=== PATIENT | male | born 1945 | race Caucasian/White ===

== ENCOUNTER 2017-05-08 08:59 | Inpatient (IN) | payer OTHER ==
[~2017-05-08] VITALS: Ht 177.8 cm; Wt 111.2 kg
[2017-05-08] VITALS (53 sets, daily range): BP systolic 76–145; BP diastolic 52–126; PULSE 59–157; TEMP 32.4–36.9; O2SAT 88–100; BMI 35.1
[~2017-05-08 08:59] MED LIST: CIPR-255 PO; OMEG10007 PO
[2017-05-08] MEDS ORDERED: SODIUM CHLORIDE 0.9% 1000ML 1,000 ML IV STA (09:02)
[2017-05-08] MEDS ORDERED: EPINEPHRINE HCL 4 MG in DEXTROSE 5% 250ML IV PRN (09:15)
[2017-05-08] MEDS ORDERED: SODIUM CHLORIDE 0.9% 1000ML 2,000 ML IV STA (09:22)
[2017-05-08] MEDS ORDERED: OPTIRAY 320 IV PRN (09:30)
--- NOTE | 2017-05-08 09:32 | DIAGNOSTIC IMAGING REPORT ---
CHEST ONE VIEW PORTABLE CLINICAL HISTORY: Cardiac arrest. COMPARISON STUDY: Chest CT May 11, 2013. FINDINGS: The tip of the endotracheal tube is 2.3 cm above the alysa. There is moderate enlargement of the cardiac silhouette. There is diffuse interstitial thickening with bilateral airspace opacities within the lungs. No pneumothorax or pleural effusion is identified. There is mild gaseous distention of visualized portions of the stomach. IMPRESSION: 1. Satisfactory positioning of the endotracheal tube. 2. Extensive interstitial thickening with bilateral airspace opacities. The findings favor pulmonary edema. Bilateral pneumonia could appear similar although is considered less likely. Electronically signed by: Tono Rothman M.D. 05/08/2017 9:30 AM Dictated Date/Time: 05/08/2017 9:28 AM
[2017-05-08 09:40] LABS: ISTAT CREATININE 1.3 mg/dl (0.6-1.3); ISTAT IONIZED CALCIUM 1.01 mmol/l (1.12-1.32); ISTAT POTASSIUM 3.2 mEq/L (3.3-5.0)
[2017-05-08 09:49] LABS: INR 1.1 (0.9-1.1); PTT PATIENT 37.8 SECONDS (21.0-31.0)
[2017-05-08 09:54] LABS: ALBUMIN 2.4 gm/dl (3.4-5.0); ALT/SGPT 62 U/L (12-78); AST/SGOT 77 U/L (15-37); BLOOD UREA NITROGEN 14 mg/dl (7-18); CARBON DIOXIDE 13 mmol/L (21-32); CREATININE 1.43 mg/dl (0.60-1.40); GLUCOSE 266 mg/dl (70-99); POTASSIUM 3.2 mmol/L (3.5-5.1); SODIUM 144 mmol/L (136-145)
--- NOTE | 2017-05-08 09:54 | EMERGENCY ROOM VISIT NOTE ---
History Report prepared by Danica: Paula Stokes Under the Supervision of: Dr. Pérez Helms D.O. First contact with patient: 09:01 Stated Complaint: CARDIAC ARREST History of Present Illness The patient is a 72 year old male who presents to the Emergency Room for loss of consciousness. The patients states that the patient was fine this morning when he woke up, noting that he suddenly lost consciousness and was on the floor facing down. His states that she immediately began CPR and called 911. When EMS arrived, the patient was defibrillated 4 times and received Lidocaine, Ativan (1mg), and epinephrine. The patient was intubated prior to arrival and received intermittent CPR on his way to the hospital, noting his pulse would come and go. The patient received CPR when he arrived to the Emergency Department and a pulse was returned. The HPI is limited due to patient being in full cardiac arrest. Source of History: patient History Limited By: cardiac arrest Onset: this morning Position: other (global) Quality: other (loss of consciousness) Review of Systems See HPI for pertinent positives & negatives. A total of 10 systems reviewed and were otherwise negative. Past Medical & Surgical Medical Problems: (1) No known problems (2) Unresponsive Family History Patient reports no known family medical history. Social History Smoking Status: Former Smoker Alcohol Use: none Marital Status: Occupation Status: retired Current/Historical Medications Scheduled Fish Oil ([place]-3), 1 CAP PO DAILY Multivitamin (Multivitamin), 1 TAB PO DAILY Allergies Coded Allergies: No Known Allergies (Verified , 05/08/17) Physical Exam Vital Signs Date Time Temp Pulse Resp B/P (MAP) Pulse Ox O2 Delivery O2 Flow Rate FiO2 05/08/17 10:45 97/76 05/08/17 10:44 159 30 88 Mechanical Ventilator 05/08/17 10:40 101/75 05/08/17 10:39 139 37 92 Mechanical Ventilator 05/08/17 10:35 116/74 05/08/17 10:34 122 36 95 Mechanical Ventilator 05/08/17 10:32 124/78 05/08/17 10:29 125 33 95 Mechanical Ventilator 05/08/17 10:24 145 40 94 Mechanical Ventilator 05/08/17 10:19 143 49 96 Mechanical Ventilator 05/08/17 10:14 155 25 95 Mechanical Ventilator 05/08/17 10:09 153 99 Mechanical Ventilator 05/08/17 10:04 150 23 100 Mechanical Ventilator 05/08/17 10:02 141 05/08/17 10:01 156/116 05/08/17 09:59 127 05/08/17 09:40 115 05/08/17 09:39 112 17 Mechanical Ventilator 05/08/17 09:36 92/58 05/08/17 09:34 91 16 81 Mechanical Ventilator 05/08/17 09:33 115 05/08/17 09:32 92/66 05/08/17 09:29 95 16 78 Mechanical Ventilator 05/08/17 09:26 133/104 05/08/17 09:25 100 05/08/17 09:24 159 0 67 Mechanical Ventilator 05/08/17 09:23 145 05/08/17 09:19 172 8 77 Mechanical Ventilator 05/08/17 09:17 48 05/08/17 09:14 94 15 Mechanical Ventilator 05/08/17 09:13 129 05/08/17 09:12 123 05/08/17 09:12 35.4 126 40 101/56 85 Mechanical Ventilator 05/08/17 09:11 131 05/08/17 09:10 122 05/08/17 09:00 35.4 05/08/17 09:00 35.4 05/08/17 09:00 85 Mechanical Ventilator 05/08/17 09:00 85 Mechanical Ventilator Physical Exam GENERAL: CPR in progress, in full cardiac arrest, intubated. EYES: Pupils are fixed and dilated, but not reactive to light bilaterally. The conjunctivae are clear. EARS, NOSE, MOUTH AND THROAT: Blood in both naris as well as oropharynx and tracheal tube in place. Mucous membranes are moist tongue is midline NECK: JVD bilaterally. RESPIRATORY: Lung sounds diminished with rales in both lung simmons. Respiration present with bagging only. CARDIOVASCULAR: Initially absent, upon return of circulation: irregular and tachycardic heart sounds noted, no define murmurs appreciated. GASTROINTESTINAL: Abdomen is mildly distended. Bowel sounds are present in all quadrants. MUSCULOSKELETAL/EXTREMITIES: There is no evidence of gross deformity full range of motion is noted in the hips and shoulders SKIN: Skin is modeled and capillary refill is significantly diminished. NEUROLOGIC: GCS 3 intubated. Medical Decision & Procedures ER Provider Diagnostic Interpretation: Radiology results as stated below per my review and radiologist interpretation: CHEST ONE VIEW PORTABLE CLINICAL HISTORY: Chronic arrest. Respiratory failure. LINE PLACEMENT COMPARISON STUDY: 05/08/2017 FINDINGS: The heart is enlarged. There is a nasogastric tube with its tip at the level the gastric cardia. There is an endotracheal tube positioned 4.8 cm above the alysa. There is been interval placement of a left subclavian central venous catheter. There is no pneumothorax. There are bilateral pulmonary airspace opacities consistent with pulmonary edema.[ IMPRESSION: 1. Persistent bilateral pulmonary airspace opacities consistent with pulmonary edema 2. Interval placement of a left subclavian central venous catheter. Tip projects over the superior vena cava. There is no pneumothorax. Electronically signed by: Bud Fatima M.D. 05/08/2017 11:17 AM Dictated Date/Time: 05/08/2017 11:[address] SCAN OF THE ABDOMEN AND PELVIS WITH IV CONTRAST CLINICAL HISTORY: Cardiac arrest. COMPARISON STUDY: Abdominal CT dated 11/14/2013. TECHNIQUE: Following the IV administration of 92 cc of Optiray 320, CT scan of the abdomen and pelvis is performed from the lung bases to the proximal femora. Images are reviewed in the axial, sagittal, and coronal planes. IV contrast was administered without complication. A dose lowering technique was utilized adhering to the principles of ALARA. Examination is degraded by motion artifact, as well as by streak artifact from the arms which could not be elevated above the abdomen. FINDINGS: Lung bases: The heart is mildly enlarged and without pericardial effusion. Emphysematous change is identified. Patchy airspace consolidation is seen at both lung bases and there is diffuse groundglass change. There are trace pleural effusions. Liver: Evaluation of the liver is degraded by streak artifact. The contrast-enhanced liver is normal in size, contour, and attenuation. There is no intrahepatic biliary ductal dilatation. The hepatic veins and portal veins are patent. Hepatic periportal edema is noted. Gallbladder: Unremarkable. Spleen: Normal in size and attenuation. Pancreas: Unremarkable. Adrenal glands: Unremarkable. Kidneys: The contrast enhanced kidneys are atrophic and without hydronephrosis. The kidneys enhance symmetrically. A 6.3 cm cyst arises from the upper pole of the left kidney. Additional smaller cysts and too small Cortical hypodensities are present bilaterally. Abdominal vasculature: There is moderate to advanced atherosclerotic calcification of the abdominal aorta. A 3.3 x 3.4 cm infrarenal abdominal aortic aneurysm is identified. Bowel: There is moderate diverticulosis of left colon without CT evidence of acute diverticulitis. No bowel obstruction is seen. There is no pneumatosis intestinalis or portal venous gas. The appendix is well-visualized and normal. Peritoneum: There is no intraperitoneal free air or abdominal ascites. Lymphadenopathy: No adenopathy is identified. A 2.4 x 2.2 cm ovoid water attenuation structure in the left periaortic region image #[id number] is unchanged dating back to 2013 and may represent a small lymphangioma or inclusion cyst. Pelvic viscera: The bladder is decompressed around a Nelson catheter and grossly unremarkable. The prostate and seminal vesicles are normal as imaged. Skeletal structures: The skeletal structures are osteopenic. Arthritic change is noted in the hips and lumbar spine. No lytic or blastic lesions are seen. IMPRESSION: 1. Streak and motion degraded examination. 2. No acute infectious or inflammatory findings are identified in the abdomen or pelvis. 3. Cardiomegaly and emphysema. 4. There is groundglass change present at both lung bases with dense bibasilar consolidation and trace pleural effusions. This could represent pneumonia and/or edema. Clinical correlation will be essential. 5. There is a 3.3 x 3.4 cm infrarenal abdominal aortic aneurysm. 6. Colonic diverticulosis without CT evidence of acute diverticulitis. 7. Additional findings as above. Electronically signed by: Alfonso Daniels M.D. 05/08/2017 10:29 AM Dictated Date/Time: 05/08/2017 10:[address] ANGIOGRAPHY OF THE CHEST, PULMONARY EMBOLUS PROTOCOL CLINICAL HISTORY: Cardiac arrest. COMPARISON STUDY: Chest CT May 11, 2013. TECHNIQUE: Following IV administration of 92 mL of Optiray-320, helical axial images of the chest were obtained utilizing the pulmonary embolus protocol. Maximal intensity projections and sagittal and coronal reformats were viewed on an independent 3D workstation. IV contrast was administered without complication. A dose lowering technique was utilized adhering to the principles of ALARA. FINDINGS: No pulmonary emboli are identified although the segmental and subsegmental pulmonary arteries are suboptimally assessed due to respiratory motion. The heart is moderately enlarged. Thoracic aortic opacification is inadequate to assess for dissection but the caliber of the thoracic aorta is normal. There is no pericardial effusion. Positioning of the endotracheal tube is satisfactory. There is no pneumothorax. There are trace bilateral pleural effusions. There is diffuse interstitial thickening with extensive bilateral airspace opacities. Underlying emphysema is noted. There is suspected trace anterior mediastinal hemorrhage. There are several locules of gas within the anterior chest wall. The abdomen and pelvis will be reported separately. A left renal cyst is noted. There is reflux of contrast into the IVC and hepatic veins. IMPRESSION: 1. No pulmonary emboli identified although segmental and subsegmental pulmonary arteries suboptimally assessed due to respiratory motion. 2. Interstitial thickening consistent with interstitial pulmonary edema. Extensive bilateral airspace opacities favor alveolar pulmonary edema however bilateral pneumonia could appear similar. Bilateral pleural effusions. No pneumothorax. 3. Satisfactory positioning of the endotracheal tube. 4. Moderate to severe emphysema. 5. Moderate cardiomegaly. 6. Suspected trace anterior mediastinal hemorrhage which is indeterminate in etiology but may be related to CPR. Electronically signed by: Tono Rothman M.D. 05/08/2017 10:17 AM Dictated Date/Time: 05/08/2017 9:58 AM CHEST ONE VIEW PORTABLE CLINICAL HISTORY: Cardiac arrest. COMPARISON STUDY: Chest CT May 11, 2013. FINDINGS: The tip of the endotracheal tube is 2.3 cm above the alysa. There is moderate enlargement of the cardiac silhouette. There is diffuse interstitial thickening with bilateral airspace opacities within the lungs. No pneumothorax or pleural effusion is identified. There is mild gaseous distention of visualized portions of the stomach. IMPRESSION: 1. Satisfactory positioning of the endotracheal tube. 2. Extensive interstitial thickening with bilateral airspace opacities. The findings favor pulmonary edema. Bilateral pneumonia could appear similar although is considered less likely. Electronically signed by: Tono Rothman M.D. 05/08/2017 9:30 AM Dictated Date/Time: 05/08/2017 9:[address] HEAD WITHOUT CONTRAST (CT) CLINICAL HISTORY: CT OF HEAD WITHOUT CHANGE IN MENTAL STATUS COMPARISON STUDY: No previous studies for comparison. TECHNIQUE: Axial CT of the brain is performed from the vertex to the skull base. IV contrast was not administered for this examination. A dose lowering technique was utilized adhering to the principles of ALARA. CT DOSE: 2549.81 mGy.cm FINDINGS: No intra or extra-axial mass lesions are visualized. There is no CT evidence of acute cortical infarction. There is no evidence of midline shift. There is no acute hemorrhage. No calvarial fractures are visualized. There are patchy white matter hypodensities likely on a small vessel basis. There is no evidence of pathologic ventricular dilatation. There are bilateral sphenoid sinus air-fluid levels. The concrete handler topogram reveals pulmonary edema. IMPRESSION: 1. Small bilateral sphenoid sinus air-fluid levels 2. The concrete handler topogram reveals pulmonary edema 3. No acute intracranial findings Electronically signed by: Bud Fatima M.D. 05/08/2017 9:58 AM Dictated Date/Time: 05/08/2017 9:56 AM Laboratory Results Test 05/08/17 09:25 05/08/17 09:28 05/08/17 10:07 Macrocytosis PRESENT Lactic Acid Level 14.2 mmol/L (0.4-2.0) Total Bilirubin 1.0 mg/dl (0.2-1) Direct Bilirubin 0.3 mg/dl (0-0.2) Aspartate Amino Transf (AST/SGOT) 77 U/L (15-37) Alanine Aminotransferase (ALT/SGPT) 62 U/L (12-78) Alkaline Phosphatase 108 U/L (45-117) Ammonia 135.6 umol/L (11-32) Total Creatine Kinase 94 U/L (39-308) Total Protein 5.0 gm/dl (6.4-8.2) Albumin 2.4 gm/dl (3.4-5.0) Bedside Hemoglobin 15.0 g/dl (14.0-18.0) Bedside Hematocrit 44 % (42-52) Bedside Sodium 143 mEq/L (135-144) Bedside Potassium 3.2 mEq/L (3.3-5.0) Bedside Chloride 108 mEq/L (101-112) Bedside Total CO2 15 mEq/l (24-31) Bedside Blood Urea Nitrogen 15 mg/dl (7-18) Bedside Creatinine 1.3 mg/dl (0.6-1.3) Bedside Ionized Calcium ([place]) 1.01 mmol/l (1.12-1.32) Carboxyhemoglobin 0.3 % [facility] results per my review. ECG Indication: other (cardiac arrest) Rate (beats per minute): 101 Rhythm: atrial fibrillation Findings: PVC, ST depression (diffused), T-wave inversion Comparison ECG Date: changes new to 05/23/2004 ED Course 0900: The patient was evaluated in room B1. A complete history and physical examination were performed. 0902: Ordered Sodium Chloride 1000ml @ 999mls/hr IV. 0915: Ordered Epinephrine HCL 4mg/ Dextrose 254ml @ 0 mls/hr IV. 0922: Ordered Sodium Chloride 2000ml @ 999 mls/hr IV. 0930: Ordered Ioversol 100ml IV. 1009: Sodium Bicarbonate 50ml IV. 1005: Discussed the patients test findings with his . She states that the patient had been working on fixing a door in the basement for the past 3 days, noting she thinks that the fumes affected him. 1014: I reevaluated the patient, his pupils are now normal size, reactive, and is blinking. 1021: I discussed the patient's case with JUDIT Feliz. The patient will be evaluated for further management. 1025: I discussed the patient's case with JUDIT Lind. The patient will be evaluated for further management. Medical Decision Prior records/ancillary studies reviewed. Triage Nursing notes reviewed. Additional history obtained from EMS staff. Differential diagnosis: Etiologies such as cardiac arrest, atrial fibrillation, pulmonary edema The patient is a 72-year-old male who presented to the emergency Department is a cardiac arrest. We received a medical command phone call about this patient. The patient received defibrillation as well as lidocaine and epinephrine prior to arrival. The patient had a pulse intermittently prior to arrival but on arrival the patient did not have a pulse. The cardiac resuscitation continued while in the emergency department. A pulse was returned and the patient was started on an epinephrine drip. Additional history is obtained from the patient' s significant other. The patient was further resuscitated and the caustic mixer was consulted. I discussed the patient's laboratory and radiographic studies with the caustic mixer as well as with the on-call [facility] hospitalist group. Because the patient had return of spontaneous [facility] The patient was cooled. The patient was transferred to the ICU for further resuscitation. Head Trauma GCS Score: 3 Medication Reconcilliation Current Medication List: was personally reviewed by me Consults Time Called: 1021 Consulting Physician: JUDIT Feliz Returned Call: 1021 I discussed the patient's case with JUDIT Feliz. The patient will be evaluated for further management. Additional Consults: Time Called: 1025 Consulted Physician: Dr. Collado Returned Call: [phone] Additional Comments: I discussed the patient's case with Dr. Collado, [facility] [place]. The patient will be evaluated for further management. Impression Primary Impression: Cardiac arrest Additional Impressions: Acidosis, metabolic, with respiratory acidosis Ventricular fibrillation Atrial fibrillation Abnormal EKG Pulmonary edema cardiac cause Critical Care I have personally spent greater than 60 minutes of critical care time in the direct management of this patient. This includes bedside care, interpretation of diagnostic studies, and testing, discussion with consultants, patient, and family members, and other required patient management activities. This 60 minutes is in excess of all separately billable procedures. Scribe Attestation The scribe's documentation has been prepared under my direction and personally reviewed by me in its entirety. I confirm that the note above accurately reflects all work, treatment, procedures, and medical decision making performed by me. Departure Information Dispostion Being Evaluated By Hospitalist Referrals No Doctor, Assigned (PCP) Forms HOME CARE DOCUMENTATION FORM, IMPORTANT VISIT INFORMATION, WORK / SCHOOL INSTRUCTIONS Problem Qualifiers Additional Impressions: Atrial fibrillation Atrial fibrillation type: unspecified Qualified Codes: I48.91 - Unspecified atrial fibrillation
--- NOTE | 2017-05-08 09:59 | DIAGNOSTIC IMAGING REPORT ---
CT HEAD WITHOUT CONTRAST (CT) CLINICAL HISTORY: CT OF HEAD WITHOUT CHANGE IN MENTAL STATUS COMPARISON STUDY: No previous studies for comparison. TECHNIQUE: Axial CT of the brain is performed from the vertex to the skull base. IV contrast was not administered for this examination. A dose lowering technique was utilized adhering to the principles of ALARA. CT DOSE: 2549.81 mGy.cm FINDINGS: No intra or extra-axial mass lesions are visualized. There is no CT evidence of acute cortical infarction. There is no evidence of midline shift. There is no acute hemorrhage. No calvarial fractures are visualized. There are patchy white matter hypodensities likely on a small vessel basis. There is no evidence of pathologic ventricular dilatation. There are bilateral sphenoid sinus air-fluid levels. The honing machine operator semiautomatic topogram reveals pulmonary edema. IMPRESSION: 1. Small bilateral sphenoid sinus air-fluid levels 2. The honing machine operator semiautomatic topogram reveals pulmonary edema 3. No acute intracranial findings Electronically signed by: Bud Fatima M.D. 05/08/2017 9:58 AM Dictated Date/Time: 05/08/2017 9:56 AM
[2017-05-08 10:00] LABS: HEMOGLOBIN 14.7 g/dL (14.0-18.0); MEAN CELL VOLUME 101.3 fL (80-100); MEAN CORPUSCULAR HEMOGLOBIN 32.4 pg (25-34); MEAN PLATELET VOLUME 10.6 fL (7.4-10.4); PLATELET COUNT 101 K/uL (130-400); RED CELL DISTRIBUTION WIDTH CV 14.8 % (11.5-14.5); RED CELL DISTRIBUTION WIDTH SD 54.7 fL (36.4-46.3); WHITE BLOOD COUNT 7.67 K/uL (4.8-10.8)
[2017-05-08 10:04] LABS: ALKALINE PHOSPHATASE 108 U/L (45-117); CKMB 1.5 ng/ml (0.5-3.6)
[2017-05-08] MEDS ORDERED: MULT-506 PO (10:08)
[2017-05-08] MEDS ORDERED: SODIUM BICARB 8.4% INJ 50 MEQ/50 ML SYR IV STA (10:09)
[2017-05-08 10:11] LABS: BASO % 0.5 %; BASO ABS # 0.04 K/uL (0-0.2); EOS % 2.9 %; EOS ABS # 0.22 K/uL (0-0.5); IG# 0.23 K/uL (0.00-0.02); LYMPH % 41.6 %; LYMPH ABS # 3.19 K/uL (1.2-3.4); MONO % 7.6 %; MONO ABS # 0.58 K/uL (0.11-0.59); NEUT % 44.4 %; NEUT ABS # 3.41 K/uL (1.4-6.5)
--- NOTE | 2017-05-08 10:19 | DIAGNOSTIC IMAGING REPORT ---
CT ANGIOGRAPHY OF THE CHEST, PULMONARY EMBOLUS PROTOCOL CLINICAL HISTORY: Cardiac arrest. COMPARISON STUDY: Chest CT May 11, 2013. TECHNIQUE: Following IV administration of 92 mL of Optiray-320, helical axial images of the chest were obtained utilizing the pulmonary embolus protocol. Maximal intensity projections and sagittal and coronal reformats were viewed on an independent 3D workstation. IV contrast was administered without complication. A dose lowering technique was utilized adhering to the principles of ALARA. FINDINGS: No pulmonary emboli are identified although the segmental and subsegmental pulmonary arteries are suboptimally assessed due to respiratory motion. The heart is moderately enlarged. Thoracic aortic opacification is inadequate to assess for dissection but the caliber of the thoracic aorta is normal. There is no pericardial effusion. Positioning of the endotracheal tube is satisfactory. There is no pneumothorax. There are trace bilateral pleural effusions. There is diffuse interstitial thickening with extensive bilateral airspace opacities. Underlying emphysema is noted. There is suspected trace anterior mediastinal hemorrhage. There are several locules of gas within the anterior chest wall. The abdomen and pelvis will be reported separately. A left renal cyst is noted. There is reflux of contrast into the IVC and hepatic veins. IMPRESSION: 1. No pulmonary emboli identified although segmental and subsegmental pulmonary arteries suboptimally assessed due to respiratory motion. 2. Interstitial thickening consistent with interstitial pulmonary edema. Extensive bilateral airspace opacities favor alveolar pulmonary edema however bilateral pneumonia could appear similar. Bilateral pleural effusions. No pneumothorax. 3. Satisfactory positioning of the endotracheal tube. 4. Moderate to severe emphysema. 5. Moderate cardiomegaly. 6. Suspected trace anterior mediastinal hemorrhage which is indeterminate in etiology but may be related to CPR. Electronically signed by: Tono Rothman M.D. 05/08/2017 10:17 AM Dictated Date/Time: 05/08/2017 9:58 AM
--- NOTE | 2017-05-08 10:30 | DIAGNOSTIC IMAGING REPORT ---
CT SCAN OF THE ABDOMEN AND PELVIS WITH IV CONTRAST CLINICAL HISTORY: Cardiac arrest. COMPARISON STUDY: Abdominal CT dated 11/14/2013. TECHNIQUE: Following the IV administration of 92 cc of Optiray 320, CT scan of the abdomen and pelvis is performed from the lung bases to the proximal femora. Images are reviewed in the axial, sagittal, and coronal planes. IV contrast was administered without complication. A dose lowering technique was utilized adhering to the principles of ALARA. Examination is degraded by motion artifact, as well as by streak artifact from the arms which could not be elevated above the abdomen. FINDINGS: Lung bases: The heart is mildly enlarged and without pericardial effusion. Emphysematous change is identified. Patchy airspace consolidation is seen at both lung bases and there is diffuse groundglass change. There are trace pleural effusions. Liver: Evaluation of the liver is degraded by streak artifact. The contrast-enhanced liver is normal in size, contour, and attenuation. There is no intrahepatic biliary ductal dilatation. The hepatic veins and portal veins are patent. Hepatic periportal edema is noted. Gallbladder: Unremarkable. Spleen: Normal in size and attenuation. Pancreas: Unremarkable. Adrenal glands: Unremarkable. Kidneys: The contrast enhanced kidneys are atrophic and without hydronephrosis. The kidneys enhance symmetrically. A 6.3 cm cyst arises from the upper pole of the left kidney. Additional smaller cysts and too small Cortical hypodensities are present bilaterally. Abdominal vasculature: There is moderate to advanced atherosclerotic calcification of the abdominal aorta. A 3.3 x 3.4 cm infrarenal abdominal aortic aneurysm is identified. Bowel: There is moderate diverticulosis of left colon without CT evidence of acute diverticulitis. No bowel obstruction is seen. There is no pneumatosis intestinalis or portal venous gas. The appendix is well-visualized and normal. Peritoneum: There is no intraperitoneal free air or abdominal ascites. Lymphadenopathy: No adenopathy is identified. A 2.4 x 2.2 cm ovoid water attenuation structure in the left periaortic region image #[id number] is unchanged dating back to 2013 and may represent a small lymphangioma or inclusion cyst. Pelvic viscera: The bladder is decompressed around a Nelson catheter and grossly unremarkable. The prostate and seminal vesicles are normal as imaged. Skeletal structures: The skeletal structures are osteopenic. Arthritic change is noted in the hips and lumbar spine. No lytic or blastic lesions are seen. IMPRESSION: 1. Streak and motion degraded examination. 2. No acute infectious or inflammatory findings are identified in the abdomen or pelvis. 3. Cardiomegaly and emphysema. 4. There is groundglass change present at both lung bases with dense bibasilar consolidation and trace pleural effusions. This could represent pneumonia and/or edema. Clinical correlation will be essential. 5. There is a 3.3 x 3.4 cm infrarenal abdominal aortic aneurysm. 6. Colonic diverticulosis without CT evidence of acute diverticulitis. 7. Additional findings as above. Electronically signed by: Alfonso Daniels M.D. 05/08/2017 10:29 AM Dictated Date/Time: 05/08/2017 10:20 AM
[2017-05-08] MEDS ORDERED: ICU PROTOCOL FOR HYPERGLYCEMIA PRN (10:45)
[2017-05-08] MEDS ORDERED: PROPOFOL IV EMULSION 10 MG/ML 100 ML VIAL IV ONE (10:54)
--- NOTE | 2017-05-08 11:12 | Procedure Note ---
Procedure Note Procedure Date May 08, 2017. Central Line Procedure time out: side/site verified, patient ID confirmed, sterile procedure used Consent obtained: emergent consent implied Time of procedure: 11:00 Performed by: attending Indications: central drug admin. Prep: chlorhexadine prep, sterile drape, sterile procedures used Anesthesia: lidocaine 1% without epi Central line lumen: triple Central line location: subclavian (L) Additional details: percutaneous placement, ultrasound guidance, Selinger technique used, line sutured, good blood return CXR: appropriate position, no pneumothorax Complications: none Patient tolerated procedure: well Post-procedure vital signs: reviewed and stable Comments: May use line
[2017-05-08] MEDS ORDERED: ACETAMINOPHEN 650 MG SUPP PR PRN (11:15)
[2017-05-08] MEDS ORDERED: BusPIRone 15 MG TAB NG PRN (11:15)
[2017-05-08] MEDS ORDERED: HYDROmorphone INJ 1 MG/ML SYR IV PRN (11:15)
[2017-05-08] MEDS ORDERED: MEPERIDINE HCL 25 MG/ML CARP IV PRN (11:15)
--- NOTE | 2017-05-08 11:18 | DIAGNOSTIC IMAGING REPORT ---
CHEST ONE VIEW PORTABLE CLINICAL HISTORY: Chronic arrest. Respiratory failure. LINE PLACEMENT COMPARISON STUDY: 05/08/2017 FINDINGS: The heart is enlarged. There is a nasogastric tube with its tip at the level the gastric cardia. There is an endotracheal tube positioned 4.8 cm above the alysa. There is been interval placement of a left subclavian central venous catheter. There is no pneumothorax. There are bilateral pulmonary airspace opacities consistent with pulmonary edema.[ IMPRESSION: 1. Persistent bilateral pulmonary airspace opacities consistent with pulmonary edema 2. Interval placement of a left subclavian central venous catheter. Tip projects over the superior vena cava. There is no pneumothorax. Electronically signed by: Bud Fatima M.D. 05/08/2017 11:17 AM Dictated Date/Time: 05/08/2017 11:15 AM
[2017-05-08] MEDS ORDERED: SODIUM CHLORIDE 0.9% 1000ML 3,000 ML IV ONE (11:35)
--- NOTE | 2017-05-08 11:41 | Critical Care Consultation ---
Critical Care Consultation Date of Consultation: May 08, 2017. Attending Physician: Reason for Consultation: Cardiac arrest History of Present Illness This is 72 year-old male, previously in good health, was found on he floor by his , unresponsive. She saw him well not too long before, he had no complaints, was not recently sick. He was working in the basement stripping down a door, being exposed to fumes. The started called 911 and started CPR. EMS delivered 4 shocks, administered Lidocaine and epinephrine, Ativan 1 mg and intubated him in the field. In ED he receive more CPR and had ROSC. Currently on an epinephrine drip, in a- fib with RVR. Noticed epistaxis and bleeding from the ET tube, bilateral nasal packings were inserted Remains comatose with some posturing Right SC TLC inserted, OGT inserted as well Social History Smoking Status: Former Smoker Marital Status: Occupation Status: retired Allergies Coded Allergies: No Known Allergies (Verified , 05/08/17) Home Medications Scheduled Fish Oil (Worden-3), 1 CAP PO DAILY Multivitamin (Multivitamin), 1 TAB PO DAILY Current Inpatient Medications Current Inpatient Medications Medications (Trade) Dose Ordered Sig/Te Route Start Time Stop Time Status Last Admin Dose Admin Epinephrine HCl 4 mg/Dextrose 254 ml @ 0 mls/hr Q0M PRN IV 05/08/17 09:15 06/07/17 09:14 Ioversol (Optiray 320) 100 ml UD PRN IV 05/08/17 09:30 05/12/17 09:29 Sodium Chloride 2,000 ml @ 999 mls/hr Q2H1M STAT IV 05/08/17 09:22 05/08/17 11:22 Miscellaneous Information (Icu Protocol For Hyperglycemia) 1 ea PRN PRN N/A 05/08/17 10:45 05/10/17 10:44 UNV Review of Systems Unable to obtain secondary to being comatose Physical Exam Date Time Temp Pulse Resp B/P (MAP) Pulse Ox O2 Delivery O2 Flow Rate FiO2 05/08/17 10:02 141 05/08/17 09:40 115 05/08/17 09:33 115 05/08/17 09:25 100 05/08/17 09:23 145 05/08/17 09:17 48 05/08/17 09:13 129 05/08/17 09:12 123 05/08/17 09:11 131 05/08/17 09:10 122 General: Elderly male, well nourished, well developed, in no distress, unresponsive, intubate HEENT: pupils 2-3 mm, sluggishly reactive to light. Bilateral nasal packing. Lungs: Coarse breath sounds b/l CVS: tachycardic, S1S2 irregularly irregular Abd: soft, non-distended Ext: no edema BREWERY PUMPER: Eyes closed, non-responsive to pain. Although he does not have a cough reflex from deep suction, he coughs forcefully when blood spills in the trachea. Occasional posturing Laboratory Results Last 24 Hours Test 05/08/17 09:02 05/08/17 09:25 05/08/17 09:28 05/08/17 10:07 White Blood Count 7.67 K/uL Red Blood Count 4.54 M/uL Hemoglobin 14.7 g/dL Hematocrit 46.0 % Mean Corpuscular Volume 101.3 fL Mean Corpuscular Hemoglobin 32.4 pg Mean Corpuscular Hemoglobin Concent 32.0 g/dl Platelet Count 101 K/uL Mean Platelet Volume 10.6 fL Neutrophils (%) (Auto) 44.4 % Lymphocytes (%) (Auto) 41.6 % Monocytes (%) (Auto) 7.6 % Eosinophils (%) (Auto) 2.9 % Basophils (%) (Auto) 0.5 % Neutrophils # (Auto) 3.41 K/uL Lymphocytes # (Auto) 3.19 K/uL Monocytes # (Auto) 0.58 K/uL Eosinophils # (Auto) 0.22 K/uL Basophils # (Auto) 0.04 K/uL RDW Standard Deviation 54.7 fL RDW Coefficient of Variation 14.8 % Immature Granulocyte % (Auto) 3.0 % Immature Granulocyte # (Auto) 0.23 K/uL Macrocytosis PRESENT Prothrombin Time 11.9 SECONDS Prothromb Time International Ratio 1.1 Activated Partial Thromboplast Time 37.8 SECONDS Partial Thromboplastin Ratio 1.5 Sodium Level 144 mmol/L Potassium Level 3.2 mmol/L Chloride Level 109 mmol/L Carbon Dioxide Level 13 mmol/L Anion Gap 21.0 mmol/L 24.0 mmol/L Blood Urea Nitrogen 14 mg/dl Creatinine 1.43 mg/dl Estimated GFR () 56.3 Estimated GFR (Non- 48.6 BUN/Creatinine Ratio 10.1 Random Glucose 266 mg/dl Lactic Acid Level 14.2 mmol/L Calcium Level 8.0 mg/dl Total Bilirubin 1.0 mg/dl Direct Bilirubin 0.3 mg/dl Aspartate Amino Transf (AST/SGOT) 77 U/L Alanine Aminotransferase (ALT/SGPT) 62 U/L Alkaline Phosphatase 108 U/L Ammonia 135.6 umol/L Total Creatine Kinase 94 U/L Creatine Kinase MB 1.5 ng/ml Creatine Kinase MB Ratio 1.6 Troponin I 0.069 ng/ml Total Protein 5.0 gm/dl Albumin 2.4 gm/dl Bedside Hemoglobin 15.0 g/dl Bedside Hematocrit 44 % Bedside Sodium 143 mEq/L Bedside Potassium 3.2 mEq/L Bedside Chloride 108 mEq/L Bedside Total CO2 15 mEq/l Bedside Blood Urea Nitrogen 15 mg/dl Bedside Creatinine 1.3 mg/dl Bedside Glucose (other) 257 mg/dl Bedside Ionized Calcium (Emerald) 1.01 mmol/l Carboxyhemoglobin 0.3 % THgb Test 05/08/17 10:08 Bedside Blood Gas pH (LAB) 6.92 Bedside Blood Gas pCO2 (LAB) 70 mmHg Bedside Blood Gas pO2 (LAB) 197 mmHg Bedside Blood Gas HCO3 (LAB) 15 meq/L Bedside Blood Gas Total CO2 17 mEq/l Bedside Blood Gas Base Excess (LAB) -18.0 meq/L Bedside Blood Gas O2 Saturation 99.0 % Diagnostic Results CT brain today: 1. Small bilateral sphenoid sinus air-fluid levels 2. The lamination assembler topogram reveals pulmonary edema 3. No acute intracranial findings CT chest today: 1. No pulmonary emboli identified although segmental and subsegmental pulmonary arteries suboptimally assessed due to respiratory motion. 2. Interstitial thickening consistent with interstitial pulmonary edema. Extensive bilateral airspace opacities favor alveolar pulmonary edema however bilateral pneumonia could appear similar. Bilateral pleural effusions. No pneumothorax. 3. Satisfactory positioning of the endotracheal tube. 4. Moderate to severe emphysema. 5. Moderate cardiomegaly. 6. Suspected trace anterior mediastinal hemorrhage which is indeterminate in etiology but may be related to CPR. CT abdomen/pelvis: 1. Streak and motion degraded examination. 2. No acute infectious or inflammatory findings are identified in the abdomen or pelvis. 3. Cardiomegaly and emphysema. 4. There is groundglass change present at both lung bases with dense bibasilar consolidation and trace pleural effusions. This could represent pneumonia and/or edema. Clinical correlation will be essential. 5. There is a 3.3 x 3.4 cm infrarenal abdominal aortic aneurysm. 6. Colonic diverticulosis without CT evidence of acute diverticulitis. 7. Additional findings as above. Assessment & Plan Problems: Cardiac arrest Respiratory failure Atrial fibrillation Epistaxis Plan: BREWERY PUMPER: Initiate therapeutic hypothermia protocol CT brain reviewed Will require sedation and perhaps neuromuscular blockade Will rewarm after 24 hours CVS: Pressor support, switch to Levophed secondary to tachycardia Check 2DEcho Follow up cardiac enzymes No anticoagulation, secondary to bleeding and hypothermia protocol Pulmonary: Vent support Titrate down FiO2 Elevate head ID: Prophylactic Abx for b/l nasal packing, on Unasyn Blood cultures sent per protocol GI: OGT inserted Keep NPO Protonix for GI bleeding prophylaxis DVT prophylaxis: Start Lovenox if the bleeding slows down Critical care time spent with patient, , reviewing the chart, discussing with ED staff, excluding procedure, greater than 50 minutes Prognosis is guarded, I have a high index of suspicion for anoxic brain injury
[2017-05-08] MEDS ORDERED: PERFLUTREN LIPID MICROSPHERE (DEFINITY) IV ONE (12:28)
[2017-05-08 12:40] LABS: CKMB 21.5 ng/ml (0.5-3.6)
[2017-05-08] MEDS: SODIUM CHLORIDE 0.9% 1000ML 1,000 ML IV SCH ×2 (12:48→23:41)
[2017-05-08] MEDS: AMPICILLIN/SULBACTAM SOD INJ 1,500 MG in SODIUM CHLORIDE 0.9% 100ML 100 ML IV SCH ×3 (12:48→23:42)
[2017-05-08] MEDS: FENTANYL 1250MCG/250ML NSS 250 ML IV PRN (12:52)
[2017-05-08] MEDS: NOREPINEPHRINE BIT INJ 8 MG in DEXTROSE 5% 500ML 500 ML IV PRN ×2 (12:53→21:36)
[2017-05-08 13:12] LABS: HEMOGLOBIN 15.4 g/dL (14.0-18.0); MEAN CELL VOLUME 97.7 fL (80-100); PLATELET COUNT 115 K/uL (130-400); RED CELL DISTRIBUTION WIDTH CV 14.8 % (11.5-14.5); RED CELL DISTRIBUTION WIDTH SD 53.5 fL (36.4-46.3); WHITE BLOOD COUNT 11.98 K/uL (4.8-10.8)
[2017-05-08 13:15] LABS: MEAN CORPUSCULAR HGB CONC 32.8 g/dl (32-36)
[2017-05-08 13:21] LABS: INR 1.1 (0.9-1.1); PTT PATIENT 26.1 SECONDS (21.0-31.0)
[2017-05-08 13:29] LABS: BLOOD UREA NITROGEN 19 mg/dl (7-18); CALCIUM 7.6 mg/dl (8.5-10.1); CARBON DIOXIDE 22 mmol/L (21-32); CREATININE 1.47 mg/dl (0.60-1.40); GLUCOSE 233 mg/dl (70-99); SODIUM 141 mmol/L (136-145)
--- NOTE | 2017-05-08 13:36 | History and Physical ---
History & Physical Date & Time of Service: May 08, 2017 at 13:17 Chief Complaint: Unresponsive Primary Care Physician: No Doctor, Assigned History of Present Illness Source: spouse, hospital records 72 y/o M who was brought to the hospital via EMS after being found unresponsive by his . He had been in his usual state of health this morning upon waking and while she was getting ready to leave for work. went into the adjoining room and found pt down on the floor on his face, unresponsive. She is a home health psych nurse and started doing compressions. She noted he was taking some gasping breaths and his nose was bleeding, but was otherwise not responsive to her. She called 911. EMS found pt unresponsive and pulseless. CPR was continued, as well as shocks given en route. Pt was noted in the ED to have fixed and dilated pupils initially. He was a code blue -> code arctic. ED physician reported that pt did have some sluggish eye movements and pupil dilations after further interventions and possibly slightly responsive. states that pt is very healthy at baseline. He does not take any medications other than omega 3 and a multi-vitamin. He has been working out more recently and had lost weight. states that pt has been working in the basement for 3-4 days stripping paint and "antiquing" a door. She states that their home is old and there is not proper ventilation in the basement. He did note that he had opened some small window gratings yesterday. denies any concerns from pt regarding fever, SOB, chest pain, abd pain, n/v /c/d, LE pain or swelling. Pt is currently intubated and sedated. 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 Smoking Status: Former Smoker Alcohol Use: none Drug Use: none Marital Status: Occupational Status: retired Immunizations History of Tetanus Vaccine?: Unknown History of Pneumococcal: No History of Hepatitis B Vaccine: No Multi-Drug Resistant Organisms History of MDRO: No Allergies Coded Allergies: No Known Allergies (Verified , 05/08/17) Home Medications Scheduled Fish Oil (Mesa-3), 1 CAP PO DAILY Multivitamin (Multivitamin), 1 TAB PO DAILY Review of Systems As above per , limited due to above condition Physical Exam Vital Signs Date Time Temp Pulse Resp B/P (MAP) Pulse Ox O2 Delivery O2 Flow Rate FiO2 05/08/17 12:06 100 05/08/17 11:26 96/87 99 Mechanical Ventilator 05/08/17 11:24 153 37 84 Mechanical Ventilator 05/08/17 11:20 137/90 05/08/17 11:19 147 27 84 Mechanical Ventilator 05/08/17 11:14 176 37 89 Mechanical Ventilator 05/08/17 11:09 144 35 85 Mechanical Ventilator 05/08/17 11:05 125/77 05/08/17 11:04 157 33 84 Mechanical Ventilator 05/08/17 11:00 120/86 05/08/17 10:59 144 32 82 Mechanical Ventilator 05/08/17 10:56 110/88 05/08/17 10:54 139 56 86 Mechanical Ventilator 05/08/17 10:51 120/79 05/08/17 10:49 127 50 89 Mechanical Ventilator 05/08/17 10:45 97/76 05/08/17 10:44 159 30 88 Mechanical Ventilator 05/08/17 10:40 101/75 05/08/17 10:39 139 37 92 Mechanical Ventilator 05/08/17 10:35 116/74 05/08/17 10:34 122 36 95 Mechanical Ventilator 05/08/17 10:32 124/78 05/08/17 10:29 125 33 95 Mechanical Ventilator 05/08/17 10:24 145 40 94 Mechanical Ventilator 05/08/17 10:19 143 49 96 Mechanical Ventilator 05/08/17 10:14 155 25 95 Mechanical Ventilator 05/08/17 10:09 153 99 Mechanical Ventilator 05/08/17 10:04 150 23 100 Mechanical Ventilator 05/08/17 10:02 141 05/08/17 10:01 156/116 05/08/17 09:59 127 05/08/17 09:40 115 05/08/17 09:39 112 17 Mechanical Ventilator 05/08/17 09:36 92/58 05/08/17 09:34 91 16 81 Mechanical Ventilator 05/08/17 09:33 115 05/08/17 09:32 92/66 05/08/17 09:29 95 16 78 Mechanical Ventilator 05/08/17 09:26 133/104 05/08/17 09:25 100 05/08/17 09:24 159 0 67 Mechanical Ventilator 05/08/17 09:23 145 05/08/17 09:19 172 8 77 Mechanical Ventilator 05/08/17 09:17 48 05/08/17 09:14 94 15 Mechanical Ventilator 05/08/17 09:13 129 05/08/17 09:12 123 05/08/17 09:12 35.4 126 40 101/56 85 Mechanical Ventilator 05/08/17 09:11 131 05/08/17 09:10 122 05/08/17 09:00 35.4 05/08/17 09:00 35.4 05/08/17 09:00 85 Mechanical Ventilator 05/08/17 09:00 85 Mechanical Ventilator General Appearance: WD/WN, no apparent distress Head: normocephalic, atraumatic Respiratory/Chest: no respiratory distress, + pertinent finding (coarse breath sounds on vent) Cardiovascular: regular rate, rhythm, no edema Abdomen/GI: non tender, soft Extremities/Musculoskelatal: no calf tenderness, no pedal edema Neurologic/Psych: + pertinent finding (pt is intubated and sedated) Skin: normal color, warm/dry Diagnostics Laboratory Results Results Past 24 Hours Test 05/08/17 09:02 05/08/17 09:25 05/08/17 09:28 05/08/17 10:07 Range/Units White Blood Count 7.67 4.8-10.8 K/uL Red Blood Count 4.54 4.7-6.1 M/uL Hemoglobin 14.7 14.0-18.0 g/dL Hematocrit 46.0 42-52 % Mean Corpuscular Volume 101.3 80-100 fL Mean Corpuscular Hemoglobin 32.4 25-34 pg Mean Corpuscular Hemoglobin Concent 32.0 32-36 g/dl Platelet Count 101 130-400 K/uL Mean Platelet Volume 10.6 7.4-10.4 fL Neutrophils (%) (Auto) 44.4 % Lymphocytes (%) (Auto) 41.6 % Monocytes (%) (Auto) 7.6 % Eosinophils (%) (Auto) 2.9 % Basophils (%) (Auto) 0.5 % Neutrophils # (Auto) 3.41 1.4-6.5 K/uL Lymphocytes # (Auto) 3.19 1.2-3.4 K/uL Monocytes # (Auto) 0.58 0.11-0.59 K/uL Eosinophils # (Auto) 0.22 0-0.5 K/uL Basophils # (Auto) 0.04 0-0.2 K/uL RDW Standard Deviation 54.7 36.4-46.3 fL RDW Coefficient of Variation 14.8 11.5-14.5 % Immature Granulocyte % (Auto) 3.0 % Immature Granulocyte # (Auto) 0.23 0.00-0.02 K/uL Macrocytosis PRESENT Prothrombin Time 11.9 9.0-12.0 SECONDS Prothromb Time International Ratio 1.1 0.9-1.1 Activated Partial Thromboplast Time 37.8 21.0-31.0 SECONDS Partial Thromboplastin Ratio 1.5 Sodium Level 144 136-145 mmol/L Potassium Level 3.2 3.5-5.1 mmol/L Chloride Level 109 98-107 mmol/L Carbon Dioxide Level 13 21-32 mmol/L Anion Gap 21.0 24.0 16-25 mmol/L Blood Urea Nitrogen 14 7-18 mg/dl Creatinine 1.43 0.60-1.40 mg/dl Estimated GFR () 56.3 Estimated GFR (Non- 48.6 BUN/Creatinine Ratio 10.1 10-20 Random Glucose 266 70-99 mg/dl Lactic Acid Level 14.2 0.4-2.0 mmol/L Calcium Level 8.0 8.5-10.1 mg/dl Total Bilirubin 1.0 0.2-1 mg/dl Direct Bilirubin 0.3 0-0.2 mg/dl Aspartate Amino Transf (AST/SGOT) 77 15-37 U/L Alanine Aminotransferase (ALT/SGPT) 62 12-78 U/L Alkaline Phosphatase 108 45-117 U/L Ammonia 135.6 11-32 umol/L Total Creatine Kinase 94 39-308 U/L Creatine Kinase MB 1.5 0.5-3.6 ng/ml Creatine Kinase MB Ratio 1.6 0-3.0 Troponin I 0.069 0-0.045 ng/ml Total Protein 5.0 6.4-8.2 gm/dl Albumin 2.4 3.4-5.0 gm/dl Bedside Hemoglobin 15.0 14.0-18.0 g/dl Bedside Hematocrit 44 42-52 % Bedside Sodium 143 135-144 mEq/L Bedside Potassium 3.2 3.3-5.0 mEq/L Bedside Chloride 108 101-112 mEq/L Bedside Total CO2 15 24-31 mEq/l Bedside Blood Urea Nitrogen 15 7-18 mg/dl Bedside Creatinine 1.3 0.6-1.3 mg/dl Bedside Glucose (other) 257 70-99 mg/dl Bedside Ionized Calcium (Emerald) 1.01 1.12-1.32 mmol/l Carboxyhemoglobin 0.3 % THgb Test 05/08/17 10:08 05/08/17 11:11 05/08/17 11:56 05/08/17 13:04 Range/Units Bedside Blood Gas pH (LAB) 6.92 7.35-7.45 Bedside Blood Gas pCO2 (LAB) 70 35-46 mmHg Bedside Blood Gas pO2 (LAB) 197 80-95 mmHg Bedside Blood Gas HCO3 (LAB) 15 19-24 meq/L Bedside Blood Gas Total CO2 17 24-31 mEq/l Bedside Blood Gas Base Excess (LAB) -18.0 -9-1.8 meq/L Bedside Blood Gas O2 Saturation 99.0 90-95 % Creatine Kinase MB Ratio 0-3.0 Creatine Kinase MB 21.5 0.5-3.6 ng/ml Troponin I 1.320 0-0.045 ng/ml White Blood Count 11.98 4.8-10.8 K/uL Red Blood Count 4.81 4.7-6.1 M/uL Hemoglobin 15.4 14.0-18.0 g/dL Hematocrit 47.0 42-52 % Mean Corpuscular Volume 97.7 80-100 fL Mean Corpuscular Hemoglobin 32.0 25-34 pg Mean Corpuscular Hemoglobin Concent 32.8 32-36 g/dl RDW Standard Deviation 53.5 36.4-46.3 fL RDW Coefficient of Variation 14.8 11.5-14.5 % Platelet Count 115 130-400 K/uL Mean Platelet Volume 10.0 7.4-10.4 fL Microbiology Results 05/08/17 Blood Culture, Received Pending 05/08/17 Blood Culture, Received Pending 05/08/17 MRSA DNA Surveillance Screen, Ordered Pending Diagnostic Radiology CXR with pulm edema, ?? PNA CTA: neg for PE, with pulm edema, ?? PNA CTAP: neg for acute AAA noted, no rupture CT head: neg for acute Impression Assessment and Plan 72 y/o M who was admitted to the ICU on 05/08 after being found unresponsive at home. Pt was a code blue -> code arctic in the ED Unresponsive episode: uncertain etiology Compressions started at home, uncertain efficacy and there is some element of suspected anoxic brain injury Imaging as noted Trop with mild elevation of 0.069 on arrival, could be related to compressions, serials pending ECHO pending [address] head, CTAP all neg for acute CTA neg for PE, noted for pulm edema and ? PNA Lactic acid elevated in the setting of unresponsive episode Ammonia elevated, LFTs otherwise WNL Cr is elevated at 1.4, no recent cr on file UA and blood cx pending WBC WNL Started on pressors, unasyn by artificial flower maker Intubated and sedated L subclavian central line placed 05/08 Met with and explained role of hospitalist while pt is in the ICU Two sons, one coming in from [facility] this afternoon, the other flying in from [place] in the morning. Level of Care Critical Care VTE Prophylaxis VTE Risk Assessment Done? Y/N: Yes Risk Level: Low
[2017-05-08] MEDS: PROPOFOL IV EMULSION 10 MG/ML 100 ML VIAL IV PRN ×2 (14:38→20:27)
[2017-05-08 15:58] LABS: BASO % 0.1 %; BASO ABS # 0.01 K/uL (0-0.2); HEMOGLOBIN 15.4 g/dL (14.0-18.0); IG# 0.05 K/uL (0.00-0.02); LYMPH % 3.9 %; LYMPH ABS # 0.64 K/uL (1.2-3.4); MEAN CELL VOLUME 96.6 fL (80-100); MEAN CORPUSCULAR HEMOGLOBIN 32.4 pg (25-34); MEAN CORPUSCULAR HGB CONC 33.5 g/dl (32-36); MEAN PLATELET VOLUME 10.7 fL (7.4-10.4); MONO % 4.6 %; MONO ABS # 0.75 K/uL (0.11-0.59); NEUT % 91.1 %; NEUT ABS # 14.78 K/uL (1.4-6.5); PLATELET COUNT 111 K/uL (130-400); RED CELL DISTRIBUTION WIDTH CV 14.6 % (11.5-14.5); RED CELL DISTRIBUTION WIDTH SD 51.8 fL (36.4-46.3); WHITE BLOOD COUNT 16.23 K/uL (4.8-10.8)
[2017-05-08 16:05] LABS: INR 1.3 (0.9-1.1); PTT PATIENT 34.9 SECONDS (21.0-31.0)
--- NOTE | 2017-05-08 16:27 | Procedure Note ---
Procedure Note Procedure Date May 08, 2017. Procedure Description Procedure Name: Arterial line Procedure time out: side/site verified, patient ID confirmed, correct procedure Consent obtained: emergent consent implied Time of procedure: 15:00 Performed by: attending Indications: diagnostic Contraindications: none Description: The skin over the right axilla was cleaned with chlorhexidine. Under complete sterile precautions, using ultrasound guidance, the skin over the artery was infiltrated with Lidocaine 1%. A needle was then inserted in the axillary artery with ease. A guide was passed trough the needle and the needle was removed. A 20G arterial line, 12 cm was introduced over the wire and sutured to skin, then the wire was removed. Connected the a-line to the monitor showing good arterial wave-forms. Dressing and biopatch applied. No hematoma observed. Complications: none Patient tolerated procedure: well Post-procedure vital signs: reviewed and stable
[2017-05-08] MEDS ORDERED: PNEUMOCOCCAL ADMINISTRATION CHARGE ONE (16:30)
[2017-05-08] MEDS ORDERED: PNEUMOCOCCAL POLYSACCHARIDES 25 MCG/0.5 ML VIAL/SYR IM. ONE (16:30)
[2017-05-08 16:45] LABS: CREATININE 1.14 mg/dl (0.60-1.40); PHOSPHORUS 3.2 mg/dl (2.5-4.9); POTASSIUM 2.9 mmol/L (3.5-5.1)
[2017-05-08] MEDS ORDERED: PHARMACY GLYCEMIC MGMT CONSULT PRN (17:01)
[2017-05-08] MEDS ORDERED: INSULIN IV INFUSION PROTOCOL STA (17:05)
--- NOTE | 2017-05-08 17:06 | ECHOCARDIOGRAM REPORT ---
*NOTICE TO RECEIVING DEMOCRAT AGENCY This information is strictly Confidential and protected under [place] law. [place] law prohibits you from making any further disclosure of this information unless further disclosure is expressly permitted by the written consent of the person to whom it pertains or is authorized by law. A general authorization for the release of medical or other information is not sufficient for this purpose. Hospital accepts no responsibility if the information is made available to any other person, INCLUDING THE PATIENT. Interpretation Summary * Name: GINI LAWS Study Date: 05/08/2017 12:08 PM BP: 96/87 mmHg * Patient Location: .MSICU\S\E107\S\1 HR: 153 * : 1945 (M/d/y) Gender: Male Height: 70 in * Age: 72 yrs Ethnicity: CA Weight: 244 lb * Ordering Physician: Davide Gibbons * Referring Physician: Self, Referred * Performed By: Samra Hurtado RDCS * * Reason For Study: Cardiac Arrest * BSA: 2.3 m2 * -- Conclusions -- * Left ventricular systolic function is severely reduced. * There is severe global hypokinesis of the left ventricle. * Ejection Fraction = 20-25%. * No significant valvular pathology. Procedure Details * A complete two-dimensional transthoracic echocardiogram was performed (2D, M-mode, Doppler and color flow Doppler). * A contrast injection of Definity was performed to improve assessment of LV function. * Contrast was injected into an intravenous site in the right arm. * One vial of Definity ultrasound contrast was diluted in normal saline to a total volume of 10 ml. A total of '2' ml of solution was administered during imaging. * Lot # [id number] of Definity utilized for procedure. * Expiration date . * The attending nurse who injected the contrast agent was ROSALIND Romero. Left Ventricle * The left ventricle is grossly normal size. * There is normal left ventricular wall thickness. * Ejection Fraction = 20-25%. * Left ventricular systolic function is severely reduced. * There is severe global hypokinesis of the left ventricle. Right Ventricle * The right ventricle is grossly normal size. * Right ventricular function cannot be assessed due to poor image quality. Atria * Borderline left atrial enlargement. * Right atrium not well visualized. * There is no evidence of atrial septal defect, but resolution does not allow assessment for a patent foramen ovale. Mitral Valve * The mitral valve is grossly normal. * There is no mitral valve stenosis. * Significant mitral regurgitation is absent. Tricuspid Valve * The tricuspid valve is not well visualized, but is grossly normal. * Significant tricuspid regurgitation is absent. Aortic Valve * The aortic valve is trileaflet. * The aortic valve opens well. * Aortic valve sclerosis moderate, without significant aortic valvular stenosis. * There is no significant aortic regurgitation. Pulmonic Valve * The pulmonic valve is not well visualized. Great Vessels * The aortic root is normal size. * The pulmonary is not well visualized. Pericardium/Pleural * There is no pericardial effusion. Great Vessels * Dilated inferior vena cava with reduced collapsability with sniff indicates an elevated right atrial pressure of 15 mmHg MMode 2D Measurements and Calculations IVSd 0.95 cm IVSs 1.1 cm LVIDd 5.2 cm LVIDs 4.5 cm LVPWd 0.87 cm LVPWs 1.0 cm IVS/LVPW 1.1 FS 12.6 % EDV(Teich) 128.0 ml ESV(Teich) 93.4 ml EF(Teich) 27.0 % EDV(cubed) 138.5 ml ESV(cubed) 92.4 ml EF(cubed) 33.3 % % IVS thick 20.4 % % LVPW thick 19.9 % LV mass(C)d 170.3 grams LV mass(C)dI 75.0 grams/m\S\2 LV mass(C)s 175.0 grams LV mass(C)sI 77.0 grams/m\S\2 SV(Teich) 34.6 ml SI(Teich) 15.2 ml/m\S\2 SV(cubed) 46.2 ml SI(cubed) 20.3 ml/m\S\2 Ao root diam 3.6 cm Ao root area 10.0 cm\S\2 ACS 1.1 cm LA dimension 4.8 cm LA/Ao 1.4 LVAd ap4 33.9 cm\S\2 LVLd ap4 8.5 cm EDV(MOD-sp4) 118.9 ml EDV(sp4-el) 115.2 ml LVAs ap4 28.6 cm\S\2 LVLs ap4 8.1 cm ESV(MOD-sp4) 87.7 ml ESV(sp4-el) 85.6 ml EF(MOD-sp4) 26.2 % EF(sp4-el) 25.7 % LVAd ap2 29.2 cm\S\2 LVLd ap2 7.2 cm EDV(MOD-sp2) 100.2 ml EDV(sp2-el) 100.6 ml LVAs ap2 26.3 cm\S\2 LVLs ap2 7.0 cm ESV(MOD-sp2) 83.0 ml ESV(sp2-el) 84.0 ml EF(MOD-sp2) 17.2 % EF(sp2-el) 16.5 % LVLd %diff -18.19 % EDV(MOD-bp) 118.1 ml LVLs %diff -16.12 % ESV(MOD-bp) 91.7 ml EF(MOD-bp) 22.3 % SV(MOD-sp4) 31.1 ml SI(MOD-sp4) 13.7 ml/m\S\2 SV(MOD-sp2) 17.2 ml SI(MOD-sp2) 7.6 ml/m\S\2 SV(MOD-bp) 26.4 ml SI(MOD-bp) 11.6 ml/m\S\2 SV(sp4-el) 29.7 ml SI(sp4-el) 13.1 ml/m\S\2 SV(sp2-el) 16.6 ml SI(sp2-el) 7.3 ml/m\S\2 Doppler Measurements and Calculations MV E max owen 49.1 cm/sec MV A max owen 21.9 cm/sec MV E/A 2.2 MV dec time 0.29 sec Ao V2 max 64.8 cm/sec Ao max PG 1.7 mmHg Ao max PG (full) 0.22 mmHg LV V1 max PG 1.5 mmHg LV V1 max 60.4 cm/sec PA V2 max 65.7 cm/sec PA max PG 1.7 mmHg
[2017-05-08] MEDS ORDERED: CISATRACURIUM IV BOLUS & DRIP IV STA (17:07)
[2017-05-08] MEDS ORDERED: SEVERE STRESS LEVEL ONE (17:15)
[2017-05-08] MEDS: ASPIRIN 81 MG CHEW NG SCH (17:27)
[2017-05-08] MEDS ORDERED: INSULIN HUMAN REGULAR IV BOLUS 4 UNIT in SYRINGE 0 ML IV ONE (17:30)
[2017-05-08] MEDS ORDERED: INSULIN REGULAR 250 UNITS in SODIUM CHLORIDE 0.9% 250ML 250 ML IV SCH (17:34)
[2017-05-08] MEDS: POTASSIUM CHLR 20 MEQ / WTR 20 MEQ in PREMIXED WATER 100 ML IV SCH ×3 (17:44→22:11)
[2017-05-08] MEDS: MAGNESIUM SULFATE 1GM / D5W 1 GM in PREMIXED IN D5W 100 ML IV SCH ×2 (17:45→19:44)
[2017-05-08] MEDS: CISATRACURIUM BESYLATE INJ 40 MG in SODIUM CHLORIDE 0.9% 100ML 80 ML IV PRN ×2 (17:46→23:34)
--- NOTE | 2017-05-08 17:51 | EEG Procedure Note ---
EEG Procedure Note Date of Service May 08, 2017. Start / End Times Start Time: 05/08/2017 at 12:22 PM End Time: 05/08/2017 at 17:47PM Referring Physician Davide Gibbons History This is a 72-year-old male who presents with cardiac arrest and code arctic protocol. Continuous EEG to monitor for nonconvulsive status. Home Medication List Scheduled Fish Oil ([place]-3), 1 CAP PO DAILY Multivitamin (Multivitamin), 1 TAB PO DAILY Inpatient Medication List Current Inpatient Medications Medications (Trade) Dose Ordered Sig/Te Route Start Time Stop Time Status Last Admin Dose Admin Ioversol (Optiray 320) 100 ml UD PRN IV 05/08/17 09:30 05/12/17 09:29 Miscellaneous Information (Icu Protocol For Hyperglycemia) 1 ea PRN PRN N/A 05/08/17 10:45 05/10/17 10:44 Norepinephrine Bitartrate 8 mg/ Dextrose 508 ml @ 0 mls/hr Q0M PRN IV 05/08/17 11:15 06/07/17 11:14 05/08/17 12:53 41.3 MLS/HR Propofol (Diprivan Iv Emulsion 100ml Vial) 1 dose UD PRN IV 05/08/17 11:15 05/11/17 11:14 05/08/17 14:38 1 DOSE Artificial Tears (Lacri-Lube Oph Oint) 1 appln Q2H PRN OPB 05/08/17 11:15 06/07/17 11:14 Sodium Chloride 1,000 ml @ 100 mls/hr Q10H IV 05/08/17 12:15 06/07/17 12:14 05/08/17 12:48 100 MLS/HR Pantoprazole Sodium 40 mg/ Syringe 10 ml @ 5 mls/min DAILY@11 IV 05/09/17 11:00 06/08/17 10:59 Fentanyl Citrate 250 ml @ 0 mls/hr Q0M PRN IV 05/08/17 11:11 05/22/17 11:10 05/08/17 12:52 5 MLS/HR Meperidine HCl (Demerol Inj) 25 mg Q2H PRN IV 05/08/17 11:15 05/22/17 11:14 05/08/17 16:10 25 MG Hydromorphone HCl (Dilaudid Inj) 1 mg Q20M PRN IV 05/08/17 11:15 05/22/17 11:14 Acetaminophen (Tylenol Supp) 650 mg ONE PRN [place] 05/08/17 11:15 Ampicillin Sodium/ Sulbactam Sodium 1500 mg/Sodium Chloride 104 ml @ 200 mls/hr Q6H IV 05/08/17 12:00 05/18/17 11:59 05/08/17 12:48 200 MLS/HR Aspirin (Aspirin Chew) 81 mg QD NG 05/08/17 17:00 06/07/17 16:59 Magnesium Sulfate 1 gm/Prmx 100 ml @ 100 mls/hr Q1H IV 05/08/17 17:15 05/08/17 19:14 Potassium Chloride 20 meq/ Prmx 100 ml @ 50 mls/hr Q2H IV 05/08/17 17:30 05/08/17 23:29 Miscellaneous Information (Consult Glycemic Management Pharmacy) 1 ea UD PRN N/A 05/08/17 17:01 06/07/17 17:00 Insulin Human Regular (Insulin IV Infusion Protocol) 1 ea NOW STAT N/A 05/08/17 17:05 05/08/17 17:06 UNV Insulin Aspart (novoLOG ASPART) SLIDING SCALE [facility] 05/08/17 17:15 06/07/17 17:14 UNV Miscellaneous (Insulin Protocol Severe Stress) 1 ea ONE ONCE N/A 05/08/17 17:15 05/08/17 17:16 UNV Cisatracurium Besylate 40 mg/ Sodium Chloride 100 ml @ 0 mls/hr Q0M PRN IV 05/08/17 17:15 06/07/17 17:14 Description This is a 21 electrode continuous video EEG with a single channel dedicated to limited EKG. The electrodes were placed in accordance with the International 10- 20 system. Post processing with an event detection algorithm is applied to the continuous data collection for the purpose of identifying abnormal epochs. These detections are reviewed and all candidate seizures are processed for further analysis. Data is reviewed in its raw format and patient events are processed, edited and stored. At the start of this recording the patient is intubated and unresponsive. Background is diffusely suppressed (<10uV). There is no state changes or sleep transients. Occasional to frequent burst of delta/theta activity with superimposed sharp or sharply contoured waves ant 2-4Hz lasting 1-5 seconds. Patient pushbutton events at 14:48 and 15:16: EEG shows diffuse background suppression. No clinical correlation seen on video. 15:25PM to 17:47PM: Frequent (1 every 10-20sec) generalized spike and slow waves at 5 Hz with fluctuating evolution lasting 10-14 seconds consistent with nonconvulsive seizures. No clinical correlation on video. Interpretation This is an abnormal continuous video EEG secondary to: 1) frequent brief electrographic seizures after 15:25PM 2) diffuse background suppression Clinical Correlation 1) frequent brief seizures after 15:25PM are consistent with nonconvulsive status epilepticus. 2) severe generalized encephalopathy of nonspecific etiology. Medications and cooling protocol can contribute to background encephalopathy. The above results were conveyed to ICU assistant general manager.
[2017-05-08 18:36] LABS: CALCIUM 6.3 mg/dl (8.5-10.1)
[2017-05-08 19:22] LABS: HEMATOCRIT 48.3 % (42-52); HEMOGLOBIN 16.1 g/dL (14.0-18.0); IG# 0.06 K/uL (0.00-0.02); LYMPH % 3.3 %; LYMPH ABS # 0.54 K/uL (1.2-3.4); MEAN CELL VOLUME 96.4 fL (80-100); MEAN CORPUSCULAR HEMOGLOBIN 32.1 pg (25-34); MEAN CORPUSCULAR HGB CONC 33.3 g/dl (32-36); MEAN PLATELET VOLUME 10.5 fL (7.4-10.4); MONO % 4.6 %; MONO ABS # 0.76 K/uL (0.11-0.59); NEUT % 91.7 %; NEUT ABS # 15.07 K/uL (1.4-6.5); PLATELET COUNT 112 K/uL (130-400); RED CELL DISTRIBUTION WIDTH CV 14.7 % (11.5-14.5); RED CELL DISTRIBUTION WIDTH SD 51.8 fL (36.4-46.3); WHITE BLOOD COUNT 16.43 K/uL (4.8-10.8)
[2017-05-08 19:30] LABS: INR 1.1 (0.9-1.1); PTT PATIENT 24.3 SECONDS (21.0-31.0)
[2017-05-08] MEDS: ARTIFICIAL TEARS OP OINT 3.5 GM TUBE OPB PRN ×2 (20:00→22:00)
[2017-05-08] MEDS: INSULIN ASPART 100 UNITS/ML 3 ML PEN SC SCH (20:23)
[2017-05-08 20:39] LABS: CKMB 50.7 ng/ml (0.5-3.6)
[2017-05-08 20:53] LABS: CREATININE 1.49 mg/dl (0.60-1.40); PHOSPHORUS 2.9 mg/dl (2.5-4.9); POTASSIUM 3.7 mmol/L (3.5-5.1)
[2017-05-08] MEDS ORDERED: LEVETIRACETAM IV 1,000 MG in DEXTROSE 5% 100ML 100 ML IV SCH (21:00)
[2017-05-08 21:06] LABS: CALCIUM 8.5 mg/dl (8.5-10.1)
[2017-05-09] VITALS (24 sets, daily range): BP systolic 90–132; BP diastolic 50–88; PULSE 61–153; TEMP 32.3–36.2; O2SAT 95–100
[2017-05-09] MEDS: ARTIFICIAL TEARS OP OINT 3.5 GM TUBE OPB PRN ×3 (00:01→04:00)
[2017-05-09 00:24] LABS: HEMATOCRIT 44.5 % (42-52); MEAN CELL VOLUME 94.9 fL (80-100); MEAN CORPUSCULAR HGB CONC 33.7 g/dl (32-36); RED CELL DISTRIBUTION WIDTH CV 14.5 % (11.5-14.5); RED CELL DISTRIBUTION WIDTH SD 50.5 fL (36.4-46.3); WHITE BLOOD COUNT 14.19 K/uL (4.8-10.8)
[2017-05-09 00:42] LABS: INR 1.1 (0.9-1.1); PTT PATIENT 28.2 SECONDS (21.0-31.0)
[2017-05-09 00:49] LABS: CALCIUM 7.4 mg/dl (8.5-10.1); CREATININE 1.17 mg/dl (0.60-1.40); POTASSIUM 3.9 mmol/L (3.5-5.1)
[2017-05-09 00:59] LABS: BASO % 0.1 %; BASO ABS # 0.01 K/uL (0-0.2); IG# 0.04 K/uL (0.00-0.02); LYMPH % 4.2 %; LYMPH ABS # 0.59 K/uL (1.2-3.4); MEAN PLATELET VOLUME 10.5 fL (7.4-10.4); MONO % 4.5 %; MONO ABS # 0.64 K/uL (0.11-0.59); NEUT % 90.9 %; NEUT ABS # 12.91 K/uL (1.4-6.5); PLATELET COUNT 82 K/uL (130-400)
[2017-05-09 01:05] LABS: PHOSPHORUS 1.4 mg/dl (2.5-4.9)
[2017-05-09] MEDS: PROPOFOL IV EMULSION 10 MG/ML 100 ML VIAL IV PRN ×7 (01:26→22:36)
[2017-05-09] MEDS ORDERED: CALCIUM CHLORIDE 10% 10 ML SYR IV STA (03:54)
[2017-05-09] MEDS ORDERED: POTASSIUM PHOS 3 MMOL/1 ML INFUSION IV STA (03:54)
[2017-05-09] MEDS ORDERED: POTASSIUM PHOSPHATE INJ 24 MMOL in SODIUM CHLORIDE 0.9% 500ML 500 ML IV ONE (04:15)
[2017-05-09] MEDS ORDERED: CALCIUM CHLORIDE 10% 1,000 MG in SODIUM CHLORIDE 0.9% 50ML 50 ML IV STA (04:16)
[2017-05-09 04:45] LABS: HEMATOCRIT 44.7 % (42-52); HEMOGLOBIN 15.3 g/dL (14.0-18.0); MEAN CELL VOLUME 93.7 fL (80-100); MEAN CORPUSCULAR HEMOGLOBIN 32.1 pg (25-34); MEAN CORPUSCULAR HGB CONC 34.2 g/dl (32-36); RED CELL DISTRIBUTION WIDTH CV 14.4 % (11.5-14.5); WHITE BLOOD COUNT 9.03 K/uL (4.8-10.8)
[2017-05-09 05:00] LABS: IG# 0.03 K/uL (0.00-0.02); LYMPH % 7.3 %; LYMPH ABS # 0.66 K/uL (1.2-3.4); MEAN PLATELET VOLUME 10.6 fL (7.4-10.4); MONO % 3.4 %; MONO ABS # 0.31 K/uL (0.11-0.59); NEUT ABS # 8.03 K/uL (1.4-6.5); PLATELET COUNT 63 K/uL (130-400)
[2017-05-09 05:01] LABS: INR 1.1 (0.9-1.1); PTT PATIENT 27.1 SECONDS (21.0-31.0)
[2017-05-09] MEDS ORDERED: LORAZEPAM 2 MG/ML 1 ML VIAL IV ONE (05:15)
[2017-05-09 05:16] LABS: ALBUMIN 2.6 gm/dl (3.4-5.0); CALCIUM 8.6 mg/dl (8.5-10.1); CREATININE 0.94 mg/dl (0.60-1.40); PHOSPHORUS 1.6 mg/dl (2.5-4.9); POTASSIUM 3.5 mmol/L (3.5-5.1); TOTAL PROTEIN 5.3 gm/dl (6.4-8.2)
[2017-05-09] MEDS ORDERED: DEXTROSE 50% 50 ML SYR ONE (05:24)
[2017-05-09] MEDS ORDERED: GLUCOSE 10 TABS/TUBE PO PRN (05:30)
[2017-05-09] MEDS ORDERED: GLUCAGON FOR INJ 1 MG VIAL SQ PRN (05:30)
[2017-05-09] MEDS ORDERED: DEXTROSE 50% 50 ML SYR IV PRN (05:30)
[2017-05-09] MEDS ORDERED: GLUCOSE 40% GEL 15 GM TUBE PO PRN (05:30)
[2017-05-09] MEDS: AMPICILLIN/SULBACTAM SOD INJ 1,500 MG in SODIUM CHLORIDE 0.9% 100ML 100 ML IV SCH ×4 (05:38→22:48)
--- NOTE | 2017-05-09 07:51 | DIAGNOSTIC IMAGING REPORT ---
CHEST ONE VIEW PORTABLE CLINICAL HISTORY: cardiac arrest, respiratory failure dyspnea COMPARISON STUDY: 05/08/2017 FINDINGS: Endotracheal tube 4 cm below the alysa. Nasogastric tube within the stomach. Findings a parenchymal edematous change are mildly improved. Improved aeration of the upper lungs is present. Persistent infiltrative changes in the lung bases is noted. IMPRESSION: 1. Improved aeration of the mid to upper lungs bilaterally. 2. Endotracheal tube 4 cm above the alysa. 3. A central catheter is in the superior vena cava. The above report was generated using voice recognition software. It may contain grammatical, syntax or spelling errors. Electronically signed by: Alfa aMrch M.D. 05/09/2017 7:50 AM Dictated Date/Time: 05/09/2017 7:49 AM
[2017-05-09] MEDS: INSULIN ASPART 100 UNITS/ML 3 ML PEN SC SCH ×3 (08:00→17:15)
[2017-05-09 08:46] LABS: HEMATOCRIT 42.2 % (42-52); HEMOGLOBIN 14.5 g/dL (14.0-18.0); MEAN CELL VOLUME 93.4 fL (80-100); MEAN CORPUSCULAR HEMOGLOBIN 32.1 pg (25-34); MEAN CORPUSCULAR HGB CONC 34.4 g/dl (32-36); RED CELL DISTRIBUTION WIDTH CV 14.2 % (11.5-14.5); RED CELL DISTRIBUTION WIDTH SD 48.7 fL (36.4-46.3); WHITE BLOOD COUNT 11.15 K/uL (4.8-10.8)
[2017-05-09 08:54] LABS: IG# 0.06 K/uL (0.00-0.02); LYMPH % 7.1 %; LYMPH ABS # 0.79 K/uL (1.2-3.4); MEAN PLATELET VOLUME 10.8 fL (7.4-10.4); MONO % 5.2 %; MONO ABS # 0.58 K/uL (0.11-0.59); NEUT % 87.2 %; NEUT ABS # 9.72 K/uL (1.4-6.5); PLATELET COUNT 62 K/uL (130-400)
[2017-05-09 08:55] LABS: INR 1.1 (0.9-1.1); PTT PATIENT 28.4 SECONDS (21.0-31.0)
[2017-05-09 09:20] LABS: CALCIUM 8.1 mg/dl (8.5-10.1); CREATININE 0.85 mg/dl (0.60-1.40); POTASSIUM 3.6 mmol/L (3.5-5.1)
[2017-05-09 09:29] LABS: PHOSPHORUS 3.1 mg/dl (2.5-4.9)
[2017-05-09] MEDS ORDERED: NURSING VERBAL MED ORDER ONE ×5 (09:30→23:45)
[2017-05-09 09:39] LABS: HEMOGLOBIN A1C 5.5 % (4.5-5.6)
[2017-05-09] MEDS: CISATRACURIUM BESYLATE INJ 40 MG in SODIUM CHLORIDE 0.9% 100ML 80 ML IV PRN ×2 (09:43→22:54)
[2017-05-09] MEDS: SODIUM CHLORIDE 0.9% 1000ML 1,000 ML IV SCH ×2 (10:03→22:20)
[2017-05-09] MEDS: LEVETIRACETAM IV 1,500 MG in DEXTROSE 5% 100ML 100 ML IV SCH ×2 (10:03→21:18)
--- NOTE | 2017-05-09 10:12 | EEG Procedure Note ---
EEG Procedure Note Date of Service May 09, 2017. Start / End Times Start Time: 05/08/2017 at 17:47PM End Time: 05/09/2017 at 9:55AM Referring Physician Davide Gibbons History This is a 72-year-old male who presents with cardiac arrest and code arctic protocol. Continuous EEG to monitor for nonconvulsive status. Home Medication List Scheduled Fish Oil ([place]-3), 1 CAP PO DAILY Multivitamin (Multivitamin), 1 TAB PO DAILY Inpatient Medication List Current Inpatient Medications Medications (Trade) Dose Ordered Sig/Te Route Start Time Stop Time Status Last Admin Dose Admin Ioversol (Optiray 320) 100 ml UD PRN IV 05/08/17 09:30 05/12/17 09:29 Norepinephrine Bitartrate 8 mg/ Dextrose 508 ml @ 0 mls/hr Q0M PRN IV 05/08/17 11:15 06/07/17 11:14 05/08/17 21:36 0.07 MLS/HR Propofol (Diprivan Iv Emulsion 100ml Vial) 1 dose UD PRN IV 05/08/17 11:15 05/11/17 11:14 05/09/17 09:42 1 DOSE Artificial Tears (Lacri-Lube Oph Oint) 1 appln Q2H PRN OPB 05/08/17 11:15 06/07/17 11:14 05/08/17 22:00 1 APPLN Sodium Chloride 1,000 ml @ 50 mls/hr Q20H IV 05/08/17 12:15 06/07/17 12:14 05/08/17 23:41 100 MLS/HR Pantoprazole Sodium 40 mg/ Syringe 10 ml @ 5 mls/min DAILY@11 IV 05/09/17 11:00 06/08/17 10:59 Fentanyl Citrate 250 ml @ 0 mls/hr Q0M PRN IV 05/08/17 11:11 05/22/17 11:10 05/08/17 12:52 5 MLS/HR Meperidine HCl (Demerol Inj) 25 mg Q2H PRN IV 05/08/17 11:15 05/22/17 11:14 05/08/17 16:10 25 MG Hydromorphone HCl (Dilaudid Inj) 1 mg Q20M PRN IV 05/08/17 11:15 05/22/17 11:14 Acetaminophen (Tylenol Supp) 650 mg ONE PRN [place] 05/08/17 11:15 Ampicillin Sodium/ Sulbactam Sodium 1500 mg/Sodium Chloride 104 ml @ 200 mls/hr Q6H IV 05/08/17 12:00 05/18/17 11:59 05/09/17 05:38 200 MLS/HR Aspirin (Aspirin Chew) 81 mg QD NG 05/08/17 17:00 06/07/17 16:59 05/08/17 17:27 81 MG Miscellaneous Information (Consult Glycemic Management Pharmacy) 1 ea UD PRN N/A 05/08/17 17:01 06/07/17 17:00 Insulin Aspart (novoLOG ASPART) SLIDING SCALE [facility] 05/08/17 21:00 06/07/17 20:59 Cisatracurium Besylate 40 mg/ Sodium Chloride 100 ml @ 0 mls/hr Q0M PRN IV 05/08/17 17:15 06/07/17 17:14 05/09/17 09:43 11.6 MLS/HR Insulin Human Regular 250 units/ Sodium Chloride 252.5 ml @ 0 mls/hr Q24H IV 05/08/17 17:34 06/07/17 17:33 05/08/17 17:44 4.1 MLS/HR Heparin Sodium (Porcine) (Heparin 10 Unit/ ml 5 ml Flush) 5 ml PRN PRN FLUSH 05/09/17 01:30 06/08/17 01:29 Potassium Phosphate 24 mmol/ Sodium Chloride 508 ml @ 88 mls/hr ONE ONCE IV 05/09/17 04:15 05/09/17 10:01 05/09/17 04:29 88 MLS/HR Glucose (Glucose 40% Gel) 15-30 GRAMS 15 GRAMS... UD PRN PO 05/09/17 05:30 06/08/17 05:29 Glucose (Glucose Chew Tab) 4-8 Tablets 4 Tabl... UD PRN PO 05/09/17 05:30 06/08/17 05:29 Dextrose (Dextrose 50% 50ML Syringe) 25-50ML OF 50% DW IV FOR... UD PRN IV 05/09/17 05:30 06/08/17 05:29 Glucagon (Glucagon Inj) 1 mg UD PRN SQ 05/09/17 05:30 06/08/17 05:29 Levetiracetam 1500 mg/Dextrose 115 ml @ 420 mls/hr Q12 IV 05/09/17 09:00 06/07/17 20:59 Description This is a 21 electrode continuous video EEG with a single channel dedicated to limited EKG. The electrodes were placed in accordance with the International 10- 20 system. Post processing with an event detection algorithm is applied to the continuous data collection for the purpose of identifying abnormal epochs. These detections are reviewed and all candidate seizures are processed for further analysis. Data is reviewed in its raw format and patient events are processed, edited and stored. At the start of this recording the patient is intubated and unresponsive. Background is diffusely suppressed (<10uV). There is no state changes or sleep transients. Frequent (1 every 10-20sec) generalized spike and slow waves at 4-6 Hz with fluctuating evolution lasting 6-20 seconds consistent with nonconvulsive seizures. No clinical correlation on video. After 20:00PM these brief seizures became more abundant (1 every 10sec) After Midnight, Background became more consistent with a burst suppression pattern. Burst consisted of predominantly theta frequencies with superimposed sharp or sharply contoured waves. Interpretation This is an abnormal continuous video EEG secondary to: 1) Frequent to abundant brief electrographic seizures which resolved after midnight. 2) Burst suppression background. 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 2) Severe generalized encephalopathy of nonspecific etiology. Medications and cooling protocol can contribute to background encephalopathy.
--- NOTE | 2017-05-09 10:28 | Pharmacy Progress Note ---
Glycemic Control Intl Consult Date of Service May 09, 2017. Scope Glycemic Pharmacist consulted for glycemic control and to write orders per [facility] inpatient glycemic control protocol Objective Weight (Kilograms): 110.900 Accuchecks BSG (last 24hrs): Test 05/08/17 13:04 05/08/17 15:49 05/08/17 19:06 05/09/17 00:17 Random Glucose 233 mg/dl (70-99) 227 mg/dl (70-99) 227 mg/dl (70-99) 128 mg/dl (70-99) Test 05/09/17 04:36 05/09/17 08:13 Random Glucose 88 mg/dl (70-99) 91 mg/dl (70-99) Laboratory Data (last 24hrs) Test 05/08/17 13:04 05/08/17 15:49 05/08/17 19:06 05/09/17 00:17 Anion Gap 9.0 mmol/L 11.0 mmol/L 10.0 mmol/L 7.0 mmol/L BUN/Creatinine Ratio 13.2 15.9 13.6 15.0 Blood Urea Nitrogen 19 mg/dl 18 mg/dl 20 mg/dl 18 mg/dl Creatinine 1.47 mg/dl 1.14 mg/dl 1.49 mg/dl 1.17 mg/dl Potassium Level 4.0 mmol/L 2.9 mmol/L 3.7 mmol/L 3.9 mmol/L Sodium Level 141 mmol/L 143 mmol/L 140 mmol/L 142 mmol/L White Blood Count 11.98 K/uL 16.23 K/uL 16.43 K/uL 14.19 K/uL Red Blood Count 4.76 M/uL 5.01 M/uL 4.69 M/uL Hemoglobin 15.4 g/dL 16.1 g/dL 15.0 g/dL Hematocrit 46.0 % 48.3 % 44.5 % Mean Corpuscular Volume 96.6 fL 96.4 fL 94.9 fL Mean Corpuscular Hemoglobin 32.4 pg 32.1 pg 32.0 pg Mean Corpuscular Hemoglobin Concent 33.5 g/dl 33.3 g/dl 33.7 g/dl Platelet Count 111 K/uL 112 K/uL 82 K/uL Mean Platelet Volume 10.7 fL 10.5 fL 10.5 fL Neutrophils (%) (Auto) 91.1 % 91.7 % 90.9 % Lymphocytes (%) (Auto) 3.9 % 3.3 % 4.2 % Monocytes (%) (Auto) 4.6 % 4.6 % 4.5 % Eosinophils (%) (Auto) 0.0 % 0.0 % 0.0 % Basophils (%) (Auto) 0.1 % 0.0 % 0.1 % Neutrophils # (Auto) 14.78 K/uL 15.07 K/uL 12.91 K/uL Lymphocytes # (Auto) 0.64 K/uL 0.54 K/uL 0.59 K/uL Monocytes # (Auto) 0.75 K/uL 0.76 K/uL 0.64 K/uL Eosinophils # (Auto) 0.00 K/uL 0.00 K/uL 0.00 K/uL Basophils # (Auto) 0.01 K/uL 0.00 K/uL 0.01 K/uL Test 05/09/17 04:36 05/09/17 08:13 05/09/17 09:01 Anion Gap 4.0 mmol/L 8.0 mmol/L BUN/Creatinine Ratio 18.8 20.0 Blood Urea Nitrogen 18 mg/dl 17 mg/dl Creatinine 0.94 mg/dl 0.85 mg/dl Potassium Level 3.5 mmol/L 3.6 mmol/L Sodium Level 143 mmol/L 145 mmol/L White Blood Count 9.03 K/uL 11.15 K/uL Red Blood Count 4.77 M/uL 4.52 M/uL Hemoglobin 15.3 g/dL 14.5 g/dL Hematocrit 44.7 % 42.2 % Mean Corpuscular Volume 93.7 fL 93.4 fL Mean Corpuscular Hemoglobin 32.1 pg 32.1 pg Mean Corpuscular Hemoglobin Concent 34.2 g/dl 34.4 g/dl Platelet Count 63 K/uL 62 K/uL Mean Platelet Volume 10.6 fL 10.8 fL Neutrophils (%) (Auto) 89.0 % 87.2 % Lymphocytes (%) (Auto) 7.3 % 7.1 % Monocytes (%) (Auto) 3.4 % 5.2 % Eosinophils (%) (Auto) 0.0 % 0.0 % Basophils (%) (Auto) 0.0 % 0.0 % Neutrophils # (Auto) 8.03 K/uL 9.72 K/uL Lymphocytes # (Auto) 0.66 K/uL 0.79 K/uL Monocytes # (Auto) 0.31 K/uL 0.58 K/uL Eosinophils # (Auto) 0.00 K/uL 0.00 K/uL Basophils # (Auto) 0.00 K/uL 0.00 K/uL Hemoglobin A1c 5.5 % HbA1c Test 05/09/17 09:01 Hemoglobin A1c 5.5 % (4.5-5.6) Recent Pertinent Medications Outpatient Anti-diabetic Regimen: * N/A - not a diabetic The patient is currently receiving: * IV insulin infusion per protocol * Goal Range = 110-190 mg/dl Risk Factors for Insulin Resistance: * Stress * Pressors * Mechanical Ventilation * Infection Assessment & Plan ASSESSMENT: * 72yo male without history of diabetes. A1c is normal * Pt with hyperglycemia on admission secondary to stress, infection, cardiac arrest, & pressors * Pt initiated on IV insulin infusion per protocol * BSGs have been in range over the past 24hrs with IV insulin infusion. No changes needed at this time. * Will transition to SQ basal bolus (if needed) once patient extubated and stabilized. PLAN FOR INPATIENT GLYCEMIC CONTROL: * Continue IV insulin infusion per protocol * Goal Range 110 - 190 mg/dl * In the critical care setting, continuous IV insulin infusion has been shown to be the best method for achieving glycemic targets. * Will consider transitioning to SQ basal bolus when indicated based on patient status and BSG trends * Please note that the plan above was derived based on current level of insulin resistance and hospital stress. These recommendations are appropriate for inpatient admission only. Plan of care upon discharge will need to be reassessed to avoid potential outpatient hypo/hyperglycemia. Thank you.
[2017-05-09] MEDS: PANTOprazole INJ 40 MG in SYRINGE 0 ML IV SCH (10:41)
[2017-05-09 12:20] LABS: HEMATOCRIT 38.2 % (42-52); HEMOGLOBIN 12.9 g/dL (14.0-18.0); MEAN CELL VOLUME 94.1 fL (80-100); MEAN CORPUSCULAR HEMOGLOBIN 31.8 pg (25-34); MEAN CORPUSCULAR HGB CONC 33.8 g/dl (32-36); RED CELL DISTRIBUTION WIDTH CV 14.6 % (11.5-14.5); RED CELL DISTRIBUTION WIDTH SD 49.6 fL (36.4-46.3); WHITE BLOOD COUNT 11.82 K/uL (4.8-10.8)
[2017-05-09 12:36] LABS: INR 1.1 (0.9-1.1); PTT PATIENT 27.8 SECONDS (21.0-31.0)
[2017-05-09 12:42] LABS: EOS % 0.1 %; EOS ABS # 0.01 K/uL (0-0.5); IG# 0.05 K/uL (0.00-0.02); LYMPH % 5.9 %; MEAN PLATELET VOLUME 10.7 fL (7.4-10.4); MONO % 5.6 %; MONO ABS # 0.66 K/uL (0.11-0.59); PLATELET COUNT 64 K/uL (130-400)
[2017-05-09 12:48] LABS: CREATININE 0.85 mg/dl (0.60-1.40); POTASSIUM 3.8 mmol/L (3.5-5.1)
[2017-05-09 13:03] LABS: CKMB 47.9 ng/ml (0.5-3.6); PHOSPHORUS 4.4 mg/dl (2.5-4.9)
--- NOTE | 2017-05-09 14:13 | CARDIOLOGY CONSULTATION ---
DATE OF CONSULTATION: 05/09/2017 DATE OF CONSULTATION: 05/09/2017 PERTINENT HISTORY: Mr. Portillo is a 72-year-old white male admitted yesterday after a cardiac arrest. This consultation was ordered to assist in his management. The patient was in his usual state of health yesterday morning according to his . He was in the basement staining an antique door. Many fumes were present at that time. In any event, the patient was found face down by his and was unresponsive. She called 911 and began CPR immediately. On arrival here, the patient was unresponsive, hypotensive, and noted to be in atrial fibrillation. Pressors had been required to support his blood pressure. The patient has been evaluated by neurology. 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 The patient's and son are at the bedside. PAST MEDICAL HISTORY: History of left foot surgery. HOME MEDICATIONS: 1. Fish oil. 2. Multivitamin 1 tablet daily. CURRENT MEDICATIONS: 1. Levetiracetam drip. 2. Norepinephrine drip. 3. Aspirin 81 mg daily. 4. Protonix drip. ALLERGIES: None. SOCIAL HISTORY: The patient is and lives with his in [place]. 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 Does not use tobacco or alcohol. FAMILY HISTORY: No early coronary artery disease. REVIEW OF SYSTEMS: Ten point review of systems is negative according to the . PHYSICAL EXAMINATION: GENERAL: This is a well-developed, well-nourished white male, sedated and intubated in the intensive care unit. HEAD, EYES, EARS, NOSE, AND THROAT EXAMINATION: Notes an ET tube and also nasal tubes. NECK: Supple with full carotid upstrokes. Cannot evaluate for carotid bruits or jugular venous pressure. CARDIOVASCULAR EXAMINATION: Reveals a regular rhythm with a controlled ventricular response. There are no obvious murmurs. LUNGS: No coarse breath sounds throughout. ABDOMEN: Soft. EXTREMITIES: Reveal no peripheral edema. LABORATORY DATA: CBC notes hemoglobin 12.9, hematocrit 38.2, white count 11.8, platelet count 64,000. Electrolytes note a sodium of 145, potassium 3.8, chloride 113, bicarb 23, BUN 17, creatinine 0.85, glucose 101. Initial troponin was mildly elevated at 0.069 with followup values of 1.32, 2.96, 3.91 and 3.25. Initial CK was 94 with an MB fraction 1.5. Follow-up value was 844 with an MB fraction of 47.9. INR is normal at 1.1. AST is elevated at 124 with an ALT elevated at 96. Ammonia level is now normal at 28. TSH is undetectable at less than 0.005. Blood gas this morning his pH is 7.35, CO2 40, O2 of 75, bicarb 23, saturation is 96%. Echocardiogram performed yesterday notes left ventricular dysfunction with an ejection fraction of 20-25%. No obvious valvular pathology. IMPRESSION: Unfortunately, Mr. Portillo suffered a cardiac arrest yesterday. The etiology is not clearly apparent at this time. His minor troponin elevation does not point to an acute coronary event. Suspect this is related to CPR. His significant left ventricular dysfunction likely secondary to the event. His atrial fibrillation is adequately controlled at this time. PLAN: 1. Agree with current medical management. 2. Could consider amiodarone if ventricular response becomes rapid. 3. Further recommendations depending on his clinical course.
[2017-05-09] MEDS ORDERED: AMIODARONE 360MG / 200ML D5W ONE (14:25)
[2017-05-09] MEDS ORDERED: AMIODARONE 150MG / 100ML D5W ONE (14:25)
--- NOTE | 2017-05-09 14:33 | Progress Note ---
Subjective Date of Service: May 09, 2017. Subjective Pt evaluation today including: conversation w/ family (son), physical exam, lab review, review of studies, conversation w/ consultant [employer] vice president [employer] (ex ), review of inpatient medication list Pain: sedated PO Intake: OG tube Voiding: toussaint catheter in place patient sedated in the ICU, cooling protocol underway with continuous EEG monitoring discussed case with Dr. Gibbons Problem List Medical Problems: (1) Acidosis, metabolic, with respiratory acidosis Status: Acute Review of Systems cannot review, sedated and intubated Medications Current Inpatient Medications Medications (Trade) Dose Ordered Sig/Te Route Start Time Stop Time Status Last Admin Dose Admin Ioversol (Optiray 320) 100 ml UD PRN IV 05/08/17 09:30 05/12/17 09:29 Norepinephrine Bitartrate 8 mg/ Dextrose 508 ml @ 0 mls/hr Q0M PRN IV 05/08/17 11:15 06/07/17 11:14 05/08/17 21:36 0.07 MLS/HR Propofol (Diprivan Iv Emulsion 100ml Vial) 1 dose UD PRN IV 05/08/17 11:15 05/11/17 11:14 05/09/17 12:29 1 DOSE Artificial Tears (Lacri-Lube Oph Oint) 1 appln Q2H PRN OPB 05/08/17 11:15 06/07/17 11:14 05/08/17 22:00 1 APPLN Sodium Chloride 1,000 ml @ 50 mls/hr Q20H IV 05/08/17 12:15 06/07/17 12:14 05/09/17 10:03 50 MLS/HR Pantoprazole Sodium 40 mg/ Syringe 10 ml @ 5 mls/min DAILY@11 IV 05/09/17 11:00 06/08/17 10:59 05/09/17 10:41 5 MLS/MIN Fentanyl Citrate 250 ml @ 0 mls/hr Q0M PRN IV 05/08/17 11:11 05/22/17 11:10 05/08/17 12:52 5 MLS/HR Meperidine HCl (Demerol Inj) 25 mg Q2H PRN IV 05/08/17 11:15 05/22/17 11:14 05/08/17 16:10 25 MG Hydromorphone HCl (Dilaudid Inj) 1 mg Q20M PRN IV 05/08/17 11:15 05/22/17 11:14 Acetaminophen (Tylenol Supp) 650 mg ONE PRN AK 05/08/17 11:15 Ampicillin Sodium/ Sulbactam Sodium 1500 mg/Sodium Chloride 104 ml @ 200 mls/hr Q6H IV 05/08/17 12:00 05/18/17 11:59 05/09/17 12:27 200 MLS/HR Aspirin (Aspirin Chew) 81 mg QD NG 05/08/17 17:00 06/07/17 16:59 05/08/17 17:27 81 MG Miscellaneous Information (Consult Glycemic Management Pharmacy) 1 ea UD PRN N/A 05/08/17 17:01 06/07/17 17:00 Insulin Aspart (novoLOG ASPART) [facility] 05/08/17 21:00 06/07/17 20:59 Cisatracurium Besylate 40 mg/ Sodium Chloride 100 ml @ 0 mls/hr Q0M PRN IV 05/08/17 17:15 06/07/17 17:14 05/09/17 09:43 11.6 MLS/HR Insulin Human Regular 250 units/ Sodium Chloride 252.5 ml @ 0 mls/hr Q24H IV 05/08/17 17:34 06/07/17 17:33 05/08/17 17:44 4.1 MLS/HR Heparin Sodium (Porcine) (Heparin 10 Unit/ ml 5 ml Flush) 5 ml PRN PRN FLUSH 05/09/17 01:30 06/08/17 01:29 Glucose (Glucose 40% Gel) 15-30 GRAMS 15 GRAMS... UD PRN PO 05/09/17 05:30 06/08/17 05:29 Glucose (Glucose Chew Tab) 4-8 Tablets 4 Tabl... UD PRN PO 05/09/17 05:30 06/08/17 05:29 Dextrose (Dextrose 50% 50ML Syringe) 25-50ML OF 50% DW IV FOR... UD PRN IV 05/09/17 05:30 06/08/17 05:29 Glucagon (Glucagon Inj) 1 mg UD PRN SQ 05/09/17 05:30 06/08/17 05:29 Levetiracetam 1500 mg/Dextrose 115 ml @ 420 mls/hr Q12 IV 05/09/17 09:00 06/07/17 20:59 05/09/17 10:03 420 MLS/HR Objective Vital Signs Date Time Temp Pulse Resp B/P (MAP) Pulse Ox O2 Delivery O2 Flow Rate FiO2 05/09/17 14:03 35.4 153 20 119/75 (90) 96 Mechanical Ventilator 128/70 (89) 05/09/17 13:07 34.8 115 20 129/70 (89) 97 Mechanical Ventilator 132/69 (90) 05/09/17 12:02 34.4 94 20 98/72 (81) 96 Mechanical Ventilator 105/68 (80) 05/09/17 12:02 Mechanical Ventilator 30 05/09/17 12:02 30 05/09/17 11:00 30 05/09/17 11:00 33.4 87 20 105/52 (69) 95 Mechanical Ventilator 93/50 (64) 05/09/17 10:06 33.7 78 20 95/65 (75) 98 Mechanical Ventilator 100/59 (73) 05/09/17 09:08 33.4 77 20 90/61 (71) 97 Mechanical Ventilator 98/60 (73) 05/09/17 08:21 33.0 66 20 99/63 (75) 98 Mechanical Ventilator 108/64 (79) 05/09/17 08:00 30 05/09/17 08:00 Mechanical Ventilator 30 05/09/17 07:45 30 05/09/17 07:00 32.3 61 20 100/69 (79) 98 Mechanical Ventilator 109/63 (78) 05/09/17 06:00 32.3 62 20 95/63 (74) 98 Mechanical Ventilator 113/65 (81) 05/09/17 05:18 30 05/09/17 05:00 33.1 63 20 112/67 (82) 98 Mechanical Ventilator 30 118/64 (82) 05/09/17 04:00 30 05/09/17 04:00 33.3 64 28 129/84 (99) 98 Mechanical Ventilator 116/61 (79) 05/09/17 04:00 100 Mechanical Ventilator 30 05/09/17 03:03 30 05/09/17 03:00 33.8 68 28 118/72 (87) 98 Mechanical Ventilator 127/72 (90) 05/09/17 02:00 34.3 71 28 117/72 (87) 97 Mechanical Ventilator 119/65 (83) 05/09/17 01:00 33.9 72 28 108/66 (80) 96 Mechanical Ventilator 105/59 (74) 05/09/17 00:01 100 Mechanical Ventilator 40 05/09/17 00:01 30 05/09/17 00:01 33.3 67 28 105/61 (76) 97 Mechanical Ventilator 96/60 (72) 05/08/17 23:42 30 05/08/17 23:00 32.5 64 28 111/72 (85) 99 Mechanical Ventilator 107/63 (78) 05/08/17 22:30 32.4 67 30 109/68 (73) 99 105/63 05/08/17 22:25 40 05/08/17 22:15 32.4 61 28 106/72 (95) 99 109/61 05/08/17 22:00 32.5 63 28 112/74 (87) 98 Mechanical Ventilator 107/60 (76) 05/08/17 22:00 32.5 61 28 110/79 (91) 98 107/62 05/08/17 21:45 32.7 60 28 112/74 (88) 99 111/63 05/08/17 21:30 32.9 59 28 115/72 (83) 99 109/61 05/08/17 21:15 33.1 63 28 115/71 (93) 98 111/61 05/08/17 21:00 33.2 75 28 119/87 (98) 98 Mechanical Ventilator 119/61 (80) 05/08/17 21:00 33.2 75 28 125/74 (80) 98 129/65 (84) 05/08/17 20:50 33.3 66 28 119/87 (108) 98 123/66 (91) 05/08/17 20:45 33.3 79 28 118/78 (95) 98 132/73 (91) 05/08/17 20:30 33.3 77 28 115/84 (90) 98 137/76 (95) 05/08/17 20:15 40 05/08/17 20:15 33.4 69 28 134/82 (107) 100 144/75 (103) 05/08/17 20:00 100 Mechanical Ventilator 40 05/08/17 20:00 33.3 68 18 140/91 (122) 100 145/78 (103) 05/08/17 20:00 40 05/08/17 20:00 33.3 75 28 140/91 (107) 100 Mechanical Ventilator 40 145/79 (101) 05/08/17 19:52 33.3 69 28 140/82 (93) 100 139/75 (94) 05/08/17 19:45 33.3 75 28 (97) 100 136/73 (96) 05/08/17 19:30 33.3 70 28 (85) 100 121/63 05/08/17 19:15 33.3 75 28 (83) 99 117/62 05/08/17 19:00 33.4 79 28 117/78 (91) 99 124/67 05/08/17 19:00 33.3 79 28 117/78 (91) 99 Mechanical Ventilator 50 117/65 (82) 05/08/17 18:00 33.3 59 28 120/71 (88) 98 115/56 05/08/17 17:45 33.3 70 28 (81) 99 115/63 05/08/17 17:30 33.3 70 28 (80) 99 118/61 05/08/17 17:25 50 05/08/17 17:15 33.3 76 28 (83) 100 122/63 05/08/17 17:01 33.4 77 28 126/72 (104) 100 121/64 05/08/17 16:01 34.1 87 28 114/77 (92) 100 109/61 05/08/17 16:00 50 05/08/17 16:00 Mechanical Ventilator 50 05/08/17 16:00 34.2 88 28 (75) 88 108/58 05/08/17 15:30 34.5 83 28 (79) 100 114/61 05/08/17 15:21 34.6 81 28 118/75 (107) 100 116/65 05/08/17 15:15 34.7 89 28 (78) 98 111/55 05/08/17 15:00 34.7 99 28 101/65 (77) 100 Mechanical Ventilator 100 05/08/17 14:45 35.1 87 28 101/65 (72) 97 05/08/17 14:29 35.2 87 28 100 Physical Exam General Appearance: WD/WN, no apparent distress Neck: supple, no adenopathy, no JVD, trachea midline Respiratory/Chest: chest non-tender, lungs clear, normal breath sounds, no respiratory distress, no accessory muscle use Cardiovascular: no edema, no gallop, no JVD, no murmur, + irregularly irregular Abdomen: normal bowel sounds, non tender, soft, no organomegaly Neurologic/Psychiatric: + pertinent finding (sedated, cough reflex intact, occasional posturing) Skin: normal color, warm/dry, no rash Laboratory Results Last 24 Hours Test 05/08/17 15:49 05/08/17 15:50 05/08/17 19:05 05/08/17 19:06 White Blood Count 16.23 K/uL 16.43 K/uL Red Blood Count 4.76 M/uL 5.01 M/uL Hemoglobin 15.4 g/dL 16.1 g/dL Hematocrit 46.0 % 48.3 % Mean Corpuscular Volume 96.6 fL 96.4 fL Mean Corpuscular Hemoglobin 32.4 pg 32.1 pg Mean Corpuscular Hemoglobin Concent 33.5 g/dl 33.3 g/dl Platelet Count 111 K/uL 112 K/uL Mean Platelet Volume 10.7 fL 10.5 fL Neutrophils (%) (Auto) 91.1 % 91.7 % Lymphocytes (%) (Auto) 3.9 % 3.3 % Monocytes (%) (Auto) 4.6 % 4.6 % Eosinophils (%) (Auto) 0.0 % 0.0 % Basophils (%) (Auto) 0.1 % 0.0 % Neutrophils # (Auto) 14.78 K/uL 15.07 K/uL Lymphocytes # (Auto) 0.64 K/uL 0.54 K/uL Monocytes # (Auto) 0.75 K/uL 0.76 K/uL Eosinophils # (Auto) 0.00 K/uL 0.00 K/uL Basophils # (Auto) 0.01 K/uL 0.00 K/uL RDW Standard Deviation 51.8 fL 51.8 fL RDW Coefficient of Variation 14.6 % 14.7 % Immature Granulocyte % (Auto) 0.3 % 0.4 % Immature Granulocyte # (Auto) 0.05 K/uL 0.06 K/uL Prothrombin Time 14.0 SECONDS 11.3 SECONDS Prothromb Time International Ratio 1.3 1.1 Activated Partial Thromboplast Time 34.9 SECONDS 24.3 SECONDS Partial Thromboplastin Ratio 1.3 0.9 Sodium Level 143 mmol/L 140 mmol/L Potassium Level 2.9 mmol/L 3.7 mmol/L Chloride Level 115 mmol/L 111 mmol/L Carbon Dioxide Level 17 mmol/L 19 mmol/L Anion Gap 11.0 mmol/L 10.0 mmol/L Blood Urea Nitrogen 18 mg/dl 20 mg/dl Creatinine 1.14 mg/dl 1.49 mg/dl Est Creatinine Clear Calc Drug Dose 73.0 ml/min 55.9 ml/min Estimated GFR () 74.1 53.6 Estimated GFR (Non- 63.9 46.2 BUN/Creatinine Ratio 15.9 13.6 Random Glucose 227 mg/dl 227 mg/dl Calcium Level 6.3 mg/dl 8.5 mg/dl Phosphorus Level 3.2 mg/dl 2.9 mg/dl Magnesium Level 1.6 mg/dl 2.6 mg/dl Hepatitis C Antibody Screen NEG Blood Gas Sample Site Art Line Bedside Blood Gas pH (LAB) 7.20 Bedside Blood Gas pCO2 (LAB) 43 mmHg Bedside Blood Gas pO2 (LAB) 219 mmHg Bedside Blood Gas HCO3 (LAB) 17 meq/L Bedside Blood Gas Total CO2 19 mEq/l Bedside Blood Gas Base Excess (LAB) -11.0 meq/L Bedside Blood Gas O2 Saturation 100.0 % Tani Test NA Oxygen Delivery Device Ventilator Bedside Oxygen Rate (breaths/min) 28 Blood Gas Minute Ventilation 13.3 Bedside FiO2 70 % Blood Gas Tidal Volume 500 Blood Gas PEEP 8 Creatine Kinase MB 50.7 ng/ml Creatine Kinase MB Ratio Troponin I 2.960 ng/ml Test 05/08/17 20:10 05/08/17 20:18 05/08/17 21:10 05/08/17 22:10 Blood Gas Sample Site Art Line Bedside Blood Gas pH (LAB) 7.24 Bedside Blood Gas pCO2 (LAB) 37 mmHg Bedside Blood Gas pO2 (LAB) 121 mmHg Bedside Blood Gas HCO3 (LAB) 17 meq/L Bedside Blood Gas Total CO2 18 mEq/l Bedside Blood Gas Base Excess (LAB) -11.0 meq/L Bedside Blood Gas O2 Saturation 99.0 % Tani Test NA Oxygen Delivery Device Ventilator Bedside Oxygen Rate (breaths/min) 28 Blood Gas Minute Ventilation 13.3 Bedside FiO2 40 % Blood Gas Tidal Volume 500 Blood Gas PEEP 8 Bedside Glucose (other) 212 mg/dl 181 mg/dl 183 mg/dl Test 05/08/17 23:06 05/08/17 23:34 05/09/17 00:17 05/09/17 01:06 Bedside Glucose (other) 163 mg/dl 115 mg/dl Blood Gas Sample Site Art Line Bedside Blood Gas pH (LAB) 7.33 Bedside Blood Gas pCO2 (LAB) 31 mmHg Bedside Blood Gas pO2 (LAB) 90 mmHg Bedside Blood Gas HCO3 (LAB) 17 meq/L Bedside Blood Gas Total CO2 18 mEq/l Bedside Blood Gas Base Excess (LAB) -10.0 meq/L Bedside Blood Gas O2 Saturation 98.0 % Tani Test NA Oxygen Delivery Device Ventilator Bedside Oxygen Rate (breaths/min) 28 Blood Gas Minute Ventilation 13.3 Bedside FiO2 40 % Blood Gas Tidal Volume 500 Blood Gas PEEP 5 White Blood Count 14.19 K/uL Red Blood Count 4.69 M/uL Hemoglobin 15.0 g/dL Hematocrit 44.5 % Mean Corpuscular Volume 94.9 fL Mean Corpuscular Hemoglobin 32.0 pg Mean Corpuscular Hemoglobin Concent 33.7 g/dl Platelet Count 82 K/uL Mean Platelet Volume 10.5 fL Neutrophils (%) (Auto) 90.9 % Lymphocytes (%) (Auto) 4.2 % Monocytes (%) (Auto) 4.5 % Eosinophils (%) (Auto) 0.0 % Basophils (%) (Auto) 0.1 % Neutrophils # (Auto) 12.91 K/uL Lymphocytes # (Auto) 0.59 K/uL Monocytes # (Auto) 0.64 K/uL Eosinophils # (Auto) 0.00 K/uL Basophils # (Auto) 0.01 K/uL RDW Standard Deviation 50.5 fL RDW Coefficient of Variation 14.5 % Immature Granulocyte % (Auto) 0.3 % Immature Granulocyte # (Auto) 0.04 K/uL Platelet Estimate DECREASED Prothrombin Time 11.9 SECONDS Prothromb Time International Ratio 1.1 Activated Partial Thromboplast Time 28.2 SECONDS Partial Thromboplastin Ratio 1.1 Sodium Level 142 mmol/L Potassium Level 3.9 mmol/L Chloride Level 115 mmol/L Carbon Dioxide Level 20 mmol/L Anion Gap 7.0 mmol/L Blood Urea Nitrogen 18 mg/dl Creatinine 1.17 mg/dl Est Creatinine Clear Calc Drug Dose 71.2 ml/min Estimated GFR () 71.8 Estimated GFR (Non- 61.9 BUN/Creatinine Ratio 15.0 Random Glucose 128 mg/dl Calcium Level 7.4 mg/dl Phosphorus Level 1.4 mg/dl Magnesium Level 2.4 mg/dl Test 05/09/17 02:38 05/09/17 03:13 05/09/17 04:02 05/09/17 04:09 Ionized Calcium 1.10 mmol/l Troponin I 3.910 ng/ml Thyroid Stimulating Hormone (TSH) < 0.005 uIu/ml Bedside Glucose (other) 105 mg/dl 99 mg/dl Blood Gas Sample Site Art Line Bedside Blood Gas pH (LAB) 7.45 Bedside Blood Gas pCO2 (LAB) 27 mmHg Bedside Blood Gas pO2 (LAB) 67 mmHg Bedside Blood Gas HCO3 (LAB) 20 meq/L Bedside Blood Gas Total CO2 21 mEq/l Bedside Blood Gas Base Excess (LAB) -5.0 meq/L Bedside Blood Gas O2 Saturation 97.0 % Tani Test NA Oxygen Delivery Device Ventilator Bedside Oxygen Rate (breaths/min) 28 Blood Gas Minute Ventilation 13.4 Bedside FiO2 30 % Blood Gas Tidal Volume 500 Blood Gas PEEP 5 Test 05/09/17 04:36 05/09/17 05:19 05/09/17 06:17 05/09/17 08:09 White Blood Count 9.03 K/uL Red Blood Count 4.77 M/uL Hemoglobin 15.3 g/dL Hematocrit 44.7 % Mean Corpuscular Volume 93.7 fL Mean Corpuscular Hemoglobin 32.1 pg Mean Corpuscular Hemoglobin Concent 34.2 g/dl Platelet Count 63 K/uL Mean Platelet Volume 10.6 fL Neutrophils (%) (Auto) 89.0 % Lymphocytes (%) (Auto) 7.3 % Monocytes (%) (Auto) 3.4 % Eosinophils (%) (Auto) 0.0 % Basophils (%) (Auto) 0.0 % Neutrophils # (Auto) 8.03 K/uL Lymphocytes # (Auto) 0.66 K/uL Monocytes # (Auto) 0.31 K/uL Eosinophils # (Auto) 0.00 K/uL Basophils # (Auto) 0.00 K/uL RDW Standard Deviation 49.0 fL RDW Coefficient of Variation 14.4 % Immature Granulocyte % (Auto) 0.3 % Immature Granulocyte # (Auto) 0.03 K/uL Prothrombin Time 11.4 SECONDS Prothromb Time International Ratio 1.1 Activated Partial Thromboplast Time 27.1 SECONDS Partial Thromboplastin Ratio 1.0 Sodium Level 143 mmol/L Potassium Level 3.5 mmol/L Chloride Level 115 mmol/L Carbon Dioxide Level 24 mmol/L Anion Gap 4.0 mmol/L Blood Urea Nitrogen 18 mg/dl Creatinine 0.94 mg/dl Est Creatinine Clear Calc Drug Dose 88.6 ml/min Estimated GFR () 93.5 Estimated GFR (Non- 80.7 BUN/Creatinine Ratio 18.8 Random Glucose 88 mg/dl Calcium Level 8.6 mg/dl Phosphorus Level 1.6 mg/dl Magnesium Level 2.3 mg/dl Total Bilirubin 1.6 mg/dl Direct Bilirubin 0.9 mg/dl Aspartate Amino Transf (AST/SGOT) 124 U/L Alanine Aminotransferase (ALT/SGPT) 96 U/L Alkaline Phosphatase 105 U/L Total Protein 5.3 gm/dl Albumin 2.6 gm/dl Bedside Glucose (other) 78 mg/dl 129 mg/dl Blood Gas Sample Site Art Line Bedside Blood Gas pH (LAB) 7.39 Bedside Blood Gas pCO2 (LAB) 36 mmHg Bedside Blood Gas pO2 (LAB) 78 mmHg Bedside Blood Gas HCO3 (LAB) 23 meq/L Bedside Blood Gas Total CO2 24 mEq/l Bedside Blood Gas Base Excess (LAB) -3.0 meq/L Bedside Blood Gas O2 Saturation 97.0 % Tani Test NA Oxygen Delivery Device Ventilator Bedside Oxygen Rate (breaths/min) 20 Blood Gas Minute Ventilation 9.3 Bedside FiO2 30 % Blood Gas Tidal Volume 500 Blood Gas PEEP 5 Test 05/09/17 08:13 05/09/17 08:16 05/09/17 09:01 05/09/17 09:10 White Blood Count 11.15 K/uL Red Blood Count 4.52 M/uL Hemoglobin 14.5 g/dL Hematocrit 42.2 % Mean Corpuscular Volume 93.4 fL Mean Corpuscular Hemoglobin 32.1 pg Mean Corpuscular Hemoglobin Concent 34.4 g/dl Platelet Count 62 K/uL Mean Platelet Volume 10.8 fL Neutrophils (%) (Auto) 87.2 % Lymphocytes (%) (Auto) 7.1 % Monocytes (%) (Auto) 5.2 % Eosinophils (%) (Auto) 0.0 % Basophils (%) (Auto) 0.0 % Neutrophils # (Auto) 9.72 K/uL Lymphocytes # (Auto) 0.79 K/uL Monocytes # (Auto) 0.58 K/uL Eosinophils # (Auto) 0.00 K/uL Basophils # (Auto) 0.00 K/uL RDW Standard Deviation 48.7 fL RDW Coefficient of Variation 14.2 % Immature Granulocyte % (Auto) 0.5 % Immature Granulocyte # (Auto) 0.06 K/uL Prothrombin Time 12.0 SECONDS Prothromb Time International Ratio 1.1 Activated Partial Thromboplast Time 28.4 SECONDS Partial Thromboplastin Ratio 1.1 Sodium Level 145 mmol/L Potassium Level 3.6 mmol/L Chloride Level 114 mmol/L Carbon Dioxide Level 23 mmol/L Anion Gap 8.0 mmol/L Blood Urea Nitrogen 17 mg/dl Creatinine 0.85 mg/dl Est Creatinine Clear Calc Drug Dose 98.0 ml/min Estimated GFR () 100.9 Estimated GFR (Non- 87.1 BUN/Creatinine Ratio 20.0 Random Glucose 91 mg/dl Calcium Level 8.1 mg/dl Phosphorus Level 3.1 mg/dl Magnesium Level 2.3 mg/dl Bedside Glucose (other) 93 mg/dl 90 mg/dl Estimated Average Glucose 111 mg/dl Hemoglobin A1c 5.5 % Lactic Acid Level 1.4 mmol/L Ammonia 28.5 umol/L Test 05/09/17 10:12 05/09/17 11:24 05/09/17 11:49 05/09/17 12:00 Bedside Glucose (other) 89 mg/dl 107 mg/dl Blood Gas Sample Site Art Line Bedside Blood Gas pH (LAB) 7.35 Bedside Blood Gas pCO2 (LAB) 40 mmHg Bedside Blood Gas pO2 (LAB) 75 mmHg Bedside Blood Gas HCO3 (LAB) 23 meq/L Bedside Blood Gas Total CO2 24 mEq/l Bedside Blood Gas Base Excess (LAB) -3.0 meq/L Bedside Blood Gas O2 Saturation 96.0 % Tani Test NA Oxygen Delivery Device Ventilator Bedside Oxygen Rate (breaths/min) 20 Blood Gas Minute Ventilation 9.3 Bedside FiO2 30 % Blood Gas Tidal Volume 500 Blood Gas PEEP 5 White Blood Count 11.82 K/uL Red Blood Count 4.06 M/uL Hemoglobin 12.9 g/dL Hematocrit 38.2 % Mean Corpuscular Volume 94.1 fL Mean Corpuscular Hemoglobin 31.8 pg Mean Corpuscular Hemoglobin Concent 33.8 g/dl Platelet Count 64 K/uL Mean Platelet Volume 10.7 fL Neutrophils (%) (Auto) 88.0 % Lymphocytes (%) (Auto) 5.9 % Monocytes (%) (Auto) 5.6 % Eosinophils (%) (Auto) 0.1 % Basophils (%) (Auto) 0.0 % Neutrophils # (Auto) 10.40 K/uL Lymphocytes # (Auto) 0.70 K/uL Monocytes # (Auto) 0.66 K/uL Eosinophils # (Auto) 0.01 K/uL Basophils # (Auto) 0.00 K/uL RDW Standard Deviation 49.6 fL RDW Coefficient of Variation 14.6 % Immature Granulocyte % (Auto) 0.4 % Immature Granulocyte # (Auto) 0.05 K/uL Prothrombin Time 11.8 SECONDS Prothromb Time International Ratio 1.1 Activated Partial Thromboplast Time 27.8 SECONDS Partial Thromboplastin Ratio 1.1 Sodium Level 145 mmol/L Potassium Level 3.8 mmol/L Chloride Level 113 mmol/L Carbon Dioxide Level 23 mmol/L Anion Gap 9.0 mmol/L Blood Urea Nitrogen 17 mg/dl Creatinine 0.85 mg/dl Est Creatinine Clear Calc Drug Dose 98.0 ml/min Estimated GFR () 100.9 Estimated GFR (Non- 87.1 BUN/Creatinine Ratio 19.6 Random Glucose 101 mg/dl Calcium Level 8.0 mg/dl Phosphorus Level 4.4 mg/dl Magnesium Level 2.1 mg/dl Total Creatine Kinase 844 U/L Creatine Kinase MB 47.9 ng/ml Creatine Kinase MB Ratio 5.7 Troponin I 3.250 ng/ml Assessment and Plan 72 y/o M who was admitted to the ICU on 05/08 after being found unresponsive at home. Pt was a code blue -> code arctic in the ED Unresponsive episode: uncertain etiology ROSC in the ED after several defibrillations, Epinephrine, Lidocaine currently his BP is maintained on Levophed patient is being cooled, temperature is 33, plan to rewarm starting at 3pm CT head, CTAP all neg for acute CTA neg for PE, noted for pulm edema and ? PNA UA and blood cx pending EEG showing nonconvulsive status epilepticus, started on Keppra 1500 q12 occasional posturing Elevated troponin: due to CPR, no evidence of cardiac ischemia, cardiology following Atrial fibrillation: rates controlled, consider Amiodarone if rates go too high Cardiomyopathy: unclear etiology, EF is 20-25%, global hypokinesis L subclavian central line placed 05/08 Met with patient's son at the bedside, his brother is going to be here later this evening will initiate rewarming this afternoon and see how patient responds
[2017-05-09] MEDS ORDERED: AMIODARONE / D5W 200 ML IV SCH (14:45)
[2017-05-09 16:18] LABS: HEMATOCRIT 44.4 % (42-52); HEMOGLOBIN 15.2 g/dL (14.0-18.0); MEAN CELL VOLUME 93.9 fL (80-100); MEAN CORPUSCULAR HEMOGLOBIN 32.1 pg (25-34); MEAN CORPUSCULAR HGB CONC 34.2 g/dl (32-36); RED CELL DISTRIBUTION WIDTH CV 14.5 % (11.5-14.5); RED CELL DISTRIBUTION WIDTH SD 49.4 fL (36.4-46.3); WHITE BLOOD COUNT 14.99 K/uL (4.8-10.8)
[2017-05-09 16:22] LABS: MEAN PLATELET VOLUME 10.7 fL (7.4-10.4); PLATELET COUNT 73 K/uL (130-400)
[2017-05-09 16:32] LABS: INR 1.1 (0.9-1.1); PTT PATIENT 28.7 SECONDS (21.0-31.0)
--- NOTE | 2017-05-09 16:50 | Critical Care Progress Note ---
Critical Care Progress Note Date of Service May 09, 2017. ICU Day ICU Day Number: [address] Gibbons Subjective Undergoing hypothermia protocol, currently in the rewarming phase. Bleeding from nose/oropharynx has subsided Remains in a-fib, on pressors. Requires neuromuscular blockade Had seizure activity on EEG, subsided around midnight Objective General: Elderly male, looks appropriate for his age, intubated, unresponsive Heent: NC/AT, pupils poorly reactive, bilateral nasal packing Lungs: mechanical breath sounds CVS: S1S2 irregular Abd: soft Ext: No edema ORDER WORKER: Unable to examine, on paralytics Assessment & Plan Problems: Cardiac arrest Respiratory failure Atrial fibrillation Epistaxis Plan: ORDER WORKER: Rewarming phase of therapeutic hypothermia protocol Continue sedation, will wean off Nimbex Continue EEG monitoring Started on Keppra, increased to 1500 mg bid He likely has significant anoxic brain injury CVS: Pressor support, switch to Levophed secondary to tachycardia Echo reviewed, severely depressed EF, "stunned" myocardium Mild troponin elevation, not uncommon in this scenario. No clear evidence of ischemic Vtach/Vfib. Further workup depending on his clinical evolution Continue pressor support No anticoagulation, secondary to bleeding and hypothermia protocol Pulmonary: Vent support Titrate down FiO2 Elevate head ID: Prophylactic Abx for b/l nasal packing, on Unasyn Blood cultures sent per protocol Renal/metabolic: Monitor electrolytes closely, may shit significantly Monitor urine output. Renal indices normal GI: OGT inserted Keep NPO Protonix for GI bleeding prophylaxis DVT prophylaxis: Start Lovenox tomorrow if no further bleeding Prognosis is guarded, I have a high index of suspicion for anoxic brain injury Critical care time spent with patient, , reviewing the chart, discussing with consultants excluding procedure, greater than 40 minutes Consults & Procedures Consultants: cardiology - Dr Kay Procedures: 05/08/17 - intubated by EMS 05/08/17 - left subclavian TLC 05/08/17 - right axillary a-line Data Medications: Current Inpatient Medications Medications (Trade) Dose Ordered Sig/Te Route Start Time Stop Time Status Last Admin Dose Admin Ioversol (Optiray 320) 100 ml UD PRN IV 05/08/17 09:30 05/12/17 09:29 Norepinephrine Bitartrate 8 mg/ Dextrose 508 ml @ 0 mls/hr Q0M PRN IV 05/08/17 11:15 06/07/17 11:14 05/08/17 21:36 0.07 MLS/HR Propofol (Diprivan Iv Emulsion 100ml Vial) 1 dose UD PRN IV 05/08/17 11:15 05/11/17 11:14 05/09/17 12:29 1 DOSE Artificial Tears (Lacri-Lube Oph Oint) 1 appln Q2H PRN OPB 05/08/17 11:15 06/07/17 11:14 05/08/17 22:00 1 APPLN Sodium Chloride 1,000 ml @ 50 mls/hr Q20H IV 05/08/17 12:15 06/07/17 12:14 05/09/17 10:03 50 MLS/HR Pantoprazole Sodium 40 mg/ Syringe 10 ml @ 5 mls/min DAILY@11 IV 05/09/17 11:00 06/08/17 10:59 05/09/17 10:41 5 MLS/MIN Fentanyl Citrate 250 ml @ 0 mls/hr Q0M PRN IV 05/08/17 11:11 05/22/17 11:10 05/08/17 12:52 5 MLS/HR Meperidine HCl (Demerol Inj) 25 mg Q2H PRN IV 05/08/17 11:15 05/22/17 11:14 05/08/17 16:10 25 MG Hydromorphone HCl (Dilaudid Inj) 1 mg Q20M PRN IV 05/08/17 11:15 05/22/17 11:14 Acetaminophen (Tylenol Supp) 650 mg ONE PRN NH 05/08/17 11:15 Ampicillin Sodium/ Sulbactam Sodium 1500 mg/Sodium Chloride 104 ml @ 200 mls/hr Q6H IV 05/08/17 12:00 05/18/17 11:59 05/09/17 12:27 200 MLS/HR Aspirin (Aspirin Chew) 81 mg QD NG 05/08/17 17:00 06/07/17 16:59 05/08/17 17:27 81 MG Miscellaneous Information (Consult Glycemic Management Pharmacy) 1 ea UD PRN N/A 05/08/17 17:01 06/07/17 17:00 Insulin Aspart (novoLOG ASPART) SLIDING SCALE PCHS SC 05/08/17 21:00 06/07/17 20:59 Cisatracurium Besylate 40 mg/ Sodium Chloride 100 ml @ 0 mls/hr Q0M PRN IV 05/08/17 17:15 06/07/17 17:14 05/09/17 09:43 11.6 MLS/HR Insulin Human Regular 250 units/ Sodium Chloride 252.5 ml @ 0 mls/hr Q24H IV 05/08/17 17:34 06/07/17 17:33 05/08/17 17:44 4.1 MLS/HR Heparin Sodium (Porcine) (Heparin 10 Unit/ ml 5 ml Flush) 5 ml PRN PRN FLUSH 05/09/17 01:30 06/08/17 01:29 Glucose (Glucose 40% Gel) 15-30 GRAMS 15 GRAMS... UD PRN PO 05/09/17 05:30 06/08/17 05:29 Glucose (Glucose Chew Tab) 4-8 Tablets 4 Tabl... UD PRN PO 05/09/17 05:30 06/08/17 05:29 Dextrose (Dextrose 50% 50ML Syringe) 25-50ML OF 50% DW IV FOR... UD PRN IV 05/09/17 05:30 06/08/17 05:29 Glucagon (Glucagon Inj) 1 mg UD PRN SQ 05/09/17 05:30 06/08/17 05:29 Levetiracetam 1500 mg/Dextrose 115 ml @ 420 mls/hr Q12 IV 05/09/17 09:00 06/07/17 20:59 05/09/17 10:03 420 MLS/HR Amiodarone HCL/ Dextrose 200 ml @ 33.3 mls/hr Q6H1M IV 05/09/17 14:45 05/09/17 20:45 Amiodarone HCL/ Dextrose 200 ml @ 16.7 mls/hr [id number] IV 05/09/17 20:45 06/08/17 20:44 I & O: 24-Hour Column 05/10/17 08:00 Intake Total 1640 ml Output Total 430 ml Balance 1210 ml Vital Signs: Date Time Temp Pulse Resp B/P (MAP) Pulse Ox O2 Delivery O2 Flow Rate FiO2 05/09/17 16:05 36.1 113 20 125/75 (92) 97 Mechanical Ventilator 30 05/09/17 16:00 Mechanical Ventilator 30 05/09/17 16:00 30 05/09/17 15:03 35.8 119 20 106/74 (85) 97 Mechanical Ventilator 106/74 (85) 05/09/17 14:25 30 05/09/17 14:03 35.4 153 20 119/75 (90) 96 Mechanical Ventilator 128/70 (89) 05/09/17 13:07 34.8 115 20 129/70 (89) 97 Mechanical Ventilator 132/69 (90) 05/09/17 12:02 34.4 94 20 98/72 (81) 96 Mechanical Ventilator 105/68 (80) 05/09/17 12:02 Mechanical Ventilator 30 05/09/17 12:02 30 05/09/17 11:00 30 05/09/17 11:00 33.4 87 20 105/52 (69) 95 Mechanical Ventilator 93/50 (64) 05/09/17 10:06 33.7 78 20 95/65 (75) 98 Mechanical Ventilator 100/59 (73) 05/09/17 09:08 33.4 77 20 90/61 (71) 97 Mechanical Ventilator 98/60 (73) 05/09/17 08:21 33.0 66 20 99/63 (75) 98 Mechanical Ventilator 108/64 (79) 05/09/17 08:00 30 05/09/17 08:00 Mechanical Ventilator 30 05/09/17 07:45 30 05/09/17 07:00 32.3 61 20 100/69 (79) 98 Mechanical Ventilator 109/63 (78) 05/09/17 06:00 32.3 62 20 95/63 (74) 98 Mechanical Ventilator 113/65 (81) 05/09/17 05:18 30 05/09/17 05:00 33.1 63 20 112/67 (82) 98 Mechanical Ventilator 30 118/64 (82) 05/09/17 04:00 30 05/09/17 04:00 33.3 64 28 129/84 (99) 98 Mechanical Ventilator 116/61 (79) 05/09/17 04:00 100 Mechanical Ventilator 30 05/09/17 03:03 30 05/09/17 03:00 33.8 68 28 118/72 (87) 98 Mechanical Ventilator 127/72 (90) 05/09/17 02:00 34.3 71 28 117/72 (87) 97 Mechanical Ventilator 119/65 (83) 05/09/17 01:00 33.9 72 28 108/66 (80) 96 Mechanical Ventilator 105/59 (74) 05/09/17 00:01 100 Mechanical Ventilator 40 05/09/17 00:01 30 05/09/17 00:01 33.3 67 28 105/61 (76) 97 Mechanical Ventilator 96/60 (72) 05/08/17 23:42 30 05/08/17 23:00 32.5 64 28 111/72 (85) 99 Mechanical Ventilator 107/63 (78) 05/08/17 22:30 32.4 67 30 109/68 (73) 99 105/63 05/08/17 22:25 40 05/08/17 22:15 32.4 61 28 106/72 (95) 99 109/61 05/08/17 22:00 32.5 63 28 112/74 (87) 98 Mechanical Ventilator 107/60 (76) 05/08/17 22:00 32.5 61 28 110/79 (91) 98 107/62 05/08/17 21:45 32.7 60 28 112/74 (88) 99 111/63 05/08/17 21:30 32.9 59 28 115/72 (83) 99 109/61 05/08/17 21:15 33.1 63 28 115/71 (93) 98 111/61 05/08/17 21:00 33.2 75 28 119/87 (98) 98 Mechanical Ventilator 119/61 (80) 05/08/17 21:00 33.2 75 28 125/74 (80) 98 129/65 (84) 05/08/17 20:50 33.3 66 28 119/87 (108) 98 123/66 (91) 05/08/17 20:45 33.3 79 28 118/78 (95) 98 132/73 (91) 05/08/17 20:30 33.3 77 28 115/84 (90) 98 137/76 (95) 05/08/17 20:15 40 05/08/17 20:15 33.4 69 28 134/82 (107) 100 144/75 (103) 05/08/17 20:00 100 Mechanical Ventilator 40 05/08/17 20:00 33.3 68 18 140/91 (122) 100 145/78 (103) 05/08/17 20:00 40 05/08/17 20:00 33.3 75 28 140/91 (107) 100 Mechanical Ventilator 40 145/79 (101) 05/08/17 19:52 33.3 69 28 140/82 (93) 100 139/75 (94) 05/08/17 19:45 33.3 75 28 (97) 100 136/73 (96) 05/08/17 19:30 33.3 70 28 (85) 100 121/63 05/08/17 19:15 33.3 75 28 (83) 99 117/62 05/08/17 19:00 33.4 79 28 117/78 (91) 99 124/67 05/08/17 19:00 33.3 79 28 117/78 (91) 99 Mechanical Ventilator 50 117/65 (82) 05/08/17 18:00 33.3 59 28 120/71 (88) 98 115/56 05/08/17 17:45 33.3 70 28 (81) 99 115/63 05/08/17 17:30 33.3 70 28 (80) 99 118/61 05/08/17 17:25 50 05/08/17 17:15 33.3 76 28 (83) 100 122/63 05/08/17 17:01 33.4 77 28 126/72 (104) 100 121/64 Laboratory Results: Last 24 Hours Test 05/08/17 19:05 05/08/17 19:06 05/08/17 20:10 05/08/17 20:18 Prothrombin Time 11.3 SECONDS Prothromb Time International Ratio 1.1 Activated Partial Thromboplast Time 24.3 SECONDS Partial Thromboplastin Ratio 0.9 White Blood Count 16.43 K/uL Red Blood Count 5.01 M/uL Hemoglobin 16.1 g/dL Hematocrit 48.3 % Mean Corpuscular Volume 96.4 fL Mean Corpuscular Hemoglobin 32.1 pg Mean Corpuscular Hemoglobin Concent 33.3 g/dl Platelet Count 112 K/uL Mean Platelet Volume 10.5 fL Neutrophils (%) (Auto) 91.7 % Lymphocytes (%) (Auto) 3.3 % Monocytes (%) (Auto) 4.6 % Eosinophils (%) (Auto) 0.0 % Basophils (%) (Auto) 0.0 % Neutrophils # (Auto) 15.07 K/uL Lymphocytes # (Auto) 0.54 K/uL Monocytes # (Auto) 0.76 K/uL Eosinophils # (Auto) 0.00 K/uL Basophils # (Auto) 0.00 K/uL RDW Standard Deviation 51.8 fL RDW Coefficient of Variation 14.7 % Immature Granulocyte % (Auto) 0.4 % Immature Granulocyte # (Auto) 0.06 K/uL Sodium Level 140 mmol/L Potassium Level 3.7 mmol/L Chloride Level 111 mmol/L Carbon Dioxide Level 19 mmol/L Anion Gap 10.0 mmol/L Blood Urea Nitrogen 20 mg/dl Creatinine 1.49 mg/dl Est Creatinine Clear Calc Drug Dose 55.9 ml/min Estimated GFR () 53.6 Estimated GFR (Non- 46.2 BUN/Creatinine Ratio 13.6 Random Glucose 227 mg/dl Calcium Level 8.5 mg/dl Phosphorus Level 2.9 mg/dl Magnesium Level 2.6 mg/dl Creatine Kinase MB 50.7 ng/ml Creatine Kinase MB Ratio Troponin I 2.960 ng/ml Blood Gas Sample Site Art Line Bedside Blood Gas pH (LAB) 7.24 Bedside Blood Gas pCO2 (LAB) 37 mmHg Bedside Blood Gas pO2 (LAB) 121 mmHg Bedside Blood Gas HCO3 (LAB) 17 meq/L Bedside Blood Gas Total CO2 18 mEq/l Bedside Blood Gas Base Excess (LAB) -11.0 meq/L Bedside Blood Gas O2 Saturation 99.0 % Tani Test NA Oxygen Delivery Device Ventilator Bedside Oxygen Rate (breaths/min) 28 Blood Gas Minute Ventilation 13.3 Bedside FiO2 40 % Blood Gas Tidal Volume 500 Blood Gas PEEP 8 Bedside Glucose (other) 212 mg/dl Test 05/08/17 21:10 05/08/17 22:10 05/08/17 23:06 05/08/17 23:34 Bedside Glucose (other) 181 mg/dl 183 mg/dl 163 mg/dl Blood Gas Sample Site Art Line Bedside Blood Gas pH (LAB) 7.33 Bedside Blood Gas pCO2 (LAB) 31 mmHg Bedside Blood Gas pO2 (LAB) 90 mmHg Bedside Blood Gas HCO3 (LAB) 17 meq/L Bedside Blood Gas Total CO2 18 mEq/l Bedside Blood Gas Base Excess (LAB) -10.0 meq/L Bedside Blood Gas O2 Saturation 98.0 % Tani Test NA Oxygen Delivery Device Ventilator Bedside Oxygen Rate (breaths/min) 28 Blood Gas Minute Ventilation 13.3 Bedside FiO2 40 % Blood Gas Tidal Volume 500 Blood Gas PEEP 5 Test 05/09/17 00:17 05/09/17 01:06 05/09/17 02:38 05/09/17 03:13 White Blood Count 14.19 K/uL Red Blood Count 4.69 M/uL Hemoglobin 15.0 g/dL Hematocrit 44.5 % Mean Corpuscular Volume 94.9 fL Mean Corpuscular Hemoglobin 32.0 pg Mean Corpuscular Hemoglobin Concent 33.7 g/dl Platelet Count 82 K/uL Mean Platelet Volume 10.5 fL Neutrophils (%) (Auto) 90.9 % Lymphocytes (%) (Auto) 4.2 % Monocytes (%) (Auto) 4.5 % Eosinophils (%) (Auto) 0.0 % Basophils (%) (Auto) 0.1 % Neutrophils # (Auto) 12.91 K/uL Lymphocytes # (Auto) 0.59 K/uL Monocytes # (Auto) 0.64 K/uL Eosinophils # (Auto) 0.00 K/uL Basophils # (Auto) 0.01 K/uL RDW Standard Deviation 50.5 fL RDW Coefficient of Variation 14.5 % Immature Granulocyte % (Auto) 0.3 % Immature Granulocyte # (Auto) 0.04 K/uL Platelet Estimate DECREASED Prothrombin Time 11.9 SECONDS Prothromb Time International Ratio 1.1 Activated Partial Thromboplast Time 28.2 SECONDS Partial Thromboplastin Ratio 1.1 Sodium Level 142 mmol/L Potassium Level 3.9 mmol/L Chloride Level 115 mmol/L Carbon Dioxide Level 20 mmol/L Anion Gap 7.0 mmol/L Blood Urea Nitrogen 18 mg/dl Creatinine 1.17 mg/dl Est Creatinine Clear Calc Drug Dose 71.2 ml/min Estimated GFR () 71.8 Estimated GFR (Non- 61.9 BUN/Creatinine Ratio 15.0 Random Glucose 128 mg/dl Calcium Level 7.4 mg/dl Phosphorus Level 1.4 mg/dl Magnesium Level 2.4 mg/dl Bedside Glucose (other) 115 mg/dl 105 mg/dl Ionized Calcium 1.10 mmol/l Troponin I 3.910 ng/ml Thyroid Stimulating Hormone (TSH) < 0.005 uIu/ml Test 05/09/17 04:02 05/09/17 04:09 05/09/17 04:36 05/09/17 05:19 Blood Gas Sample Site Art Line Bedside Blood Gas pH (LAB) 7.45 Bedside Blood Gas pCO2 (LAB) 27 mmHg Bedside Blood Gas pO2 (LAB) 67 mmHg Bedside Blood Gas HCO3 (LAB) 20 meq/L Bedside Blood Gas Total CO2 21 mEq/l Bedside Blood Gas Base Excess (LAB) -5.0 meq/L Bedside Blood Gas O2 Saturation 97.0 % Tani Test NA Oxygen Delivery Device Ventilator Bedside Oxygen Rate (breaths/min) 28 Blood Gas Minute Ventilation 13.4 Bedside FiO2 30 % Blood Gas Tidal Volume 500 Blood Gas PEEP 5 Bedside Glucose (other) 99 mg/dl 78 mg/dl White Blood Count 9.03 K/uL Red Blood Count 4.77 M/uL Hemoglobin 15.3 g/dL Hematocrit 44.7 % Mean Corpuscular Volume 93.7 fL Mean Corpuscular Hemoglobin 32.1 pg Mean Corpuscular Hemoglobin Concent 34.2 g/dl Platelet Count 63 K/uL Mean Platelet Volume 10.6 fL Neutrophils (%) (Auto) 89.0 % Lymphocytes (%) (Auto) 7.3 % Monocytes (%) (Auto) 3.4 % Eosinophils (%) (Auto) 0.0 % Basophils (%) (Auto) 0.0 % Neutrophils # (Auto) 8.03 K/uL Lymphocytes # (Auto) 0.66 K/uL Monocytes # (Auto) 0.31 K/uL Eosinophils # (Auto) 0.00 K/uL Basophils # (Auto) 0.00 K/uL RDW Standard Deviation 49.0 fL RDW Coefficient of Variation 14.4 % Immature Granulocyte % (Auto) 0.3 % Immature Granulocyte # (Auto) 0.03 K/uL Prothrombin Time 11.4 SECONDS Prothromb Time International Ratio 1.1 Activated Partial Thromboplast Time 27.1 SECONDS Partial Thromboplastin Ratio 1.0 Sodium Level 143 mmol/L Potassium Level 3.5 mmol/L Chloride Level 115 mmol/L Carbon Dioxide Level 24 mmol/L Anion Gap 4.0 mmol/L Blood Urea Nitrogen 18 mg/dl Creatinine 0.94 mg/dl Est Creatinine Clear Calc Drug Dose 88.6 ml/min Estimated GFR () 93.5 Estimated GFR (Non- 80.7 BUN/Creatinine Ratio 18.8 Random Glucose 88 mg/dl Calcium Level 8.6 mg/dl Phosphorus Level 1.6 mg/dl Magnesium Level 2.3 mg/dl Total Bilirubin 1.6 mg/dl Direct Bilirubin 0.9 mg/dl Aspartate Amino Transf (AST/SGOT) 124 U/L Alanine Aminotransferase (ALT/SGPT) 96 U/L Alkaline Phosphatase 105 U/L Total Protein 5.3 gm/dl Albumin 2.6 gm/dl Test 05/09/17 06:17 05/09/17 08:09 05/09/17 08:13 05/09/17 08:16 Bedside Glucose (other) 129 mg/dl 93 mg/dl Blood Gas Sample Site Art Line Bedside Blood Gas pH (LAB) 7.39 Bedside Blood Gas pCO2 (LAB) 36 mmHg Bedside Blood Gas pO2 (LAB) 78 mmHg Bedside Blood Gas HCO3 (LAB) 23 meq/L Bedside Blood Gas Total CO2 24 mEq/l Bedside Blood Gas Base Excess (LAB) -3.0 meq/L Bedside Blood Gas O2 Saturation 97.0 % Tani Test NA Oxygen Delivery Device Ventilator Bedside Oxygen Rate (breaths/min) 20 Blood Gas Minute Ventilation 9.3 Bedside FiO2 30 % Blood Gas Tidal Volume 500 Blood Gas PEEP 5 White Blood Count 11.15 K/uL Red Blood Count 4.52 M/uL Hemoglobin 14.5 g/dL Hematocrit 42.2 % Mean Corpuscular Volume 93.4 fL Mean Corpuscular Hemoglobin 32.1 pg Mean Corpuscular Hemoglobin Concent 34.4 g/dl Platelet Count 62 K/uL Mean Platelet Volume 10.8 fL Neutrophils (%) (Auto) 87.2 % Lymphocytes (%) (Auto) 7.1 % Monocytes (%) (Auto) 5.2 % Eosinophils (%) (Auto) 0.0 % Basophils (%) (Auto) 0.0 % Neutrophils # (Auto) 9.72 K/uL Lymphocytes # (Auto) 0.79 K/uL Monocytes # (Auto) 0.58 K/uL Eosinophils # (Auto) 0.00 K/uL Basophils # (Auto) 0.00 K/uL RDW Standard Deviation 48.7 fL RDW Coefficient of Variation 14.2 % Immature Granulocyte % (Auto) 0.5 % Immature Granulocyte # (Auto) 0.06 K/uL Prothrombin Time 12.0 SECONDS Prothromb Time International Ratio 1.1 Activated Partial Thromboplast Time 28.4 SECONDS Partial Thromboplastin Ratio 1.1 Sodium Level 145 mmol/L Potassium Level 3.6 mmol/L Chloride Level 114 mmol/L Carbon Dioxide Level 23 mmol/L Anion Gap 8.0 mmol/L Blood Urea Nitrogen 17 mg/dl Creatinine 0.85 mg/dl Est Creatinine Clear Calc Drug Dose 98.0 ml/min Estimated GFR () 100.9 Estimated GFR (Non- 87.1 BUN/Creatinine Ratio 20.0 Random Glucose 91 mg/dl Calcium Level 8.1 mg/dl Phosphorus Level 3.1 mg/dl Magnesium Level 2.3 mg/dl Test 05/09/17 09:01 05/09/17 09:10 05/09/17 10:12 05/09/17 11:24 Estimated Average Glucose 111 mg/dl Hemoglobin A1c 5.5 % Lactic Acid Level 1.4 mmol/L Ammonia 28.5 umol/L Bedside Glucose (other) 90 mg/dl 89 mg/dl 107 mg/dl Test 05/09/17 11:49 05/09/17 12:00 05/09/17 14:21 05/09/17 16:03 Blood Gas Sample Site Art Line Bedside Blood Gas pH (LAB) 7.35 Bedside Blood Gas pCO2 (LAB) 40 mmHg Bedside Blood Gas pO2 (LAB) 75 mmHg Bedside Blood Gas HCO3 (LAB) 23 meq/L Bedside Blood Gas Total CO2 24 mEq/l Bedside Blood Gas Base Excess (LAB) -3.0 meq/L Bedside Blood Gas O2 Saturation 96.0 % Tani Test NA Oxygen Delivery Device Ventilator Bedside Oxygen Rate (breaths/min) 20 Blood Gas Minute Ventilation 9.3 Bedside FiO2 30 % Blood Gas Tidal Volume 500 Blood Gas PEEP 5 White Blood Count 11.82 K/uL 14.99 K/uL Red Blood Count 4.06 M/uL 4.73 M/uL Hemoglobin 12.9 g/dL 15.2 g/dL Hematocrit 38.2 % 44.4 % Mean Corpuscular Volume 94.1 fL 93.9 fL Mean Corpuscular Hemoglobin 31.8 pg 32.1 pg Mean Corpuscular Hemoglobin Concent 33.8 g/dl 34.2 g/dl Platelet Count 64 K/uL 73 K/uL Mean Platelet Volume 10.7 fL 10.7 fL Neutrophils (%) (Auto) 88.0 % Lymphocytes (%) (Auto) 5.9 % Monocytes (%) (Auto) 5.6 % Eosinophils (%) (Auto) 0.1 % Basophils (%) (Auto) 0.0 % Neutrophils # (Auto) 10.40 K/uL Lymphocytes # (Auto) 0.70 K/uL Monocytes # (Auto) 0.66 K/uL Eosinophils # (Auto) 0.01 K/uL Basophils # (Auto) 0.00 K/uL RDW Standard Deviation 49.6 fL 49.4 fL RDW Coefficient of Variation 14.6 % 14.5 % Immature Granulocyte % (Auto) 0.4 % Immature Granulocyte # (Auto) 0.05 K/uL Prothrombin Time 11.8 SECONDS Prothromb Time International Ratio 1.1 Activated Partial Thromboplast Time 27.8 SECONDS Partial Thromboplastin Ratio 1.1 Sodium Level 145 mmol/L Potassium Level 3.8 mmol/L Chloride Level 113 mmol/L Carbon Dioxide Level 23 mmol/L Anion Gap 9.0 mmol/L Blood Urea Nitrogen 17 mg/dl Creatinine 0.85 mg/dl Est Creatinine Clear Calc Drug Dose 98.0 ml/min Estimated GFR () 100.9 Estimated GFR (Non- 87.1 BUN/Creatinine Ratio 19.6 Random Glucose 101 mg/dl Calcium Level 8.0 mg/dl Phosphorus Level 4.4 mg/dl Magnesium Level 2.1 mg/dl Total Creatine Kinase 844 U/L Creatine Kinase MB 47.9 ng/ml Creatine Kinase MB Ratio 5.7 Troponin I 3.250 ng/ml Bedside Glucose (other) 106 mg/dl Test 05/09/17 16:07 Blood Gas Sample Site Art Line Bedside Blood Gas pH (LAB) 7.30 Bedside Blood Gas pCO2 (LAB) 42 mmHg Bedside Blood Gas pO2 (LAB) 80 mmHg Bedside Blood Gas HCO3 (LAB) 21 meq/L Bedside Blood Gas Total CO2 23 mEq/l Bedside Blood Gas Base Excess (LAB) -5.0 meq/L Bedside Blood Gas O2 Saturation 95.0 % Tani Test NA Oxygen Delivery Device Ventilator Bedside Oxygen Rate (breaths/min) 20 Blood Gas Minute Ventilation 9.4 Bedside FiO2 30 % Blood Gas Tidal Volume 500 Blood Gas PEEP 5
[2017-05-09 16:51] LABS: CALCIUM 8.2 mg/dl (8.5-10.1); CREATININE 0.92 mg/dl (0.60-1.40); PHOSPHORUS 4.1 mg/dl (2.5-4.9)
[2017-05-09 16:52] LABS: POTASSIUM 4.4 mmol/L (3.5-5.1)
[2017-05-09 17:00] LABS: IG# 0.06 K/uL (0.00-0.02); LYMPH % 4.3 %; LYMPH ABS # 0.64 K/uL (1.2-3.4); MONO % 5.1 %; MONO ABS # 0.77 K/uL (0.11-0.59); NEUT % 90.2 %; NEUT ABS # 13.52 K/uL (1.4-6.5)
[2017-05-09] MEDS: ASPIRIN 81 MG CHEW NG SCH (18:09)
[2017-05-09] MEDS: NOREPINEPHRINE BIT INJ 8 MG in DEXTROSE 5% 500ML 500 ML IV PRN (18:10)
[2017-05-09] MEDS: AMIODARONE / D5W 200 ML IV SCH (19:40)
[2017-05-09 20:11] LABS: HEMATOCRIT 44.6 % (42-52); HEMOGLOBIN 14.8 g/dL (14.0-18.0); MEAN CELL VOLUME 93.7 fL (80-100); MEAN CORPUSCULAR HEMOGLOBIN 31.1 pg (25-34); MEAN CORPUSCULAR HGB CONC 33.2 g/dl (32-36); RED CELL DISTRIBUTION WIDTH CV 14.7 % (11.5-14.5); RED CELL DISTRIBUTION WIDTH SD 50.2 fL (36.4-46.3)
[2017-05-09 20:21] LABS: MEAN PLATELET VOLUME 10.6 fL (7.4-10.4); PLATELET COUNT 72 K/uL (130-400)
[2017-05-09 20:22] LABS: BASO % 0.1 %; BASO ABS # 0.01 K/uL (0-0.2); EOS % 0.1 %; EOS ABS # 0.01 K/uL (0-0.5); IG# 0.05 K/uL (0.00-0.02); LYMPH % 6.5 %; LYMPH ABS # 0.99 K/uL (1.2-3.4); MONO % 5.9 %; MONO ABS # 0.91 K/uL (0.11-0.59); NEUT % 87.1 %; NEUT ABS # 13.33 K/uL (1.4-6.5)
[2017-05-09 20:23] LABS: INR 1.1 (0.9-1.1); PTT PATIENT 29.3 SECONDS (21.0-31.0)
[2017-05-09 20:30] LABS: CREATININE 1.04 mg/dl (0.60-1.40); PHOSPHORUS 3.6 mg/dl (2.5-4.9)
[2017-05-09] MEDS ORDERED: SODIUM CHLORIDE 0.9% 250ML 250 ML IV SCH (21:15)
[2017-05-09] MEDS ORDERED: ALBUMIN 25% 50 ML with FUROSEMIDE INJ 40 MG IV SCH ×2 (23:15)
[2017-05-09 23:55] LABS: HEMATOCRIT 41.5 % (42-52); MEAN CELL VOLUME 94.7 fL (80-100); MEAN CORPUSCULAR HGB CONC 33.7 g/dl (32-36); RED CELL DISTRIBUTION WIDTH CV 15.1 % (11.5-14.5); WHITE BLOOD COUNT 15.83 K/uL (4.8-10.8)
[2017-05-10] VITALS (33 sets, daily range): BP systolic 74–126; BP diastolic 44–83; PULSE 65–121; TEMP 35.5–37.6; O2SAT 91–100; Ht 177.8 cm; Wt 111.2 kg
[2017-05-10 00:08] LABS: INR 1.1 (0.9-1.1); PTT PATIENT 28.9 SECONDS (21.0-31.0)
[2017-05-10 00:17] LABS: CALCIUM 7.7 mg/dl (8.5-10.1); CREATININE 1.19 mg/dl (0.60-1.40); POTASSIUM 4.6 mmol/L (3.5-5.1)
[2017-05-10 00:22] LABS: MEAN PLATELET VOLUME 11.4 fL (7.4-10.4); PLATELET COUNT 69 K/uL (130-400)
[2017-05-10 00:26] LABS: BASO % 0.1 %; BASO ABS # 0.01 K/uL (0-0.2); EOS % 0.2 %; EOS ABS # 0.03 K/uL (0-0.5); IG# 0.09 K/uL (0.00-0.02); LYMPH % 10.7 %; LYMPH ABS # 1.69 K/uL (1.2-3.4); MONO % 5.5 %; MONO ABS # 0.87 K/uL (0.11-0.59); NEUT % 82.9 %; NEUT ABS # 13.14 K/uL (1.4-6.5)
[2017-05-10] MEDS: FENTANYL 1250MCG/250ML NSS 250 ML IV PRN (01:17)
[2017-05-10] MEDS: PROPOFOL IV EMULSION 10 MG/ML 100 ML VIAL IV PRN ×5 (01:38→21:08)
[2017-05-10] MEDS: ACETAMINOPHEN IV 650 MG in EMPTY BAG 0 ML IV PRN (04:13)
[2017-05-10 05:02] LABS: HEMATOCRIT 39.8 % (42-52); HEMOGLOBIN 13.1 g/dL (14.0-18.0); MEAN CORPUSCULAR HEMOGLOBIN 31.3 pg (25-34); MEAN CORPUSCULAR HGB CONC 32.9 g/dl (32-36); RED CELL DISTRIBUTION WIDTH CV 15.1 % (11.5-14.5); RED CELL DISTRIBUTION WIDTH SD 52.3 fL (36.4-46.3); WHITE BLOOD COUNT 9.85 K/uL (4.8-10.8)
[2017-05-10 05:09] LABS: MEAN PLATELET VOLUME 11.8 fL (7.4-10.4); PLATELET COUNT 63 K/uL (130-400)
[2017-05-10 05:21] LABS: ALBUMIN 2.5 gm/dl (3.4-5.0); CALCIUM 7.9 mg/dl (8.5-10.1); CREATININE 1.26 mg/dl (0.60-1.40); POTASSIUM 4.6 mmol/L (3.5-5.1)
[2017-05-10 05:24] LABS: PHOSPHORUS 4.1 mg/dl (2.5-4.9); TOTAL PROTEIN 4.9 gm/dl (6.4-8.2)
[2017-05-10 05:28] LABS: BASO % 0.1 %; BASO ABS # 0.01 K/uL (0-0.2); EOS % 0.5 %; EOS ABS # 0.05 K/uL (0-0.5); IG# 0.06 K/uL (0.00-0.02); LYMPH % 6.8 %; LYMPH ABS # 0.67 K/uL (1.2-3.4); MONO % 7.4 %; MONO ABS # 0.73 K/uL (0.11-0.59); NEUT % 84.6 %; NEUT ABS # 8.33 K/uL (1.4-6.5)
[2017-05-10] MEDS: SODIUM CHLORIDE 0.9% 1000ML 1,000 ML IV SCH ×2 (05:40→18:27)
[2017-05-10] MEDS: AMPICILLIN/SULBACTAM SOD INJ 1,500 MG in SODIUM CHLORIDE 0.9% 100ML 100 ML IV SCH ×4 (05:40→23:37)
[2017-05-10] MEDS ORDERED: NURSING VERBAL MED ORDER ONE (06:30)
[2017-05-10] MEDS: PANTOprazole INJ 40 MG in SYRINGE 0 ML IV SCH (07:40)
[2017-05-10] MEDS: LEVETIRACETAM IV 1,500 MG in DEXTROSE 5% 100ML 100 ML IV SCH (07:40)
[2017-05-10] MEDS: AMIODARONE / D5W 200 ML IV SCH ×2 (07:41→20:29)
--- NOTE | 2017-05-10 07:45 | DIAGNOSTIC IMAGING REPORT ---
CHEST ONE VIEW PORTABLE HISTORY: cardiac arrest, respiratory failure COMPARISON: Chest 05/09/2017. FINDINGS: The endotracheal tube terminates approximately 3.9 cm from the alysa. Nasogastric tube terminates in the stomach. No pneumothorax. Left subclavian catheter terminates at the proximal SVC. Small bilateral pleural effusions are again noted. Slight progression of the pulmonary edema pattern. No pneumothorax. IMPRESSION: 1. Slight progression of the pulmonary edema and small bilateral pleural effusions. 2. Satisfactory support line placement. Electronically signed by: Tom Lambert M.D. 05/10/2017 7:44 AM Dictated Date/Time: 05/10/2017 7:42 AM
--- NOTE | 2017-05-10 10:05 | Neurology Consultation ---
Neurology Consultation Date of Consultation: May 10, 2017. Attending Physician: Tono Wayne D.O. Primary Care Physician: No Doctor, Assigned Reason for Consultation: Post anoxic seizures History of Present Illness Source: hospital records The patient is a 72-year-old male who was found face down, unresponsive by his while at home, 2 days ago. He was last known well earlier that morning. She initiated CPR and called EMS. The patient was defibrillated multiple times and intubated in the field. A pulse was not restored until he was seen in the emergency department. I reviewed the images as well as the radiologist's interpretation of the initial CT of the head. The study is negative for hemorrhage or acute process. Electrocardiogram revealed atrial fibrillation. The code Arctic/cooling protocol was initiated. He was placed and the continuous EEG monitor which continues to reveal frequent, abundant, electrographic seizures as well as a burst suppression background pattern. The patient has been started on Keppra. Cooling has been gradually reversed. His sedation was held about 10 minutes prior to my assessment of him this morning. The patient began to exhibit periodic myoclonic jerking of the left shoulder which gradually intensified over a few minutes. The continuous EEG monitor revealed periodic generalized spike wave discharges of greater amplitude during this time. Past Medical/Surgical History Medical Problems: (1) Acidosis, metabolic, with respiratory acidosis Status: Acute Family History Noncontributory Social History Smoking Status: Never smoker Alcohol Use: none Drug Use: none Marital Status: Occupation Status: retired Allergies Coded Allergies: No Known Allergies (Verified , 05/08/17) Current Inpatient Medications Current Inpatient Medications Medications (Trade) Dose Ordered Sig/Te Route Start Time Stop Time Status Last Admin Dose Admin Ioversol (Optiray 320) 100 ml UD PRN IV 05/08/17 09:30 05/12/17 09:29 Norepinephrine Bitartrate 8 mg/ Dextrose 508 ml @ 0 mls/hr Q0M PRN IV 05/08/17 11:15 06/07/17 11:14 05/09/17 18:10 23 MLS/HR Propofol (Diprivan Iv Emulsion 100ml Vial) 1 dose UD PRN IV 05/08/17 11:15 05/11/17 11:14 05/10/17 06:16 1 DOSE Artificial Tears (Lacri-Lube Oph Oint) 1 appln Q2H PRN OPB 05/08/17 11:15 06/07/17 11:14 05/08/17 22:00 1 APPLN Pantoprazole Sodium 40 mg/ Syringe 10 ml @ 5 mls/min DAILY@11 IV 05/09/17 11:00 06/08/17 10:59 05/10/17 07:40 5 MLS/MIN Fentanyl Citrate 250 ml @ 0 mls/hr Q0M PRN IV 05/08/17 11:11 05/22/17 11:10 05/10/17 01:17 5 MLS/HR Meperidine HCl (Demerol Inj) 25 mg Q2H PRN IV 05/08/17 11:15 05/22/17 11:14 05/08/17 16:10 25 MG Hydromorphone HCl (Dilaudid Inj) 1 mg Q20M PRN IV 05/08/17 11:15 05/22/17 11:14 Acetaminophen (Tylenol Supp) 650 mg ONE PRN OR 05/08/17 11:15 Ampicillin Sodium/ Sulbactam Sodium 1500 mg/Sodium Chloride 104 ml @ 200 mls/hr Q6H IV 05/08/17 12:00 05/18/17 11:59 05/10/17 05:40 200 MLS/HR Aspirin (Aspirin Chew) 81 mg QD NG 05/08/17 17:00 06/07/17 16:59 05/09/17 18:09 81 MG Miscellaneous Information (Consult Glycemic Management Pharmacy) 1 ea UD PRN N/A 05/08/17 17:01 06/07/17 17:00 Cisatracurium Besylate 40 mg/ Sodium Chloride 100 ml @ 0 mls/hr Q0M PRN IV 05/08/17 17:15 06/07/17 17:14 05/09/17 22:54 16.5 MLS/HR Heparin Sodium (Porcine) (Heparin 10 Unit/ ml 5 ml Flush) 5 ml PRN PRN FLUSH 05/09/17 01:30 06/08/17 01:29 Glucose (Glucose 40% Gel) 15-30 GRAMS 15 GRAMS... UD PRN PO 05/09/17 05:30 06/08/17 05:29 Glucose (Glucose Chew Tab) 4-8 Tablets 4 Tabl... UD PRN PO 05/09/17 05:30 06/08/17 05:29 Dextrose (Dextrose 50% 50ML Syringe) 25-50ML OF 50% DW IV FOR... UD PRN IV 05/09/17 05:30 06/08/17 05:29 Glucagon (Glucagon Inj) 1 mg UD PRN SQ 05/09/17 05:30 06/08/17 05:29 Levetiracetam 1500 mg/Dextrose 115 ml @ 420 mls/hr Q12 IV 05/09/17 09:00 06/07/17 20:59 05/10/17 07:40 420 MLS/HR Amiodarone HCL/ Dextrose 200 ml @ 16.7 mls/hr [id number] IV 05/09/17 20:45 06/08/17 20:44 05/10/17 07:41 16.7 MLS/HR Sodium Chloride 1,000 ml @ 100 mls/hr Q10H IV 05/09/17 22:00 06/08/17 21:59 05/10/17 05:40 50 MLS/HR Acetaminophen 650 mg/Empty Bag 65 ml @ 260 mls/hr Q6H PRN IV 05/10/17 04:00 06/09/17 03:59 05/10/17 04:13 260 MLS/HR Insulin Aspart (novoLOG ASPART) SLIDING SCALE Q6 SC 05/10/17 12:00 06/09/17 11:59 Review of Systems A review of systems cannot be obtained from this patient as he is unresponsive on life support Physical Exam Vital Signs (Past 24 Hrs): Date Time Temp Pulse Resp B/P (MAP) Pulse Ox O2 Delivery O2 Flow Rate FiO2 05/10/17 07:20 40 05/10/17 05:46 40 05/10/17 04:00 30 05/10/17 04:00 Mechanical Ventilator 30 05/10/17 02:12 37.2 103 20 108/56 (73) 98 Mechanical Ventilator 40 107/62 (77) 05/10/17 02:07 40 05/10/17 01:09 36.7 108 20 112/73 (86) 98 Mechanical Ventilator 40 109/59 (76) 05/10/17 01:04 40 05/10/17 00:04 36.1 96 20 101/70 (80) 98 Mechanical Ventilator 30 116/68 (84) 05/10/17 00:01 Mechanical Ventilator 30 05/10/17 00:01 30 05/09/17 23:02 35.7 94 20 100/81 (87) 98 Mechanical Ventilator 30 109/59 (76) 05/09/17 22:55 30 05/09/17 22:13 35.2 85 20 103/85 (91) 98 Mechanical Ventilator 30 98/56 (70) 05/09/17 21:05 34.9 76 20 100/70 (80) 98 Mechanical Ventilator 30 98/57 (71) 05/09/17 20:18 30 05/09/17 20:04 35.0 94 20 102/73 (83) 98 Mechanical Ventilator 30 101/52 (68) 05/09/17 20:00 30 05/09/17 20:00 Mechanical Ventilator 30 05/09/17 19:30 35.4 84 20 117/75 (89) 98 Mechanical Ventilator 30 05/09/17 18:06 35.9 94 20 117/75 (89) 98 Mechanical Ventilator 30 05/09/17 17:30 30 05/09/17 17:00 36.2 120 20 124/88 (100) 97 Mechanical Ventilator 30 05/09/17 16:05 36.1 113 20 125/75 (92) 97 Mechanical Ventilator 30 05/09/17 16:00 Mechanical Ventilator 30 05/09/17 16:00 30 05/09/17 15:03 35.8 119 20 106/74 (85) 97 Mechanical Ventilator 106/74 (85) 05/09/17 14:25 30 05/09/17 14:03 35.4 153 20 119/75 (90) 96 Mechanical Ventilator 128/70 (89) 05/09/17 13:07 34.8 115 20 129/70 (89) 97 Mechanical Ventilator 132/69 (90) 05/09/17 12:02 34.4 94 20 98/72 (81) 96 Mechanical Ventilator 105/68 (80) 05/09/17 12:02 Mechanical Ventilator 30 05/09/17 12:02 30 05/09/17 11:00 30 05/09/17 11:00 33.4 87 20 105/52 (69) 95 Mechanical Ventilator 93/50 (64) 05/09/17 10:06 33.7 78 20 95/65 (75) 98 Mechanical Ventilator 100/59 (73) The patient is unresponsive, on life support in the intensive care unit. Pupils are equal, round, and minimally reactive to light. Bilateral blink reflexes are present. There is a gag reflex. Tone is diffusely flaccid. The patient exhibits periodic myoclonic jerking of the left upper extremity as described above in the history of present illness. He does not withdraw the limbs to noxious stimulation. Laboratory Results Past 24 Hours: 05/10/17 04:33 Red Blood Count 4.19, Mean Corpuscular Volume 95.0, Mean Corpuscular Hemoglobin 31.3, Mean Corpuscular Hemoglobin Concent 32.9, Mean Platelet Volume 11.8, Neutrophils (%) (Auto) 84.6, Lymphocytes (%) (Auto) 6.8, Monocytes (%) (Auto) 7.4, Eosinophils (%) (Auto) 0.5, Basophils (%) (Auto) 0.1, Neutrophils # (Auto) 8.33, Lymphocytes # (Auto) 0.67, Monocytes # (Auto) 0.73, Eosinophils # (Auto) 0.05, Basophils # (Auto) 0.01 05/10/17 04:33 Test 05/09/17 12:00 05/09/17 19:54 05/09/17 23:44 05/10/17 00:25 Total Creatine Kinase 844 U/L (39-308) Creatine Kinase MB 47.9 ng/ml (0.5-3.6) Creatine Kinase MB Ratio 5.7 (0-3.0) Troponin I 3.250 ng/ml (0-0.045) Free Thyroxine 2.14 ng/dl (0.80-1.60) Prothrombin Time 11.9 SECONDS (9.0-12.0) Prothromb Time International Ratio 1.1 (0.9-1.1) Activated Partial Thromboplast Time 28.9 SECONDS (21.0-31.0) Partial Thromboplastin Ratio 1.1 Bedside Glucose (other) 153 mg/dl (70-99) Test 05/10/17 04:33 05/10/17 04:47 05/10/17 08:54 White Blood Count 9.85 K/uL (4.8-10.8) Red Blood Count 4.19 M/uL (4.7-6.1) Hemoglobin 13.1 g/dL (14.0-18.0) Hematocrit 39.8 % (42-52) Mean Corpuscular Volume 95.0 fL (80-100) Mean Corpuscular Hemoglobin 31.3 pg (25-34) Mean Corpuscular Hemoglobin Concent 32.9 g/dl (32-36) Platelet Count 63 K/uL (130-400) Mean Platelet Volume 11.8 fL (7.4-10.4) Neutrophils (%) (Auto) 84.6 % Lymphocytes (%) (Auto) 6.8 % Monocytes (%) (Auto) 7.4 % Eosinophils (%) (Auto) 0.5 % Basophils (%) (Auto) 0.1 % Neutrophils # (Auto) 8.33 K/uL (1.4-6.5) Lymphocytes # (Auto) 0.67 K/uL (1.2-3.4) Monocytes # (Auto) 0.73 K/uL (0.11-0.59) Eosinophils # (Auto) 0.05 K/uL (0-0.5) Basophils # (Auto) 0.01 K/uL (0-0.2) RDW Standard Deviation 52.3 fL (36.4-46.3) RDW Coefficient of Variation 15.1 % (11.5-14.5) Immature Granulocyte % (Auto) 0.6 % Immature Granulocyte # (Auto) 0.06 K/uL (0.00-0.02) Echinocytes 1+ Anion Gap 7.0 mmol/L (3-11) Est Creatinine Clear Calc Drug Dose 66.1 ml/min Estimated GFR () 65.6 Estimated GFR (Non- 56.6 BUN/Creatinine Ratio 15.4 (10-20) Calcium Level 7.9 mg/dl (8.5-10.1) Phosphorus Level 4.1 mg/dl (2.5-4.9) Magnesium Level 2.0 mg/dl (1.8-2.4) Total Bilirubin 1.7 mg/dl (0.2-1) Direct Bilirubin 0.9 mg/dl (0-0.2) Aspartate Amino Transf (AST/SGOT) 90 U/L (15-37) Alanine Aminotransferase (ALT/SGPT) 77 U/L (12-78) Alkaline Phosphatase 85 U/L (45-117) Total Protein 4.9 gm/dl (6.4-8.2) Albumin 2.5 gm/dl (3.4-5.0) Blood Gas Sample Site Art Line Bedside Blood Gas pH (LAB) 7.36 (7.35-7.45) Bedside Blood Gas pCO2 (LAB) 40 mmHg (35-46) Bedside Blood Gas pO2 (LAB) 119 mmHg (80-95) Bedside Blood Gas HCO3 (LAB) 23 meq/L (19-24) Bedside Blood Gas Total CO2 24 mEq/l (24-31) Bedside Blood Gas Base Excess (LAB) -3.0 meq/L (-9-1.8) Bedside Blood Gas O2 Saturation 98.0 % (90-95) Tani Test Pass Oxygen Delivery Device Ventilator Bedside Oxygen Rate (breaths/min) 20 Blood Gas Minute Ventilation 10 Bedside FiO2 40 % Blood Gas Tidal Volume 500 Blood Gas PEEP 5 Bedside Glucose 96 mg/dl (70-99) Impression Severe anoxic encephalopathy complicated by post anoxic seizures following cardiac arrest 2 days ago. Plan Increase Keppra to 2000 mg IV every 12 hours Start Depakote 500 mg IV every 6 hours. Monitor valproic acid level and LFTs which are mildly elevated. I would recommend starting a Versed drip, uptitrate based on continuous EEG activity. Prognosis seems poor. Discussed with coagulant dipper and patient's son at bedside.
[2017-05-10] MEDS ORDERED: MIDAZOLAM 125MG/250ML D5W 250 ML IV PRN (10:11)
[2017-05-10] MEDS ORDERED: VALPROATE SOD IV 500 MG in DEXTROSE 5% 50ML 50 ML IV SCH (10:15)
[2017-05-10] MEDS: VALPROATE SOD IV 500 MG in DEXTROSE 5% 50ML 50 ML IV SCH ×3 (12:03→23:37)
--- NOTE | 2017-05-10 12:35 | Pharmacy Progress Note ---
Pharmacy Glycemic Short Note 2 Date of Service May 10, 2017. OUTPATIENT ANTIDIABETIC REGIMEN: * N/A - not a diabetic. A1c is normal Item Value Date Time Bedside Glucose 96 mg/dl 05/10/17 0854 Bedside Glucose (other) 153 mg/dl H 05/10/17 0025 Bedside Glucose (other) 145 mg/dl H 05/09/17 2112 Bedside Glucose (other) 126 mg/dl H 05/09/17 1820 Bedside Glucose (other) 106 mg/dl H 05/09/17 1421 Bedside Glucose (other) 107 mg/dl H 05/09/17 1124 Bedside Glucose (other) 89 mg/dl 05/09/17 1012 Bedside Glucose (other) 90 mg/dl 05/09/17 0910 Bedside Glucose (other) 93 mg/dl 05/09/17 0816 Bedside Glucose (other) 129 mg/dl H 05/09/17 0617 Bedside Glucose (other) 78 mg/dl 05/09/17 0519 ASSESSMENT: * Pt with hyperglycemia on admission secondary to stress, infection, cardiac arrest, & pressors * Pt initiated on IV insulin infusion per protocol on 05/08/17 which resolved the acute hyperglycemia. * IV insulin infusion placed on "hold" yesterday morning. BSG checks continued Q2hrs. Order was to restart IV insulin infusion if BSG > 190 x 2. Insulin infusion was not needed, not started. BSGs all WNL since patient re-warmed. * BSGs have been in range over the past 24hrs without IV insulin infusion. Will start SQ bolus correctional insulin scale only for hyperglycemia PLAN FOR INPATIENT GLYCEMIC CONTROL: * Basal insulin * N/A, not needed. * Bolus insulin * NovoLog per scale ACHS or Q6hrs while NPO * Goal Range: Low 120 mg/dL - High 160 mg/dL * Correction Factor: 20 mg/dL/unit * Nutritional / Prandial insulin per carb ratio of 1 unit per -- grams CHO consumed
[2017-05-10] MEDS ORDERED: PEPTAMEN INTENSE VHP 1000ML BAG OG PRN (12:45)
[2017-05-10] MEDS: INSULIN ASPART 100 UNITS/ML 3 ML PEN SC SCH ×3 (13:10→23:43)
--- NOTE | 2017-05-10 14:30 | EEG Procedure Note ---
EEG Procedure Note Date of Service May 10, 2017. Start / End Times Start Time: 05/09/2017 at 9:55AM End Time: 05/10/2017 at 14:09 PM Referring Physician Davide Gibbons History This is a 72-year-old male who presents with cardiac arrest and code arctic protocol. Continuous EEG to monitor for nonconvulsive status. Home Medication List Scheduled Fish Oil ([place]-3), 1 CAP PO DAILY Multivitamin (Multivitamin), 1 TAB PO DAILY Inpatient Medication List Current Inpatient Medications Medications (Trade) Dose Ordered Sig/Te Route Start Time Stop Time Status Last Admin Dose Admin Ioversol (Optiray 320) 100 ml UD PRN IV 05/08/17 09:30 05/12/17 09:29 Norepinephrine Bitartrate 8 mg/ Dextrose 508 ml @ 0 mls/hr Q0M PRN IV 05/08/17 11:15 06/07/17 11:14 05/09/17 18:10 23 MLS/HR Propofol (Diprivan Iv Emulsion 100ml Vial) 1 dose UD PRN IV 05/08/17 11:15 05/11/17 11:14 05/10/17 10:56 1 DOSE Artificial Tears (Lacri-Lube Oph Oint) 1 appln Q2H PRN OPB 05/08/17 11:15 06/07/17 11:14 05/08/17 22:00 1 APPLN Pantoprazole Sodium 40 mg/ Syringe 10 ml @ 5 mls/min DAILY@11 IV 05/09/17 11:00 06/08/17 10:59 05/10/17 07:40 5 MLS/MIN Fentanyl Citrate 250 ml @ 0 mls/hr Q0M PRN IV 05/08/17 11:11 05/22/17 11:10 05/10/17 01:17 5 MLS/HR Meperidine HCl (Demerol Inj) 25 mg Q2H PRN IV 05/08/17 11:15 05/22/17 11:14 05/08/17 16:10 25 MG Hydromorphone HCl (Dilaudid Inj) 1 mg Q20M PRN IV 05/08/17 11:15 05/22/17 11:14 Acetaminophen (Tylenol Supp) 650 mg ONE PRN LA 05/08/17 11:15 Ampicillin Sodium/ Sulbactam Sodium 1500 mg/Sodium Chloride 104 ml @ 200 mls/hr Q6H IV 05/08/17 12:00 05/18/17 11:59 05/10/17 12:03 200 MLS/HR Aspirin (Aspirin Chew) 81 mg QD NG 05/08/17 17:00 06/07/17 16:59 05/09/17 18:09 81 MG Miscellaneous Information (Consult Glycemic Management Pharmacy) 1 ea UD PRN N/A 05/08/17 17:01 06/07/17 17:00 Cisatracurium Besylate 40 mg/ Sodium Chloride 100 ml @ 0 mls/hr Q0M PRN IV 05/08/17 17:15 06/07/17 17:14 05/09/17 22:54 16.5 MLS/HR Heparin Sodium (Porcine) (Heparin 10 Unit/ ml 5 ml Flush) 5 ml PRN PRN FLUSH 05/09/17 01:30 06/08/17 01:29 Glucose (Glucose 40% Gel) 15-30 GRAMS 15 GRAMS... UD PRN PO 05/09/17 05:30 06/08/17 05:29 Glucose (Glucose Chew Tab) 4-8 Tablets 4 Tabl... UD PRN PO 05/09/17 05:30 06/08/17 05:29 Dextrose (Dextrose 50% 50ML Syringe) 25-50ML OF 50% DW IV FOR... UD PRN IV 05/09/17 05:30 06/08/17 05:29 Glucagon (Glucagon Inj) 1 mg UD PRN SQ 05/09/17 05:30 06/08/17 05:29 Amiodarone HCL/ Dextrose 200 ml @ 16.7 mls/hr [id number] IV 05/09/17 20:45 06/08/17 20:44 05/10/17 07:41 16.7 MLS/HR Sodium Chloride 1,000 ml @ 100 mls/hr Q10H IV 05/09/17 22:00 06/08/17 21:59 05/10/17 05:40 50 MLS/HR Acetaminophen 650 mg/Empty Bag 65 ml @ 260 mls/hr Q6H PRN IV 05/10/17 04:00 06/09/17 03:59 05/10/17 04:13 260 MLS/HR Insulin Aspart (novoLOG ASPART) SLIDING SCALE Q6 SC 05/10/17 12:00 06/09/17 11:59 Levetiracetam 2000 mg/Dextrose 270 ml @ 999 mls/hr Q12 IV 05/10/17 21:00 06/07/17 20:59 Valproate Sodium 500 mg/Dextrose 55 ml @ 55 mls/hr Q6H IV 05/10/17 12:00 06/09/17 11:59 05/10/17 12:03 55 MLS/HR Enteral Nutritional Formula (Peptamen Intense VHP) 1,000 ml UD PRN OG 05/10/17 12:45 06/09/17 12:44 05/10/17 13:46 1,000 ML Midazolam HCl 250 ml @ 0 mls/hr Q0M PRN IV 05/10/17 13:45 06/09/17 13:44 Description This is a 21 electrode continuous video EEG with a single channel dedicated to limited EKG. The electrodes were placed in accordance with the International 10- 20 system. Post processing with an event detection algorithm is applied to the continuous data collection for the purpose of identifying abnormal epochs. These detections are reviewed and all candidate seizures are processed for further analysis. Data is reviewed in its raw format and patient events are processed, edited and stored. At the start of this recording the patient is intubated and unresponsive. Background was composed of burst suppression (<10uV) and at times burst attenuation (<20uV). Burst were composed of delta/theta frequencies often with sharp or sharply countered waves. There is no state changes or sleep transients. Occasional high amplitude generalized periodic spikes (GPDs) with after going slow waves at 1-3Hz. After 18:00PM, GPDs became more abundant. After 12AM, Background was composed of either burst suppression or discontinuous (<10% suppression) with burst of delta/theta activity with frontally predominant generalized spike waves (GPDs) at 1-2Hz. Interpretation This is an abnormal continuous video EEG secondary to: 1) Occasional to abundant generalized spike or sharply contoured waves at 1-3Hz 2) Burst suppression/attenuation and discontinuous background. There was no electrographic seizures. Clinical Correlation 1) Occasional to abundant GPDs indicate a highly epileptogenic state and increased risk for seizures. Often GPDs are seen in the setting of brain injury such as anoxic brain injury. 2) Severe generalized encephalopathy of nonspecific etiology. Medications and cooling protocol can contribute to background encephalopathy.
--- NOTE | 2017-05-10 14:54 | Progress Note ---
Subjective Date of Service: May 10, 2017. Subjective Pt evaluation today including: physical exam, lab review, conversation w/ market research consultant, review of inpatient medication list Pain: sedated PO Intake: OG tube Voiding: toussaint catheter in place discussed with Dr. Gibbons this AM appreciate Dr. Madden's consultation family not at the bedside during my exam they were updated by neurology and bar and filler assembler labs reviewed, CXR reviewed Problem List Medical Problems: (1) Acidosis, metabolic, with respiratory acidosis Status: Acute Review of Systems cannot review, sedated Medications Current Inpatient Medications Medications (Trade) Dose Ordered Sig/Te Route Start Time Stop Time Status Last Admin Dose Admin Ioversol (Optiray 320) 100 ml UD PRN IV 05/08/17 09:30 05/12/17 09:29 Norepinephrine Bitartrate 8 mg/ Dextrose 508 ml @ 0 mls/hr Q0M PRN IV 05/08/17 11:15 06/07/17 11:14 05/09/17 18:10 23 MLS/HR Propofol (Diprivan Iv Emulsion 100ml Vial) 1 dose UD PRN IV 05/08/17 11:15 05/11/17 11:14 05/10/17 10:56 1 DOSE Artificial Tears (Lacri-Lube Oph Oint) 1 appln Q2H PRN OPB 05/08/17 11:15 06/07/17 11:14 05/08/17 22:00 1 APPLN Pantoprazole Sodium 40 mg/ Syringe 10 ml @ 5 mls/min DAILY@11 IV 05/09/17 11:00 06/08/17 10:59 05/10/17 07:40 5 MLS/MIN Fentanyl Citrate 250 ml @ 0 mls/hr Q0M PRN IV 05/08/17 11:11 05/22/17 11:10 05/10/17 01:17 5 MLS/HR Meperidine HCl (Demerol Inj) 25 mg Q2H PRN IV 05/08/17 11:15 05/22/17 11:14 05/08/17 16:10 25 MG Hydromorphone HCl (Dilaudid Inj) 1 mg Q20M PRN IV 05/08/17 11:15 05/22/17 11:14 Acetaminophen (Tylenol Supp) 650 mg ONE PRN MA 05/08/17 11:15 Ampicillin Sodium/ Sulbactam Sodium 1500 mg/Sodium Chloride 104 ml @ 200 mls/hr Q6H IV 05/08/17 12:00 05/18/17 11:59 05/10/17 12:03 200 MLS/HR Aspirin (Aspirin Chew) 81 mg QD NG 05/08/17 17:00 06/07/17 16:59 05/09/17 18:09 81 MG Miscellaneous Information (Consult Glycemic Management Pharmacy) 1 ea UD PRN N/A 05/08/17 17:01 06/07/17 17:00 Cisatracurium Besylate 40 mg/ Sodium Chloride 100 ml @ 0 mls/hr Q0M PRN IV 05/08/17 17:15 06/07/17 17:14 05/09/17 22:54 16.5 MLS/HR Heparin Sodium (Porcine) (Heparin 10 Unit/ ml 5 ml Flush) 5 ml PRN PRN FLUSH 05/09/17 01:30 06/08/17 01:29 Glucose (Glucose 40% Gel) 15-30 GRAMS 15 GRAMS... UD PRN PO 05/09/17 05:30 06/08/17 05:29 Glucose (Glucose Chew Tab) 4-8 Tablets 4 Tabl... UD PRN PO 05/09/17 05:30 06/08/17 05:29 Dextrose (Dextrose 50% 50ML Syringe) 25-50ML OF 50% DW IV FOR... UD PRN IV 05/09/17 05:30 06/08/17 05:29 Glucagon (Glucagon Inj) 1 mg UD PRN SQ 05/09/17 05:30 06/08/17 05:29 Amiodarone HCL/ Dextrose 200 ml @ 16.7 mls/hr [id number] IV 05/09/17 20:45 06/08/17 20:44 05/10/17 07:41 16.7 MLS/HR Sodium Chloride 1,000 ml @ 100 mls/hr Q10H IV 05/09/17 22:00 06/08/17 21:59 05/10/17 05:40 50 MLS/HR Acetaminophen 650 mg/Empty Bag 65 ml @ 260 mls/hr Q6H PRN IV 05/10/17 04:00 06/09/17 03:59 05/10/17 04:13 260 MLS/HR Insulin Aspart (novoLOG ASPART) SLIDING SCALE Q6 SC 05/10/17 12:00 06/09/17 11:59 Levetiracetam 2000 mg/Dextrose 270 ml @ 999 mls/hr Q12 IV 05/10/17 21:00 06/07/17 20:59 Valproate Sodium 500 mg/Dextrose 55 ml @ 55 mls/hr Q6H IV 05/10/17 12:00 06/09/17 11:59 05/10/17 12:03 55 MLS/HR Enteral Nutritional Formula (Peptamen Intense VHP) 1,000 ml UD PRN OG 05/10/17 12:45 06/09/17 12:44 05/10/17 13:46 1,000 ML Midazolam HCl 250 ml @ 0 mls/hr Q0M PRN IV 05/10/17 13:45 06/09/17 13:44 Objective Vital Signs Date Time Temp Pulse Resp B/P (MAP) Pulse Ox O2 Delivery O2 Flow Rate FiO2 05/10/17 12:00 40 05/10/17 12:00 Mechanical Ventilator 40 05/10/17 11:15 40 05/10/17 08:00 40 05/10/17 08:00 Mechanical Ventilator 40 05/10/17 07:20 40 05/10/17 05:46 40 05/10/17 04:00 30 05/10/17 04:00 Mechanical Ventilator 30 05/10/17 02:12 37.2 103 20 108/56 (73) 98 Mechanical Ventilator 40 107/62 (77) 05/10/17 02:07 40 05/10/17 01:09 36.7 108 20 112/73 (86) 98 Mechanical Ventilator 40 109/59 (76) 05/10/17 01:04 40 05/10/17 00:04 36.1 96 20 101/70 (80) 98 Mechanical Ventilator 30 116/68 (84) 05/10/17 00:01 Mechanical Ventilator 30 05/10/17 00:01 30 05/09/17 23:02 35.7 94 20 100/81 (87) 98 Mechanical Ventilator 30 109/59 (76) 05/09/17 22:55 30 05/09/17 22:13 35.2 85 20 103/85 (91) 98 Mechanical Ventilator 30 98/56 (70) 05/09/17 21:05 34.9 76 20 100/70 (80) 98 Mechanical Ventilator 30 98/57 (71) 05/09/17 20:18 30 05/09/17 20:04 35.0 94 20 102/73 (83) 98 Mechanical Ventilator 30 101/52 (68) 05/09/17 20:00 30 18 20:00 Mechanical Ventilator 30 05/09/17 19:30 35.4 84 20 117/75 (89) 98 Mechanical Ventilator 30 05/09/17 18:06 35.9 94 20 117/75 (89) 98 Mechanical Ventilator 30 05/09/17 17:30 30 05/09/17 17:00 36.2 120 20 124/88 (100) 97 Mechanical Ventilator 30 05/09/17 16:05 36.1 113 20 125/75 (92) 97 Mechanical Ventilator 30 05/09/17 16:00 Mechanical Ventilator 30 05/09/17 16:00 30 05/09/17 15:03 35.8 119 20 106/74 (85) 97 Mechanical Ventilator 106/74 (85) Physical Exam General Appearance: WD/WN, no apparent distress Neck: supple, no adenopathy, no JVD, trachea midline Respiratory/Chest: no respiratory distress, no accessory muscle use, + decreased breath sounds (bases) Cardiovascular: no edema, no gallop, no JVD, no murmur, + tachycardia, + irregularly irregular Abdomen: normal bowel sounds, non tender, soft, no organomegaly Extremities: normal inspection, no pedal edema, normal capillary refill Neurologic/Psychiatric: + pertinent finding (sedated at the time of my exam) Skin: normal color, warm/dry, no rash Laboratory Results Last 24 Hours Test 05/09/17 16:03 05/09/17 16:07 05/09/17 18:20 05/09/17 19:54 White Blood Count 14.99 K/uL 15.30 K/uL Red Blood Count 4.73 M/uL 4.76 M/uL Hemoglobin 15.2 g/dL 14.8 g/dL Hematocrit 44.4 % 44.6 % Mean Corpuscular Volume 93.9 fL 93.7 fL Mean Corpuscular Hemoglobin 32.1 pg 31.1 pg Mean Corpuscular Hemoglobin Concent 34.2 g/dl 33.2 g/dl Platelet Count 73 K/uL 72 K/uL Mean Platelet Volume 10.7 fL 10.6 fL Neutrophils (%) (Auto) 90.2 % 87.1 % Lymphocytes (%) (Auto) 4.3 % 6.5 % Monocytes (%) (Auto) 5.1 % 5.9 % Eosinophils (%) (Auto) 0.0 % 0.1 % Basophils (%) (Auto) 0.0 % 0.1 % Neutrophils # (Auto) 13.52 K/uL 13.33 K/uL Lymphocytes # (Auto) 0.64 K/uL 0.99 K/uL Monocytes # (Auto) 0.77 K/uL 0.91 K/uL Eosinophils # (Auto) 0.00 K/uL 0.01 K/uL Basophils # (Auto) 0.00 K/uL 0.01 K/uL RDW Standard Deviation 49.4 fL 50.2 fL RDW Coefficient of Variation 14.5 % 14.7 % Immature Granulocyte % (Auto) 0.4 % 0.3 % Immature Granulocyte # (Auto) 0.06 K/uL 0.05 K/uL Echinocytes 1+ Prothrombin Time 11.6 SECONDS 11.7 SECONDS Prothromb Time International Ratio 1.1 1.1 Activated Partial Thromboplast Time 28.7 SECONDS 29.3 SECONDS Partial Thromboplastin Ratio 1.1 1.1 Sodium Level 143 mmol/L 142 mmol/L Potassium Level 4.4 mmol/L 5.0 mmol/L Chloride Level 111 mmol/L 111 mmol/L Carbon Dioxide Level 24 mmol/L 24 mmol/L Anion Gap 8.0 mmol/L 7.0 mmol/L Blood Urea Nitrogen 18 mg/dl 18 mg/dl Creatinine 0.92 mg/dl 1.04 mg/dl Est Creatinine Clear Calc Drug Dose 90.5 ml/min 80.1 ml/min Estimated GFR () 96.0 82.7 Estimated GFR (Non- 82.8 71.4 BUN/Creatinine Ratio 19.1 17.1 Random Glucose 131 mg/dl 145 mg/dl Calcium Level 8.2 mg/dl 8.0 mg/dl Phosphorus Level 4.1 mg/dl 3.6 mg/dl Magnesium Level 2.1 mg/dl 2.1 mg/dl Blood Gas Sample Site Art Line Bedside Blood Gas pH (LAB) 7.30 Bedside Blood Gas pCO2 (LAB) 42 mmHg Bedside Blood Gas pO2 (LAB) 80 mmHg Bedside Blood Gas HCO3 (LAB) 21 meq/L Bedside Blood Gas Total CO2 23 mEq/l Bedside Blood Gas Base Excess (LAB) -5.0 meq/L Bedside Blood Gas O2 Saturation 95.0 % Tani Test NA Oxygen Delivery Device Ventilator Bedside Oxygen Rate (breaths/min) 20 Blood Gas Minute Ventilation 9.4 Bedside FiO2 30 % Blood Gas Tidal Volume 500 Blood Gas PEEP 5 Bedside Glucose (other) 126 mg/dl Free Thyroxine 2.14 ng/dl Test 05/09/17 20:14 05/09/17 21:12 05/09/17 23:44 05/10/17 00:18 Blood Gas Sample Site Art Line Art Line Bedside Blood Gas pH (LAB) 7.34 7.31 Bedside Blood Gas pCO2 (LAB) 39 mmHg 43 mmHg Bedside Blood Gas pO2 (LAB) 105 mmHg 85 mmHg Bedside Blood Gas HCO3 (LAB) 21 meq/L 22 meq/L Bedside Blood Gas Total CO2 22 mEq/l 23 mEq/l Bedside Blood Gas Base Excess (LAB) -5.0 meq/L -5.0 meq/L Bedside Blood Gas O2 Saturation 98.0 % 96.0 % Tani Test NA NA Oxygen Delivery Device Ventilator Ventilator Bedside Oxygen Rate (breaths/min) 20 20 Blood Gas Minute Ventilation 9.3 9.3 Bedside FiO2 30 % 30 % Blood Gas Tidal Volume 470 470 Blood Gas PEEP 5 5 Bedside Glucose (other) 145 mg/dl White Blood Count 15.83 K/uL Red Blood Count 4.38 M/uL Hemoglobin 14.0 g/dL Hematocrit 41.5 % Mean Corpuscular Volume 94.7 fL Mean Corpuscular Hemoglobin 32.0 pg Mean Corpuscular Hemoglobin Concent 33.7 g/dl Platelet Count 69 K/uL Mean Platelet Volume 11.4 fL Neutrophils (%) (Auto) 82.9 % Lymphocytes (%) (Auto) 10.7 % Monocytes (%) (Auto) 5.5 % Eosinophils (%) (Auto) 0.2 % Basophils (%) (Auto) 0.1 % Neutrophils # (Auto) 13.14 K/uL Lymphocytes # (Auto) 1.69 K/uL Monocytes # (Auto) 0.87 K/uL Eosinophils # (Auto) 0.03 K/uL Basophils # (Auto) 0.01 K/uL RDW Standard Deviation 52.0 fL RDW Coefficient of Variation 15.1 % Immature Granulocyte % (Auto) 0.6 % Immature Granulocyte # (Auto) 0.09 K/uL Echinocytes 1+ Prothrombin Time 11.9 SECONDS Prothromb Time International Ratio 1.1 Activated Partial Thromboplast Time 28.9 SECONDS Partial Thromboplastin Ratio 1.1 Sodium Level 140 mmol/L Potassium Level 4.6 mmol/L Chloride Level 111 mmol/L Carbon Dioxide Level 23 mmol/L Anion Gap 6.0 mmol/L Blood Urea Nitrogen 18 mg/dl Creatinine 1.19 mg/dl Est Creatinine Clear Calc Drug Dose 70.0 ml/min Estimated GFR () 70.3 Estimated GFR (Non- 60.7 BUN/Creatinine Ratio 15.3 Random Glucose 156 mg/dl Calcium Level 7.7 mg/dl Phosphorus Level 4.0 mg/dl Magnesium Level 2.0 mg/dl Test 05/10/17 00:25 05/10/17 04:33 05/10/17 04:47 05/10/17 08:54 Bedside Glucose (other) 153 mg/dl White Blood Count 9.85 K/uL Red Blood Count 4.19 M/uL Hemoglobin 13.1 g/dL Hematocrit 39.8 % Mean Corpuscular Volume 95.0 fL Mean Corpuscular Hemoglobin 31.3 pg Mean Corpuscular Hemoglobin Concent 32.9 g/dl Platelet Count 63 K/uL Mean Platelet Volume 11.8 fL Neutrophils (%) (Auto) 84.6 % Lymphocytes (%) (Auto) 6.8 % Monocytes (%) (Auto) 7.4 % Eosinophils (%) (Auto) 0.5 % Basophils (%) (Auto) 0.1 % Neutrophils # (Auto) 8.33 K/uL Lymphocytes # (Auto) 0.67 K/uL Monocytes # (Auto) 0.73 K/uL Eosinophils # (Auto) 0.05 K/uL Basophils # (Auto) 0.01 K/uL RDW Standard Deviation 52.3 fL RDW Coefficient of Variation 15.1 % Immature Granulocyte % (Auto) 0.6 % Immature Granulocyte # (Auto) 0.06 K/uL Echinocytes 1+ Sodium Level 140 mmol/L Potassium Level 4.6 mmol/L Chloride Level 111 mmol/L Carbon Dioxide Level 22 mmol/L Anion Gap 7.0 mmol/L Blood Urea Nitrogen 19 mg/dl Creatinine 1.26 mg/dl Est Creatinine Clear Calc Drug Dose 66.1 ml/min Estimated GFR () 65.6 Estimated GFR (Non- 56.6 BUN/Creatinine Ratio 15.4 Random Glucose 118 mg/dl Calcium Level 7.9 mg/dl Phosphorus Level 4.1 mg/dl Magnesium Level 2.0 mg/dl Total Bilirubin 1.7 mg/dl Direct Bilirubin 0.9 mg/dl Aspartate Amino Transf (AST/SGOT) 90 U/L Alanine Aminotransferase (ALT/SGPT) 77 U/L Alkaline Phosphatase 85 U/L Total Protein 4.9 gm/dl Albumin 2.5 gm/dl Blood Gas Sample Site Art Line Bedside Blood Gas pH (LAB) 7.36 Bedside Blood Gas pCO2 (LAB) 40 mmHg Bedside Blood Gas pO2 (LAB) 119 mmHg Bedside Blood Gas HCO3 (LAB) 23 meq/L Bedside Blood Gas Total CO2 24 mEq/l Bedside Blood Gas Base Excess (LAB) -3.0 meq/L Bedside Blood Gas O2 Saturation 98.0 % Tani Test Pass Oxygen Delivery Device Ventilator Bedside Oxygen Rate (breaths/min) 20 Blood Gas Minute Ventilation 10 Bedside FiO2 40 % Blood Gas Tidal Volume 500 Blood Gas PEEP 5 Bedside Glucose 96 mg/dl Test 05/10/17 10:47 Assessment and Plan 72 y/o M who was admitted to the ICU on 05/08 after being found unresponsive at home. Pt was a code blue -> code arctic in the ED Unresponsive episode: uncertain etiology ROSC in the ED after several defibrillations, Epinephrine, Lidocaine unsure of the arrhythmia that he experienced as there were no rhythm strips, just AED that fired QT was prolonged on initial EKG, suggesting possible torsades? initially cod arctic, now rewarmed CT head, CTAP all neg for acute CTA neg for PE, noted for pulm edema and ? PNA UA and blood cx pending Possible anoxic brain injury: neurology consult, likely has anoxic injury with seizure activity on EEG, sedation was stopped for 10 minutes and there was myoclonic jerking Keppra 2000mg BID, Depakote added and neurology recommends Versed drip poor prognosis per neurology, patients family was updated Elevated troponin: due to CPR, no evidence of cardiac ischemia, cardiology following Atrial fibrillation/atrial flutter: rates controlled, continue amiodarone Cardiomyopathy: unclear etiology, EF is 20-25%, global hypokinesis, mild pulmonary edema on CXR, diurese as needed L subclavian central line placed 05/08 Overall poor prognosis, continue management per bar and filler assembler and neurology
--- NOTE | 2017-05-10 15:27 | Critical Care Progress Note ---
Critical Care Progress Note Date of Service May 10, 2017. Attending Dr. Gibbons Subjective Rewarmed. Myoclonic activity off Propofol Still with seizure activity on EEG. Started on high dose Versed, now at 44 mg/hr Off pressors Objective General: Elderly male, looks appropriate for his age, intubated, unresponsive Heent: NC/AT, pupils poorly reactive, bilateral nasal packing Lungs: mechanical breath sounds CVS: S1S2 irregular Abd: soft Ext: No edema [employer]OR [employer]ER PERSONNEL: Off Propofol has b/l upper extremities myoclonic activity Assessment & Plan Problems: Cardiac arrest Respiratory failure Atrial fibrillation Epistaxis Plan: DIRECT[employer] PERSONNEL: S/p therapeutic hypothermia protocol Off paralytics Continue EEG monitoring Started on Keppra, increase to 2000 mg bid Add Depacon 500 mg q 6. Check levels Start high dose Versed drip at 0.2 mg/kg/hr, uptitrate to 2 mg/kg/hr based on EEG He likely has significant anoxic brain injury The family is concerned that he may also have a component of lead intoxication ( was stripping a very old door which likely had lead). Lead level was sent, but it takes approximately 1 week. I explained them that it is extremely unlikely that he would have any injury from lead, he was asymptomatic until the day of arrest, there was no anemia. I would not start empiric chelation based on this theory without any lead level. CVS: Remains in a-fib. Rate controlled with amiodarone. Off pressor support. Echo reviewed, severely depressed EF, "stunned" myocardium Mild troponin elevation, not uncommon in this scenario. No clear evidence of ischemic Vtach/Vfib. Further workup depending on his clinical evolution Consider anticoagulation soon if no nasal bleeding (one packing removed today from right nostril) Pulmonary: Vent support Titrate down FiO2 Elevate head ID: Prophylactic Abx for b/l nasal packing, on Unasyn Blood cultures sent per protocol, negative to date Renal/metabolic: Daily electrolytes Monitor urine output. Renal indices normal GI: OGT inserted Keep NPO Protonix for GI bleeding prophylaxis Heme: H/H fairly stable DVT prophylaxis: Start Lovenox tomorrow if no further bleeding after removing the second nasal packing Prognosis is guarded, I have a high index of suspicion for anoxic brain injury Critical care time spent with patient, , son, reviewing the chart, discussing with consultants excluding procedure, greater than 40 minutes Consults & Procedures Consultants: cardiology - Dr Kay Procedures: 05/08/17 - intubated by EMS 05/08/17 - left subclavian TLC 05/08/17 - right axillary a-line Data Medications: Current Inpatient Medications Medications (Trade) Dose Ordered Sig/Te Route Start Time Stop Time Status Last Admin Dose Admin Ioversol (Optiray 320) 100 ml UD PRN IV 05/08/17 09:30 05/12/17 09:29 Norepinephrine Bitartrate 8 mg/ Dextrose 508 ml @ 0 mls/hr Q0M PRN IV 05/08/17 11:15 06/07/17 11:14 05/09/17 18:10 23 MLS/HR Propofol (Diprivan Iv Emulsion 100ml Vial) 1 dose UD PRN IV 05/08/17 11:15 05/11/17 11:14 05/10/17 10:56 1 DOSE Artificial Tears (Lacri-Lube Oph Oint) 1 appln Q2H PRN OPB 05/08/17 11:15 06/07/17 11:14 05/08/17 22:00 1 APPLN Pantoprazole Sodium 40 mg/ Syringe 10 ml @ 5 mls/min DAILY@11 IV 05/09/17 11:00 06/08/17 10:59 05/10/17 07:40 5 MLS/MIN Fentanyl Citrate 250 ml @ 0 mls/hr Q0M PRN IV 05/08/17 11:11 05/22/17 11:10 05/10/17 01:17 5 MLS/HR Meperidine HCl (Demerol Inj) 25 mg Q2H PRN IV 05/08/17 11:15 05/22/17 11:14 05/08/17 16:10 25 MG Hydromorphone HCl (Dilaudid Inj) 1 mg Q20M PRN IV 05/08/17 11:15 05/22/17 11:14 Acetaminophen (Tylenol Supp) 650 mg ONE PRN WI 05/08/17 11:15 Ampicillin Sodium/ Sulbactam Sodium 1500 mg/Sodium Chloride 104 ml @ 200 mls/hr Q6H IV 05/08/17 12:00 05/18/17 11:59 05/10/17 12:03 200 MLS/HR Aspirin (Aspirin Chew) 81 mg QD NG 05/08/17 17:00 06/07/17 16:59 05/09/17 18:09 81 MG Miscellaneous Information (Consult Glycemic Management Pharmacy) 1 ea UD PRN N/A 05/08/17 17:01 06/07/17 17:00 Cisatracurium Besylate 40 mg/ Sodium Chloride 100 ml @ 0 mls/hr Q0M PRN IV 05/08/17 17:15 06/07/17 17:14 05/09/17 22:54 16.5 MLS/HR Heparin Sodium (Porcine) (Heparin 10 Unit/ ml 5 ml Flush) 5 ml PRN PRN FLUSH 05/09/17 01:30 06/08/17 01:29 Glucose (Glucose 40% Gel) 15-30 GRAMS 15 GRAMS... UD PRN PO 05/09/17 05:30 06/08/17 05:29 Glucose (Glucose Chew Tab) 4-8 Tablets 4 Tabl... UD PRN PO 05/09/17 05:30 06/08/17 05:29 Dextrose (Dextrose 50% 50ML Syringe) 25-50ML OF 50% DW IV FOR... UD PRN IV 05/09/17 05:30 06/08/17 05:29 Glucagon (Glucagon Inj) 1 mg UD PRN SQ 05/09/17 05:30 06/08/17 05:29 Amiodarone HCL/ Dextrose 200 ml @ 16.7 mls/hr [id number] IV 05/09/17 20:45 06/08/17 20:44 05/10/17 07:41 16.7 MLS/HR Sodium Chloride 1,000 ml @ 100 mls/hr Q10H IV 05/09/17 22:00 06/08/17 21:59 05/10/17 05:40 50 MLS/HR Acetaminophen 650 mg/Empty Bag 65 ml @ 260 mls/hr Q6H PRN IV 05/10/17 04:00 06/09/17 03:59 05/10/17 04:13 260 MLS/HR Insulin Aspart (novoLOG ASPART) SLIDING SCALE Q6 SC 05/10/17 12:00 06/09/17 11:59 Levetiracetam 2000 mg/Dextrose 270 ml @ 999 mls/hr Q12 IV 05/10/17 21:00 06/07/17 20:59 Valproate Sodium 500 mg/Dextrose 55 ml @ 55 mls/hr Q6H IV 05/10/17 12:00 06/09/17 11:59 05/10/17 12:03 55 MLS/HR Enteral Nutritional Formula (Peptamen Intense VHP) 1,000 ml UD PRN OG 05/10/17 12:45 06/09/17 12:44 05/10/17 13:46 1,000 ML Midazolam HCl 250 ml @ 0 mls/hr Q0M PRN IV 05/10/17 13:45 06/09/17 13:44 I & O: 24-Hour Column 05/11/17 08:00 Intake Total 1251 ml Output Total 400 ml Balance 851 ml Vital Signs: Date Time Temp Pulse Resp B/P (MAP) Pulse Ox O2 Delivery O2 Flow Rate FiO2 05/10/17 14:20 40 05/10/17 12:00 40 05/10/17 12:00 Mechanical Ventilator 40 05/10/17 11:15 40 05/10/17 08:00 40 05/10/17 08:00 Mechanical Ventilator 40 05/10/17 07:20 40 05/10/17 05:46 40 05/10/17 04:00 30 05/10/17 04:00 Mechanical Ventilator 30 05/10/17 02:12 37.2 103 20 108/56 (73) 98 Mechanical Ventilator 40 107/62 (77) 05/10/17 02:07 40 05/10/17 01:09 36.7 108 20 112/73 (86) 98 Mechanical Ventilator 40 109/59 (76) 05/10/17 01:04 40 05/10/17 00:04 36.1 96 20 101/70 (80) 98 Mechanical Ventilator 30 116/68 (84) 05/10/17 00:01 Mechanical Ventilator 30 05/10/17 00:01 30 05/09/17 23:02 35.7 94 20 100/81 (87) 98 Mechanical Ventilator 30 109/59 (76) 05/09/17 22:55 30 05/09/17 22:13 35.2 85 20 103/85 (91) 98 Mechanical Ventilator 30 98/56 (70) 05/09/17 21:05 34.9 76 20 100/70 (80) 98 Mechanical Ventilator 30 98/57 (71) 05/09/17 20:18 30 05/09/17 20:04 35.0 94 20 102/73 (83) 98 Mechanical Ventilator 30 101/52 (68) 05/09/17 20:00 30 05/09/17 20:00 Mechanical Ventilator 30 05/09/17 19:30 35.4 84 20 117/75 (89) 98 Mechanical Ventilator 30 05/09/17 18:06 35.9 94 20 117/75 (89) 98 Mechanical Ventilator 30 05/09/17 17:30 30 05/09/17 17:00 36.2 120 20 124/88 (100) 97 Mechanical Ventilator 30 05/09/17 16:05 36.1 113 20 125/75 (92) 97 Mechanical Ventilator 30 05/09/17 16:00 Mechanical Ventilator 30 05/09/17 16:00 30 Laboratory Results: Last 24 Hours Test 05/09/17 16:03 05/09/17 16:07 05/09/17 18:20 05/09/17 19:54 White Blood Count 14.99 K/uL 15.30 K/uL Red Blood Count 4.73 M/uL 4.76 M/uL Hemoglobin 15.2 g/dL 14.8 g/dL Hematocrit 44.4 % 44.6 % Mean Corpuscular Volume 93.9 fL 93.7 fL Mean Corpuscular Hemoglobin 32.1 pg 31.1 pg Mean Corpuscular Hemoglobin Concent 34.2 g/dl 33.2 g/dl Platelet Count 73 K/uL 72 K/uL Mean Platelet Volume 10.7 fL 10.6 fL Neutrophils (%) (Auto) 90.2 % 87.1 % Lymphocytes (%) (Auto) 4.3 % 6.5 % Monocytes (%) (Auto) 5.1 % 5.9 % Eosinophils (%) (Auto) 0.0 % 0.1 % Basophils (%) (Auto) 0.0 % 0.1 % Neutrophils # (Auto) 13.52 K/uL 13.33 K/uL Lymphocytes # (Auto) 0.64 K/uL 0.99 K/uL Monocytes # (Auto) 0.77 K/uL 0.91 K/uL Eosinophils # (Auto) 0.00 K/uL 0.01 K/uL Basophils # (Auto) 0.00 K/uL 0.01 K/uL RDW Standard Deviation 49.4 fL 50.2 fL RDW Coefficient of Variation 14.5 % 14.7 % Immature Granulocyte % (Auto) 0.4 % 0.3 % Immature Granulocyte # (Auto) 0.06 K/uL 0.05 K/uL Echinocytes 1+ Prothrombin Time 11.6 SECONDS 11.7 SECONDS Prothromb Time International Ratio 1.1 1.1 Activated Partial Thromboplast Time 28.7 SECONDS 29.3 SECONDS Partial Thromboplastin Ratio 1.1 1.1 Sodium Level 143 mmol/L 142 mmol/L Potassium Level 4.4 mmol/L 5.0 mmol/L Chloride Level 111 mmol/L 111 mmol/L Carbon Dioxide Level 24 mmol/L 24 mmol/L Anion Gap 8.0 mmol/L 7.0 mmol/L Blood Urea Nitrogen 18 mg/dl 18 mg/dl Creatinine 0.92 mg/dl 1.04 mg/dl Est Creatinine Clear Calc Drug Dose 90.5 ml/min 80.1 ml/min Estimated GFR () 96.0 82.7 Estimated GFR (Non- 82.8 71.4 BUN/Creatinine Ratio 19.1 17.1 Random Glucose 131 mg/dl 145 mg/dl Calcium Level 8.2 mg/dl 8.0 mg/dl Phosphorus Level 4.1 mg/dl 3.6 mg/dl Magnesium Level 2.1 mg/dl 2.1 mg/dl Blood Gas Sample Site Art Line Bedside Blood Gas pH (LAB) 7.30 Bedside Blood Gas pCO2 (LAB) 42 mmHg Bedside Blood Gas pO2 (LAB) 80 mmHg Bedside Blood Gas HCO3 (LAB) 21 meq/L Bedside Blood Gas Total CO2 23 mEq/l Bedside Blood Gas Base Excess (LAB) -5.0 meq/L Bedside Blood Gas O2 Saturation 95.0 % Tani Test NA Oxygen Delivery Device Ventilator Bedside Oxygen Rate (breaths/min) 20 Blood Gas Minute Ventilation 9.4 Bedside FiO2 30 % Blood Gas Tidal Volume 500 Blood Gas PEEP 5 Bedside Glucose (other) 126 mg/dl Free Thyroxine 2.14 ng/dl Test 05/09/17 20:14 05/09/17 21:12 05/09/17 23:44 05/10/17 00:18 Blood Gas Sample Site Art Line Art Line Bedside Blood Gas pH (LAB) 7.34 7.31 Bedside Blood Gas pCO2 (LAB) 39 mmHg 43 mmHg Bedside Blood Gas pO2 (LAB) 105 mmHg 85 mmHg Bedside Blood Gas HCO3 (LAB) 21 meq/L 22 meq/L Bedside Blood Gas Total CO2 22 mEq/l 23 mEq/l Bedside Blood Gas Base Excess (LAB) -5.0 meq/L -5.0 meq/L Bedside Blood Gas O2 Saturation 98.0 % 96.0 % Tani Test NA NA Oxygen Delivery Device Ventilator Ventilator Bedside Oxygen Rate (breaths/min) 20 20 Blood Gas Minute Ventilation 9.3 9.3 Bedside FiO2 30 % 30 % Blood Gas Tidal Volume 470 470 Blood Gas PEEP 5 5 Bedside Glucose (other) 145 mg/dl White Blood Count 15.83 K/uL Red Blood Count 4.38 M/uL Hemoglobin 14.0 g/dL Hematocrit 41.5 % Mean Corpuscular Volume 94.7 fL Mean Corpuscular Hemoglobin 32.0 pg Mean Corpuscular Hemoglobin Concent 33.7 g/dl Platelet Count 69 K/uL Mean Platelet Volume 11.4 fL Neutrophils (%) (Auto) 82.9 % Lymphocytes (%) (Auto) 10.7 % Monocytes (%) (Auto) 5.5 % Eosinophils (%) (Auto) 0.2 % Basophils (%) (Auto) 0.1 % Neutrophils # (Auto) 13.14 K/uL Lymphocytes # (Auto) 1.69 K/uL Monocytes # (Auto) 0.87 K/uL Eosinophils # (Auto) 0.03 K/uL Basophils # (Auto) 0.01 K/uL RDW Standard Deviation 52.0 fL RDW Coefficient of Variation 15.1 % Immature Granulocyte % (Auto) 0.6 % Immature Granulocyte # (Auto) 0.09 K/uL Echinocytes 1+ Prothrombin Time 11.9 SECONDS Prothromb Time International Ratio 1.1 Activated Partial Thromboplast Time 28.9 SECONDS Partial Thromboplastin Ratio 1.1 Sodium Level 140 mmol/L Potassium Level 4.6 mmol/L Chloride Level 111 mmol/L Carbon Dioxide Level 23 mmol/L Anion Gap 6.0 mmol/L Blood Urea Nitrogen 18 mg/dl Creatinine 1.19 mg/dl Est Creatinine Clear Calc Drug Dose 70.0 ml/min Estimated GFR () 70.3 Estimated GFR (Non- 60.7 BUN/Creatinine Ratio 15.3 Random Glucose 156 mg/dl Calcium Level 7.7 mg/dl Phosphorus Level 4.0 mg/dl Magnesium Level 2.0 mg/dl Test 05/10/17 00:25 05/10/17 04:33 05/10/17 04:47 05/10/17 08:54 Bedside Glucose (other) 153 mg/dl White Blood Count 9.85 K/uL Red Blood Count 4.19 M/uL Hemoglobin 13.1 g/dL Hematocrit 39.8 % Mean Corpuscular Volume 95.0 fL Mean Corpuscular Hemoglobin 31.3 pg Mean Corpuscular Hemoglobin Concent 32.9 g/dl Platelet Count 63 K/uL Mean Platelet Volume 11.8 fL Neutrophils (%) (Auto) 84.6 % Lymphocytes (%) (Auto) 6.8 % Monocytes (%) (Auto) 7.4 % Eosinophils (%) (Auto) 0.5 % Basophils (%) (Auto) 0.1 % Neutrophils # (Auto) 8.33 K/uL Lymphocytes # (Auto) 0.67 K/uL Monocytes # (Auto) 0.73 K/uL Eosinophils # (Auto) 0.05 K/uL Basophils # (Auto) 0.01 K/uL RDW Standard Deviation 52.3 fL RDW Coefficient of Variation 15.1 % Immature Granulocyte % (Auto) 0.6 % Immature Granulocyte # (Auto) 0.06 K/uL Echinocytes 1+ Sodium Level 140 mmol/L Potassium Level 4.6 mmol/L Chloride Level 111 mmol/L Carbon Dioxide Level 22 mmol/L Anion Gap 7.0 mmol/L Blood Urea Nitrogen 19 mg/dl Creatinine 1.26 mg/dl Est Creatinine Clear Calc Drug Dose 66.1 ml/min Estimated GFR () 65.6 Estimated GFR (Non- 56.6 BUN/Creatinine Ratio 15.4 Random Glucose 118 mg/dl Calcium Level 7.9 mg/dl Phosphorus Level 4.1 mg/dl Magnesium Level 2.0 mg/dl Total Bilirubin 1.7 mg/dl Direct Bilirubin 0.9 mg/dl Aspartate Amino Transf (AST/SGOT) 90 U/L Alanine Aminotransferase (ALT/SGPT) 77 U/L Alkaline Phosphatase 85 U/L Total Protein 4.9 gm/dl Albumin 2.5 gm/dl Blood Gas Sample Site Art Line Bedside Blood Gas pH (LAB) 7.36 Bedside Blood Gas pCO2 (LAB) 40 mmHg Bedside Blood Gas pO2 (LAB) 119 mmHg Bedside Blood Gas HCO3 (LAB) 23 meq/L Bedside Blood Gas Total CO2 24 mEq/l Bedside Blood Gas Base Excess (LAB) -3.0 meq/L Bedside Blood Gas O2 Saturation 98.0 % Tani Test Pass Oxygen Delivery Device Ventilator Bedside Oxygen Rate (breaths/min) 20 Blood Gas Minute Ventilation 10 Bedside FiO2 40 % Blood Gas Tidal Volume 500 Blood Gas PEEP 5 Bedside Glucose 96 mg/dl Test 05/10/17 10:47 05/10/17 13:10 Bedside Glucose 113 mg/dl
[2017-05-10] MEDS: ASPIRIN 81 MG CHEW NG SCH (16:17)
[2017-05-10] MEDS: D5W IV PRN ×2 (16:18→21:44)
[2017-05-10] MEDS: MIDAZOLAM IV PRN ×2 (16:18→21:44)
[2017-05-10] MEDS: NOREPINEPHRINE BIT INJ 8 MG in DEXTROSE 5% 500ML 500 ML IV PRN (16:57)
[2017-05-10] MEDS: LEVETIRACETAM IV 2,000 MG in DEXTROSE 5% 250ML 250 ML IV SCH (20:30)
[2017-05-10] MEDS ORDERED: LEVETIRACETAM IV SCH (21:00)
[2017-05-10] MEDS ORDERED: DEXTROSE 5% IV SCH (21:00)
[2017-05-11] VITALS (42 sets, daily range): BP systolic 92–176; BP diastolic 48–158; PULSE 61–104; TEMP 36.1–37.7; O2SAT 94–99
[2017-05-11] MEDS: MIDAZOLAM IV PRN ×3 (01:16→21:40)
[2017-05-11] MEDS: D5W IV PRN ×3 (01:16→21:40)
[2017-05-11] MEDS: PROPOFOL IV EMULSION 10 MG/ML 100 ML VIAL IV PRN ×3 (01:56→23:00)
[2017-05-11 05:21] LABS: HEMATOCRIT 37.8 % (42-52); HEMOGLOBIN 12.4 g/dL (14.0-18.0); MEAN CELL VOLUME 96.2 fL (80-100); MEAN CORPUSCULAR HEMOGLOBIN 31.6 pg (25-34); MEAN CORPUSCULAR HGB CONC 32.8 g/dl (32-36); RED CELL DISTRIBUTION WIDTH CV 15.3 % (11.5-14.5); RED CELL DISTRIBUTION WIDTH SD 53.8 fL (36.4-46.3)
[2017-05-11] MEDS: AMPICILLIN/SULBACTAM SOD INJ 1,500 MG in SODIUM CHLORIDE 0.9% 100ML 100 ML IV SCH ×4 (05:26→23:01)
[2017-05-11] MEDS: VALPROATE SOD IV 500 MG in DEXTROSE 5% 50ML 50 ML IV SCH ×4 (05:26→23:01)
[2017-05-11] MEDS: SODIUM CHLORIDE 0.9% 1000ML 1,000 ML IV SCH ×3 (05:27→23:01)
[2017-05-11 05:39] LABS: MEAN PLATELET VOLUME 11.4 fL (7.4-10.4); PLATELET COUNT 73 K/uL (130-400)
[2017-05-11 05:57] LABS: BASO % 0.1 %; BASO ABS # 0.01 K/uL (0-0.2); EOS % 1.1 %; EOS ABS # 0.11 K/uL (0-0.5); IG# 0.04 K/uL (0.00-0.02); LYMPH % 10.3 %; LYMPH ABS # 1.05 K/uL (1.2-3.4); MONO % 5.2 %; MONO ABS # 0.53 K/uL (0.11-0.59); NEUT % 82.9 %; NEUT ABS # 8.46 K/uL (1.4-6.5)
[2017-05-11 05:58] LABS: ALBUMIN 2.4 gm/dl (3.4-5.0); ALT/SGPT 60 U/L (12-78); AST/SGOT 70 U/L (15-37); BLOOD UREA NITROGEN 25 mg/dl (7-18); CALCIUM 7.6 mg/dl (8.5-10.1); CARBON DIOXIDE 24 mmol/L (21-32); CREATININE 1.27 mg/dl (0.60-1.40); GLUCOSE 130 mg/dl (70-99); POTASSIUM 4.1 mmol/L (3.5-5.1); SODIUM 137 mmol/L (136-145)
[2017-05-11] MEDS: INSULIN ASPART 100 UNITS/ML 3 ML PEN SC SCH ×4 (06:00→23:17)
[2017-05-11 06:10] LABS: ALKALINE PHOSPHATASE 84 U/L (45-117); PHOSPHORUS 4.1 mg/dl (2.5-4.9); TOTAL PROTEIN 4.9 gm/dl (6.4-8.2)
--- NOTE | 2017-05-11 06:54 | DIAGNOSTIC IMAGING REPORT ---
CHEST ONE VIEW PORTABLE HISTORY: 72 years-old Male cardiac arrest, respiratory failure acute respiratory failure COMPARISON: Chest radiograph 05/10/2017 TECHNIQUE: Portable AP view of the chest FINDINGS: Cardiac silhouette is again moderately enlarged. Atherosclerosis of the aorta. Endotracheal tube overlies the midline, 4.0 cm superior to the alysa. Enteric tube courses below the diaphragm into the region of the gastric lumen. Left subclavian catheter is noted in unchanged positioning. Small bilateral pleural effusions. No pneumothorax. Pulmonary vascular congestion with slightly improved pulmonary edema. Persistent patchy bibasilar opacities. Bones of the chest appear grossly intact. IMPRESSION: 1. Stable positioning of life support apparatus. 2. Cardiomegaly with small bilateral pleural effusions and slightly improved pulmonary edema. The above report was generated using voice recognition software. It may contain grammatical, syntax or spelling errors. Electronically signed by: Chriss Saenz M.D. 05/11/2017 6:52 AM Dictated Date/Time: 05/11/2017 6:50 AM
[2017-05-11] MEDS: LEVETIRACETAM IV 2,000 MG in DEXTROSE 5% 250ML 250 ML IV SCH ×2 (07:55→21:36)
[2017-05-11] MEDS: AMIODARONE / D5W 200 ML IV SCH (07:56)
--- NOTE | 2017-05-11 09:49 | CARDIOLOGY PROGRESS NOTE ---
DATE: 05/11/2017 SUBJECTIVE: Mr. Portillo is sedated and intubated in the intensive care unit, unresponsive to pain. OBJECTIVE: VITAL SIGNS: Blood pressure is 100/55 with an irregular pulse of 100. Respiratory rate is 20. The patient is afebrile at 36.9 degrees Celsius. Saturations 97% on 40% FIO2. NECK: Supple with full carotid upstrokes. I cannot assess carotid bruits or jugular venous distention. CARDIOVASCULAR: Reveals an irregularly irregular rhythm with distant heart sounds. LUNGS: Note coarse breath sounds throughout. ABDOMEN: Soft. EXTREMITIES: Reveal trace pretibial edema bilaterally. DATA: CBC notes a hemoglobin of 12.4, hematocrit 37.8, white count 10.2, platelet count 73,000. Electrolytes note a sodium of 137, potassium 4.1, chloride 107, bicarbonate 24, BUN 25, creatinine 1.27, glucose 130. home staging specialist notes atrial fibrillation. IMPRESSION AND PLAN: 1. Status post cardiac arrest -- etiology remains uncertain. Minor troponin elevation likely secondary to cardiopulmonary resuscitation and not myocardial ischemia. Left ventricular dysfunction is likely secondary. 2. Left ventricular dysfunction -- as above. 3. Atrial fibrillation -- rate adequately controlled. He remains on intravenous amiodarone. 4. Hypotension -- remains on pressors for blood pressure support. 5. Prognosis -- poor.
[2017-05-11] MEDS ORDERED: DEXTROSE 5% IV STA (10:40)
[2017-05-11] MEDS ORDERED: VALPROATE SOD IV STA (10:40)
--- NOTE | 2017-05-11 11:12 | Neurology Progress Notes ---
Neurology Progress Note Date of Service May 11, 2017. Subjective Patient has been here since May 08, post arrest. According to history from the family (patient's and 2 sons are present in the room) there was likely 20-25 minutes that it passed from the time he was 1st found on the ground until EMS restored the cardiac rhythm. Patient is having continuous EEG monitoring. He is having frequent generalized sharp waves occurring every 1- 2 seconds. The patient has not had any overt seizure activity, although he is on propofol and Versed. Depakote level was 49. Objective Date Time Temp Pulse Resp B/P (MAP) Pulse Ox O2 Delivery O2 Flow Rate FiO2 05/11/17 09:30 37.2 97 20 106/59 (69) 97 99/51 05/11/17 09:00 37.2 91 20 103/61 (66) 97 97/58 05/11/17 08:30 37.4 95 20 113/67 (74) 97 104/53 05/11/17 08:00 99 Mechanical Ventilator 40 05/11/17 08:00 37.5 81 20 101/54 (57) 97 101/49 05/11/17 08:00 40 05/11/17 07:30 37.4 84 20 98/61 (70) 98 103/54 05/11/17 07:20 40 05/11/17 07:00 37.4 102 20 103/60 (69) 97 107/55 05/11/17 06:00 37.3 102 20 108/60 (81) 97 105/55 05/11/17 05:30 37.2 104 20 103/59 (66) 97 105/51 05/11/17 05:30 37.2 104 20 103/59 (66) 97 105/51 05/11/17 05:25 40 05/11/17 04:30 36.9 92 20 112/53 (66) 96 103/54 05/11/17 04:00 36.8 84 20 108/62 (89) 95 104/50 05/11/17 04:00 Mechanical Ventilator 30 05/11/17 04:00 40 05/11/17 03:30 36.6 91 20 103/68 (82) 95 98/51 05/11/17 03:00 36.5 80 20 102/58 (68) 94 98/52 1/15/18 02:36 40 05/11/17 02:30 36.4 82 20 102/56 (78) 94 99/56 05/11/17 02:00 74 20 97/53 (77) 95 101/53 05/11/17 01:30 73 20 108/61 (82) 96 102/54 05/11/17 01:00 78 20 103/56 (80) 96 102/55 05/11/17 00:30 77 20 113/54 (92) 96 102/55 05/11/17 00:01 40 05/11/17 00:01 Mechanical Ventilator 30 05/11/17 00:00 36.3 66 20 110/54 (80) 96 99/53 05/10/17 23:58 40 05/10/17 23:30 66 20 99/66 (75) 96 96/52 05/10/17 23:00 69 20 105/57 (78) 96 97/52 05/10/17 22:30 70 20 97/60 (67) 96 96/53 05/10/17 22:00 35.5 67 20 100/64 (67) 96 98/52 05/10/17 22:00 67 20 100/64 (67) 96 98/52 (69) 05/10/17 21:40 65 20 103/59 (69) 95 98/52 (65) 05/10/17 21:31 68 20 109/55 (66) 96 96/49 (64) 05/10/17 21:00 74 20 112/63 (79) 97 98/52 (69) 05/10/17 20:30 77 20 111/55 (69) 97 97/51 (68) 05/10/17 20:28 40 05/10/17 20:00 30 05/10/17 20:00 Mechanical Ventilator 30 05/10/17 20:00 36.3 73 20 103/64 (79) 97 101/51 (70) 05/10/17 19:52 35.5 73 20 98/61 (63) 97 90/46 (66) 05/10/17 19:00 35.6 82 20 99/59 (64) 98 94/53 (67) 05/10/17 18:00 35.8 80 20 103/59 (64) 98 92/51 05/10/17 17:20 40 05/10/17 17:00 36.3 94 19 74/52 (64) 99 78/44 05/10/17 16:01 36.8 99 20 91/48 (65) 88/53 05/10/17 16:00 36.8 84 20 (66) 97 89/53 05/10/17 16:00 Mechanical Ventilator 40 05/10/17 16:00 40 05/10/17 15:00 37.0 95 20 105/55 (76) 99 100/56 05/10/17 14:20 40 05/10/17 14:00 37.3 101 20 93/58 (62) 99 101/58 05/10/17 13:00 37.6 102 20 92/62 (78) 98 103/57 05/10/17 12:00 40 05/10/17 12:00 Mechanical Ventilator 40 05/10/17 12:00 37.5 103 20 118/68 (94) 100 122/65 05/10/17 11:15 40 05/10/17 11:15 37.4 107 20 (88) 99 123/69 05/10/17 11:01 37.4 116 20 114/83 (85) 96 118/67 Last 24 Hours Test 05/10/17 13:10 05/10/17 18:26 05/10/17 23:42 05/11/17 05:02 Bedside Glucose 113 mg/dl Bedside Glucose (other) 136 mg/dl 158 mg/dl White Blood Count 10.20 K/uL Red Blood Count 3.93 M/uL Hemoglobin 12.4 g/dL Hematocrit 37.8 % Mean Corpuscular Volume 96.2 fL Mean Corpuscular Hemoglobin 31.6 pg Mean Corpuscular Hemoglobin Concent 32.8 g/dl Platelet Count 73 K/uL Mean Platelet Volume 11.4 fL Neutrophils (%) (Auto) 82.9 % Lymphocytes (%) (Auto) 10.3 % Monocytes (%) (Auto) 5.2 % Eosinophils (%) (Auto) 1.1 % Basophils (%) (Auto) 0.1 % Neutrophils # (Auto) 8.46 K/uL Lymphocytes # (Auto) 1.05 K/uL Monocytes # (Auto) 0.53 K/uL Eosinophils # (Auto) 0.11 K/uL Basophils # (Auto) 0.01 K/uL RDW Standard Deviation 53.8 fL RDW Coefficient of Variation 15.3 % Immature Granulocyte % (Auto) 0.4 % Immature Granulocyte # (Auto) 0.04 K/uL Sodium Level 137 mmol/L Potassium Level 4.1 mmol/L Chloride Level 107 mmol/L Carbon Dioxide Level 24 mmol/L Anion Gap 6.0 mmol/L Blood Urea Nitrogen 25 mg/dl Creatinine 1.27 mg/dl Est Creatinine Clear Calc Drug Dose 65.6 ml/min Estimated GFR () 65.0 Estimated GFR (Non- 56.1 BUN/Creatinine Ratio 19.5 Random Glucose 130 mg/dl Calcium Level 7.6 mg/dl Phosphorus Level 4.1 mg/dl Magnesium Level 2.0 mg/dl Total Bilirubin 1.5 mg/dl Direct Bilirubin 1.0 mg/dl Aspartate Amino Transf (AST/SGOT) 70 U/L Alanine Aminotransferase (ALT/SGPT) 60 U/L Alkaline Phosphatase 84 U/L Total Protein 4.9 gm/dl Albumin 2.4 gm/dl Thyroid Stimulating Hormone (TSH) < 0.005 uIu/ml Free Thyroxine 1.78 ng/dl Free Triiodothyronine 3.43 pg/ml Valproic Acid (Depakene) Level 49 mcg/ml Test 05/11/17 05:47 05/11/17 06:07 05/11/17 10:31 Blood Gas Sample Site Art Line Bedside Blood Gas pH (LAB) 7.25 Bedside Blood Gas pCO2 (LAB) 53 mmHg Bedside Blood Gas pO2 (LAB) 127 mmHg Bedside Blood Gas HCO3 (LAB) 23 meq/L Bedside Blood Gas Total CO2 25 mEq/l Bedside Blood Gas Base Excess (LAB) -4.0 meq/L Bedside Blood Gas O2 Saturation 98.0 % Tani Test NA Oxygen Delivery Device Ventilator Bedside Oxygen Rate (breaths/min) 20 Blood Gas Minute Ventilation 9.1 Bedside FiO2 40 % Blood Gas Tidal Volume 500 Blood Gas PEEP 5 Bedside Glucose (other) 118 mg/dl Exam: The patient is off propofol for this exam. He is still on Versed The patient had no spontaneous movement. Limbs were flaccid. Eyes open passively. Pupils were 1-2 millimeters bilaterally and not reactive to light. There was some skew deviation with the right eye being slightly abducted compared to the left which was midline. With passive movement of the head the eyes did not change position at all. He had negative corneal reflexes bilaterally. There was no gag or cough to suctioning. Patient had 0/4 reflexes in all 4 limbs with neutral toes to plantar stimulation. Deep pain in all 4 limbs produce no reaction. The patient had generalized 1-2 hertz spike and sharp waves seen on continuous monitoring EEG and no clinical accompaniment was noted. Current Inpatient Medications Medications (Trade) Dose Ordered Sig/Te Route Start Time Stop Time Status Last Admin Dose Admin Ioversol (Optiray 320) 100 ml UD PRN IV 05/08/17 09:30 05/12/17 09:29 Norepinephrine Bitartrate 8 mg/ Dextrose 508 ml @ 0 mls/hr Q0M PRN IV 05/08/17 11:15 06/07/17 11:14 05/10/17 16:57 22 MLS/HR Propofol (Diprivan Iv Emulsion 100ml Vial) 1 dose UD PRN IV 05/08/17 11:15 05/11/17 11:14 05/11/17 01:56 1 DOSE Artificial Tears (Lacri-Lube Oph Oint) 1 appln Q2H PRN OPB 05/08/17 11:15 06/07/17 11:14 05/08/17 22:00 1 APPLN Pantoprazole Sodium 40 mg/ Syringe 10 ml @ 5 mls/min DAILY@11 IV 05/09/17 11:00 06/08/17 10:59 05/10/17 07:40 5 MLS/MIN Fentanyl Citrate 250 ml @ 0 mls/hr Q0M PRN IV 05/08/17 11:11 05/22/17 11:10 05/10/17 01:17 5 MLS/HR Meperidine HCl (Demerol Inj) 25 mg Q2H PRN IV 05/08/17 11:15 05/22/17 11:14 05/08/17 16:10 25 MG Hydromorphone HCl (Dilaudid Inj) 1 mg Q20M PRN IV 05/08/17 11:15 05/22/17 11:14 Acetaminophen (Tylenol Supp) 650 mg ONE PRN NE 05/08/17 11:15 Ampicillin Sodium/ Sulbactam Sodium 1500 mg/Sodium Chloride 104 ml @ 200 mls/hr Q6H IV 05/08/17 12:00 05/18/17 11:59 05/11/17 05:26 200 MLS/HR Aspirin (Aspirin Chew) 81 mg QD NG 05/08/17 17:00 06/07/17 16:59 05/10/17 16:17 81 MG Miscellaneous Information (Consult Glycemic Management Pharmacy) 1 ea UD PRN N/A 05/08/17 17:01 06/07/17 17:00 Cisatracurium Besylate 40 mg/ Sodium Chloride 100 ml @ 0 mls/hr Q0M PRN IV 05/08/17 17:15 06/07/17 17:14 05/09/17 22:54 16.5 MLS/HR Heparin Sodium (Porcine) (Heparin 10 Unit/ ml 5 ml Flush) 5 ml PRN PRN FLUSH 05/09/17 01:30 06/08/17 01:29 Glucose (Glucose 40% Gel) 15-30 GRAMS 15 GRAMS... UD PRN PO 05/09/17 05:30 06/08/17 05:29 Glucose (Glucose Chew Tab) 4-8 Tablets 4 Tabl... UD PRN PO 05/09/17 05:30 06/08/17 05:29 Dextrose (Dextrose 50% 50ML Syringe) 25-50ML OF 50% DW IV FOR... UD PRN IV 05/09/17 05:30 06/08/17 05:29 Glucagon (Glucagon Inj) 1 mg UD PRN SQ 05/09/17 05:30 06/08/17 05:29 Amiodarone HCL/ Dextrose 200 ml @ 16.7 mls/hr [id number] IV 05/09/17 20:45 06/08/17 20:44 05/11/17 07:56 16.7 MLS/HR Sodium Chloride 1,000 ml @ 100 mls/hr Q10H IV 05/09/17 22:00 06/08/17 21:59 05/11/17 05:27 100 MLS/HR Acetaminophen 650 mg/Empty Bag 65 ml @ 260 mls/hr Q6H PRN IV 05/10/17 04:00 06/09/17 03:59 05/10/17 04:13 260 MLS/HR Insulin Aspart (novoLOG ASPART) SLIDING SCALE Q6 SC 05/10/17 12:00 06/09/17 11:59 Levetiracetam 2000 mg/Dextrose 270 ml @ 999 mls/hr Q12 IV 05/10/17 21:00 06/07/17 20:59 05/11/17 07:55 999 MLS/HR Valproate Sodium 500 mg/Dextrose 55 ml @ 55 mls/hr Q6H IV 05/10/17 12:00 06/09/17 11:59 05/11/17 05:26 55 MLS/HR Midazolam HCl 250 ml @ 0 mls/hr Q0M PRN IV 05/10/17 13:45 06/09/17 13:44 05/11/17 05:34 66 MLS/HR Valproate Sodium 1000 mg/Dextrose 110 ml @ 220 mls/hr NOW STAT IV 05/11/17 10:40 05/11/17 11:09 Impression 1. Post cardiac arrest May 08. He has a severe encephalopathy Neurologic examination today off propofol shows no evidence of cerebral, brainstem, or cord activity. Continuous EEG monitoring shows frequent potentially epileptogenic activity without clinical accompaniment. Depakote level was low normal at 49. 2. Patient's family is concerned about acute lead poisoning. 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 They are concerned that led from the pain was inhaled and was causing this condition. Plan 1. Continue with the continuous EEG monitoring. 2. 1 gram Depakote IV additional loading dose in addition to the 500 milligrams IV q.6 hours. 3. Check a Depakote level at 1600 hours. Overall, the patient has a poor prognosis neurologically. Nevertheless, I will reassess tomorrow. I spent a total of 65 minutes with this case, including evaluation the patient at bedside and discussion of the case with Dr. White, pharmacy, and nursing staff.
[2017-05-11] MEDS: PANTOprazole INJ 40 MG in SYRINGE 0 ML IV SCH (11:19)
--- NOTE | 2017-05-11 11:20 | EEG Procedure Note ---
EEG Procedure Note Date of Service May 11, 2017. Start / End Times Start Time: 05/10/2017 at 14:09 PM End Time: 05/11/2017 at 11:05 AM Referring Physician Davide Gibbons History This is a 72-year-old male who presents with cardiac arrest and code arctic protocol. Continuous EEG to monitor for nonconvulsive status. Home Medication List Scheduled Fish Oil (Jane Lew-3), 1 CAP PO DAILY Multivitamin (Multivitamin), 1 TAB PO DAILY Inpatient Medication List Current Inpatient Medications Medications (Trade) Dose Ordered Sig/Te Route Start Time Stop Time Status Last Admin Dose Admin Ioversol (Optiray 320) 100 ml UD PRN IV 05/08/17 09:30 05/12/17 09:29 Norepinephrine Bitartrate 8 mg/ Dextrose 508 ml @ 0 mls/hr Q0M PRN IV 05/08/17 11:15 06/07/17 11:14 05/10/17 16:57 22 MLS/HR Propofol (Diprivan Iv Emulsion 100ml Vial) 1 dose UD PRN IV 05/08/17 11:15 05/11/17 11:14 05/11/17 01:56 1 DOSE Artificial Tears (Lacri-Lube Oph Oint) 1 appln Q2H PRN OPB 05/08/17 11:15 06/07/17 11:14 05/08/17 22:00 1 APPLN Pantoprazole Sodium 40 mg/ Syringe 10 ml @ 5 mls/min DAILY@11 IV 05/09/17 11:00 06/08/17 10:59 05/10/17 07:40 5 MLS/MIN Fentanyl Citrate 250 ml @ 0 mls/hr Q0M PRN IV 05/08/17 11:11 05/22/17 11:10 05/10/17 01:17 5 MLS/HR Meperidine HCl (Demerol Inj) 25 mg Q2H PRN IV 05/08/17 11:15 05/22/17 11:14 05/08/17 16:10 25 MG Hydromorphone HCl (Dilaudid Inj) 1 mg Q20M PRN IV 05/08/17 11:15 05/22/17 11:14 Acetaminophen (Tylenol Supp) 650 mg ONE PRN GA 05/08/17 11:15 Ampicillin Sodium/ Sulbactam Sodium 1500 mg/Sodium Chloride 104 ml @ 200 mls/hr Q6H IV 05/08/17 12:00 05/18/17 11:59 05/11/17 05:26 200 MLS/HR Aspirin (Aspirin Chew) 81 mg QD NG 05/08/17 17:00 06/07/17 16:59 05/10/17 16:17 81 MG Miscellaneous Information (Consult Glycemic Management Pharmacy) 1 ea UD PRN N/A 05/08/17 17:01 06/07/17 17:00 Cisatracurium Besylate 40 mg/ Sodium Chloride 100 ml @ 0 mls/hr Q0M PRN IV 05/08/17 17:15 06/07/17 17:14 05/09/17 22:54 16.5 MLS/HR Heparin Sodium (Porcine) (Heparin 10 Unit/ ml 5 ml Flush) 5 ml PRN PRN FLUSH 05/09/17 01:30 06/08/17 01:29 Glucose (Glucose 40% Gel) 15-30 GRAMS 15 GRAMS... UD PRN PO 05/09/17 05:30 06/08/17 05:29 Glucose (Glucose Chew Tab) 4-8 Tablets 4 Tabl... UD PRN PO 05/09/17 05:30 06/08/17 05:29 Dextrose (Dextrose 50% 50ML Syringe) 25-50ML OF 50% DW IV FOR... UD PRN IV 05/09/17 05:30 06/08/17 05:29 Glucagon (Glucagon Inj) 1 mg UD PRN SQ 05/09/17 05:30 06/08/17 05:29 Amiodarone HCL/ Dextrose 200 ml @ 16.7 mls/hr [id number] IV 05/09/17 20:45 06/08/17 20:44 05/11/17 07:56 16.7 MLS/HR Sodium Chloride 1,000 ml @ 100 mls/hr Q10H IV 05/09/17 22:00 06/08/17 21:59 05/11/17 05:27 100 MLS/HR Acetaminophen 650 mg/Empty Bag 65 ml @ 260 mls/hr Q6H PRN IV 05/10/17 04:00 06/09/17 03:59 05/10/17 04:13 260 MLS/HR Insulin Aspart (novoLOG ASPART) SLIDING SCALE Q6 SC 05/10/17 12:00 06/09/17 11:59 Levetiracetam 2000 mg/Dextrose 270 ml @ 999 mls/hr Q12 IV 05/10/17 21:00 06/07/17 20:59 05/11/17 07:55 999 MLS/HR Valproate Sodium 500 mg/Dextrose 55 ml @ 55 mls/hr Q6H IV 05/10/17 12:00 06/09/17 11:59 05/11/17 05:26 55 MLS/HR Midazolam HCl 250 ml @ 0 mls/hr Q0M PRN IV 05/10/17 13:45 06/09/17 13:44 05/11/17 05:34 66 MLS/HR Description This is a 21 electrode continuous video EEG with a single channel dedicated to limited EKG. The electrodes were placed in accordance with the International 10- 20 system. Post processing with an event detection algorithm is applied to the continuous data collection for the purpose of identifying abnormal epochs. These detections are reviewed and all candidate seizures are processed for further analysis. Data is reviewed in its raw format and patient events are processed, edited and stored. At the start of this recording the patient is intubated and unresponsive. Background was composed of either burst suppression (<10uV) or attenuation (< 20uV) with occasional moderate amplitude delta/theta activity. There is no state changes or sleep transients. There was abundant, frontally predominant, generalized spike and sharp waves ( GPDs) at 1-2Hz. Interpretation This is an abnormal continuous video EEG secondary to: 1) Abundant generalized periodic discharges (GPDs) at 1-2Hz 2) Burst suppression/attenuation background. There was no electrographic seizures. Clinical Correlation 1) Abundant GPDs indicate a highly epileptogenic state and increased risk for seizures. Often GPDs are seen in the setting of brain injury such as anoxic brain injury. 2) Severe generalized encephalopathy of nonspecific etiology. Medications and cooling protocol can contribute to background encephalopathy.
[2017-05-11] MEDS ORDERED: PHENOBARBITAL SOD IV STA ×2 (11:22→20:03)
[2017-05-11] MEDS ORDERED: SODIUM CHLORIDE 0.9% IV STA ×2 (11:22→20:03)
[2017-05-11] MEDS: NOREPINEPHRINE BIT INJ 8 MG in DEXTROSE 5% 500ML 500 ML IV PRN (11:49)
[2017-05-11] MEDS ORDERED: PROPOFOL IV EMULSION 10 MG/ML 100 ML VIAL IV ONE (14:42)
--- NOTE | 2017-05-11 16:04 | Critical Care Progress Note ---
Critical Care Progress Note Date of Service May 11, 2017. ICU Day ICU Day Number: [address] 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 Check levels Start high dose Versed drip at 66ml/hr Started phenobarbital at 260 q6h He likely has significant anoxic brain injury The family is concerned that he may also have a component of lead intoxication ( was stripping a very old door which likely had lead). Lead level was sent, but it takes approximately 1 week. It was explained them that it is extremely unlikely that he would have any injury from lead, he was asymptomatic until the day of arrest, there was no anemia. I would not start empiric chelation based on this theory without any lead level. Peripheral smear also sent today for basophilic stippling. CVS: Remains in a-fib. Rate controlled with amiodarone. On norepinephrine for pressor support Echo reviewed, severely depressed EF, "stunned" myocardium Mild troponin elevation, not uncommon in this scenario, after CPR. No clear evidence of ischemic Vtach/Vfib. Further workup depending on his clinical evolution Consider anticoagulation soon if no nasal bleeding (one packing removed today from right nostril) Lactic acid level checked today Pulmonary: Vent support increased Elevate head ID: Prophylactic Abx for b/l nasal packing, on Unasyn day 4 Blood cultures sent per protocol, negative to date Renal/metabolic: Daily electrolytes Monitor urine output. Renal indices normal GI: OGT inserted Tube feeds DCd Lactic Acid ordered Protonix for GI bleeding prophylaxis Heme: H/H fairly stable DVT prophylaxis: Start Lovenox tomorrow if no further bleeding after removing the nasal packing Resident Physician Supervision Note: Dr. Shultz was resident physician during care of patient. I separately evaluated patient and did history and exam. I discussed the case with the resident and generally agree with the findings and plan. Extensive discussion with the patient's family today. He continues to have cortical irritability per neurology. We're attempting to burst suppress the EEG. He is requiring heavy doses of sedatives, I have asked anesthesiology to evaluate the patient for possible general anesthetic administration. I'm concerned for a poor prognosis given the nonreassuring EEG. Patient requires vasoactive medications to maintain adequate blood pressure. Documented By: Nathan White DO I have personally spent 55 minutes of critical care time in the direct management of this patient. This is a life/limb threatening event. This includes time spent evaluating patient, direct bedside care, chart review, placing orders, interpretation of diagnostic studies, discussion with consultants, patient, and family members, as well as other required patient management activities. This time is exclusive of all separately billable procedures, and teaching time and separate from and in addition to any other critical care service time. Consults & Procedures Consultants: cardiology - Dr Kay Neurology- Dr. Lemos Procedures: 05/08/17 - intubated by EMS 05/08/17 - left subclavian TLC 05/08/17 - right axillary a-line Data Medications: Current Inpatient Medications Medications (Trade) Dose Ordered Sig/Te Route Start Time Stop Time Status Last Admin Dose Admin Ioversol (Optiray 320) 100 ml UD PRN IV 05/08/17 09:30 05/12/17 09:29 Norepinephrine Bitartrate 8 mg/ Dextrose 508 ml @ 0 mls/hr Q0M PRN IV 05/08/17 11:15 06/07/17 11:14 05/11/17 11:49 26.4 MLS/HR Propofol (Diprivan Iv Emulsion 100ml Vial) 1 dose UD PRN IV 05/08/17 11:15 05/14/17 11:14 05/11/17 01:56 1 DOSE Artificial Tears (Lacri-Lube Oph Oint) 1 appln Q2H PRN OPB 05/08/17 11:15 06/07/17 11:14 05/08/17 22:00 1 APPLN Pantoprazole Sodium 40 mg/ Syringe 10 ml @ 5 mls/min DAILY@11 IV 05/09/17 11:00 06/08/17 10:59 05/11/17 11:19 5 MLS/MIN Meperidine HCl (Demerol Inj) 25 mg Q2H PRN IV 05/08/17 11:15 05/22/17 11:14 05/08/17 16:10 25 MG Hydromorphone HCl (Dilaudid Inj) 1 mg Q20M PRN IV 05/08/17 11:15 05/22/17 11:14 Acetaminophen (Tylenol Supp) 650 mg ONE PRN [place] 05/08/17 11:15 Ampicillin Sodium/ Sulbactam Sodium 1500 mg/Sodium Chloride 104 ml @ 200 mls/hr Q6H IV 05/08/17 12:00 05/18/17 11:59 05/11/17 11:30 200 MLS/HR Aspirin (Aspirin Chew) 81 mg QD NG 05/08/17 17:00 06/07/17 16:59 05/10/17 16:17 81 MG Miscellaneous Information (Consult Glycemic Management Pharmacy) 1 ea UD PRN N/A 05/08/17 17:01 06/07/17 17:00 Heparin Sodium (Porcine) (Heparin 10 Unit/ ml 5 ml Flush) 5 ml PRN PRN FLUSH 05/09/17 01:30 06/08/17 01:29 Glucose (Glucose 40% Gel) 15-30 GRAMS 15 GRAMS... UD PRN PO 05/09/17 05:30 06/08/17 05:29 Glucose (Glucose Chew Tab) 4-8 Tablets 4 Tabl... UD PRN PO 05/09/17 05:30 06/08/17 05:29 Dextrose (Dextrose 50% 50ML Syringe) 25-50ML OF 50% DW IV FOR... UD PRN IV 05/09/17 05:30 06/08/17 05:29 Glucagon (Glucagon Inj) 1 mg UD PRN SQ 05/09/17 05:30 06/08/17 05:29 Sodium Chloride 1,000 ml @ 100 mls/hr Q10H IV 05/09/17 22:00 06/08/17 21:59 05/11/17 14:24 100 MLS/HR Acetaminophen 650 mg/Empty Bag 65 ml @ 260 mls/hr Q6H PRN IV 05/10/17 04:00 06/09/17 03:59 05/10/17 04:13 260 MLS/HR Insulin Aspart (novoLOG ASPART) SLIDING SCALE Q6 SC 05/10/17 12:00 06/09/17 11:59 Levetiracetam 2000 mg/Dextrose 270 ml @ 999 mls/hr Q12 IV 05/10/17 21:00 06/07/17 20:59 05/11/17 07:55 999 MLS/HR Valproate Sodium 500 mg/Dextrose 55 ml @ 55 mls/hr Q6H IV 05/10/17 12:00 06/09/17 11:59 05/11/17 11:46 55 MLS/HR Midazolam HCl 250 ml @ 0 mls/hr Q0M PRN IV 05/10/17 13:45 06/09/17 13:44 05/11/17 05:34 66 MLS/HR Phenobarbital Sodium 260 mg/ Syringe 2 ml @ 0.4 mls/min Q6H IV 05/11/17 21:00 06/10/17 20:59 Amiodarone HCl (Cordarone Tab) 100 mg BID PO 05/11/17 21:00 06/10/17 20:59 I & O: 05/10/17 05/11/17 05/12/17 08:00 08:00 08:00 Intake Total 5497 ml 5186 ml Output Total 895 ml 1035 ml Balance 4602 ml 4151 ml Vital Signs: Date Time Temp Pulse Resp B/P (MAP) Pulse Ox O2 Delivery O2 Flow Rate FiO2 05/11/17 14:00 37.6 100 20 114/75 (97) 98 120/58 05/11/17 13:00 37.5 101 20 116/66 (79) 97 115/57 05/11/17 12:30 37.4 102 20 111/61 (65) 98 114/58 05/11/17 12:00 95 Mechanical Ventilator 40 05/11/17 12:00 40 05/11/17 12:00 37.3 94 20 111/77 (95) 98 120/59 05/11/17 11:30 37.1 89 20 113/76 (81) 98 121/61 05/11/17 11:00 37.1 87 20 113/66 (84) 97 176/158 05/11/17 10:30 37.1 90 20 104/61 (68) 95 97/52 05/11/17 10:00 37.2 91 20 105/64 (69) 96 104/54 05/11/17 09:30 37.2 97 20 106/59 (69) 97 99/51 18 09:00 37.2 91 20 103/61 (66) 97 97/58 05/11/17 08:30 37.4 95 20 113/67 (74) 97 104/53 05/11/17 08:00 99 Mechanical Ventilator 40 05/11/17 08:00 37.5 81 20 101/54 (57) 97 101/49 05/11/17 08:00 Mechanical Ventilator 40 05/11/17 08:00 40 05/11/17 07:30 37.4 84 20 98/61 (70) 98 103/54 05/11/17 07:20 40 05/11/17 07:00 37.4 102 20 103/60 (69) 97 107/55 05/11/17 06:00 37.3 102 20 108/60 (81) 97 105/55 05/11/17 05:30 37.2 104 20 103/59 (66) 97 105/51 05/11/17 05:30 37.2 104 20 103/59 (66) 97 105/51 05/11/17 05:25 40 05/11/17 04:30 36.9 92 20 112/53 (66) 96 103/54 05/11/17 04:00 36.8 84 20 108/62 (89) 95 104/50 05/11/17 04:00 Mechanical Ventilator 30 05/11/17 04:00 40 05/11/17 03:30 36.6 91 20 103/68 (82) 95 98/51 05/11/17 03:00 36.5 80 20 102/58 (68) 94 98/52 05/11/17 02:36 40 05/11/17 02:30 36.4 82 20 102/56 (78) 94 99/56 05/11/17 02:00 74 20 97/53 (77) 95 101/53 05/11/17 01:30 73 20 108/61 (82) 96 102/54 05/11/17 01:00 78 20 103/56 (80) 96 102/55 05/11/17 00:30 77 20 113/54 (92) 96 102/55 05/11/17 00:01 40 05/11/17 00:01 Mechanical Ventilator 30 05/11/17 00:00 36.3 66 20 110/54 (80) 96 99/53 05/10/17 23:58 40 05/10/17 23:30 66 20 99/66 (75) 96 96/52 05/10/17 23:00 69 20 105/57 (78) 96 97/52 05/10/17 22:30 70 20 97/60 (67) 96 96/53 05/10/17 22:00 35.5 67 20 100/64 (67) 96 98/52 05/10/17 22:00 67 20 100/64 (67) 96 98/52 (69) 05/10/17 21:40 65 20 103/59 (69) 95 98/52 (65) 05/10/17 21:31 68 20 109/55 (66) 96 96/49 (64) 05/10/17 21:00 74 20 112/63 (79) 97 98/52 (69) 05/10/17 20:30 77 20 111/55 (69) 97 97/51 (68) 05/10/17 20:28 40 05/10/17 20:00 30 05/10/17 20:00 Mechanical Ventilator 30 05/10/17 20:00 36.3 73 20 103/64 (79) 97 101/51 (70) 05/10/17 19:52 35.5 73 20 98/61 (63) 97 90/46 (66) 05/10/17 19:00 35.6 82 20 99/59 (64) 98 94/53 (67) 05/10/17 18:00 35.8 80 20 103/59 (64) 98 92/51 05/10/17 17:20 40 05/10/17 17:00 36.3 94 19 74/52 (64) 99 78/44 05/10/17 16:01 36.8 99 20 91/48 (65) 88/53 05/10/17 16:00 36.8 84 20 (66) 97 89/53 05/10/17 16:00 Mechanical Ventilator 40 05/10/17 16:00 40 05/10/17 15:00 37.0 95 20 105/55 (76) 99 100/56 Laboratory Results: Last 24 Hours Test 05/10/17 18:26 05/10/17 23:42 05/11/17 05:02 05/11/17 05:47 Bedside Glucose (other) 136 mg/dl 158 mg/dl White Blood Count 10.20 K/uL Red Blood Count 3.93 M/uL Hemoglobin 12.4 g/dL Hematocrit 37.8 % Mean Corpuscular Volume 96.2 fL Mean Corpuscular Hemoglobin 31.6 pg Mean Corpuscular Hemoglobin Concent 32.8 g/dl Platelet Count 73 K/uL Mean Platelet Volume 11.4 fL Neutrophils (%) (Auto) 82.9 % Lymphocytes (%) (Auto) 10.3 % Monocytes (%) (Auto) 5.2 % Eosinophils (%) (Auto) 1.1 % Basophils (%) (Auto) 0.1 % Neutrophils # (Auto) 8.46 K/uL Lymphocytes # (Auto) 1.05 K/uL Monocytes # (Auto) 0.53 K/uL Eosinophils # (Auto) 0.11 K/uL Basophils # (Auto) 0.01 K/uL RDW Standard Deviation 53.8 fL RDW Coefficient of Variation 15.3 % Immature Granulocyte % (Auto) 0.4 % Immature Granulocyte # (Auto) 0.04 K/uL Sodium Level 137 mmol/L Potassium Level 4.1 mmol/L Chloride Level 107 mmol/L Carbon Dioxide Level 24 mmol/L Anion Gap 6.0 mmol/L Blood Urea Nitrogen 25 mg/dl Creatinine 1.27 mg/dl Est Creatinine Clear Calc Drug Dose 65.6 ml/min Estimated GFR () 65.0 Estimated GFR (Non- 56.1 BUN/Creatinine Ratio 19.5 Random Glucose 130 mg/dl Calcium Level 7.6 mg/dl Phosphorus Level 4.1 mg/dl Magnesium Level 2.0 mg/dl Total Bilirubin 1.5 mg/dl Direct Bilirubin 1.0 mg/dl Aspartate Amino Transf (AST/SGOT) 70 U/L Alanine Aminotransferase (ALT/SGPT) 60 U/L Alkaline Phosphatase 84 U/L Total Protein 4.9 gm/dl Albumin 2.4 gm/dl Thyroid Stimulating Hormone (TSH) < 0.005 uIu/ml Free Thyroxine 1.78 ng/dl Free Triiodothyronine 3.43 pg/ml Valproic Acid (Depakene) Level 49 mcg/ml Blood Gas Sample Site Art Line Bedside Blood Gas pH (LAB) 7.25 Bedside Blood Gas pCO2 (LAB) 53 mmHg Bedside Blood Gas pO2 (LAB) 127 mmHg Bedside Blood Gas HCO3 (LAB) 23 meq/L Bedside Blood Gas Total CO2 25 mEq/l Bedside Blood Gas Base Excess (LAB) -4.0 meq/L Bedside Blood Gas O2 Saturation 98.0 % Tani Test NA Oxygen Delivery Device Ventilator Bedside Oxygen Rate (breaths/min) 20 Blood Gas Minute Ventilation 9.1 Bedside FiO2 40 % Blood Gas Tidal Volume 500 Blood Gas PEEP 5 Test 05/11/17 06:07 05/11/17 11:01 05/11/17 11:40 Bedside Glucose (other) 118 mg/dl 94 mg/dl Peripheral Blood Smear Path Consult Lactic Acid Level 0.8 mmol/L Resident Tracking Resident Involvement: Resident Care Provided Care Provided: Adult Hospital Medicine
[2017-05-11] MEDS: ASPIRIN 81 MG CHEW NG SCH (17:00)
--- NOTE | 2017-05-11 17:20 | Palliative Care Consultation ---
Consultation Date of Consultation: May 11, 2017. Requesting Physician: Dr. White Reason for Consultation: Goals of care History of Present Illness This 72 year old male patient with no known PMH presented to the hospital three days ago after a cardiac arrest at home. Per record, patient's found him lying on the floor with no pulse. She called for EMS and started CPR. Patient did achieve ROSC and was a code arctic. Patient was appropriately cooled and rewarmed according to protocol. He is on continuous EEG which shows sharp spikes -- is on high-dose IV versed infusion, keppra, depacon, phenobarbital and propofol. Unfortunately, thus far patient is not showing much evidence of brain recovery/function. He remains critically ill in ICU with a poor prognosis. Palliative care is consulted to be extra layer of support/care to the patient and family and establish goals of care. I met with the patient's son, Orion, in patient's room. He stated he is a Biology PhD student in [employer] and did a lot of research. He is concerned that patient may have lead poisoning as patient was using a heat gun to remove old paint from a door in the basement where there is no ventilation. The clinical office technician team is already aware of this concern and did draw a lead level which has been sent out to lab. Orion states that patient was in good health prior to this event. He and the rest of the family still wish to pursue full/ aggressive treatment at this time. they are hopeful for recovery, but also understand the severity of the situation. Past Medical/Surgical History Medical History: No previous medical problems known Social History Smoking Status: Former Smoker History of Alcohol Use: Yes Drug Use: none Marital Status: Occupation Status: retired Review of Systems unable to obtain ROS- intubated/sedated Allergies Coded Allergies: No Known Allergies (Verified , 05/08/17) Medications Current Inpatient Medications Medications (Trade) Dose Ordered Sig/Te Route Start Time Stop Time Status Last Admin Dose Admin Ioversol (Optiray 320) 100 ml UD PRN IV 05/08/17 09:30 05/12/17 09:29 Norepinephrine Bitartrate 8 mg/ Dextrose 508 ml @ 0 mls/hr Q0M PRN IV 05/08/17 11:15 06/07/17 11:14 05/10/17 16:57 22 MLS/HR Propofol (Diprivan Iv Emulsion 100ml Vial) 1 dose UD PRN IV 05/08/17 11:15 05/11/17 11:14 05/11/17 01:56 1 DOSE Artificial Tears (Lacri-Lube Oph Oint) 1 appln Q2H PRN OPB 05/08/17 11:15 06/07/17 11:14 05/08/17 22:00 1 APPLN Pantoprazole Sodium 40 mg/ Syringe 10 ml @ 5 mls/min DAILY@11 IV 05/09/17 11:00 06/08/17 10:59 05/10/17 07:40 5 MLS/MIN Fentanyl Citrate 250 ml @ 0 mls/hr Q0M PRN IV 05/08/17 11:11 05/22/17 11:10 05/10/17 01:17 5 MLS/HR Meperidine HCl (Demerol Inj) 25 mg Q2H PRN IV 05/08/17 11:15 05/22/17 11:14 05/08/17 16:10 25 MG Hydromorphone HCl (Dilaudid Inj) 1 mg Q20M PRN IV 05/08/17 11:15 05/22/17 11:14 Acetaminophen (Tylenol Supp) 650 mg ONE PRN [place] 05/08/17 11:15 Ampicillin Sodium/ Sulbactam Sodium 1500 mg/Sodium Chloride 104 ml @ 200 mls/hr Q6H IV 05/08/17 12:00 05/18/17 11:59 05/11/17 05:26 200 MLS/HR Aspirin (Aspirin Chew) 81 mg QD NG 05/08/17 17:00 06/07/17 16:59 05/10/17 16:17 81 MG Miscellaneous Information (Consult Glycemic Management Pharmacy) 1 ea UD PRN N/A 05/08/17 17:01 06/07/17 17:00 Cisatracurium Besylate 40 mg/ Sodium Chloride 100 ml @ 0 mls/hr Q0M PRN IV 05/08/17 17:15 06/07/17 17:14 05/09/17 22:54 16.5 MLS/HR Heparin Sodium (Porcine) (Heparin 10 Unit/ ml 5 ml Flush) 5 ml PRN PRN FLUSH 05/09/17 01:30 06/08/17 01:29 Glucose (Glucose 40% Gel) 15-30 GRAMS 15 GRAMS... UD PRN PO 05/09/17 05:30 06/08/17 05:29 Glucose (Glucose Chew Tab) 4-8 Tablets 4 Tabl... UD PRN PO 05/09/17 05:30 06/08/17 05:29 Dextrose (Dextrose 50% 50ML Syringe) 25-50ML OF 50% DW IV FOR... UD PRN IV 05/09/17 05:30 06/08/17 05:29 Glucagon (Glucagon Inj) 1 mg UD PRN SQ 05/09/17 05:30 06/08/17 05:29 Amiodarone HCL/ Dextrose 200 ml @ 16.7 mls/hr [id number] IV 05/09/17 20:45 06/08/17 20:44 05/11/17 07:56 16.7 MLS/HR Sodium Chloride 1,000 ml @ 100 mls/hr Q10H IV 05/09/17 22:00 06/08/17 21:59 05/11/17 05:27 100 MLS/HR Acetaminophen 650 mg/Empty Bag 65 ml @ 260 mls/hr Q6H PRN IV 05/10/17 04:00 06/09/17 03:59 05/10/17 04:13 260 MLS/HR Insulin Aspart (novoLOG ASPART) SLIDING SCALE Q6 SC 05/10/17 12:00 06/09/17 11:59 Levetiracetam 2000 mg/Dextrose 270 ml @ 999 mls/hr Q12 IV 05/10/17 21:00 06/07/17 20:59 05/11/17 07:55 999 MLS/HR Valproate Sodium 500 mg/Dextrose 55 ml @ 55 mls/hr Q6H IV 05/10/17 12:00 06/09/17 11:59 05/11/17 05:26 55 MLS/HR Midazolam HCl 250 ml @ 0 mls/hr Q0M PRN IV 05/10/17 13:45 06/09/17 13:44 05/11/17 05:34 66 MLS/HR Valproate Sodium 1000 mg/Dextrose 110 ml @ 220 mls/hr NOW STAT IV 05/11/17 10:40 05/11/17 11:09 Physical Exam Date Time Temp Pulse Resp B/P (MAP) Pulse Ox O2 Delivery O2 Flow Rate FiO2 05/11/17 09:30 37.2 97 20 106/59 (69) 97 99/51 05/11/17 09:00 37.2 91 20 103/61 (66) 97 97/58 05/11/17 08:30 37.4 95 20 113/67 (74) 97 104/53 05/11/17 08:00 99 Mechanical Ventilator 40 05/11/17 08:00 37.5 81 20 101/54 (57) 97 101/49 05/11/17 08:00 40 05/11/17 07:30 37.4 84 20 98/61 (70) 98 103/54 05/11/17 07:20 40 05/11/17 07:00 37.4 102 20 103/60 (69) 97 107/55 05/11/17 06:00 37.3 102 20 108/60 (81) 97 105/55 05/11/17 05:30 37.2 104 20 103/59 (66) 97 105/51 05/11/17 05:30 37.2 104 20 103/59 (66) 97 105/51 05/11/17 05:25 40 05/11/17 04:30 36.9 92 20 112/53 (66) 96 103/54 05/11/17 04:00 36.8 84 20 108/62 (89) 95 104/50 05/11/17 04:00 Mechanical Ventilator 30 05/11/17 04:00 40 05/11/17 03:30 36.6 91 20 103/68 (82) 95 98/51 05/11/17 03:00 36.5 80 20 102/58 (68) 94 98/52 05/11/17 02:36 40 05/11/17 02:30 36.4 82 20 102/56 (78) 94 99/56 05/11/17 02:00 74 20 97/53 (77) 95 101/53 05/11/17 01:30 73 20 108/61 (82) 96 102/54 05/11/17 01:00 78 20 103/56 (80) 96 102/55 05/11/17 00:30 77 20 113/54 (92) 96 102/55 05/11/17 00:01 40 05/11/17 00:01 Mechanical Ventilator 30 05/11/17 00:00 36.3 66 20 110/54 (80) 96 99/53 05/10/17 23:58 40 05/10/17 23:30 66 20 99/66 (75) 96 96/52 05/10/17 23:00 69 20 105/57 (78) 96 97/52 05/10/17 22:30 70 20 97/60 (67) 96 96/53 05/10/17 22:00 35.5 67 20 100/64 (67) 96 98/52 05/10/17 22:00 67 20 100/64 (67) 96 98/52 (69) 05/10/17 21:40 65 20 103/59 (69) 95 98/52 (65) 05/10/17 21:31 68 20 109/55 (66) 96 96/49 (64) 05/10/17 21:00 74 20 112/63 (79) 97 98/52 (69) 05/10/17 20:30 77 20 111/55 (69) 97 97/51 (68) 05/10/17 20:28 40 05/10/17 20:00 30 05/10/17 20:00 Mechanical Ventilator 30 05/10/17 20:00 36.3 73 20 103/64 (79) 97 101/51 (70) 05/10/17 19:52 35.5 73 20 98/61 (63) 97 90/46 (66) 05/10/17 19:00 35.6 82 20 99/59 (64) 98 94/53 (67) 05/10/17 18:00 35.8 80 20 103/59 (64) 98 92/51 05/10/17 17:20 40 05/10/17 17:00 36.3 94 19 74/52 (64) 99 78/44 05/10/17 16:01 36.8 99 20 91/48 (65) 88/53 05/10/17 16:00 36.8 84 20 (66) 97 89/53 05/10/17 16:00 Mechanical Ventilator 40 05/10/17 16:00 40 05/10/17 15:00 37.0 95 20 105/55 (76) 99 100/56 05/10/17 14:20 40 05/10/17 14:00 37.3 101 20 93/58 (62) 99 101/58 05/10/17 13:00 37.6 102 20 92/62 (78) 98 103/57 05/10/17 12:00 40 05/10/17 12:00 Mechanical Ventilator 40 05/10/17 12:00 37.5 103 20 118/68 (94) 100 122/65 05/10/17 11:15 40 05/10/17 11:15 37.4 107 20 (88) 99 123/69 05/10/17 11:01 37.4 116 20 114/83 (85) 96 118/67 General Appearance: no apparent distress ENT: + pertinent finding (unable to assess hearing) Neck: supple, no JVD Respiratory: no respiratory distress, no accessory muscle use, + pertinent finding (on mechanical ventilator) Cardiovascular: + irregularly irregular (afib), + normal peripheral pulses Abdomen: normal bowel sounds, soft Neurologic/Psychiatric: + pertinent finding (obtunded/sedated) Skin: normal color Laboratory Results Last 24 Hours Test 05/10/17 13:10 05/10/17 18:26 05/10/17 23:42 05/11/17 05:02 Bedside Glucose 113 mg/dl Bedside Glucose (other) 136 mg/dl 158 mg/dl White Blood Count 10.20 K/uL Red Blood Count 3.93 M/uL Hemoglobin 12.4 g/dL Hematocrit 37.8 % Mean Corpuscular Volume 96.2 fL Mean Corpuscular Hemoglobin 31.6 pg Mean Corpuscular Hemoglobin Concent 32.8 g/dl Platelet Count 73 K/uL Mean Platelet Volume 11.4 fL Neutrophils (%) (Auto) 82.9 % Lymphocytes (%) (Auto) 10.3 % Monocytes (%) (Auto) 5.2 % Eosinophils (%) (Auto) 1.1 % Basophils (%) (Auto) 0.1 % Neutrophils # (Auto) 8.46 K/uL Lymphocytes # (Auto) 1.05 K/uL Monocytes # (Auto) 0.53 K/uL Eosinophils # (Auto) 0.11 K/uL Basophils # (Auto) 0.01 K/uL RDW Standard Deviation 53.8 fL RDW Coefficient of Variation 15.3 % Immature Granulocyte % (Auto) 0.4 % Immature Granulocyte # (Auto) 0.04 K/uL Sodium Level 137 mmol/L Potassium Level 4.1 mmol/L Chloride Level 107 mmol/L Carbon Dioxide Level 24 mmol/L Anion Gap 6.0 mmol/L Blood Urea Nitrogen 25 mg/dl Creatinine 1.27 mg/dl Est Creatinine Clear Calc Drug Dose 65.6 ml/min Estimated GFR () 65.0 Estimated GFR (Non- 56.1 BUN/Creatinine Ratio 19.5 Random Glucose 130 mg/dl Calcium Level 7.6 mg/dl Phosphorus Level 4.1 mg/dl Magnesium Level 2.0 mg/dl Total Bilirubin 1.5 mg/dl Direct Bilirubin 1.0 mg/dl Aspartate Amino Transf (AST/SGOT) 70 U/L Alanine Aminotransferase (ALT/SGPT) 60 U/L Alkaline Phosphatase 84 U/L Total Protein 4.9 gm/dl Albumin 2.4 gm/dl Thyroid Stimulating Hormone (TSH) < 0.005 uIu/ml Free Thyroxine 1.78 ng/dl Free Triiodothyronine 3.43 pg/ml Valproic Acid (Depakene) Level 49 mcg/ml Test 05/11/17 05:47 05/11/17 06:07 05/11/17 10:31 Blood Gas Sample Site Art Line Bedside Blood Gas pH (LAB) 7.25 Bedside Blood Gas pCO2 (LAB) 53 mmHg Bedside Blood Gas pO2 (LAB) 127 mmHg Bedside Blood Gas HCO3 (LAB) 23 meq/L Bedside Blood Gas Total CO2 25 mEq/l Bedside Blood Gas Base Excess (LAB) -4.0 meq/L Bedside Blood Gas O2 Saturation 98.0 % Tani Test NA Oxygen Delivery Device Ventilator Bedside Oxygen Rate (breaths/min) 20 Blood Gas Minute Ventilation 9.1 Bedside FiO2 40 % Blood Gas Tidal Volume 500 Blood Gas PEEP 5 Bedside Glucose (other) 118 mg/dl Assessment & Plan Problem list: Obtundation Seizure activity S/P cardiac arrest Respiratory failure Atrial fibrillation Newly depressed EF of 20-25% Goals of care (Z51.5) Palliative care recs: discussed with patient's son Orion and Dr. White. -At this time, family is wanting to continue with full treatment. -Acute care in ICU continues. -Prognosis is poor at this point. Patient is now off propofol and has no signs of brain function on neurologist's exam. EEG shows sharp spikes. -Family is concerned about acute lead poisoning- lead level was sent out. -Will be ongoing discussion of goals of care. Thank you kindly for this consult. I will be happy to follow.
--- NOTE | 2017-05-11 19:10 | Anesthesiology Progress Note ---
Anesthesia Progress Note Date of Service May 11, 2017. Progress Notes The patient is a 72 y/o male who was found unresponsive by his on 05/08/17. She began CPR and called for EMS. The patient was noted to be in cardiac arrest in the field. He was intubated and brought to the ER. Hypothermic protocol was initiated and he has been monitored in the ICU for the past several days. The patient has been in status epilepticus since weening off of the hypothermic protocol. He has not gone into burst suppression despite multiple anti-seizure medications including phenobarbital, propofol, midazolam, valproate sodium, and levetiracetam. I was asked to see the patient by Dr. White to offer any input on medications for burst suppression including volatile anesthetics. After reviewing the literature and discussing the patient with Dr. Kaufman, the patient would not be a good candidate for volatile anesthetic. Many of the patient reports of successful treatment of status epilepticus were done in children or patient's with seizure disorders, not patient's with anoxic brain injury such as this patient. Isoflurane was the agent used in the majority of cases which is not available at this institution. Finally, the patient has a significantly reduced ejection fraction which would be worsened by volatile anesthetics and he may not hemodynamically tolerate a volatile anesthetic. I spoke with the patient's and sons about my thoughts and recommended to continue to follow the plans of both neurology and critical care.
[2017-05-11] MEDS ORDERED: PHENOBARBITAL SOD 65 MG/ML VIAL IV STA (19:36)
[2017-05-11] MEDS: AMIODARONE 200 MG TAB PO SCH (21:34)
[2017-05-11] MEDS: PHENOBARBITAL SOD IV SCH (21:36)
[2017-05-12] VITALS (42 sets, daily range): BP systolic 92–123; BP diastolic 48–67; PULSE 54–104; TEMP 35.5–38; O2SAT 91–97
[2017-05-12] MEDS: PROPOFOL IV EMULSION 10 MG/ML 100 ML VIAL IV PRN ×2 (01:53→08:07)
[2017-05-12] MEDS: MIDAZOLAM IV PRN ×2 (01:54→05:40)
[2017-05-12] MEDS: D5W IV PRN ×2 (01:54→05:40)
[2017-05-12] MEDS: PHENOBARBITAL SOD IV SCH ×4 (01:58→19:53)
[2017-05-12 05:21] LABS: HEMATOCRIT 37.1 % (42-52); HEMOGLOBIN 12.3 g/dL (14.0-18.0); MEAN CELL VOLUME 94.9 fL (80-100); MEAN CORPUSCULAR HEMOGLOBIN 31.5 pg (25-34); MEAN CORPUSCULAR HGB CONC 33.2 g/dl (32-36); RED CELL DISTRIBUTION WIDTH CV 15.3 % (11.5-14.5); RED CELL DISTRIBUTION WIDTH SD 53.4 fL (36.4-46.3); WHITE BLOOD COUNT 6.99 K/uL (4.8-10.8)
[2017-05-12 05:28] LABS: MEAN PLATELET VOLUME 10.3 fL (7.4-10.4); PLATELET COUNT 62 K/uL (130-400)
[2017-05-12] MEDS: VALPROATE SOD IV 500 MG in DEXTROSE 5% 50ML 50 ML IV SCH (05:39)
[2017-05-12] MEDS: AMPICILLIN/SULBACTAM SOD INJ 1,500 MG in SODIUM CHLORIDE 0.9% 100ML 100 ML IV SCH ×2 (05:39→10:50)
[2017-05-12 05:49] LABS: BASO % 0.1 %; BASO ABS # 0.01 K/uL (0-0.2); EOS % 2.4 %; EOS ABS # 0.17 K/uL (0-0.5); IG# 0.04 K/uL (0.00-0.02); LYMPH % 14.9 %; LYMPH ABS # 1.04 K/uL (1.2-3.4); MONO % 7.6 %; MONO ABS # 0.53 K/uL (0.11-0.59); NEUT % 74.4 %
[2017-05-12] MEDS: INSULIN ASPART 100 UNITS/ML 3 ML PEN SC SCH ×2 (06:00→11:09)
[2017-05-12 06:05] LABS: ALBUMIN 2.1 gm/dl (3.4-5.0); CALCIUM 7.4 mg/dl (8.5-10.1); CREATININE 1.28 mg/dl (0.60-1.40); PHOSPHORUS 3.1 mg/dl (2.5-4.9); POTASSIUM 3.9 mmol/L (3.5-5.1); TOTAL PROTEIN 4.8 gm/dl (6.4-8.2)
--- NOTE | 2017-05-12 08:02 | Progress Note ---
Subjective Date of Service: May 11, 2017. Subjective Pt evaluation today including: conversation w/ family Patient is sedated and intubated. Son and daughter in law at bedside. I discussed case with son. He believes this may be lead poisoning or anoxic brain injury. Problem List Medical Problems: (1) Acidosis, metabolic, with respiratory acidosis Status: Acute Review of Systems All Other Systems: Reviewed and Negative Medications Current Inpatient Medications Medications (Trade) Dose Ordered Sig/Te Route Start Time Stop Time Status Last Admin Dose Admin Ioversol (Optiray 320) 100 ml UD PRN IV 05/08/17 09:30 05/12/17 09:29 Norepinephrine Bitartrate 8 mg/ Dextrose 508 ml @ 0 mls/hr Q0M PRN IV 05/08/17 11:15 06/07/17 11:14 05/11/17 11:49 26.4 MLS/HR Propofol (Diprivan Iv Emulsion 100ml Vial) 1 dose UD PRN IV 05/08/17 11:15 05/14/17 11:14 05/12/17 01:53 1 DOSE Artificial Tears (Lacri-Lube Oph Oint) 1 appln Q2H PRN OPB 05/08/17 11:15 06/07/17 11:14 05/08/17 22:00 1 APPLN Pantoprazole Sodium 40 mg/ Syringe 10 ml @ 5 mls/min DAILY@11 IV 05/09/17 11:00 06/08/17 10:59 05/11/17 11:19 5 MLS/MIN Meperidine HCl (Demerol Inj) 25 mg Q2H PRN IV 05/08/17 11:15 05/22/17 11:14 05/08/17 16:10 25 MG Hydromorphone HCl (Dilaudid Inj) 1 mg Q20M PRN IV 05/08/17 11:15 05/22/17 11:14 Acetaminophen (Tylenol Supp) [address] 05/08/17 11:15 Ampicillin Sodium/ Sulbactam Sodium 1500 mg/Sodium Chloride 104 ml @ 200 mls/hr Q6H IV 05/08/17 12:00 05/18/17 11:59 05/12/17 05:39 200 MLS/HR Aspirin (Aspirin Chew) 81 mg QD NG 05/08/17 17:00 06/07/17 16:59 05/10/17 16:17 81 MG Miscellaneous Information (Consult Glycemic Management Pharmacy) 1 ea UD PRN N/A 05/08/17 17:01 06/07/17 17:00 Heparin Sodium (Porcine) (Heparin 10 Unit/ ml 5 ml Flush) 5 ml PRN PRN FLUSH 05/09/17 01:30 06/08/17 01:29 Glucose (Glucose 40% Gel) 15-30 GRAMS 15 GRAMS... UD PRN PO 05/09/17 05:30 06/08/17 05:29 Glucose (Glucose Chew Tab) 4-8 Tablets 4 Tabl... UD PRN PO 05/09/17 05:30 06/08/17 05:29 Dextrose (Dextrose 50% 50ML Syringe) 25-50ML OF 50% DW IV FOR... UD PRN IV 05/09/17 05:30 06/08/17 05:29 Glucagon (Glucagon Inj) 1 mg UD PRN SQ 05/09/17 05:30 06/08/17 05:29 Sodium Chloride 1,000 ml @ 100 mls/hr Q10H IV 05/09/17 22:00 06/08/17 21:59 05/11/17 23:01 100 MLS/HR Acetaminophen 650 mg/Empty Bag 65 ml @ 260 mls/hr Q6H PRN IV 05/10/17 04:00 06/09/17 03:59 05/10/17 04:13 260 MLS/HR Insulin Aspart (novoLOG ASPART) SLIDING SCALE Q6 SC 05/10/17 12:00 06/09/17 11:59 Levetiracetam 2000 mg/Dextrose 270 ml @ 999 mls/hr Q12 IV 05/10/17 21:00 06/07/17 20:59 05/11/17 21:36 999 MLS/HR Valproate Sodium 500 mg/Dextrose 55 ml @ 55 mls/hr Q6H IV 05/10/17 12:00 06/09/17 11:59 05/12/17 05:39 55 MLS/HR Midazolam HCl 250 ml @ 0 mls/hr Q0M PRN IV 05/10/17 13:45 06/09/17 13:44 05/12/17 05:40 75 MLS/HR Phenobarbital Sodium 260 mg/ Syringe 2 ml @ 0.4 mls/min Q6H IV 05/11/17 21:00 06/10/17 20:59 05/12/17 01:58 0.4 MLS/MIN Amiodarone HCl (Cordarone Tab) 100 mg BID PO 05/11/17 21:00 06/10/17 20:59 05/11/17 21:34 100 MG Objective Vital Signs Date Time Temp Pulse Resp B/P (MAP) Pulse Ox O2 Delivery O2 Flow Rate FiO2 05/12/17 06:00 35.5 62 20 96/54 (68) 94 102/54 05/12/17 05:30 35.6 64 20 100/53 (63) 94 102/56 05/12/17 05:15 40 05/12/17 05:01 35.7 59 20 98/48 (68) 96 98/52 05/12/17 05:00 35.7 62 20 (70) 96 99/54 05/12/17 04:32 35.7 54 18 100/48 (75) 93 105/59 05/12/17 04:30 35.7 20 (77) 106/60 05/12/17 04:00 Mechanical Ventilator 40 05/12/17 04:00 30 05/12/17 04:00 35.7 62 20 (70) 96 98/55 05/12/17 03:30 35.6 63 20 102/64 (75) 96 98/52 05/12/17 03:00 35.6 60 20 106/59 (78) 96 95/54 05/12/17 02:34 40 05/12/17 02:00 35.9 67 20 98/58 (63) 95 97/56 (65) 05/12/17 01:00 36.4 65 20 106/55 (79) 95 107/60 05/12/17 00:30 35.9 65 20 100/58 (80) 96 109/60 05/12/17 00:00 36.0 65 20 102/62 (78) 96 105/58 05/11/17 23:59 40 05/11/17 23:59 Mechanical Ventilator 40 05/11/17 23:30 40 05/11/17 23:30 36.1 65 20 100/59 (75) 95 102/57 1/15/18 23:00 36.2 64 20 95/59 (74) 96 100/56 05/11/17 22:30 36.2 71 20 92/54 (66) 96 103/59 05/11/17 22:00 36.3 61 20 103/66 (76) 96 100/50 05/11/17 21:30 36.3 61 20 109/55 (64) 96 101/50 05/11/17 21:00 36.3 68 20 95/55 (66) 96 97/49 05/11/17 20:30 36.4 67 20 99/52 (55) 96 97/49 05/11/17 20:20 40 05/11/17 20:00 40 05/11/17 20:00 Mechanical Ventilator 40 05/11/17 20:00 36.4 66 20 96/54 (67) 96 95/48 05/11/17 19:30 36.5 70 20 102/61 (79) 96 98/50 05/11/17 19:00 36.5 64 20 101/59 (78) 96 98/49 05/11/17 18:08 40 05/11/17 18:00 36.6 78 20 98/64 (79) 96 99/52 05/11/17 17:30 36.7 78 20 100/63 (80) 96 98/50 05/11/17 17:00 36.8 88 20 102/59 (63) 96 101/52 05/11/17 16:30 36.9 88 20 92/62 (68) 96 100/52 05/11/17 16:00 37.2 96 20 103/57 (69) 96 100/52 05/11/17 16:00 94 Mechanical Ventilator 40 05/11/17 16:00 40 05/11/17 15:40 40 05/11/17 15:00 37.7 101 20 113/65 (82) 96 116/56 05/11/17 14:00 37.6 100 20 114/75 (97) 98 120/58 05/11/17 13:00 37.5 101 20 116/66 (79) 97 115/57 05/11/17 12:30 37.4 102 20 111/61 (65) 98 114/58 05/11/17 12:00 95 Mechanical Ventilator 40 05/11/17 12:00 40 05/11/17 12:00 37.3 94 20 111/77 (95) 98 120/59 05/11/17 11:43 40 05/11/17 11:30 37.1 89 20 113/76 (81) 98 121/61 05/11/17 11:00 37.1 87 20 113/66 (84) 97 176/158 05/11/17 10:30 37.1 90 20 104/61 (68) 95 97/52 05/11/17 10:00 37.2 91 20 105/64 (69) 96 104/54 05/11/17 09:30 37.2 97 20 106/59 (69) 97 99/51 05/11/17 09:00 37.2 91 20 103/61 (66) 97 97/58 05/11/17 08:30 37.4 95 20 113/67 (74) 97 104/53 05/11/17 08:00 99 Mechanical Ventilator 40 05/11/17 08:00 37.5 81 20 101/54 (57) 97 101/49 05/11/17 08:00 Mechanical Ventilator 40 05/11/17 08:00 40 Physical Exam Comments: General Appearance: WD/WN, no apparent distress Neck: supple, no adenopathy, no JVD, trachea midline Respiratory/Chest: chest non-tender, lungs clear, normal breath sounds, no respiratory distress, no accessory muscle use Cardiovascular: no edema, no gallop, no JVD, no murmur, + irregularly irregular Abdomen: normal bowel sounds, non tender, soft, no organomegaly Neurologic/Psychiatric: + pertinent finding (sedated, cough reflex intact, occasional posturing) Skin: normal color, warm/dry, no rash Laboratory Results Last 24 Hours Test 05/11/17 11:01 05/11/17 11:40 05/11/17 15:52 05/11/17 18:38 Peripheral Blood Smear Path Consult Lactic Acid Level 0.8 mmol/L Bedside Glucose (other) 94 mg/dl 113 mg/dl Valproic Acid (Depakene) Level 59 mcg/ml Phenobarbital Level 12.6 mcg/mL Test 05/11/17 23:16 05/12/17 00:14 05/12/17 05:06 05/12/17 05:10 Bedside Glucose 159 mg/dl Lactic Acid Level 1.1 mmol/L White Blood Count 6.99 K/uL Red Blood Count 3.91 M/uL Hemoglobin 12.3 g/dL Hematocrit 37.1 % Mean Corpuscular Volume 94.9 fL Mean Corpuscular Hemoglobin 31.5 pg Mean Corpuscular Hemoglobin Concent 33.2 g/dl Platelet Count 62 K/uL Mean Platelet Volume 10.3 fL Neutrophils (%) (Auto) 74.4 % Lymphocytes (%) (Auto) 14.9 % Monocytes (%) (Auto) 7.6 % Eosinophils (%) (Auto) 2.4 % Basophils (%) (Auto) 0.1 % Neutrophils # (Auto) 5.20 K/uL Lymphocytes # (Auto) 1.04 K/uL Monocytes # (Auto) 0.53 K/uL Eosinophils # (Auto) 0.17 K/uL Basophils # (Auto) 0.01 K/uL RDW Standard Deviation 53.4 fL RDW Coefficient of Variation 15.3 % Immature Granulocyte % (Auto) 0.6 % Immature Granulocyte # (Auto) 0.04 K/uL Sodium Level 136 mmol/L Potassium Level 3.9 mmol/L Chloride Level 108 mmol/L Carbon Dioxide Level 21 mmol/L Anion Gap 7.0 mmol/L Blood Urea Nitrogen 22 mg/dl Creatinine 1.28 mg/dl Est Creatinine Clear Calc Drug Dose 62.7 ml/min Estimated GFR () 64.4 Estimated GFR (Non- 55.5 BUN/Creatinine Ratio 17.3 Random Glucose 105 mg/dl Calcium Level 7.4 mg/dl Phosphorus Level 3.1 mg/dl Magnesium Level 2.0 mg/dl Total Bilirubin 1.9 mg/dl Direct Bilirubin 1.4 mg/dl Aspartate Amino Transf (AST/SGOT) 56 U/L Alanine Aminotransferase (ALT/SGPT) 45 U/L Alkaline Phosphatase 86 U/L Total Protein 4.8 gm/dl Albumin 2.1 gm/dl Valproic Acid (Depakene) Level 55 mcg/ml Phenobarbital Level 25.3 mcg/mL Blood Gas Sample Site Art Line Bedside Blood Gas pH (LAB) 7.35 Bedside Blood Gas pCO2 (LAB) 36 mmHg Bedside Blood Gas pO2 (LAB) 117 mmHg Bedside Blood Gas HCO3 (LAB) 20 meq/L Bedside Blood Gas Total CO2 22 mEq/l Bedside Blood Gas Base Excess (LAB) -6.0 meq/L Bedside Blood Gas O2 Saturation 99.0 % Tani Test NA Oxygen Delivery Device Ventilator Bedside Oxygen Rate (breaths/min) 20 Blood Gas Minute Ventilation 9.6 Bedside FiO2 40 % Blood Gas Tidal Volume 500 Blood Gas PEEP 5 Assessment and Plan 72 y/o M who was admitted to the ICU on 05/08 after being found unresponsive at home. Pt was a code blue -> code arctic in the ED Comatose in setting of severe anoxic brain injury Again today patient failed weening off sedation. with seizure activity on EEG, sedation was stopped for 10 minutes and there was myoclonic jerking Keppra, 2000 mg bid Added Depacon 500 mg q 6. Check levels Started high dose Versed drip at 66ml/hr Started phenobarbital at 260 q6h poor prognosis per neurology, patients family was updated Unresponsive episode: uncertain etiology ROSC in the ED after several defibrillations, Epinephrine, Lidocaine unsure of the arrhythmia that he experienced as there were no rhythm strips, just AED that fired QT was prolonged on initial EKG, suggesting possible torsades initially cod arctic, now rewarmed CT head, CTAP all neg for acute CTA neg for PE, noted for pulm edema and ? PNA UA and blood cx pending Elevated troponin: due to CPR, no evidence of cardiac ischemia, cardiology following Atrial fibrillation/atrial flutter: rates controlled, continue amiodarone Cardiomyopathy: unclear etiology, EF is 20-25%, global hypokinesis, mild pulmonary edema on CXR, diurese as needed L subclavian central line placed 05/08 Overall poor prognosis, continue management per terminologist and neurology Continued [facility] stay due to: multiple IV medications needed Discharge planning: uncertain
[2017-05-12] MEDS: LEVETIRACETAM IV 2,000 MG in DEXTROSE 5% 250ML 250 ML IV SCH ×2 (08:04→19:53)
[2017-05-12] MEDS: AMIODARONE 200 MG TAB PO SCH ×2 (08:04→19:46)
[2017-05-12] MEDS: NOREPINEPHRINE BIT INJ 8 MG in DEXTROSE 5% 500ML 500 ML IV PRN (08:05)
--- NOTE | 2017-05-12 08:15 | DIAGNOSTIC IMAGING REPORT ---
CHEST ONE VIEW PORTABLE HISTORY: cardiac arrest, respiratory failure COMPARISON: Chest 05/11/2017. FINDINGS: The endotracheal tube terminates approximately 4.7 cm and the alysa. Left subclavian central venous catheter terminates at the proximal SVC. Nasogastric tube terminates below the diaphragm. No pneumothorax. Small bilateral pleural effusions, cardiomegaly, and mild pulmonary edema have slightly progressed. Bibasilar densities are nonspecific but could be due to atelectasis from the pleural effusions. IMPRESSION: 1. Satisfactory support line placement. 2. Slight progression of the pulmonary edema and small bilateral pleural effusions. Electronically signed by: Tom Lambert M.D. 05/12/2017 8:13 AM Dictated Date/Time: 05/12/2017 8:11 AM
--- NOTE | 2017-05-12 08:19 | EEG Procedure Note ---
EEG Procedure Note Date of Service May 12, 2017. Start / End Times Start Time: 05/11/2017 at 11:05 AM End Time: 05/12/2017 at 8:15 AM Referring Physician Davide Gibbons History This is a 72-year-old male who presents with cardiac arrest and code arctic protocol. Continuous EEG to monitor for nonconvulsive status. Home Medication List Scheduled Fish Oil ([place]-3), 1 CAP PO DAILY Multivitamin (Multivitamin), 1 TAB PO DAILY Inpatient Medication List Current Inpatient Medications Medications (Trade) Dose Ordered Sig/Te Route Start Time Stop Time Status Last Admin Dose Admin Ioversol (Optiray 320) 100 ml UD PRN IV 05/08/17 09:30 05/12/17 09:29 Norepinephrine Bitartrate 8 mg/ Dextrose 508 ml @ 0 mls/hr Q0M PRN IV 05/08/17 11:15 06/07/17 11:14 05/11/17 11:49 26.4 MLS/HR Propofol (Diprivan Iv Emulsion 100ml Vial) 1 dose UD PRN IV 05/08/17 11:15 05/14/17 11:14 05/12/17 01:53 1 DOSE Artificial Tears (Lacri-Lube Oph Oint) 1 appln Q2H PRN OPB 05/08/17 11:15 06/07/17 11:14 05/08/17 22:00 1 APPLN Pantoprazole Sodium 40 mg/ Syringe 10 ml @ 5 mls/min DAILY@11 IV 05/09/17 11:00 06/08/17 10:59 05/11/17 11:19 5 MLS/MIN Meperidine HCl (Demerol Inj) 25 mg Q2H PRN IV 05/08/17 11:15 05/22/17 11:14 05/08/17 16:10 25 MG Hydromorphone HCl (Dilaudid Inj) 1 mg Q20M PRN IV 05/08/17 11:15 05/22/17 11:14 Acetaminophen (Tylenol Supp) 650 mg ONE PRN NC 05/08/17 11:15 Ampicillin Sodium/ Sulbactam Sodium 1500 mg/Sodium Chloride 104 ml @ 200 mls/hr Q6H IV 05/08/17 12:00 05/18/17 11:59 05/12/17 05:39 200 MLS/HR Aspirin (Aspirin Chew) 81 mg QD NG 05/08/17 17:00 06/07/17 16:59 05/10/17 16:17 81 MG Miscellaneous Information (Consult Glycemic Management Pharmacy) 1 ea UD PRN N/A 05/08/17 17:01 06/07/17 17:00 Heparin Sodium (Porcine) (Heparin 10 Unit/ ml 5 ml Flush) 5 ml PRN PRN FLUSH 05/09/17 01:30 06/08/17 01:29 Glucose (Glucose 40% Gel) 15-30 GRAMS 15 GRAMS... UD PRN PO 05/09/17 05:30 06/08/17 05:29 Glucose (Glucose Chew Tab) 4-8 Tablets 4 Tabl... UD PRN PO 05/09/17 05:30 06/08/17 05:29 Dextrose (Dextrose 50% 50ML Syringe) 25-50ML OF 50% DW IV FOR... UD PRN IV 05/09/17 05:30 06/08/17 05:29 Glucagon (Glucagon Inj) 1 mg UD PRN SQ 05/09/17 05:30 06/08/17 05:29 Sodium Chloride 1,000 ml @ 100 mls/hr Q10H IV 05/09/17 22:00 06/08/17 21:59 05/11/17 23:01 100 MLS/HR Acetaminophen 650 mg/Empty Bag 65 ml @ 260 mls/hr Q6H PRN IV 05/10/17 04:00 06/09/17 03:59 05/10/17 04:13 260 MLS/HR Insulin Aspart (novoLOG ASPART) SLIDING SCALE Q6 SC 05/10/17 12:00 06/09/17 11:59 Levetiracetam 2000 mg/Dextrose 270 ml @ 999 mls/hr Q12 IV 05/10/17 21:00 06/07/17 20:59 05/11/17 21:36 999 MLS/HR Valproate Sodium 500 mg/Dextrose 55 ml @ 55 mls/hr Q6H IV 05/10/17 12:00 06/09/17 11:59 05/12/17 05:39 55 MLS/HR Midazolam HCl 250 ml @ 0 mls/hr Q0M PRN IV 1/14/18 13:45 06/09/17 13:44 05/12/17 05:40 75 MLS/HR Phenobarbital Sodium 260 mg/ Syringe 2 ml @ 0.4 mls/min Q6H IV 05/11/17 21:00 06/10/17 20:59 05/12/17 01:58 0.4 MLS/MIN Amiodarone HCl (Cordarone Tab) 100 mg BID PO 05/11/17 21:00 06/10/17 20:59 05/11/17 21:34 100 MG Description This is a 21 electrode continuous video EEG with a single channel dedicated to limited EKG. The electrodes were placed in accordance with the International 10- 20 system. Post processing with an event detection algorithm is applied to the continuous data collection for the purpose of identifying abnormal epochs. These detections are reviewed and all candidate seizures are processed for further analysis. Data is reviewed in its raw format and patient events are processed, edited and stored. At the start of this recording the patient is intubated and unresponsive. Background was discontinuous (<10% suppression) with moderate amplitude delta/ theta activity. There wa s no state changes or sleep transients. There was abundant, frontally predominant, generalized periodic spike and sharp waves (GPDs) at 1Hz (rare 2Hz). After 22:31 PM, GPDs were lower amplitude, less well formed, and more sharply contoured, but still mostly occurring at 1 Hz. Background showed more generalized suppression (<10uV) After 7am on 05/12, generalized spike and sharp waves were rarely seen. Interpretation This is an abnormal continuous video EEG secondary to: 1) Abundant generalized periodic discharges (GPDs) at 1Hz which became rare after 7 AM on 05/12 2) severe background disorganization and slowing which started off as a discontinuous background and progressing towards generalized suppression towards the end of the recording. There was no electrographic seizures. Clinical Correlation 1) Abundant GPDs indicate a highly epileptogenic state and increased risk for seizures. Often GPDs are seen in the setting of brain injury such as anoxic brain injury. 2) Severe generalized encephalopathy of nonspecific etiology. Medications and cooling protocol can contribute to background encephalopathy.
--- NOTE | 2017-05-12 10:22 | Clinical Documentation Query ---
CLINICAL DOCUMENTATION QUERY 72-y/o male who presents in cardiac arrest after being found down. The patient is being documented as unresponsive. In your clinical opinion is this patient being managed for: (x ) Comatose in setting of severe anoxic brain injury. ( ) Not Agree ( ) Other explanation of clinical findings (Please Explain) ( ) Unable to determine (Please Define) ( ) Need to Discuss The medical record reflects the following clinical findings, treatment, and risk factors. Clinical Indicators: GCS 2, unresponsive to noxious stimuli. Treatment: ICU hemodynamic monitoring, ICU neuro monitoring, GCS 2 and unresponsive to noxious stimuli. Neuro consult, daily EEG Risk Factors: Unresponsiveness, ?cardiac arrest, Anoxia Please clarify and document your clinical opinion in the progress notes and discharge summary. Terms such as "probable", "suspected", "likely", "questionable", "possible", or "still to be ruled out" are acceptable. IF IN AGREEMENT, YOU MUST DOCUMENT ABOVE DIAGNOSTIC STATEMENT IN DAILY PROGRESS NOTES AND DISCHARGE SUMMARY. This document is not part of the patient's record. Thank You, Josué Durant, RN [phone]
[2017-05-12] MEDS: SODIUM CHLORIDE 0.9% 1000ML 1,000 ML IV SCH ×2 (10:49→19:54)
[2017-05-12] MEDS: PANTOprazole INJ 40 MG in SYRINGE 0 ML IV SCH (10:50)
--- NOTE | 2017-05-12 10:56 | Neurology Progress Notes ---
Neurology Progress Note Date of Service May 12, 2017. Subjective On continuous EEG monitoring, the patient was having frequent epileptogenic discharges of a generalized nature occurring every 1-2 seconds despite loading with medication until about 0700 today, when the activity ceased and there was only rare sharp waves of a generalized nature thereafter. The background activity, after the potentially epileptogenic activity ceased was very low amplitude/suppressed in a generalized fashion. There were some burst of lower amplitude slow activity lasting a 2nd or 2 every 5-10 seconds. There was no correlation with this activity to the respirator. Patient has had no seizure activity off propofol this morning. He is still on Versed. Phenobarbital level was 25.3 this morning on 260 mg q.6 hours. Depakote level was 55 on 500 mg Q 6 hours. He also remains on levetiracetam 2000 mg q.12 hours Nursing reports no other issues and he does breathe over the ventilator. Objective Date Time Temp Pulse Resp B/P (MAP) Pulse Ox O2 Delivery O2 Flow Rate FiO2 05/12/17 10:00 36.5 92 20 110/54 (71) 93 103/59 05/12/17 09:45 36.4 91 20 (74) 92 102/58 05/12/17 09:30 36.3 87 20 106/50 (67) 93 95/54 05/12/17 09:30 36.4 92 20 110/54 (72) 97 Mechanical Ventilator 05/12/17 09:15 36.2 90 20 (76) 92 101/59 05/12/17 09:00 36.1 90 20 110/53 (62) 93 101/60 05/12/17 08:45 36.1 89 20 (77) 93 101/61 05/12/17 08:42 40 05/12/17 08:30 36.0 88 20 114/57 (66) 92 102/61 05/12/17 08:15 35.9 84 20 (78) 92 104/61 05/12/17 08:00 35.8 79 20 110/58 (69) 91 101/59 05/12/17 07:45 35.7 61 20 (73) 93 101/56 05/12/17 07:31 35.6 66 20 104/54 (68) 93 96/52 05/12/17 07:30 30 1/16/18 07:30 35.6 67 20 (71) 93 99/54 05/12/17 07:30 Mechanical Ventilator 30 05/12/17 07:15 35.5 66 20 (73) 93 101/56 05/12/17 07:01 35.5 54 20 104/52 (71) 93 101/54 05/12/17 07:00 35.5 67 20 (72) 93 102/55 05/12/17 06:00 35.5 62 20 96/54 (68) 94 102/54 05/12/17 05:30 35.6 64 20 100/53 (63) 94 102/56 05/12/17 05:15 40 05/12/17 05:01 35.7 59 20 98/48 (68) 96 98/52 05/12/17 05:00 35.7 62 20 (70) 96 99/54 05/12/17 04:32 35.7 54 18 100/48 (75) 93 105/59 05/12/17 04:30 35.7 20 (77) 106/60 05/12/17 04:00 Mechanical Ventilator 40 05/12/17 04:00 30 05/12/17 04:00 35.7 62 20 (70) 96 98/55 05/12/17 03:30 35.6 63 20 102/64 (75) 96 98/52 05/12/17 03:00 35.6 60 20 106/59 (78) 96 95/54 05/12/17 02:34 40 05/12/17 02:00 35.9 67 20 98/58 (63) 95 97/56 (65) 05/12/17 01:00 36.4 65 20 106/55 (79) 95 107/60 05/12/17 00:30 35.9 65 20 100/58 (80) 96 109/60 05/12/17 00:00 36.0 65 20 102/62 (78) 96 105/58 05/11/17 23:59 40 05/11/17 23:59 Mechanical Ventilator 40 05/11/17 23:30 40 05/11/17 23:30 36.1 65 20 100/59 (75) 95 102/57 05/11/17 23:00 36.2 64 20 95/59 (74) 96 100/56 05/11/17 22:30 36.2 71 20 92/54 (66) 96 103/59 18 22:00 36.3 61 20 103/66 (76) 96 100/50 05/11/17 21:30 36.3 61 20 109/55 (64) 96 101/50 05/11/17 21:00 36.3 68 20 95/55 (66) 96 97/49 05/11/17 20:30 36.4 67 20 99/52 (55) 96 97/49 05/11/17 20:20 40 18 20:00 40 18 20:00 Mechanical Ventilator 40 05/11/17 20:00 36.4 66 20 96/54 (67) 96 95/48 05/11/17 19:30 36.5 70 20 102/61 (79) 96 98/50 05/11/17 19:00 36.5 64 20 101/59 (78) 96 98/49 05/11/17 18:08 40 05/11/17 18:00 36.6 78 20 98/64 (79) 96 99/52 05/11/17 17:30 36.7 78 20 100/63 (80) 96 98/50 05/11/17 17:00 36.8 88 20 102/59 (63) 96 101/52 05/11/17 16:30 36.9 88 20 92/62 (68) 96 100/52 05/11/17 16:00 37.2 96 20 103/57 (69) 96 100/52 05/11/17 16:00 94 Mechanical Ventilator 40 05/11/17 16:00 40 18 15:40 40 05/11/17 15:00 37.7 101 20 113/65 (82) 96 116/56 05/11/17 14:00 37.6 100 20 114/75 (97) 98 120/58 05/11/17 13:00 37.5 101 20 116/66 (79) 97 115/57 05/11/17 12:30 37.4 102 20 111/61 (65) 98 114/58 05/11/17 12:00 95 Mechanical Ventilator 40 05/11/17 12:00 40 05/11/17 12:00 37.3 94 20 111/77 (95) 98 120/59 1/15/18 11:43 40 05/11/17 11:30 37.1 89 20 113/76 (81) 98 121/61 05/11/17 11:00 37.1 87 20 113/66 (84) 97 176/158 Last 24 Hours Test 05/11/17 11:01 05/11/17 11:40 05/11/17 15:52 05/11/17 18:38 Peripheral Blood Smear Path Consult Lactic Acid Level 0.8 mmol/L Bedside Glucose (other) 94 mg/dl 113 mg/dl Valproic Acid (Depakene) Level 59 mcg/ml Phenobarbital Level 12.6 mcg/mL Test 05/11/17 23:16 05/12/17 00:14 05/12/17 05:06 05/12/17 05:10 Bedside Glucose 159 mg/dl Lactic Acid Level 1.1 mmol/L White Blood Count 6.99 K/uL Red Blood Count 3.91 M/uL Hemoglobin 12.3 g/dL Hematocrit 37.1 % Mean Corpuscular Volume 94.9 fL Mean Corpuscular Hemoglobin 31.5 pg Mean Corpuscular Hemoglobin Concent 33.2 g/dl Platelet Count 62 K/uL Mean Platelet Volume 10.3 fL Neutrophils (%) (Auto) 74.4 % Lymphocytes (%) (Auto) 14.9 % Monocytes (%) (Auto) 7.6 % Eosinophils (%) (Auto) 2.4 % Basophils (%) (Auto) 0.1 % Neutrophils # (Auto) 5.20 K/uL Lymphocytes # (Auto) 1.04 K/uL Monocytes # (Auto) 0.53 K/uL Eosinophils # (Auto) 0.17 K/uL Basophils # (Auto) 0.01 K/uL RDW Standard Deviation 53.4 fL RDW Coefficient of Variation 15.3 % Immature Granulocyte % (Auto) 0.6 % Immature Granulocyte # (Auto) 0.04 K/uL Sodium Level 136 mmol/L Potassium Level 3.9 mmol/L Chloride Level 108 mmol/L Carbon Dioxide Level 21 mmol/L Anion Gap 7.0 mmol/L Blood Urea Nitrogen 22 mg/dl Creatinine 1.28 mg/dl Est Creatinine Clear Calc Drug Dose 62.7 ml/min Estimated GFR () 64.4 Estimated GFR (Non- 55.5 BUN/Creatinine Ratio 17.3 Random Glucose 105 mg/dl Calcium Level 7.4 mg/dl Phosphorus Level 3.1 mg/dl Magnesium Level 2.0 mg/dl Total Bilirubin 1.9 mg/dl Direct Bilirubin 1.4 mg/dl Aspartate Amino Transf (AST/SGOT) 56 U/L Alanine Aminotransferase (ALT/SGPT) 45 U/L Alkaline Phosphatase 86 U/L Total Protein 4.8 gm/dl Albumin 2.1 gm/dl Valproic Acid (Depakene) Level 55 mcg/ml Phenobarbital Level 25.3 mcg/mL Blood Gas Sample Site Art Line Bedside Blood Gas pH (LAB) 7.35 Bedside Blood Gas pCO2 (LAB) 36 mmHg Bedside Blood Gas pO2 (LAB) 117 mmHg Bedside Blood Gas HCO3 (LAB) 20 meq/L Bedside Blood Gas Total CO2 22 mEq/l Bedside Blood Gas Base Excess (LAB) -6.0 meq/L Bedside Blood Gas O2 Saturation 99.0 % Tani Test NA Oxygen Delivery Device Ventilator Bedside Oxygen Rate (breaths/min) 20 Blood Gas Minute Ventilation 9.6 Bedside FiO2 40 % Blood Gas Tidal Volume 500 Blood Gas PEEP 5 Exam: Off propofol the patient has no spontaneous movement. He has no reaction or movement to deep pain in all 4 limbs. Eyes open passively and pupils are 1-2 mm bilaterally and not obviously reactive to light. Eyes are front and are fixed with head movements. Limbs are flaccid. Current Inpatient Medications Medications (Trade) Dose Ordered Sig/Te Route Start Time Stop Time Status Last Admin Dose Admin Norepinephrine Bitartrate 8 mg/ Dextrose 508 ml @ 0 mls/hr Q0M PRN IV 05/08/17 11:15 06/07/17 11:14 05/12/17 08:05 18 MLS/HR Propofol (Diprivan Iv Emulsion 100ml Vial) 1 dose UD PRN IV 05/08/17 11:15 05/14/17 11:14 05/12/17 08:07 1 DOSE Artificial Tears (Lacri-Lube Oph Oint) 1 appln Q2H PRN OPB 05/08/17 11:15 06/07/17 11:14 05/08/17 22:00 1 APPLN Pantoprazole Sodium 40 mg/ Syringe 10 ml @ 5 mls/min DAILY@11 IV 05/09/17 11:00 06/08/17 10:59 05/11/17 11:19 5 MLS/MIN Meperidine HCl (Demerol Inj) 25 mg Q2H PRN IV 05/08/17 11:15 05/22/17 11:14 05/08/17 16:10 25 MG Hydromorphone HCl (Dilaudid Inj) 1 mg Q20M PRN IV 05/08/17 11:15 05/22/17 11:14 Acetaminophen (Tylenol Supp) 650 mg ONE PRN [place] 05/08/17 11:15 Ampicillin Sodium/ Sulbactam Sodium 1500 mg/Sodium Chloride 104 ml @ 200 mls/hr Q6H IV 05/08/17 12:00 05/18/17 11:59 05/12/17 05:39 200 MLS/HR Aspirin (Aspirin Chew) 81 mg QD NG 05/08/17 17:00 06/07/17 16:59 05/10/17 16:17 81 MG Miscellaneous Information (Consult Glycemic Management Pharmacy) 1 ea UD PRN N/A 05/08/17 17:01 06/07/17 17:00 Heparin Sodium (Porcine) (Heparin 10 Unit/ ml 5 ml Flush) 5 ml PRN PRN FLUSH 05/09/17 01:30 06/08/17 01:29 Glucose (Glucose 40% Gel) 15-30 GRAMS 15 GRAMS... UD PRN PO 05/09/17 05:30 06/08/17 05:29 Glucose (Glucose Chew Tab) 4-8 Tablets 4 Tabl... UD PRN PO 05/09/17 05:30 06/08/17 05:29 Dextrose (Dextrose 50% 50ML Syringe) 25-50ML OF 50% DW IV FOR... UD PRN IV 05/09/17 05:30 06/08/17 05:29 Glucagon (Glucagon Inj) 1 mg UD PRN SQ 05/09/17 05:30 06/08/17 05:29 Sodium Chloride 1,000 ml @ 100 mls/hr Q10H IV 05/09/17 22:00 06/08/17 21:59 05/11/17 23:01 100 MLS/HR Acetaminophen 650 mg/Empty Bag 65 ml @ 260 mls/hr Q6H PRN IV 05/10/17 04:00 06/09/17 03:59 05/10/17 04:13 260 MLS/HR Insulin Aspart (novoLOG ASPART) SLIDING SCALE Q6 SC 05/10/17 12:00 06/09/17 11:59 Levetiracetam 2000 mg/Dextrose 270 ml @ 999 mls/hr Q12 IV 05/10/17 21:00 06/07/17 20:59 05/12/17 08:04 999 MLS/HR Midazolam HCl 250 ml @ 0 mls/hr Q0M PRN IV 05/10/17 13:45 06/09/17 13:44 05/12/17 05:40 75 MLS/HR Phenobarbital Sodium 260 mg/ Syringe 2 ml @ 0.4 mls/min Q6H IV 05/11/17 21:00 06/10/17 20:59 05/12/17 08:04 0.4 MLS/MIN Amiodarone HCl (Cordarone Tab) 100 mg BID PO 05/11/17 21:00 06/10/17 20:59 05/12/17 08:04 100 MG Oxymetazoline HCl (Afrin 0.05% Nasal [place]) 1 sprays Q12 NA 05/12/17 09:15 06/11/17 09:14 Valproate Sodium 750 mg/Dextrose 57.5 ml @ 55 mls/hr Q6H IV 05/12/17 12:00 06/11/17 11:59 Impression 1. Post cardiac arrest May 08. He has a profound encephalopathy Neurologic examination today off propofol shows no evidence of cerebral, brainstem, or cord activity. Continuous EEG monitoring shows improvement with no ongoing potentially epileptogenic activity since earlier this morning. Depakote level was 55 and phenobarbital level was 25. It is very concerning to me that there is a significant generalized suppression of all brain activity on EEG, however, it is not "flat" 2. Patient's family is concerned about acute lead poisoning. 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 They are concerned that lead from the paint was inhaled and is causing this condition. Plan 1. Continue with the continuous EEG monitoring for today. 2. The increase Depakote to 750 mg IV q.6 hours and check a level tomorrow morning 3. Continue with phenobarbital 260 mg IV Q 6 hours for now. We may need to lower this if his level is higher than 30. 4. Continue levetiracetam 2000 mg IV q.12 hours Overall, the patient has a poor prognosis neurologically. I have discussed this with the patient's son who was at bedside. I have discussed the case with Dr. Ybarra and Dr. White as well as the nursing staff caring for the patient. I spent a total of 35 minutes with this patient's care today.
--- NOTE | 2017-05-12 11:14 | Critical Care Progress Note ---
Critical Care Progress Note Date of Service May 12, 2017. ICU Day ICU Day Number: [address] Ybarra Subjective Patient rewarmed After loading patient with phenobarbital, seizure activity ceased overnight Remains on high dose versed, 75 ml/hr Attempting to wean propofol and NE Loaded with phenobarbital, started at 260 q6h yesterday, monitoring levels with goal between 25-30 Depakote increased to 750 q6h. Goal blood level 75-80. Currently 55. Rhinorocket removed today, tolerated well Objective General: Elderly male, looks appropriate for his age, intubated, unresponsive Heent: NC/AT, pupils non reactive, rhinorocket removed today Lungs: mechanical breath sounds CVS: S1S2 irregular Abd: soft and non tender Ext: Trace pitting edema bilaterally MEDICAL PHYSICIST: pupils nonreactive, no reaction to deep stimulation Assessment & Plan Problems: Cardiac arrest Respiratory failure Atrial fibrillation Epistaxis Plan: MEDICAL PHYSICIST: S/p therapeutic hypothermia protocol Off paralytics Continue EEG monitoring, minimal activity at present Propofol wean Keppra, 2000 mg bid, continue with this dose Increase Depacon 750 mg q 6. Check levels qam with goal between 75-80. Current blood level 55 On high dose Versed drip at 75ml/hr Started phenobarbital at 260 q6h; goal blood level 25-30. If level slips to 20, ok to bump phenobarb He likely has significant anoxic brain injury The family is concerned that he may also have a component of lead intoxication (was stripping a very old door which likely had lead). Lead level was sent, but it takes approximately 1 week. It was explained them that it is extremely unlikely that he would have any injury from lead, he was asymptomatic until the day of arrest, there was no anemia. Would not start empiric chelation based on this theory without any lead level. Peripheral smear also sent yesterday negative for basophilic stippling. CVS: Remains in a-fib. Rate controlled with amiodarone. Norepinephrine stopped today, remove a-line Echo reviewed, severely depressed EF, "stunned" myocardium Mild troponin elevation, not uncommon in this scenario, after CPR. No clear evidence of ischemic Vtach/Vfib. Further workup depending on his clinical evolution Consider anticoagulation soon if no nasal bleeding/tolerates removal of rhinorocket and afrin BID Lactic acid level checked today, 1.1 Pulmonary: Vent support increased Elevate head ID: DC prophylactic Abx for rhinorocket, Unasyn day 4; stopped today after packing removed. Discussed case with Dr. Larry, ENT; verbal order to remove rhinorocket as >72 hours Blood cultures sent per protocol, negative to date Renal/metabolic: Daily electrolytes Monitor urine output. Renal indices normal GI: OGT inserted Tube feeds DCd Lactic Acid WNL Protonix for GI bleeding prophylaxis Heme: H/H fairly stable; low platelets DVT prophylaxis: consider starting Lovenox if no further bleeding tomorrow after removing the nasal packing Consider trach/peg Consults & Procedures Consultants: cardiology - Dr Kay Neurology- Dr. Lemos Procedures: 05/08/17 - intubated by EMS 05/08/17 - left subclavian TLC 05/08/17 - right axillary a-line 05/12/17 - right axillary a-line removed, rhinorocket removed Data Medications: Current Inpatient Medications Medications (Trade) Dose Ordered Sig/Te Route Start Time Stop Time Status Last Admin Dose Admin Norepinephrine Bitartrate 8 mg/ Dextrose 508 ml @ 0 mls/hr Q0M PRN IV 05/08/17 11:15 06/07/17 11:14 05/12/17 08:05 18 MLS/HR Propofol (Diprivan Iv Emulsion 100ml Vial) 1 dose UD PRN IV 05/08/17 11:15 05/14/17 11:14 05/12/17 08:07 1 DOSE Artificial Tears (Lacri-Lube Oph Oint) 1 appln Q2H PRN OPB 05/08/17 11:15 06/07/17 11:14 05/08/17 22:00 1 APPLN Pantoprazole Sodium 40 mg/ Syringe 10 ml @ 5 mls/min DAILY@11 IV 05/09/17 11:00 06/08/17 10:59 05/11/17 11:19 5 MLS/MIN Meperidine HCl (Demerol Inj) 25 mg Q2H PRN IV 05/08/17 11:15 05/22/17 11:14 05/08/17 16:10 25 MG Hydromorphone HCl (Dilaudid Inj) 1 mg Q20M PRN IV 05/08/17 11:15 05/22/17 11:14 Acetaminophen (Tylenol Supp) [address] 05/08/17 11:15 Ampicillin Sodium/ Sulbactam Sodium 1500 mg/Sodium Chloride 104 ml @ 200 mls/hr Q6H IV 05/08/17 12:00 05/18/17 11:59 05/12/17 05:39 200 MLS/HR Aspirin (Aspirin Chew) 81 mg QD NG 05/08/17 17:00 06/07/17 16:59 05/10/17 16:17 81 MG Miscellaneous Information (Consult Glycemic Management Pharmacy) 1 ea UD PRN N/A 05/08/17 17:01 06/07/17 17:00 Heparin Sodium (Porcine) (Heparin 10 Unit/ ml 5 ml Flush) 5 ml PRN PRN FLUSH 05/09/17 01:30 06/08/17 01:29 Glucose (Glucose 40% Gel) 15-30 GRAMS 15 GRAMS... UD PRN PO 05/09/17 05:30 06/08/17 05:29 Glucose (Glucose Chew Tab) 4-8 Tablets 4 Tabl... UD PRN PO 05/09/17 05:30 06/08/17 05:29 Dextrose (Dextrose 50% 50ML Syringe) 25-50ML OF 50% DW IV FOR... UD PRN IV 05/09/17 05:30 06/08/17 05:29 Glucagon (Glucagon Inj) 1 mg UD PRN SQ 05/09/17 05:30 06/08/17 05:29 Sodium Chloride 1,000 ml @ 100 mls/hr Q10H IV 05/09/17 22:00 06/08/17 21:59 05/11/17 23:01 100 MLS/HR Acetaminophen 650 mg/Empty Bag 65 ml @ 260 mls/hr Q6H PRN IV 05/10/17 04:00 06/09/17 03:59 05/10/17 04:13 260 MLS/HR Insulin Aspart (novoLOG ASPART) SLIDING SCALE Q6 SC 05/10/17 12:00 06/09/17 11:59 Levetiracetam 2000 mg/Dextrose 270 ml @ 999 mls/hr Q12 IV 05/10/17 21:00 06/07/17 20:59 05/12/17 08:04 999 MLS/HR Midazolam HCl 250 ml @ 0 mls/hr Q0M PRN IV 05/10/17 13:45 06/09/17 13:44 05/12/17 05:40 75 MLS/HR Phenobarbital Sodium 260 mg/ Syringe 2 ml @ 0.4 mls/min Q6H IV 05/11/17 21:00 06/10/17 20:59 05/12/17 08:04 0.4 MLS/MIN Amiodarone HCl (Cordarone Tab) 100 mg BID PO 05/11/17 21:00 06/10/17 20:59 05/12/17 08:04 100 MG Oxymetazoline HCl (Afrin 0.05% Nasal [place]) 1 sprays Q12 NA 05/12/17 09:15 06/11/17 09:14 Valproate Sodium 750 mg/Dextrose 57.5 ml @ 55 mls/hr Q6H IV 05/12/17 09:45 06/11/17 09:44 UNV I & O: 05/11/17 05/12/17 05/13/17 08:00 08:00 08:00 Intake Total 5186 ml 6776 ml Output Total 1035 ml 1825 ml Balance 4151 ml 4951 ml Vital Signs: Date Time Temp Pulse Resp B/P (MAP) Pulse Ox O2 Delivery O2 Flow Rate FiO2 05/12/17 08:42 40 05/12/17 07:30 30 05/12/17 07:30 Mechanical Ventilator 30 05/12/17 06:00 35.5 62 20 96/54 (68) 94 102/54 05/12/17 05:30 35.6 64 20 100/53 (63) 94 102/56 05/12/17 05:15 40 05/12/17 05:01 35.7 59 20 98/48 (68) 96 98/52 05/12/17 05:00 35.7 62 20 (70) 96 99/54 05/12/17 04:32 35.7 54 18 100/48 (75) 93 105/59 05/12/17 04:30 35.7 20 (77) 106/60 05/12/17 04:00 Mechanical Ventilator 40 05/12/17 04:00 30 05/12/17 04:00 35.7 62 20 (70) 96 98/55 05/12/17 03:30 35.6 63 20 102/64 (75) 96 98/52 05/12/17 03:00 35.6 60 20 106/59 (78) 96 95/54 05/12/17 02:34 40 05/12/17 02:00 35.9 67 20 98/58 (63) 95 97/56 (65) 18 01:00 36.4 65 20 106/55 (79) 95 107/60 05/12/17 00:30 35.9 65 20 100/58 (80) 96 109/60 05/12/17 00:00 36.0 65 20 102/62 (78) 96 105/58 05/11/17 23:59 40 05/11/17 23:59 Mechanical Ventilator 40 05/11/17 23:30 40 05/11/17 23:30 36.1 65 20 100/59 (75) 95 102/57 05/11/17 23:00 36.2 64 20 95/59 (74) 96 100/56 05/11/17 22:30 36.2 71 20 92/54 (66) 96 103/59 05/11/17 22:00 36.3 61 20 103/66 (76) 96 100/50 05/11/17 21:30 36.3 61 20 109/55 (64) 96 101/50 05/11/17 21:00 36.3 68 20 95/55 (66) 96 97/49 05/11/17 20:30 36.4 67 20 99/52 (55) 96 97/49 05/11/17 20:20 40 18 20:00 40 05/11/17 20:00 Mechanical Ventilator 40 05/11/17 20:00 36.4 66 20 96/54 (67) 96 95/48 05/11/17 19:30 36.5 70 20 102/61 (79) 96 98/50 05/11/17 19:00 36.5 64 20 101/59 (78) 96 98/49 05/11/17 18:08 40 05/11/17 18:00 36.6 78 20 98/64 (79) 96 99/52 05/11/17 17:30 36.7 78 20 100/63 (80) 96 98/50 05/11/17 17:00 36.8 88 20 102/59 (63) 96 101/52 05/11/17 16:30 36.9 88 20 92/62 (68) 96 100/52 05/11/17 16:00 37.2 96 20 103/57 (69) 96 100/52 05/11/17 16:00 94 Mechanical Ventilator 40 05/11/17 16:00 40 05/11/17 15:40 40 05/11/17 15:00 37.7 101 20 113/65 (82) 96 116/56 05/11/17 14:00 37.6 100 20 114/75 (97) 98 120/58 05/11/17 13:00 37.5 101 20 116/66 (79) 97 115/57 05/11/17 12:30 37.4 102 20 111/61 (65) 98 114/58 05/11/17 12:00 95 Mechanical Ventilator 40 05/11/17 12:00 40 05/11/17 12:00 37.3 94 20 111/77 (95) 98 120/59 05/11/17 11:43 40 05/11/17 11:30 37.1 89 20 113/76 (81) 98 121/61 05/11/17 11:00 37.1 87 20 113/66 (84) 97 176/158 05/11/17 10:30 37.1 90 20 104/61 (68) 95 97/52 05/11/17 10:00 37.2 91 20 105/64 (69) 96 104/54 Laboratory Results: Last 24 Hours Test 05/11/17 11:01 05/11/17 11:40 05/11/17 15:52 05/11/17 18:38 Peripheral Blood Smear Path Consult Lactic Acid Level 0.8 mmol/L Bedside Glucose (other) 94 mg/dl 113 mg/dl Valproic Acid (Depakene) Level 59 mcg/ml Phenobarbital Level 12.6 mcg/mL Test 05/11/17 23:16 05/12/17 00:14 05/12/17 05:06 05/12/17 05:10 Bedside Glucose 159 mg/dl Lactic Acid Level 1.1 mmol/L White Blood Count 6.99 K/uL Red Blood Count 3.91 M/uL Hemoglobin 12.3 g/dL Hematocrit 37.1 % Mean Corpuscular Volume 94.9 fL Mean Corpuscular Hemoglobin 31.5 pg Mean Corpuscular Hemoglobin Concent 33.2 g/dl Platelet Count 62 K/uL Mean Platelet Volume 10.3 fL Neutrophils (%) (Auto) 74.4 % Lymphocytes (%) (Auto) 14.9 % Monocytes (%) (Auto) 7.6 % Eosinophils (%) (Auto) 2.4 % Basophils (%) (Auto) 0.1 % Neutrophils # (Auto) 5.20 K/uL Lymphocytes # (Auto) 1.04 K/uL Monocytes # (Auto) 0.53 K/uL Eosinophils # (Auto) 0.17 K/uL Basophils # (Auto) 0.01 K/uL RDW Standard Deviation 53.4 fL RDW Coefficient of Variation 15.3 % Immature Granulocyte % (Auto) 0.6 % Immature Granulocyte # (Auto) 0.04 K/uL Sodium Level 136 mmol/L Potassium Level 3.9 mmol/L Chloride Level 108 mmol/L Carbon Dioxide Level 21 mmol/L Anion Gap 7.0 mmol/L Blood Urea Nitrogen 22 mg/dl Creatinine 1.28 mg/dl Est Creatinine Clear Calc Drug Dose 62.7 ml/min Estimated GFR () 64.4 Estimated GFR (Non- 55.5 BUN/Creatinine Ratio 17.3 Random Glucose 105 mg/dl Calcium Level 7.4 mg/dl Phosphorus Level 3.1 mg/dl Magnesium Level 2.0 mg/dl Total Bilirubin 1.9 mg/dl Direct Bilirubin 1.4 mg/dl Aspartate Amino Transf (AST/SGOT) 56 U/L Alanine Aminotransferase (ALT/SGPT) 45 U/L Alkaline Phosphatase 86 U/L Total Protein 4.8 gm/dl Albumin 2.1 gm/dl Valproic Acid (Depakene) Level 55 mcg/ml Phenobarbital Level 25.3 mcg/mL Blood Gas Sample Site Art Line Bedside Blood Gas pH (LAB) 7.35 Bedside Blood Gas pCO2 (LAB) 36 mmHg Bedside Blood Gas pO2 (LAB) 117 mmHg Bedside Blood Gas HCO3 (LAB) 20 meq/L Bedside Blood Gas Total CO2 22 mEq/l Bedside Blood Gas Base Excess (LAB) -6.0 meq/L Bedside Blood Gas O2 Saturation 99.0 % Tani Test NA Oxygen Delivery Device Ventilator Bedside Oxygen Rate (breaths/min) 20 Blood Gas Minute Ventilation 9.6 Bedside FiO2 40 % Blood Gas Tidal Volume 500 Blood Gas PEEP 5 Resident Tracking Resident Involvement: Resident Care Provided Care Provided: Adult Hospital Medicine Assessment and Plan The general supportive measures continue. Spoke with neurology. Sedation being weaned. The AEDs are effective. Can discontinue the rhinorocket. Will stop the CVP monitoring and remove the a-line. Ongoing communication with the family. Given the current status prognosis is grave. Continued [facility] stay due to: multiple IV medications needed Discharge planning: uncertain
[2017-05-12] MEDS: OXYMETAZOLINE HCL 0.05% NA SPR 15 ML BTL SCH ×2 (12:23→19:53)
[2017-05-12] MEDS: VALPROATE SOD IV 750 MG in DEXTROSE 5% 50ML 50 ML IV SCH ×3 (13:24→23:27)
[2017-05-12 13:35] LABS: LEAD BLOOD 6 MCG/DL (0-9)
--- NOTE | 2017-05-12 13:54 | Pharmacy Progress Note ---
Pharmacy Glycemic Sign Off Nt Date of Service May 12, 2017. Assessment & Plan ASSESSMENT: * Insulin drip initiated for code arctic protocol on 05/08 * Patient has been receiving/requiring 0 units of insulin per day since insulin gtt was turned off on 05/09 * Patient is not diabetic at baseline (HbA1c less than 5.7% without outpatient diabetes medications) * All BSG's in (or below) goal range without insulin administered * Per KARTIK Dawkins to d/c Novolog. PLAN FOR INPATIENT GLYCEMIC CONTROL: * Discontinue Novolog. No insulin required. * Pharmacy is signing off of glycemic consult and will no longer be making adjustments to inpatient regimen. Please feel free to re-consult if needed. Thank you.
[2017-05-12] MEDS: ACETAMINOPHEN IV 650 MG in EMPTY BAG 0 ML IV PRN (15:32)
[2017-05-12] MEDS: ASPIRIN 81 MG CHEW NG SCH (17:29)
[2017-05-13] VITALS (21 sets, daily range): BP systolic 92–115; BP diastolic 48–63; PULSE 62–93; TEMP 35.7–37.7; O2SAT 92–96
[2017-05-13] MEDS: PHENOBARBITAL SOD IV SCH ×4 (03:33→20:30)
[2017-05-13] MEDS: SODIUM CHLORIDE 0.9% 1000ML 1,000 ML IV SCH ×2 (05:41→17:05)
[2017-05-13] MEDS: VALPROATE SOD IV 750 MG in DEXTROSE 5% 50ML 50 ML IV SCH ×3 (05:41→17:05)
[2017-05-13 05:57] LABS: HEMATOCRIT 36.8 % (42-52); HEMOGLOBIN 12.1 g/dL (14.0-18.0); MEAN CELL VOLUME 95.8 fL (80-100); MEAN CORPUSCULAR HEMOGLOBIN 31.5 pg (25-34); MEAN CORPUSCULAR HGB CONC 32.9 g/dl (32-36); RED CELL DISTRIBUTION WIDTH CV 15.3 % (11.5-14.5); RED CELL DISTRIBUTION WIDTH SD 53.8 fL (36.4-46.3); WHITE BLOOD COUNT 6.12 K/uL (4.8-10.8)
[2017-05-13 06:26] LABS: BASO % 0.2 %; BASO ABS # 0.01 K/uL (0-0.2); EOS % 0.2 %; EOS ABS # 0.01 K/uL (0-0.5); IG# 0.05 K/uL (0.00-0.02); LYMPH % 6.4 %; LYMPH ABS # 0.39 K/uL (1.2-3.4); MEAN PLATELET VOLUME 11.5 fL (7.4-10.4); MONO % 7.5 %; MONO ABS # 0.46 K/uL (0.11-0.59); NEUT % 84.9 %; PLATELET COUNT 58 K/uL (130-400)
[2017-05-13 06:35] LABS: CALCIUM 7.8 mg/dl (8.5-10.1); CREATININE 1.57 mg/dl (0.60-1.40); POTASSIUM 4.9 mmol/L (3.5-5.1)
[2017-05-13 06:39] LABS: PHOSPHORUS 4.3 mg/dl (2.5-4.9); TOTAL PROTEIN 5.2 gm/dl (6.4-8.2)
[2017-05-13] MEDS ORDERED: SODIUM BICARB 8.4% INJ 50 MEQ/50 ML SYR IV ONE (07:12)
[2017-05-13] MEDS ORDERED: SODIUM CHLORIDE 0.9% 10ML FLUSH IV ONE (07:12)
--- NOTE | 2017-05-13 07:15 | DIAGNOSTIC IMAGING REPORT ---
CHEST ONE VIEW PORTABLE CLINICAL HISTORY: Cardiac arrest. Respiratory failure. COMPARISON STUDY: Chest radiograph May 12, 2017. FINDINGS: The tip of the endotracheal tube is 5.8 cm above the alysa. Tip of nasogastric tube is below lower aspect of image but at least within the mid body of the stomach. A left subclavian central line remains in place. There is no pneumothorax. Bilateral pleural effusions with associated bibasilar opacities persist. There is persistent interstitial thickening. IMPRESSION: 1. Satisfactory positioning of lines and tubes. 2. Persistent bilateral pleural effusions with associated bibasilar opacities which could reflect pneumonia or atelectasis. 3. Slight improvement in interstitial thickening which likely reflects pulmonary edema. Electronically signed by: Tono Rothman M.D. 05/13/2017 7:14 AM Dictated Date/Time: 05/13/2017 7:12 AM
--- NOTE | 2017-05-13 07:53 | Progress Note ---
Subjective Date of Service: May 12, 2017. Subjective Patient seen on . family not at the bedside during my exam they were updated by neurology and brick wheeler Patient is intubated and not responsive. Unable to obtain a history or ROS. Problem List Medical Problems: (1) Acidosis, metabolic, with respiratory acidosis Status: Acute Objective Vital Signs Date Time Temp Pulse Resp B/P (MAP) Pulse Ox O2 Delivery O2 Flow Rate FiO2 05/13/17 07:30 Mechanical Ventilator 30 05/13/17 07:30 30 05/13/17 07:15 30 05/13/17 06:00 37.6 68 20 104/48 (68) 93 05/13/17 05:35 30 05/13/17 05:00 37.6 66 20 100/57 (78) 94 05/13/17 04:00 37.5 63 20 97/48 (64) 93 05/13/17 04:00 30 05/13/17 04:00 Mechanical Ventilator 30 05/13/17 03:00 37.4 65 20 92/50 (66) 94 05/13/17 02:10 30 05/13/17 02:05 37.3 65 20 97/55 (74) 93 05/13/17 01:00 37.3 85 20 107/57 (82) 94 05/13/17 00:00 37.3 93 20 103/63 (68) 93 05/12/17 23:59 Mechanical Ventilator 30 05/12/17 23:59 30 05/12/17 23:30 30 05/12/17 23:00 37.3 91 20 99/62 (67) 95 05/12/17 22:00 37.2 83 20 92/58 (63) 95 05/12/17 20:21 30 05/12/17 20:00 30 05/12/17 20:00 Mechanical Ventilator 30 05/12/17 20:00 37.5 104 20 102/59 (72) 93 05/12/17 18:17 40 05/12/17 18:00 37.7 90 20 107/54 (66) 92 05/12/17 16:00 Mechanical Ventilator 30 05/12/17 16:00 30 05/12/17 16:00 38.0 92 20 110/55 (67) 92 05/12/17 14:43 40 1/16/18 14:00 37.7 93 20 123/62 (79) 93 05/12/17 13:30 37.5 93 21 122/66 (79) 94 05/12/17 13:00 37.3 93 20 123/67 (74) 93 104/57 05/12/17 12:31 37.2 93 20 109/59 (78) 92 106/60 05/12/17 12:30 37.2 93 20 (77) 92 105/60 05/12/17 12:04 40 05/12/17 12:00 37.1 93 20 103/54 (66) 91 95/54 05/12/17 11:30 37.0 93 20 108/56 (67) 93 101/57 05/12/17 11:30 Mechanical Ventilator 30 05/12/17 11:30 30 05/12/17 11:00 36.8 92 20 99/53 (70) 94 100/57 05/12/17 10:30 36.7 92 20 113/54 (68) 93 106/60 05/12/17 10:00 36.5 92 20 110/54 (71) 93 103/59 05/12/17 10:00 36.5 92 20 110/54 (71) 93 103/59 05/12/17 09:45 36.4 91 20 (74) 92 102/58 05/12/17 09:30 36.3 87 20 106/50 (67) 93 95/54 05/12/17 09:30 36.4 92 20 110/54 (72) 97 Mechanical Ventilator 05/12/17 09:15 36.2 90 20 (76) 92 101/59 05/12/17 09:00 36.1 90 20 110/53 (62) 93 101/60 05/12/17 08:45 36.1 89 20 (77) 93 101/61 18 08:42 40 05/12/17 08:30 36.0 88 20 114/57 (66) 92 102/61 05/12/17 08:15 35.9 84 20 (78) 92 104/61 05/12/17 08:00 Mechanical Ventilator 40 05/12/17 08:00 35.8 79 20 110/58 (69) 91 101/59 Physical Exam Comments: General Appearance: WD/WN, no apparent distress Neck: supple, no adenopathy, no JVD, trachea midline Respiratory/Chest: chest non-tender, lungs clear, normal breath sounds, no respiratory distress, no accessory muscle use Cardiovascular: no edema, no gallop, no JVD, no murmur, + irregularly irregular Abdomen: normal bowel sounds, non tender, soft, no organomegaly Neurologic/Psychiatric: unresponsive. Skin: normal color, warm/dry, no rash Laboratory Results Last 24 Hours Test 05/12/17 11:04 05/12/17 18:03 05/13/17 05:43 05/13/17 05:49 Bedside Glucose (other) 94 mg/dl Bedside Glucose 82 mg/dl 79 mg/dl White Blood Count 6.12 K/uL Red Blood Count 3.84 M/uL Hemoglobin 12.1 g/dL Hematocrit 36.8 % Mean Corpuscular Volume 95.8 fL Mean Corpuscular Hemoglobin 31.5 pg Mean Corpuscular Hemoglobin Concent 32.9 g/dl Platelet Count 58 K/uL Mean Platelet Volume 11.5 fL Neutrophils (%) (Auto) 84.9 % Lymphocytes (%) (Auto) 6.4 % Monocytes (%) (Auto) 7.5 % Eosinophils (%) (Auto) 0.2 % Basophils (%) (Auto) 0.2 % Neutrophils # (Auto) 5.20 K/uL Lymphocytes # (Auto) 0.39 K/uL Monocytes # (Auto) 0.46 K/uL Eosinophils # (Auto) 0.01 K/uL Basophils # (Auto) 0.01 K/uL RDW Standard Deviation 53.8 fL RDW Coefficient of Variation 15.3 % Immature Granulocyte % (Auto) 0.8 % Immature Granulocyte # (Auto) 0.05 K/uL Venous Blood pH 7.28 Venous Blood Partial Pressure CO2 46 mmHg Venous Blood Partial Pressure O2 44 mmHg Venous Blood HCO3 21 mmol/L Venous Blood Oxygen Saturation 73.8 % Venous Blood Base Excess -5.4 mEq/L Sodium Level 136 mmol/L Potassium Level 4.9 mmol/L Chloride Level 106 mmol/L Carbon Dioxide Level 20 mmol/L Anion Gap 10.0 mmol/L Blood Urea Nitrogen 35 mg/dl Creatinine 1.57 mg/dl Est Creatinine Clear Calc Drug Dose 53.5 ml/min Estimated GFR () 50.3 Estimated GFR (Non- 43.4 BUN/Creatinine Ratio 22.4 Random Glucose 82 mg/dl Calcium Level 7.8 mg/dl Phosphorus Level 4.3 mg/dl Magnesium Level 2.3 mg/dl Total Bilirubin 3.5 mg/dl Direct Bilirubin 2.8 mg/dl Aspartate Amino Transf (AST/SGOT) 46 U/L Alanine Aminotransferase (ALT/SGPT) 36 U/L Alkaline Phosphatase 94 U/L Total Protein 5.2 gm/dl Albumin 2.0 gm/dl Valproic Acid (Depakene) Level 54 mcg/ml Phenobarbital Level 31.7 mcg/mL Assessment and Plan 72 y/o M who was admitted to the ICU on 05/08 after being found unresponsive at home. Pt was a code blue -> code arctic in the ED Comatose in setting of severe anoxic brain injury EEG appears to show no activity. Appears to have flat lined ICU team is slowly tapering his sedation. Keppra, 2000 mg bid Added Depacon 500 mg q 6. Check levels On midazolam. propofol Started phenobarbital at 260 q6h poor prognosis per neurology, patients family was updated Unresponsive episode: uncertain etiology ROSC in the ED after several defibrillations, Epinephrine, Lidocaine unsure of the arrhythmia that he experienced as there were no rhythm strips, just AED that fired QT was prolonged on initial EKG, suggesting possible torsades initially cod arctic, now rewarmed CT head, CTAP all neg for acute CTA neg for PE, noted for pulm edema and ? PNA UA and blood cx pending. No growth Elevated troponin: due to CPR, no evidence of cardiac ischemia, cardiology following Atrial fibrillation/atrial flutter: rates controlled, continue amiodarone Cardiomyopathy: unclear etiology, EF is 20-25%, global hypokinesis, mild pulmonary edema on CXR, diurese as needed L subclavian central line placed 05/08 Overall poor prognosis, continue management per brick wheeler and neurology Continued [facility] stay due to: multiple IV medications needed Discharge planning: uncertain
[2017-05-13] MEDS: LEVETIRACETAM IV 2,000 MG in DEXTROSE 5% 250ML 250 ML IV SCH ×2 (08:08→20:30)
[2017-05-13] MEDS: OXYMETAZOLINE HCL 0.05% NA SPR 15 ML BTL SCH ×2 (08:09→20:31)
--- NOTE | 2017-05-13 08:18 | EEG Procedure Note ---
EEG Procedure Note Date of Service May 13, 2017. Start / End Times Start Time: 05/12/2017 at 8:15 AM End Time: 05/13/2017 at 8:14 AM Referring Physician Davide Gibbons History This is a 72-year-old male who presents with cardiac arrest and code arctic protocol. Continuous EEG to monitor for nonconvulsive status. Home Medication List Scheduled Fish Oil ([place]-3), 1 CAP PO DAILY Multivitamin (Multivitamin), 1 TAB PO DAILY Inpatient Medication List Current Inpatient Medications Medications (Trade) Dose Ordered Sig/Te Route Start Time Stop Time Status Last Admin Dose Admin Norepinephrine Bitartrate 8 mg/ Dextrose 508 ml @ 0 mls/hr Q0M PRN IV 05/08/17 11:15 06/07/17 11:14 05/12/17 08:05 18 MLS/HR Propofol (Diprivan Iv Emulsion 100ml Vial) 1 dose UD PRN IV 05/08/17 11:15 05/14/17 11:14 05/12/17 08:07 1 DOSE Artificial Tears (Lacri-Lube Oph Oint) 1 appln Q2H PRN OPB 05/08/17 11:15 06/07/17 11:14 05/08/17 22:00 1 APPLN Pantoprazole Sodium 40 mg/ Syringe 10 ml @ 5 mls/min DAILY@11 IV 05/09/17 11:00 06/08/17 10:59 05/12/17 10:50 5 MLS/MIN Meperidine HCl (Demerol Inj) 25 mg Q2H PRN IV 05/08/17 11:15 05/22/17 11:14 05/08/17 16:10 25 MG Hydromorphone HCl (Dilaudid Inj) 1 mg Q20M PRN IV 05/08/17 11:15 05/22/17 11:14 Acetaminophen (Tylenol Supp) 650 mg ONE PRN [place] 05/08/17 11:15 Aspirin (Aspirin Chew) 81 mg QD NG 05/08/17 17:00 06/07/17 16:59 05/10/17 16:17 81 MG Heparin Sodium (Porcine) (Heparin 10 Unit/ ml 5 ml Flush) 5 ml PRN PRN FLUSH 05/09/17 01:30 06/08/17 01:29 Glucose (Glucose 40% Gel) 15-30 GRAMS 15 GRAMS... UD PRN PO 05/09/17 05:30 06/08/17 05:29 Glucose (Glucose Chew Tab) 4-8 Tablets 4 Tabl... UD PRN PO 05/09/17 05:30 06/08/17 05:29 Dextrose (Dextrose 50% 50ML Syringe) 25-50ML OF 50% DW IV FOR... UD PRN IV 05/09/17 05:30 06/08/17 05:29 Glucagon (Glucagon Inj) 1 mg UD PRN SQ 05/09/17 05:30 06/08/17 05:29 Sodium Chloride 1,000 ml @ 100 mls/hr Q10H IV 05/09/17 22:00 06/08/17 21:59 05/12/17 10:49 100 MLS/HR Acetaminophen 650 mg/Empty Bag 65 ml @ 260 mls/hr Q6H PRN IV 05/10/17 04:00 06/09/17 03:59 05/12/17 15:32 260 MLS/HR Levetiracetam 2000 mg/Dextrose 270 ml @ 999 mls/hr Q12 IV 05/10/17 21:00 06/07/17 20:59 05/12/17 08:04 999 MLS/HR Midazolam HCl 250 ml @ 0 mls/hr Q0M PRN IV 05/10/17 13:45 06/09/17 13:44 05/12/17 05:40 75 MLS/HR Phenobarbital Sodium 260 mg/ Syringe 2 ml @ 0.4 mls/min Q6H IV 05/11/17 21:00 06/10/17 20:59 05/12/17 15:32 0.4 MLS/MIN Amiodarone HCl (Cordarone Tab) 100 mg BID PO 05/11/17 21:00 06/10/17 20:59 05/12/17 08:04 100 MG Oxymetazoline HCl (Afrin 0.05% Nasal [place]) 1 sprays Q12 NA 05/12/17 09:15 06/11/17 09:14 05/12/17 12:23 1 SPRAYS Valproate Sodium 750 mg/Dextrose 57.5 ml @ 55 mls/hr Q6H IV 05/12/17 12:00 06/11/17 11:59 05/12/17 13:24 55 MLS/HR Description This is a 21 electrode continuous video EEG with a single channel dedicated to limited EKG. The electrodes were placed in accordance with the International 10- 20 system. Post processing with an event detection algorithm is applied to the continuous data collection for the purpose of identifying abnormal epochs. These detections are reviewed and all candidate seizures are processed for further analysis. Data is reviewed in its raw format and patient events are processed, edited and stored. At the start of this recording the patient is intubated and unresponsive. Background was diffusely suppressed (<10uV) with rare intermittent delta/theta activity. There was no state changes or sleep transients. After 9:30 AM on 05/12, background was composed of burst suppression. Bursts were composed of low to moderate amplitude delta/theta frequencies lasting 1- 2sec that occasionally had sharply contoured waves. Interpretation This is an abnormal continuous video EEG secondary to severe diffuse background disorganization and burst suppression occasionally with sharply contoured waves. Clinical Correlation This EEG indicates a severe encephalopathy of nonspecific etiology. Sedating medications can contribute to encephalopathy. Sharply contoured waves likely indicate cortical irritability and previous reminiscence of generalized periodic discharges.
[2017-05-13] MEDS: AMIODARONE 200 MG TAB PO SCH ×2 (08:28→20:31)
[2017-05-13] MEDS ORDERED: PEPTAMEN INTENSE VHP 1000ML BAG OG PRN (12:00)
[2017-05-13] MEDS: PANTOprazole INJ 40 MG in SYRINGE 0 ML IV SCH (12:14)
[2017-05-13] MEDS: ASPIRIN 81 MG CHEW NG SCH (17:05)
--- NOTE | 2017-05-13 18:16 | Critical Care Progress Note ---
Critical Care Progress Note Date of Service May 13, 2017. ICU Day ICU Day Number: [address] White Subjective Patient rewarmed After loading patient with phenobarbital, seizure activity has ceased Versed, propofol, NE DCd Depakote increased to 750 q6h yesterday. Rhinorocket removed, no epistaxis but continues to have bloody secretions with suctioning. Objective General: Elderly male, looks appropriate for his age, intubated, unresponsive Heent: NC/AT, pupils non reactive, rhinorocket removed Lungs: mechanical breath sounds CVS: S1S2 irregularly irregular Abd: soft and non tender Ext: Trace pitting edema bilaterally EVENT EXECUTIVE: pupils nonreactive, no reaction to deep stimulation Assessment & Plan Problems: Cardiac arrest Respiratory failure Atrial fibrillation Epistaxis Plan: EVENT EXECUTIVE: S/p therapeutic hypothermia protocol Off paralytics Continuous EEG monitoring, minimal activity at present Propofol, versed, NE weaned Keppra, 2000 mg bid, continue with this dose Depacon 750 mg q 6. Check levels qam with goal between 75-80. Current blood level 54 Decreased phenobarbital at 260 q8h; goal blood level 25-30. Currently at 31.7. If level slips to 20, ok to bump phenobarb He likely has significant anoxic brain injury The family was concerned that he may also have a component of lead intoxication (was stripping a very old door which likely had lead). Lead level was sent, but it takes approximately 1 week. It was explained them that it is extremely unlikely that he would have any injury from lead, he was asymptomatic until the day of arrest, there was no anemia. Would not start empiric chelation based on this theory without any lead level. Peripheral smear also sent and negative for basophilic stippling. CVS: Remains in a-fib. Rate controlled with amiodarone. Norepinephrine stopped Echo reviewed, severely depressed EF, "stunned" myocardium Mild troponin elevation, not uncommon in this scenario, after CPR. No clear evidence of ischemic Vtach/Vfib. Further workup depending on his clinical evolution Consider anticoagulation if no bloody secretions Pulmonary: Vent support increased Elevate head ID: Unasyn DCd after nasal packing removed. Discussed case with Dr. Larry, ENT; verbal order to remove rhinorocket as >72 hours Blood cultures sent per protocol, negative to date Renal/metabolic: Daily electrolytes Monitor urine output. Renal indices normal GI: OGT inserted Tube feeds DCd Lactic Acid WNL Protonix for GI bleeding prophylaxis Heme: H/H fairly stable; low platelets DVT prophylaxis: consider starting Lovenox if no further bloody secretions Consent for trach obtained. Remains level I. Resident Physician Supervision Note: Dr. Shultz was resident physician during care of patient. I separately evaluated patient and did history and exam. I discussed the case with the resident and generally agree with the findings and plan. No significant change in his neuro status. I had an extensive discussion with the patient's family regarding his wishes, prognosis, need for additional interventions. At this time and wanted continue with aggressive treatments. I discussed the risks and benefits of the patient remaining a level I in event of cardiac arrest. They going to continue to have have that discussion with the family. Advised that the patient would likely require a tracheostomy if he were to remain a level I resuscitation to allow for use of clearance of secretions as well as decrease risks of complications from prolonged intubation. I discussed the risks and benefits of the procedure and the has consented to the procedure at this time. I am holding with proceeding with percutaneous tracheostomy as the patient remains thrombocytopenic. Patient had an elevation in his bilirubin level. Upon further questioning with the patient' s sons he reports he may carry the diagnosis of Guilbert's disease. We'll continue to monitor this, I do not feel that this elevation would likely be from Guilbert's. I have personally spent 100 minutes of critical care time in the direct management of this patient. This is a life/limb threatening event. This includes time spent evaluating patient, direct bedside care, chart review, placing orders, interpretation of diagnostic studies, discussion with consultants, patient, and family members, as well as other required patient management activities. This time is exclusive of all separately billable procedures, and teaching time and separate from and in addition to any other critical care service time. Documented By: Nathan White DO Consults & Procedures Consultants: cardiology - Dr Kay Neurology- Dr. Lemos Procedures: 05/08/17 - intubated by EMS 05/08/17 - left subclavian TLC 05/08/17 - right axillary a-line 05/12/17 - right axillary a-line removed, rhinorocket removed Data Medications: Current Inpatient Medications Medications (Trade) Dose Ordered Sig/Te Route Start Time Stop Time Status Last Admin Dose Admin Propofol (Diprivan Iv Emulsion 100ml Vial) 1 dose UD PRN IV 05/08/17 11:15 05/14/17 11:14 05/12/17 08:07 1 DOSE Artificial Tears (Lacri-Lube Oph Oint) 1 appln Q2H PRN OPB 05/08/17 11:15 06/07/17 11:14 05/08/17 22:00 1 APPLN Pantoprazole Sodium 40 mg/ Syringe 10 ml @ 5 mls/min DAILY@11 IV 05/09/17 11:00 06/08/17 10:59 05/12/17 10:50 5 MLS/MIN Meperidine HCl (Demerol Inj) 25 mg Q2H PRN IV 05/08/17 11:15 05/22/17 11:14 05/08/17 16:10 25 MG Hydromorphone HCl (Dilaudid Inj) 1 mg Q20M PRN IV 05/08/17 11:15 05/22/17 11:14 Acetaminophen (Tylenol Supp) 650 mg ONE PRN [place] 05/08/17 11:15 Aspirin (Aspirin Chew) 81 mg QD NG 05/08/17 17:00 06/07/17 16:59 05/12/17 17:29 81 MG Heparin Sodium (Porcine) (Heparin 10 Unit/ ml 5 ml Flush) 5 ml PRN PRN FLUSH 05/09/17 01:30 06/08/17 01:29 Glucose (Glucose 40% Gel) 15-30 GRAMS 15 GRAMS... UD PRN PO 05/09/17 05:30 06/08/17 05:29 Glucose (Glucose Chew Tab) 4-8 Tablets 4 Tabl... UD PRN PO 05/09/17 05:30 06/08/17 05:29 Dextrose (Dextrose 50% 50ML Syringe) 25-50ML OF 50% DW IV FOR... UD PRN IV 05/09/17 05:30 06/08/17 05:29 Glucagon (Glucagon Inj) 1 mg UD PRN SQ 05/09/17 05:30 06/08/17 05:29 Sodium Chloride 1,000 ml @ 100 mls/hr Q10H IV 05/09/17 22:00 06/08/17 21:59 05/13/17 05:41 100 MLS/HR Acetaminophen 650 mg/Empty Bag 65 ml @ 260 mls/hr Q6H PRN IV 05/10/17 04:00 06/09/17 03:59 05/12/17 15:32 260 MLS/HR Levetiracetam 2000 mg/Dextrose 270 ml @ 999 mls/hr Q12 IV 05/10/17 21:00 06/07/17 20:59 05/13/17 08:08 999 MLS/HR Midazolam HCl 250 ml @ 0 mls/hr Q0M PRN IV 05/10/17 13:45 06/09/17 13:44 05/12/17 05:40 75 MLS/HR Phenobarbital Sodium 260 mg/ Syringe 2 ml @ 0.4 mls/min Q6H IV 05/11/17 21:00 06/10/17 20:59 05/13/17 08:09 0.4 MLS/MIN Amiodarone HCl (Cordarone Tab) 100 mg BID PO 05/11/17 21:00 06/10/17 20:59 05/13/17 08:28 100 MG Oxymetazoline HCl (Afrin 0.05% Nasal [place]) 1 sprays Q12 NA 05/12/17 09:15 06/11/17 09:14 05/13/17 08:09 1 SPRAYS Valproate Sodium 750 mg/Dextrose 57.5 ml @ 55 mls/hr Q6H IV 05/12/17 12:00 06/11/17 11:59 05/13/17 05:41 55 MLS/HR I & O: 05/12/17 05/13/17 05/14/17 08:00 08:00 08:00 Intake Total 6776 ml 3496 ml 880 ml Output Total 1825 ml 800 ml 200 ml Balance 4951 ml 2696 ml 680 ml Vital Signs: Date Time Temp Pulse Resp B/P (MAP) Pulse Ox O2 Delivery O2 Flow Rate FiO2 05/13/17 07:30 Mechanical Ventilator 30 05/13/17 07:30 30 05/13/17 07:15 30 05/13/17 06:00 37.6 68 20 104/48 (68) 93 05/13/17 05:35 30 05/13/17 05:00 37.6 66 20 100/57 (78) 94 05/13/17 04:00 37.5 63 20 97/48 (64) 93 05/13/17 04:00 30 05/13/17 04:00 Mechanical Ventilator 30 05/13/17 03:00 37.4 65 20 92/50 (66) 94 05/13/17 02:10 30 05/13/17 02:05 37.3 65 20 97/55 (74) 93 05/13/17 01:00 37.3 85 20 107/57 (82) 94 05/13/17 00:00 37.3 93 20 103/63 (68) 93 05/12/17 23:59 Mechanical Ventilator 30 05/12/17 23:59 30 05/12/17 23:30 30 05/12/17 23:00 37.3 91 20 99/62 (67) 95 05/12/17 22:00 37.2 83 20 92/58 (63) 95 05/12/17 20:21 30 05/12/17 20:00 30 05/12/17 20:00 Mechanical Ventilator 30 05/12/17 20:00 37.5 104 20 102/59 (72) 93 05/12/17 18:17 40 05/12/17 18:00 37.7 90 20 107/54 (66) 92 05/12/17 16:00 Mechanical Ventilator 30 05/12/17 16:00 30 05/12/17 16:00 38.0 92 20 110/55 (67) 92 05/12/17 14:43 40 05/12/17 14:00 37.7 93 20 123/62 (79) 93 05/12/17 13:30 37.5 93 21 122/66 (79) 94 05/12/17 13:00 37.3 93 20 123/67 (74) 93 104/57 05/12/17 12:31 37.2 93 20 109/59 (78) 92 106/60 05/12/17 12:30 37.2 93 20 (77) 92 105/60 05/12/17 12:04 40 05/12/17 12:00 37.1 93 20 103/54 (66) 91 95/54 05/12/17 11:30 37.0 93 20 108/56 (67) 93 101/57 05/12/17 11:30 Mechanical Ventilator 30 05/12/17 11:30 30 05/12/17 11:00 36.8 92 20 99/53 (70) 94 100/57 05/12/17 10:30 36.7 92 20 113/54 (68) 93 106/60 05/12/17 10:00 36.5 92 20 110/54 (71) 93 103/59 05/12/17 10:00 36.5 92 20 110/54 (71) 93 103/59 05/12/17 09:45 36.4 91 20 (74) 92 102/58 05/12/17 09:30 36.3 87 20 106/50 (67) 93 95/54 05/12/17 09:30 36.4 92 20 110/54 (72) 97 Mechanical Ventilator 05/12/17 09:15 36.2 90 20 (76) 92 101/59 05/12/17 09:00 36.1 90 20 110/53 (62) 93 101/60 Laboratory Results: Last 24 Hours Test 05/12/17 11:04 05/12/17 18:03 05/13/17 05:43 05/13/17 05:49 Bedside Glucose (other) 94 mg/dl Bedside Glucose 82 mg/dl 79 mg/dl White Blood Count 6.12 K/uL Red Blood Count 3.84 M/uL Hemoglobin 12.1 g/dL Hematocrit 36.8 % Mean Corpuscular Volume 95.8 fL Mean Corpuscular Hemoglobin 31.5 pg Mean Corpuscular Hemoglobin Concent 32.9 g/dl Platelet Count 58 K/uL Mean Platelet Volume 11.5 fL Neutrophils (%) (Auto) 84.9 % Lymphocytes (%) (Auto) 6.4 % Monocytes (%) (Auto) 7.5 % Eosinophils (%) (Auto) 0.2 % Basophils (%) (Auto) 0.2 % Neutrophils # (Auto) 5.20 K/uL Lymphocytes # (Auto) 0.39 K/uL Monocytes # (Auto) 0.46 K/uL Eosinophils # (Auto) 0.01 K/uL Basophils # (Auto) 0.01 K/uL RDW Standard Deviation 53.8 fL RDW Coefficient of Variation 15.3 % Immature Granulocyte % (Auto) 0.8 % Immature Granulocyte # (Auto) 0.05 K/uL Venous Blood pH 7.28 Venous Blood Partial Pressure CO2 46 mmHg Venous Blood Partial Pressure O2 44 mmHg Venous Blood HCO3 21 mmol/L Venous Blood Oxygen Saturation 73.8 % Venous Blood Base Excess -5.4 mEq/L Sodium Level 136 mmol/L Potassium Level 4.9 mmol/L Chloride Level 106 mmol/L Carbon Dioxide Level 20 mmol/L Anion Gap 10.0 mmol/L Blood Urea Nitrogen 35 mg/dl Creatinine 1.57 mg/dl Est Creatinine Clear Calc Drug Dose 53.5 ml/min Estimated GFR () 50.3 Estimated GFR (Non- 43.4 BUN/Creatinine Ratio 22.4 Random Glucose 82 mg/dl Calcium Level 7.8 mg/dl Phosphorus Level 4.3 mg/dl Magnesium Level 2.3 mg/dl Total Bilirubin 3.5 mg/dl Direct Bilirubin 2.8 mg/dl Aspartate Amino Transf (AST/SGOT) 46 U/L Alanine Aminotransferase (ALT/SGPT) 36 U/L Alkaline Phosphatase 94 U/L Total Protein 5.2 gm/dl Albumin 2.0 gm/dl Valproic Acid (Depakene) Level 54 mcg/ml Phenobarbital Level 31.7 mcg/mL Resident Tracking Resident Involvement: Resident Care Provided Care Provided: Adult Hospital Medicine
[2017-05-14] VITALS (26 sets, daily range): BP systolic 110–154; BP diastolic 52–75; PULSE 67–85; TEMP 36.3–37.5; O2SAT 90–98
[2017-05-14] MEDS: VALPROATE SOD IV 750 MG in DEXTROSE 5% 50ML 50 ML IV SCH ×5 (00:02→21:43)
[2017-05-14] MEDS: PHENOBARBITAL SOD IV SCH (03:00)
[2017-05-14] MEDS: SODIUM CHLORIDE 0.9% 1000ML 1,000 ML IV SCH ×2 (05:44→12:04)
[2017-05-14 05:49] LABS: HEMATOCRIT 32.3 % (42-52); HEMOGLOBIN 10.9 g/dL (14.0-18.0); MEAN CELL VOLUME 93.9 fL (80-100); MEAN CORPUSCULAR HEMOGLOBIN 31.7 pg (25-34); MEAN CORPUSCULAR HGB CONC 33.7 g/dl (32-36); RED CELL DISTRIBUTION WIDTH CV 15.4 % (11.5-14.5); RED CELL DISTRIBUTION WIDTH SD 53.1 fL (36.4-46.3); WHITE BLOOD COUNT 5.85 K/uL (4.8-10.8)
[2017-05-14 06:11] LABS: MEAN PLATELET VOLUME 11.4 fL (7.4-10.4); PLATELET COUNT 58 K/uL (130-400)
[2017-05-14 06:22] LABS: CALCIUM 7.6 mg/dl (8.5-10.1); CREATININE 1.8 mg/dl (0.60-1.40); POTASSIUM 4.5 mmol/L (3.5-5.1)
[2017-05-14 06:26] LABS: PHOSPHORUS 3.7 mg/dl (2.5-4.9)
--- NOTE | 2017-05-14 07:46 | DIAGNOSTIC IMAGING REPORT ---
CHEST ONE VIEW PORTABLE CLINICAL HISTORY: Resp Failure COMPARISON STUDY: 05/13/2017 FINDINGS: Multiple electrode wires project over the mediastinum, making interpretation of the study were difficult. There is a nasogastric tube which passes into the stomach. There is a left subclavian central venous catheter positioned over the superior vena cava. There is an endotracheal tube which is positioned approximately 3 cm above the alysa. The heart is enlarged. There are persistent bilateral pulmonary airspace opacities. Bilateral pleural effusions are suspected.[ IMPRESSION: Satisfactory positioning of the lines and tubes. Persistent bilateral pulmonary airspace opacities Electronically signed by: Bud Fatima M.D. 05/14/2017 7:45 AM Dictated Date/Time: 05/14/2017 7:43 AM
--- NOTE | 2017-05-14 08:23 | EEG Procedure Note ---
EEG Procedure Note Date of Service May 14, 2017. Start / End Times Start Time: 05/13/2017 at 8:14 AM End Time: 05/14/2017 at 8:46 AM Referring Physician Davide Gibbons History This is a 72-year-old male who presents with cardiac arrest and code arctic protocol. Continuous EEG to monitor for nonconvulsive status. Home Medication List Scheduled Fish Oil ([place]-3), 1 CAP PO DAILY Multivitamin (Multivitamin), 1 TAB PO DAILY Inpatient Medication List Current Inpatient Medications Medications (Trade) Dose Ordered Sig/Te Route Start Time Stop Time Status Last Admin Dose Admin Propofol (Diprivan Iv Emulsion 100ml Vial) 1 dose UD PRN IV 05/08/17 11:15 05/14/17 11:14 05/12/17 08:07 1 DOSE Artificial Tears (Lacri-Lube Oph Oint) 1 appln Q2H PRN OPB 05/08/17 11:15 06/07/17 11:14 05/08/17 22:00 1 APPLN Pantoprazole Sodium 40 mg/ Syringe 10 ml @ 5 mls/min DAILY@11 IV 05/09/17 11:00 06/08/17 10:59 05/13/17 12:14 5 MLS/MIN Meperidine HCl (Demerol Inj) 25 mg Q2H PRN IV 05/08/17 11:15 05/22/17 11:14 05/08/17 16:10 25 MG Hydromorphone HCl (Dilaudid Inj) 1 mg Q20M PRN IV 05/08/17 11:15 05/22/17 11:14 Acetaminophen (Tylenol Supp) 650 mg ONE PRN MI 05/08/17 11:15 Aspirin (Aspirin Chew) 81 mg QD NG 05/08/17 17:00 06/07/17 16:59 05/13/17 17:05 81 MG Heparin Sodium (Porcine) (Heparin 10 Unit/ ml 5 ml Flush) 5 ml PRN PRN FLUSH 05/09/17 01:30 06/08/17 01:29 Glucose (Glucose 40% Gel) 15-30 GRAMS 15 GRAMS... UD PRN PO 05/09/17 05:30 06/08/17 05:29 Glucose (Glucose Chew Tab) 4-8 Tablets 4 Tabl... UD PRN PO 05/09/17 05:30 2/12/18 05:29 Dextrose (Dextrose 50% 50ML Syringe) 25-50ML OF 50% DW IV FOR... UD PRN IV 05/09/17 05:30 06/08/17 05:29 Glucagon (Glucagon Inj) 1 mg UD PRN SQ 05/09/17 05:30 06/08/17 05:29 Sodium Chloride 1,000 ml @ 100 mls/hr Q10H IV 05/09/17 22:00 06/08/17 21:59 05/13/17 17:05 100 MLS/HR Acetaminophen 650 mg/Empty Bag 65 ml @ 260 mls/hr Q6H PRN IV 05/10/17 04:00 06/09/17 03:59 05/12/17 15:32 260 MLS/HR Levetiracetam 2000 mg/Dextrose 270 ml @ 999 mls/hr Q12 IV 05/10/17 21:00 06/07/17 20:59 05/13/17 08:08 999 MLS/HR Midazolam HCl 250 ml @ 0 mls/hr Q0M PRN IV 05/10/17 13:45 06/09/17 13:44 05/12/17 05:40 75 MLS/HR Phenobarbital Sodium 260 mg/ Syringe 2 ml @ 0.4 mls/min Q6H IV 05/11/17 21:00 06/10/17 20:59 05/13/17 15:14 0.4 MLS/MIN Amiodarone HCl (Cordarone Tab) 100 mg BID PO 05/11/17 21:00 06/10/17 20:59 05/13/17 08:28 100 MG Oxymetazoline HCl (Afrin 0.05% Nasal [place]) 1 sprays Q12 NA 05/12/17 09:15 06/11/17 09:14 05/13/17 08:09 1 SPRAYS Valproate Sodium 750 mg/Dextrose 57.5 ml @ 55 mls/hr Q6H IV 05/12/17 12:00 06/11/17 11:59 05/13/17 17:05 55 MLS/HR Enteral Nutritional Formula (Peptamen Intense VHP) 1,000 ml UD PRN OG 05/13/17 12:00 06/12/17 11:59 05/13/17 12:15 1,000 ML Description This is a 21 electrode continuous video EEG with a single channel dedicated to limited EKG. The electrodes were placed in accordance with the International 10- 20 system. Post processing with an event detection algorithm is applied to the continuous data collection for the purpose of identifying abnormal epochs. These detections are reviewed and all candidate seizures are processed for further analysis. Data is reviewed in its raw format and patient events are processed, edited and stored. At the start of this recording the patient is intubated and unresponsive. Background was diffusely suppressed (<10uV) with occasional to rare intermittent low to moderate amplitude 1-2 sec delta/theta activity rarely with sharply contoured waves. There was no state changes or sleep transients. Interpretation This is an abnormal continuous video EEG secondary to severe diffuse background disorganization and suppression, occasionally with burst of delta/theta activity , rarely with sharply contoured waves. Clinical Correlation This EEG indicates a severe encephalopathy of nonspecific etiology. Sedating medications can contribute to encephalopathy. Sharply contoured waves likely indicate cortical irritability and previous reminiscence of generalized periodic discharges.
--- NOTE | 2017-05-14 08:25 | Progress Note ---
Subjective Date of Service: May 13, 2017. Subjective Patient seen on . family not at the bedside during my exam they were updated by neurology and flour mixer Patient is intubated and not responsive. Unable to obtain a history or ROS. Problem List Medical Problems: (1) Acidosis, metabolic, with respiratory acidosis Status: Acute Medications Current Inpatient Medications Medications (Trade) Dose Ordered Sig/Te Route Start Time Stop Time Status Last Admin Dose Admin Artificial Tears (Lacri-Lube Oph Oint) 1 appln Q2H PRN OPB 05/08/17 11:15 06/07/17 11:14 05/08/17 22:00 1 APPLN Pantoprazole Sodium 40 mg/ Syringe 10 ml @ 5 mls/min DAILY@11 IV 05/09/17 11:00 06/08/17 10:59 05/13/17 12:14 5 MLS/MIN Meperidine HCl (Demerol Inj) 25 mg Q2H PRN IV 05/08/17 11:15 05/22/17 11:14 05/08/17 16:10 25 MG Hydromorphone HCl (Dilaudid Inj) 1 mg Q20M PRN IV 05/08/17 11:15 05/22/17 11:14 Acetaminophen (Tylenol Supp) 650 mg ONE PRN NE 05/08/17 11:15 Aspirin (Aspirin Chew) 81 mg QD NG 05/08/17 17:00 06/07/17 16:59 05/13/17 17:05 81 MG Heparin Sodium (Porcine) (Heparin 10 Unit/ ml 5 ml Flush) 5 ml PRN PRN FLUSH 05/09/17 01:30 06/08/17 01:29 Glucose (Glucose 40% Gel) 15-30 GRAMS 15 GRAMS... UD PRN PO 05/09/17 05:30 06/08/17 05:29 Glucose (Glucose Chew Tab) 4-8 Tablets 4 Tabl... UD PRN PO 05/09/17 05:30 06/08/17 05:29 Dextrose (Dextrose 50% 50ML Syringe) 25-50ML OF 50% DW IV FOR... UD PRN IV 05/09/17 05:30 06/08/17 05:29 Glucagon (Glucagon Inj) 1 mg UD PRN SQ 05/09/17 05:30 06/08/17 05:29 Sodium Chloride 1,000 ml @ 100 mls/hr Q10H IV 05/09/17 22:00 06/08/17 21:59 05/14/17 05:44 100 MLS/HR Acetaminophen 650 mg/Empty Bag 65 ml @ 260 mls/hr Q6H PRN IV 05/10/17 04:00 06/09/17 03:59 05/12/17 15:32 260 MLS/HR Levetiracetam 2000 mg/Dextrose 270 ml @ 999 mls/hr Q12 IV 05/10/17 21:00 06/07/17 20:59 05/14/17 09:02 999 MLS/HR Amiodarone HCl (Cordarone Tab) 100 mg BID PO 05/11/17 21:00 06/10/17 20:59 05/14/17 09:02 100 MG Oxymetazoline HCl (Afrin 0.05% Nasal [place]) 1 sprays Q12 NA 05/12/17 09:15 06/11/17 09:14 05/14/17 09:02 1 SPRAYS Valproate Sodium 750 mg/Dextrose 57.5 ml @ 55 mls/hr Q6H IV 05/12/17 12:00 06/11/17 11:59 05/14/17 05:44 55 MLS/HR Enteral Nutritional Formula (Peptamen Intense VHP) 1,000 ml UD PRN OG 05/13/17 12:00 06/12/17 11:59 05/13/17 12:15 1,000 ML Objective Vital Signs Date Time Temp Pulse Resp B/P (MAP) Pulse Ox O2 Delivery O2 Flow Rate FiO2 05/14/17 07:30 30 05/14/17 07:30 Mechanical Ventilator 30 05/14/17 07:11 30 05/14/17 06:00 37.1 71 22 121/57 (77) 92 05/14/17 05:30 30 05/14/17 05:00 36.9 69 22 122/53 (72) 94 05/14/17 04:00 30 05/14/17 04:00 Mechanical Ventilator 30 05/14/17 04:00 36.8 68 21 120/57 (82) 94 05/14/17 03:00 36.7 68 21 114/54 (78) 94 05/14/17 02:10 30 1/18/18 02:00 36.6 68 23 111/55 (69) 93 18 01:00 36.4 68 22 112/53 (78) 92 18 00:00 36.3 67 22 110/52 (66) 91 18 23:59 Mechanical Ventilator 30 05/13/17 23:59 30 18 23:49 30 05/13/17 23:00 36.1 62 20 106/50 (61) 92 05/13/17 22:00 36.1 63 20 103/54 (68) 93 05/13/17 20:00 Mechanical Ventilator 30 05/13/17 20:00 30 05/13/17 20:00 36.0 64 20 106/53 (75) 92 05/13/17 19:45 30 05/13/17 18:00 35.7 62 20 97/50 (68) 93 05/13/17 17:50 30 05/13/17 16:00 30 05/13/17 16:00 36.4 67 20 106/51 (65) 93 05/13/17 16:00 Mechanical Ventilator 30 05/13/17 15:04 30 05/13/17 13:00 37.1 68 20 107/53 (69) 93 05/13/17 12:00 30 05/13/17 12:00 Mechanical Ventilator 30 05/13/17 12:00 37.4 72 20 104/50 (69) 95 18 11:15 30 18 11:00 37.6 70 23 105/50 (78) 95 05/13/17 10:55 37.6 72 22 109/49 (76) 95 05/13/17 10:00 37.6 68 23 108/51 (67) 95 05/13/17 09:00 37.7 71 21 115/57 (79) 95 Physical Exam Comments: General: Elderly male, looks appropriate for his age, intubated, unresponsive Heent: NC/AT, pupils non reactive, rhinorocket removed today lympatic: no adenopathy Lungs: mechanical breath sounds CVS: S1S2 irregular Abd: soft and non tender Ext: Trace pitting edema bilaterally SCREEN STRETCHER: pupils nonreactive, no reaction to deep stimulation Laboratory Results Last 24 Hours Test 05/13/17 11:22 05/13/17 18:57 1/18/18 00:21 05/14/17 05:29 Bedside Glucose 92 mg/dl 106 mg/dl 145 mg/dl White Blood Count 5.85 K/uL Red Blood Count 3.44 M/uL Hemoglobin 10.9 g/dL Hematocrit 32.3 % Mean Corpuscular Volume 93.9 fL Mean Corpuscular Hemoglobin 31.7 pg Mean Corpuscular Hemoglobin Concent 33.7 g/dl RDW Standard Deviation 53.1 fL RDW Coefficient of Variation 15.4 % Platelet Count 58 K/uL Mean Platelet Volume 11.4 fL Venous Blood pH 7.30 Venous Blood Partial Pressure CO2 45 mmHg Venous Blood Partial Pressure O2 56 mmHg Venous Blood HCO3 21 mmol/L Venous Blood Oxygen Saturation 83.4 % Venous Blood Base Excess -5.0 mEq/L Sodium Level 135 mmol/L Potassium Level 4.5 mmol/L Chloride Level 106 mmol/L Carbon Dioxide Level 23 mmol/L Anion Gap 6.0 mmol/L Blood Urea Nitrogen 53 mg/dl Creatinine 1.80 mg/dl Est Creatinine Clear Calc Drug Dose 46.7 ml/min Estimated GFR () 42.6 Estimated GFR (Non- 36.8 BUN/Creatinine Ratio 29.5 Random Glucose 106 mg/dl Calcium Level 7.6 mg/dl Phosphorus Level 3.7 mg/dl Magnesium Level 2.5 mg/dl Valproic Acid (Depakene) Level 65 mcg/ml Phenobarbital Level 37.3 mcg/mL Assessment and Plan 72 y/o M who was admitted to the ICU on 05/08 after being found unresponsive at home. Pt was a code blue -> code arctic in the ED Comatose in setting of severe anoxic brain injury EEG appears to show no activity. Appears to have flat lined ICU team is slowly tapering his sedation. Propofol, versed, NE weaned Keppra, 2000 mg bid, continue with this dose Depacon 750 mg q 6. Check levels qam with goal between 75-80. Current blood level 54 Decreased phenobarbital at 260 q8h; goal blood level 25-30. Currently at 31.7. If level slips to 20, ok to bump phenobarb poor prognosis per neurology, patients family was updated Unresponsive episode: uncertain etiology ROSC in the ED after several defibrillations, Epinephrine, Lidocaine unsure of the arrhythmia that he experienced as there were no rhythm strips, just AED that fired QT was prolonged on initial EKG, suggesting possible torsades initially cod arctic, now rewarmed CT head, CTAP all neg for acute CTA neg for PE, noted for pulm edema and ? PNA UA and blood cx pending. No growth Elevated troponin: due to CPR, no evidence of cardiac ischemia, cardiology following Atrial fibrillation/atrial flutter: rates controlled, continue amiodarone Cardiomyopathy: unclear etiology, EF is 20-25%, global hypokinesis, mild pulmonary edema on CXR, diurese as needed L subclavian central line placed 05/08 Overall poor prognosis, continue management per flour mixer and neurology Continued [facility] stay due to: multiple IV medications needed Discharge planning: uncertain
[2017-05-14] MEDS: AMIODARONE 200 MG TAB PO SCH ×2 (09:02→21:44)
[2017-05-14] MEDS: OXYMETAZOLINE HCL 0.05% NA SPR 15 ML BTL SCH ×2 (09:02→21:43)
[2017-05-14] MEDS: LEVETIRACETAM IV 2,000 MG in DEXTROSE 5% 250ML 250 ML IV SCH ×2 (09:02→21:57)
--- NOTE | 2017-05-14 09:28 | Neurology Progress Notes ---
Neurology Progress Note Date of Service May 14, 2017. Subjective The patient has had no overt seizure activity or abnormal involuntary movements or jerks over the last 24 hours. He has been off propofol and Versed. Phenobarbital level was 37 this morning and Depakote level was 65. Nursing reports no spontaneous movement or significant activity although there may be some reactive pupils. He certainly will breathe over the ventilator. They are considering tracheostomy. Continuous EEG monitoring has shown generalized suppression of the background activity with some low amplitude bursts lasting a 2nd or 2. Rarely, he has some sharp waves but he is not having the generalized spike or spike and wave discharges. Objective Date Time Temp Pulse Resp B/P (MAP) Pulse Ox O2 Delivery O2 Flow Rate FiO2 05/14/17 07:30 30 05/14/17 07:30 Mechanical Ventilator 30 05/14/17 07:11 30 05/14/17 06:00 37.1 71 22 121/57 (77) 92 05/14/17 05:30 30 05/14/17 05:00 36.9 69 22 122/53 (72) 94 05/14/17 04:00 30 05/14/17 04:00 Mechanical Ventilator 30 05/14/17 04:00 36.8 68 21 120/57 (82) 94 05/14/17 03:00 36.7 68 21 114/54 (78) 94 05/14/17 02:10 30 05/14/17 02:00 36.6 68 23 111/55 (69) 93 05/14/17 01:00 36.4 68 22 112/53 (78) 92 05/14/17 00:00 36.3 67 22 110/52 (66) 91 05/13/17 23:59 Mechanical Ventilator 30 05/13/17 23:59 30 05/13/17 23:49 30 05/13/17 23:00 36.1 62 20 106/50 (61) 92 05/13/17 22:00 36.1 63 20 103/54 (68) 93 05/13/17 20:00 Mechanical Ventilator 30 05/13/17 20:00 30 05/13/17 20:00 36.0 64 20 106/53 (75) 92 05/13/17 19:45 30 05/13/17 18:00 35.7 62 20 97/50 (68) 93 05/13/17 17:50 30 05/13/17 16:00 30 05/13/17 16:00 36.4 67 20 106/51 (65) 93 05/13/17 16:00 Mechanical Ventilator 30 05/13/17 15:04 30 05/13/17 13:00 37.1 68 20 107/53 (69) 93 05/13/17 12:00 30 05/13/17 12:00 Mechanical Ventilator 30 05/13/17 12:00 37.4 72 20 104/50 (69) 95 05/13/17 11:15 30 05/13/17 11:00 37.6 70 23 105/50 (78) 95 05/13/17 10:55 37.6 72 22 109/49 (76) 95 05/13/17 10:00 37.6 68 23 108/51 (67) 95 Last 24 Hours Test 05/13/17 11:22 05/13/17 18:57 05/14/17 00:21 05/14/17 05:29 Bedside Glucose 92 mg/dl 106 mg/dl 145 mg/dl White Blood Count 5.85 K/uL Red Blood Count 3.44 M/uL Hemoglobin 10.9 g/dL Hematocrit 32.3 % Mean Corpuscular Volume 93.9 fL Mean Corpuscular Hemoglobin 31.7 pg Mean Corpuscular Hemoglobin Concent 33.7 g/dl RDW Standard Deviation 53.1 fL RDW Coefficient of Variation 15.4 % Platelet Count 58 K/uL Mean Platelet Volume 11.4 fL Venous Blood pH 7.30 Venous Blood Partial Pressure CO2 45 mmHg Venous Blood Partial Pressure O2 56 mmHg Venous Blood HCO3 21 mmol/L Venous Blood Oxygen Saturation 83.4 % Venous Blood Base Excess -5.0 mEq/L Sodium Level 135 mmol/L Potassium Level 4.5 mmol/L Chloride Level 106 mmol/L Carbon Dioxide Level 23 mmol/L Anion Gap 6.0 mmol/L Blood Urea Nitrogen 53 mg/dl Creatinine 1.80 mg/dl Est Creatinine Clear Calc Drug Dose 46.7 ml/min Estimated GFR () 42.6 Estimated GFR (Non- 36.8 BUN/Creatinine Ratio 29.5 Random Glucose 106 mg/dl Calcium Level 7.6 mg/dl Phosphorus Level 3.7 mg/dl Magnesium Level 2.5 mg/dl Valproic Acid (Depakene) Level 65 mcg/ml Phenobarbital Level 37.3 mcg/mL Test 05/14/17 09:09 Exam: The patient is lying in bed without any spontaneous movement. He does breathe over the ventilator. Blood pressure is 130 over 70 and temperature is 37.5 core Eyes open passively and pupils are 2 millimeters and reactive bilaterally. Eye stay fixed with head movement signifying no oculocephalic response. There are no corneal responses bilaterally. Neck is supple. There is no gag to stimulation and no cough with deep suctioning. All 4 limbs are flaccid He has no response to deep pain in all 4 limbs. There is no response to shout or shaking. Reflexes are absent in all 4 limbs. Toes are neutral to plantar stimulation bilaterally. At 3 microvolts per millimeter on the EEG, he has some low amplitude background activity in general of up to 10 microvolts. It is irregular but there is some "alpha" patterns. The background is suppressed with occasional irregular slower bursts lasting a second or 2 up to 30 microvolts. There is no clinical accompaniment and these slower bursts do not correlate with respiration. No potentially epileptogenic activity was noted over several minutes. Current Inpatient Medications Medications (Trade) Dose Ordered Sig/Te Route Start Time Stop Time Status Last Admin Dose Admin Artificial Tears (Lacri-Lube Oph Oint) 1 appln Q2H PRN OPB 05/08/17 11:15 06/07/17 11:14 05/08/17 22:00 1 APPLN Pantoprazole Sodium 40 mg/ Syringe 10 ml @ 5 mls/min DAILY@11 IV 05/09/17 11:00 06/08/17 10:59 05/13/17 12:14 5 MLS/MIN Meperidine HCl (Demerol Inj) 25 mg Q2H PRN IV 05/08/17 11:15 05/22/17 11:14 05/08/17 16:10 25 MG Hydromorphone HCl (Dilaudid Inj) 1 mg Q20M PRN IV 05/08/17 11:15 05/22/17 11:14 Acetaminophen (Tylenol Supp) 650 mg ONE PRN MD 05/08/17 11:15 Aspirin (Aspirin Chew) 81 mg QD NG 05/08/17 17:00 06/07/17 16:59 05/13/17 17:05 81 MG Heparin Sodium (Porcine) (Heparin 10 Unit/ ml 5 ml Flush) 5 ml PRN PRN FLUSH 05/09/17 01:30 06/08/17 01:29 Glucose (Glucose 40% Gel) 15-30 GRAMS 15 GRAMS... UD PRN PO 05/09/17 05:30 06/08/17 05:29 Glucose (Glucose Chew Tab) 4-8 Tablets 4 Tabl... UD PRN PO 05/09/17 05:30 06/08/17 05:29 Dextrose (Dextrose 50% 50ML Syringe) 25-50ML OF 50% DW IV FOR... UD PRN IV 05/09/17 05:30 06/08/17 05:29 Glucagon (Glucagon Inj) 1 mg UD PRN SQ 05/09/17 05:30 06/08/17 05:29 Sodium Chloride 1,000 ml @ 100 mls/hr Q10H IV 05/09/17 22:00 06/08/17 21:59 05/14/17 05:44 100 MLS/HR Acetaminophen 650 mg/Empty Bag 65 ml @ 260 mls/hr Q6H PRN IV 05/10/17 04:00 06/09/17 03:59 05/12/17 15:32 260 MLS/HR Levetiracetam 2000 mg/Dextrose 270 ml @ 999 mls/hr Q12 IV 05/10/17 21:00 06/07/17 20:59 05/14/17 09:02 999 MLS/HR Amiodarone HCl (Cordarone Tab) 100 mg BID PO 05/11/17 21:00 06/10/17 20:59 05/14/17 09:02 100 MG Oxymetazoline HCl (Afrin 0.05% Nasal [place]) 1 sprays Q12 NA 05/12/17 09:15 06/11/17 09:14 05/14/17 09:02 1 SPRAYS Valproate Sodium 750 mg/Dextrose 57.5 ml @ 55 mls/hr Q6H IV 05/12/17 12:00 06/11/17 11:59 05/14/17 05:44 55 MLS/HR Enteral Nutritional Formula (Peptamen Intense VHP) 1,000 ml UD PRN OG 05/13/17 12:00 06/12/17 11:59 05/13/17 12:15 1,000 ML Impression 1. Post cardiac arrest May 08. He has a profound encephalopathy Neurologic examination today off propofol and Versed shows no evidence of cerebral or spinal cord activity. The patient does breathe some over the ventilator and has some sluggishly reactive pupils signifying some brainstem activity. EEG shows some background cortical activity that is very low and slow. The "alpha" rhythms are abnormal and signify brainstem rhythms. Continuous EEG monitoring shows no significant potentially epileptogenic activity for 2-3 days now. It is very concerning to me that there is a significant generalized suppression of all brain activity on EEG, however, it is not "flat" 2. Patient's family is concerned about acute lead poisoning. 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 They are concerned that lead from the paint was inhaled and is causing this condition. Serum lead level from admission was 6 (normal 0-9), therefore, lead toxicity is not an issue in this case. Plan 1. Discontinue continuous EEG monitoring. 2. Keep Depakote 750 milligrams IV Q 6 hours but follow levels each morning. The level may go up now that we stop phenobarbital. 3. Discontinue phenobarbital 4. Continue levetiracetam 2000 mg IV q.12 hours Overall, the patient has a very poor/grave prognosis neurologically. I have discussed this with the patient's son who was at bedside. I told the son that I have not seen anyone have any meaningful recovery with this type of EEG rhythm and neurologic exam, given this time frame from arrest. I have discussed this case with Dr. White including differential diagnosis and treatment options as well. Overall, I spent a total of 45 minutes with this case
[2017-05-14 09:53] LABS: ALBUMIN 1.8 gm/dl (3.4-5.0); TOTAL PROTEIN 5.1 gm/dl (6.4-8.2)
--- NOTE | 2017-05-14 11:16 | DIAGNOSTIC IMAGING REPORT ---
HEAD WITHOUT CONTRAST (CT) CT DOSE: 537.48 mGy.cm HISTORY: Ataxia anoxia TECHNIQUE: Multiaxial CT images of the head were performed without the use of intravenous contrast. A dose lowering technique was utilized adhering to the principles of ALARA. Comparison: 05/08/2017 Findings: The paranasal sinuses and mastoid air cells are clear. Findings suggesting partial effacement of components of the cerebral sulci bilaterally. Possibility of a global ischemic process is considered. Ventricular system is midline. There is no evidence for acute intracranial hemorrhage. There is no midline shift. Impression: 1. Potential generalized cerebral edema with partial effacement of the cerebral sulci. 2. No evidence for acute intracranial hemorrhage. The above report was generated using voice recognition software. It may contain grammatical, syntax or spelling errors. Electronically signed by: Alfa March M.D. 05/14/2017 11:14 AM Dictated Date/Time: 05/14/2017 11:08 AM
--- NOTE | 2017-05-14 11:57 | DIAGNOSTIC IMAGING REPORT ---
VENOUS DOPPLER LWR EXT BILA HISTORY: Pain. Edema. rule out DVT COMPARISON STUDY: None. FINDINGS: There is normal compressibility, flow, and augmentation within the bilateral lower extremity deep venous systems. IMPRESSION: No DVT within the right or left lower extremity. The above report was generated using voice recognition software. It may contain grammatical, syntax or spelling errors. Electronically signed by: Alfa March M.D. 05/14/2017 11:56 AM Dictated Date/Time: 05/14/2017 11:55 AM
[2017-05-14] MEDS: MULTIVITAMINS W/MINERALS 15ML UDP PO SCH (12:00)
[2017-05-14 12:06] LABS: RETIC COUNT % 1.2 % (0.5-2.0)
[2017-05-14 12:28] LABS: LIPASE 102 U/L (73-393)
[2017-05-14 12:44] LABS: INR 1.1 (0.9-1.1); PTT PATIENT 33.4 SECONDS (21.0-31.0)
[2017-05-14] MEDS: SUCRALFATE 1 GM/10 ML UDC PO SCH ×2 (12:56→17:13)
[2017-05-14] MEDS ORDERED: PERFLUTREN LIPID MICROSPHERE (DEFINITY) IV ONE (14:40)
--- NOTE | 2017-05-14 15:25 | ECHOCARDIOGRAM REPORT ---
*NOTICE TO RECEIVING [employer] This information is strictly Confidential and protected under [place] law. [place] law prohibits you from making any further disclosure of this information unless further disclosure is expressly permitted by the written consent of the person to whom it pertains or is authorized by law. A general authorization for the release of medical or other information is not sufficient for this purpose. Hospital accepts no responsibility if the information is made available to any other person, INCLUDING THE PATIENT. Interpretation Summary * Name: GINI LAWS Study Date: 05/14/2017 02:18 PM BP: 130/61 mmHg * Patient Location: .MSICU\S\E107\S\1 HR: 74 * : 1945 (M/d/yy) Gender: Male Height: 70 in * Age: 72 yrs Ethnicity: CA Weight: 255 lb * Ordering Physician: Nathan White * Referring Physician: Self, Referred * Performed By: Samra Hurtado RDCS * * Reason For Study: S/P Cardiac Arrest, re-evaluate EF * BSA: 2.3 m2 * -- Conclusions -- * Limited views were obtained in order to evaluate LV systolic function * Overall LV function is normal with an estimated ejection fraction 60% * There is very mild septal hypokinesis. * The remaining agosto contract normally * Compared to a study from 05/08/2017, the LV systolic function has now normalized. Procedure Details * Limited views were obtained. * A contrast injection of Definity was performed to improve assessment of LV function. * Contrast was injected into an intravenous site in the left arm. * One vial of Definity ultrasound contrast was diluted in normal saline to a total volume of 10 ml. A total of '2' ml of solution was administered during imaging. * Lot # [id number] of Definity utilized for procedure. * Expiration date . * The attending nurse who injected the contrast agent was Whitney Irvin RN. Left Ventricle * Ejection Fraction = 55-60%. MMode 2D Measurements and Calculations IVSd 0.96 cm IVSs 1.3 cm LVIDd 5.7 cm LVIDs 3.9 cm LVPWd 1.0 cm LVPWs 1.7 cm IVS/LVPW 0.96 FS 31.8 % EDV(Teich) 159.6 ml ESV(Teich) 65.2 ml EF(Teich) 59.1 % EDV(cubed) 184.5 ml ESV(cubed) 58.5 ml EF(cubed) 68.3 % % IVS thick 36.6 % % LVPW thick 68.7 % LV mass(C)d 220.9 grams LV mass(C)dI 95.4 grams/m\S\2 LV mass(C)s 224.1 grams LV mass(C)sI 96.8 grams/m\S\2 SV(Teich) 94.4 ml SI(Teich) 40.8 ml/m\S\2 SV(cubed) 126.0 ml SI(cubed) 54.4 ml/m\S\2 LA dimension 3.6 cm LVAd ap4 37.1 cm\S\2 LVLd ap4 8.5 cm EDV(MOD-sp4) 142.7 ml EDV(sp4-el) 136.7 ml LVAs ap4 22.5 cm\S\2 LVLs ap4 7.5 cm ESV(MOD-sp4) 63.9 ml ESV(sp4-el) 57.8 ml EF(MOD-sp4) 55.3 % EF(sp4-el) 57.7 % LVAd ap2 38.2 cm\S\2 LVLd ap2 8.9 cm EDV(MOD-sp2) 148.2 ml EDV(sp2-el) 138.6 ml LVAs ap2 23.7 cm\S\2 LVLs ap2 7.9 cm ESV(MOD-sp2) 69.2 ml ESV(sp2-el) 60.0 ml EF(MOD-sp2) 53.3 % EF(sp2-el) 56.7 % LVLd %diff 4.3 % EDV(MOD-bp) 148.4 ml LVLs %diff 5.8 % ESV(MOD-bp) 68.0 ml EF(MOD-bp) 54.2 % SV(MOD-sp4) 78.9 ml SI(MOD-sp4) 34.1 ml/m\S\2 SV(MOD-sp2) 79.1 ml SI(MOD-sp2) 34.2 ml/m\S\2 SV(MOD-bp) 80.4 ml SI(MOD-bp) 34.7 ml/m\S\2 SV(sp4-el) 78.9 ml SI(sp4-el) 34.1 ml/m\S\2 SV(sp2-el) 78.6 ml SI(sp2-el) 34.0 ml/m\S\2 Doppler Measurements and Calculations TR max owen 354.3 cm/sec
--- NOTE | 2017-05-14 15:39 | DIAGNOSTIC IMAGING REPORT ---
CHEST ONE VIEW PORTABLE HISTORY: hypoxia COMPARISON: Chest 05/14/2017. FINDINGS: Endotracheal tube terminates 5.6 cm from the alysa. Nasogastric tube terminates below the diaphragm. The tip is not included on this study. Left subclavian catheter terminates at the proximal SVC. The heart remains enlarged. Bilateral pulmonary airspace opacities have improved. Small bilateral pleural effusions persist. No pneumothorax. IMPRESSION: 1. Endotracheal tube terminates 5.6 cm from the alysa. This could be advanced by approximately 2 cm. 2. Otherwise, satisfactory support line placement. 3. Improved aeration within the lungs. 4. Small bilateral pleural effusions persist. Electronically signed by: Tom Lambert M.D. 05/14/2017 3:37 PM Dictated Date/Time: 05/14/2017 3:35 PM
[2017-05-14] MEDS ORDERED: FUROSEMIDE INJ 40 MG in SYRINGE 0 ML IV ONE (16:45)
[2017-05-14] MEDS: ASPIRIN 81 MG CHEW NG SCH (17:13)
--- NOTE | 2017-05-14 17:24 | Progress Note ---
Subjective Date of Service: May 14, 2017. Subjective Patient remains intubated and unresponsive. Family was not at the bedside during my exam Unable to obtain a history or ROS. Problem List Medical Problems: (1) Acidosis, metabolic, with respiratory acidosis Status: Acute Medications Current Inpatient Medications Medications (Trade) Dose Ordered Sig/Te Route Start Time Stop Time Status Last Admin Dose Admin Artificial Tears (Lacri-Lube Oph Oint) 1 appln Q2H PRN OPB 05/08/17 11:15 06/07/17 11:14 05/08/17 22:00 1 APPLN Meperidine HCl (Demerol Inj) 25 mg Q2H PRN IV 05/08/17 11:15 05/22/17 11:14 05/08/17 16:10 25 MG Hydromorphone HCl (Dilaudid Inj) 1 mg Q20M PRN IV 05/08/17 11:15 05/22/17 11:14 Acetaminophen (Tylenol Supp) 650 mg ONE PRN MS 05/08/17 11:15 Aspirin (Aspirin Chew) 81 mg QD NG 05/08/17 17:00 06/07/17 16:59 05/14/17 17:13 81 MG Heparin Sodium (Porcine) (Heparin 10 Unit/ ml 5 ml Flush) 5 ml PRN PRN FLUSH 05/09/17 01:30 06/08/17 01:29 Glucose (Glucose 40% Gel) 15-30 GRAMS 15 GRAMS... UD PRN PO 05/09/17 05:30 06/08/17 05:29 Glucose (Glucose Chew Tab) 4-8 Tablets 4 Tabl... UD PRN PO 05/09/17 05:30 06/08/17 05:29 Dextrose (Dextrose 50% 50ML Syringe) 25-50ML OF 50% DW IV FOR... UD PRN IV 05/09/17 05:30 06/08/17 05:29 Glucagon (Glucagon Inj) 1 mg UD PRN SQ 05/09/17 05:30 06/08/17 05:29 Sodium Chloride 1,000 ml @ 100 mls/hr Q10H IV 05/09/17 22:00 06/08/17 21:59 05/14/17 12:04 100 MLS/HR Acetaminophen 650 mg/Empty Bag 65 ml @ 260 mls/hr Q6H PRN IV 05/10/17 04:00 06/09/17 03:59 05/12/17 15:32 260 MLS/HR Levetiracetam 2000 mg/Dextrose 270 ml @ 999 mls/hr Q12 IV 05/10/17 21:00 06/07/17 20:59 05/14/17 09:02 999 MLS/HR Amiodarone HCl (Cordarone Tab) 100 mg BID PO 05/11/17 21:00 06/10/17 20:59 05/14/17 21:44 100 MG Oxymetazoline HCl (Afrin 0.05% Nasal [place]) 1 sprays Q12 NA 05/12/17 09:15 06/11/17 09:14 05/14/17 21:43 1 SPRAYS Valproate Sodium 750 mg/Dextrose 57.5 ml @ 55 mls/hr Q6H IV 05/12/17 12:00 06/11/17 11:59 05/14/17 17:13 55 MLS/HR Enteral Nutritional Formula (Peptamen Intense VHP) 1,000 ml UD PRN OG 05/13/17 12:00 06/12/17 11:59 05/13/17 12:15 1,000 ML Sucralfate (Carafate Susp) 1 gm Q6 PO 05/14/17 12:00 06/13/17 11:59 05/14/17 17:13 1 GM Multivitamins Therapeutic (Cerovite Liquid) 15 ml QAM PO 05/14/17 12:00 06/13/17 11:59 05/14/17 12:00 15 ML Objective Vital Signs Date Time Temp Pulse Resp B/P (MAP) Pulse Ox O2 Delivery O2 Flow Rate FiO2 05/14/17 16:00 37.1 74 23 139/67 (91) 97 Mechanical Ventilator 60 05/14/17 15:09 74 23 147/67 (93) 97 Mechanical Ventilator 60 05/14/17 14:20 60 05/14/17 14:01 37.1 79 23 150/75 (105) 90 05/14/17 14:00 37.1 80 24 90 05/14/17 13:33 37.2 79 20 154/74 (104) 94 05/14/17 13:00 37.3 81 20 145/66 (99) 91 05/14/17 12:00 37.4 78 20 135/63 (90) 92 05/14/17 11:45 Mechanical Ventilator 30 05/14/17 11:45 30 05/14/17 11:22 30 05/14/17 11:16 0 128/62 (91) 05/14/17 11:00 0 05/14/17 10:00 37.4 72 27 128/58 (81) 96 05/14/17 09:24 37.5 74 22 130/61 (84) 95 Mechanical Ventilator 05/14/17 09:00 37.5 75 21 130/61 (83) 93 05/14/17 08:00 37.4 73 20 130/62 (83) 96 05/14/17 08:00 Mechanical Ventilator 30 05/14/17 07:59 37.4 73 20 130/62 (90) 98 05/14/17 07:30 30 05/14/17 07:30 Mechanical Ventilator 30 05/14/17 07:11 30 05/14/17 07:00 37.2 71 20 121/59 (78) 93 05/14/17 06:00 37.1 71 22 121/57 (77) 92 05/14/17 05:30 30 05/14/17 05:00 36.9 69 22 122/53 (72) 94 05/14/17 04:00 30 05/14/17 04:00 Mechanical Ventilator 30 05/14/17 04:00 36.8 68 21 120/57 (82) 94 05/14/17 03:00 36.7 68 21 114/54 (78) 94 05/14/17 02:10 30 05/14/17 02:00 36.6 68 23 111/55 (69) 93 05/14/17 01:00 36.4 68 22 112/53 (78) 92 05/14/17 00:00 36.3 67 22 110/52 (66) 91 05/13/17 23:59 Mechanical Ventilator 30 05/13/17 23:59 30 05/13/17 23:49 30 05/13/17 23:00 36.1 62 20 106/50 (61) 92 05/13/17 22:00 36.1 63 20 103/54 (68) 93 05/13/17 20:00 Mechanical Ventilator 30 05/13/17 20:00 30 05/13/17 20:00 36.0 64 20 106/53 (75) 92 05/13/17 19:45 30 05/13/17 18:00 35.7 62 20 97/50 (68) 93 05/13/17 17:50 30 Physical Exam Comments: General: Elderly male, looks appropriate for his age, intubated, unresponsive Heent: NC/AT, pupils non reactive, lympatic: no adenopathy Lungs: mechanical breath sounds CVS: S1S2 irregular Abd: soft and non tender Ext: Trace pitting edema bilaterally 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, no reaction to deep stimulation Laboratory Results Last 24 Hours Test 05/13/17 18:57 05/14/17 00:21 05/14/17 05:29 05/14/17 05:42 Bedside Glucose 106 mg/dl 145 mg/dl 99 mg/dl White Blood Count 5.85 K/uL Red Blood Count 3.44 M/uL Hemoglobin 10.9 g/dL Hematocrit 32.3 % Mean Corpuscular Volume 93.9 fL Mean Corpuscular Hemoglobin 31.7 pg Mean Corpuscular Hemoglobin Concent 33.7 g/dl RDW Standard Deviation 53.1 fL RDW Coefficient of Variation 15.4 % Platelet Count 58 K/uL Mean Platelet Volume 11.4 fL Venous Blood pH 7.30 Venous Blood Partial Pressure CO2 45 mmHg Venous Blood Partial Pressure O2 56 mmHg Venous Blood HCO3 21 mmol/L Venous Blood Oxygen Saturation 83.4 % Venous Blood Base Excess -5.0 mEq/L Sodium Level 135 mmol/L Potassium Level 4.5 mmol/L Chloride Level 106 mmol/L Carbon Dioxide Level 23 mmol/L Anion Gap 6.0 mmol/L Blood Urea Nitrogen 53 mg/dl Creatinine 1.80 mg/dl Est Creatinine Clear Calc Drug Dose 46.7 ml/min Estimated GFR () 42.6 Estimated GFR (Non- 36.8 BUN/Creatinine Ratio 29.5 Random Glucose 106 mg/dl Calcium Level 7.6 mg/dl Phosphorus Level 3.7 mg/dl Magnesium Level 2.5 mg/dl Valproic Acid (Depakene) Level 65 mcg/ml Phenobarbital Level 37.3 mcg/mL Test 05/14/17 09:09 05/14/17 11:20 Total Bilirubin 2.9 mg/dl Direct Bilirubin 2.5 mg/dl Aspartate Amino Transf (AST/SGOT) 36 U/L Alanine Aminotransferase (ALT/SGPT) 29 U/L Alkaline Phosphatase 113 U/L Total Protein 5.1 gm/dl Albumin 1.8 gm/dl Absolute Reticulocyte Count 0.04 10^6/uL Percent Reticulocyte Count 1.2 % Prothrombin Time 11.1 SECONDS Prothromb Time International Ratio 1.1 Activated Partial Thromboplast Time 33.4 SECONDS Partial Thromboplastin Ratio 1.3 Fibrinogen 721 mg/dl Fibrin Degradation Products 10-40 mcg/ml Total Creatine Kinase 26 U/L Lipase 102 U/L Assessment and Plan 72 y/o M who was admitted to the ICU on 05/08 after being found unresponsive at home. Pt was a code blue -> code arctic in the ED Comatose in setting of severe anoxic brain injury EEG appears to show no activity. Appears to have flat lined Will obtain MRI as estefania still has hope of a recovery. MRI will likely show evidence of anoxic brain injury. CT head showed cerebral edema ICU team is slowly tapering his sedation. Keppra, 2000 mg bid Depacon 750 mg q 6. Check levels qam with goal between 75-80. Current blood level 65; watch for toxicity as phenobarb DCd. If level >100, lower dose Phenobarbital DCd poor prognosis per neurology, patients family was updated Unresponsive episode: uncertain etiology ROSC in the ED after several defibrillations, Epinephrine, Lidocaine unsure of the arrhythmia that he experienced as there were no rhythm strips, just AED that fired QT was prolonged on initial EKG, suggesting possible torsades initially cod arctic, now rewarmed CT head, CTAP all neg for acute CTA neg for PE, noted for pulm edema and ? PNA UA and blood cx pending. 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
--- NOTE | 2017-05-14 17:49 | DIAGNOSTIC IMAGING REPORT ---
RENAL ULTRASOUND HISTORY: Acute kidney injury. COMPARISON: Abdomen and pelvis CT 11/14/2013. FINDINGS: Right kidney: 12.1 cm. No hydronephrosis. Mild cortical thinning and increased cortical echogenicity. A 1.4 cm upper pole cyst. Slightly complex appearing 1.5 cm lower pole cyst. Left kidney: 12.0 cm. No hydronephrosis. Mild cortical thinning and increased cortical echogenicity. A 2.6 cm exophytic lower pole cyst. Trace perinephric fluid. Bladder: Decompressed by a Nelson catheter. IMPRESSION: 1. No hydronephrosis. 2. Bilateral renal cysts. 3. Mild cortical thinning and increased cortical echogenicity suggestive of medical renal disease. Electronically signed by: Tom Lambert M.D. 05/14/2017 5:48 PM Dictated Date/Time: 05/14/2017 5:46 PM
--- NOTE | 2017-05-14 20:43 | Critical Care Progress Note ---
Critical Care Progress Note Date of Service May 14, 2017. ICU Day ICU Day Number: [address] 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 Check levels qam with goal between 75-80. Current blood level 65; watch for toxicity as phenobarb DCd. If level >100, lower dose Phenobarbital DCd He likely has significant anoxic brain injury CT Head shows generalized edema MRI brain ordered CVS: Remains in a-fib. Rate controlled with amiodarone. Norepinephrine stopped Echo reviewed, severely depressed EF, "stunned" myocardium Mild troponin elevation, not uncommon in this scenario, after CPR. No clear evidence of ischemic Vtach/Vfib. Further workup depending on his clinical evolution Consider anticoagulation if no bloody secretions Repeat echo Pulmonary: Vent support increased, PEEP increased to 10 Repeat cxr Elevate head ID: Unasyn DCd after nasal packing removed. Discussed case with Dr. Larry, ENT; verbal order to remove rhinorocket as >72 hours Blood cultures sent per protocol, negative to date Renal/metabolic: Daily electrolytes Decreased urine output. Creatinine continues to rise, today at 1.8. Consider Renal US Urine eosinophils sent for CPK sent Daily multivitamin GI: Tube feeds Lactic Acid WNL Protonix switched to karofate Repeat LFTs, lipase, Heme: H/H fairly stable; low platelets Check FDP, Fibrin levels bilateral LE USS for DVT DVT prophylaxis: consider starting Lovenox if no further bloody secretions Consent for trach obtained. Remains level I. Resident Physician Supervision Note: Dr. Shultz was resident physician during care of patient. I separately evaluated patient and did history and exam. I discussed the case with the resident and generally agree with the findings and plan. Patient now has an acute kidney injury. I believe her having issues with volume overload as well as there was a little bit of hypoxia which responded to increasing the patient's PEEP. He is approximately 20 L positive. We will give him a trial of Lasix. I believe he is a poor candidate for dialysis given the thrombocytopenia as well as indications of significant neurological injury. We discontinue the continuous EEG today which led me to obtain a CT scan and we are currently waiting an MRI to better elucidate the extent of neurologic injury. I conveyed again the likelihood for poor prognosis with the family as well as the implications of worsening renal function and poor urine output. We will revisit any possible renal needs in the near future as well as his goals of care as we get a little bit more data with the recent neuro imaging. I did convey as well as show the patient's family the results of the CT scan of the brain. All questions were answered. I have personally spent 35 minutes of critical care time in the direct management of this patient. This is a life/limb threatening event. This includes time spent evaluating patient, direct bedside care, chart review, placing orders, interpretation of diagnostic studies, discussion with consultants, patient, and family members, as well as other required patient management activities. This time is exclusive of all separately billable procedures, and teaching time and separate from and in addition to any other critical care service time. Documented By: Nathan White DO Consults & Procedures Consultants: cardiology - Dr Kay Neurology- Dr. Lemos Procedures: 05/08/17 - intubated by EMS 05/08/17 - left subclavian TLC 05/08/17 - right axillary a-line 05/12/17 - right axillary a-line removed, rhinorocket removed 05/14/17 - Continuous EEG DCd Data Medications: Current Inpatient Medications Medications (Trade) Dose Ordered Sig/Te Route Start Time Stop Time Status Last Admin Dose Admin Artificial Tears (Lacri-Lube Oph Oint) 1 appln Q2H PRN OPB 05/08/17 11:15 06/07/17 11:14 05/08/17 22:00 1 APPLN Meperidine HCl (Demerol Inj) 25 mg Q2H PRN IV 05/08/17 11:15 05/22/17 11:14 05/08/17 16:10 25 MG Hydromorphone HCl (Dilaudid Inj) 1 mg Q20M PRN IV 05/08/17 11:15 05/22/17 11:14 Acetaminophen (Tylenol Supp) 650 mg ONE PRN GA 05/08/17 11:15 Aspirin (Aspirin Chew) 81 mg QD NG 05/08/17 17:00 06/07/17 16:59 05/14/17 17:13 81 MG Heparin Sodium (Porcine) (Heparin 10 Unit/ ml 5 ml Flush) 5 ml PRN PRN FLUSH 05/09/17 01:30 06/08/17 01:29 Glucose (Glucose 40% Gel) 15-30 GRAMS 15 GRAMS... UD PRN PO 05/09/17 05:30 06/08/17 05:29 Glucose (Glucose Chew Tab) 4-8 Tablets 4 Tabl... UD PRN PO 05/09/17 05:30 06/08/17 05:29 Dextrose (Dextrose 50% 50ML Syringe) 25-50ML OF 50% DW IV FOR... UD PRN IV 05/09/17 05:30 06/08/17 05:29 Glucagon (Glucagon Inj) 1 mg UD PRN SQ 05/09/17 05:30 06/08/17 05:29 Sodium Chloride 1,000 ml @ 100 mls/hr Q10H IV 05/09/17 22:00 06/08/17 21:59 05/14/17 12:04 100 MLS/HR Acetaminophen 650 mg/Empty Bag 65 ml @ 260 mls/hr Q6H PRN IV 05/10/17 04:00 06/09/17 03:59 05/12/17 15:32 260 MLS/HR Levetiracetam 2000 mg/Dextrose 270 ml @ 999 mls/hr Q12 IV 05/10/17 21:00 06/07/17 20:59 05/14/17 09:02 999 MLS/HR Amiodarone HCl (Cordarone Tab) 100 mg BID PO 05/11/17 21:00 06/10/17 20:59 05/14/17 09:02 100 MG Oxymetazoline HCl (Afrin 0.05% Nasal [place]) 1 sprays Q12 NA 05/12/17 09:15 06/11/17 09:14 05/14/17 09:02 1 SPRAYS Valproate Sodium 750 mg/Dextrose 57.5 ml @ 55 mls/hr Q6H IV 05/12/17 12:00 06/11/17 11:59 05/14/17 17:13 55 MLS/HR Enteral Nutritional Formula (Peptamen Intense VHP) 1,000 ml UD PRN OG 05/13/17 12:00 06/12/17 11:59 05/13/17 12:15 1,000 ML Sucralfate (Carafate Susp) 1 gm Q6 PO 05/14/17 12:00 06/13/17 11:59 05/14/17 17:13 1 GM Multivitamins Therapeutic (Cerovite Liquid) 15 ml QAM PO 05/14/17 12:00 06/13/17 11:59 05/14/17 12:00 15 ML I & O: 24-Hour Column 05/15/17 08:00 Intake Total 1236 ml Output Total 300 ml Balance 936 ml Vital Signs: Date Time Temp Pulse Resp B/P (MAP) Pulse Ox O2 Delivery O2 Flow Rate FiO2 05/14/17 18:36 60 05/14/17 18:00 76 23 153/68 (96) 97 Mechanical Ventilator 60 05/14/17 17:00 37.1 76 23 136/60 (85) 97 Mechanical Ventilator 60 05/14/17 16:00 97 Mechanical Ventilator 60 05/14/17 16:00 37.1 74 23 139/67 (91) 97 Mechanical Ventilator 60 05/14/17 16:00 60 05/14/17 15:09 74 23 147/67 (93) 97 Mechanical Ventilator 60 05/14/17 14:20 60 05/14/17 14:01 37.1 79 23 150/75 (105) 90 05/14/17 14:00 37.1 80 24 90 05/14/17 13:33 37.2 79 20 154/74 (104) 94 05/14/17 13:00 37.3 81 20 145/66 (99) 91 05/14/17 12:00 37.4 78 20 135/63 (90) 92 05/14/17 11:45 Mechanical Ventilator 30 05/14/17 11:45 30 05/14/17 11:22 30 05/14/17 11:16 0 128/62 (91) 1/18/18 11:00 0 05/14/17 10:00 37.4 72 27 128/58 (81) 96 05/14/17 09:24 37.5 74 22 130/61 (84) 95 Mechanical Ventilator 05/14/17 09:00 37.5 75 21 130/61 (83) 93 05/14/17 08:00 37.4 73 20 130/62 (83) 96 05/14/17 08:00 Mechanical Ventilator 30 05/14/17 07:59 37.4 73 20 130/62 (90) 98 05/14/17 07:30 30 05/14/17 07:30 Mechanical Ventilator 30 05/14/17 07:11 30 05/14/17 07:00 37.2 71 20 121/59 (78) 93 05/14/17 06:00 37.1 71 22 121/57 (77) 92 05/14/17 05:30 30 05/14/17 05:00 36.9 69 22 122/53 (72) 94 05/14/17 04:00 30 05/14/17 04:00 Mechanical Ventilator 30 05/14/17 04:00 36.8 68 21 120/57 (82) 94 05/14/17 03:00 36.7 68 21 114/54 (78) 94 05/14/17 02:10 30 05/14/17 02:00 36.6 68 23 111/55 (69) 93 05/14/17 01:00 36.4 68 22 112/53 (78) 92 05/14/17 00:00 36.3 67 22 110/52 (66) 91 05/13/17 23:59 Mechanical Ventilator 30 05/13/17 23:59 30 05/13/17 23:49 30 05/13/17 23:00 36.1 62 20 106/50 (61) 92 05/13/17 22:00 36.1 63 20 103/54 (68) 93 Laboratory Results: Last 24 Hours Test 05/14/17 00:21 05/14/17 05:29 05/14/17 05:42 05/14/17 09:09 Bedside Glucose 145 mg/dl 99 mg/dl White Blood Count 5.85 K/uL Red Blood Count 3.44 M/uL Hemoglobin 10.9 g/dL Hematocrit 32.3 % Mean Corpuscular Volume 93.9 fL Mean Corpuscular Hemoglobin 31.7 pg Mean Corpuscular Hemoglobin Concent 33.7 g/dl RDW Standard Deviation 53.1 fL RDW Coefficient of Variation 15.4 % Platelet Count 58 K/uL Mean Platelet Volume 11.4 fL Venous Blood pH 7.30 Venous Blood Partial Pressure CO2 45 mmHg Venous Blood Partial Pressure O2 56 mmHg Venous Blood HCO3 21 mmol/L Venous Blood Oxygen Saturation 83.4 % Venous Blood Base Excess -5.0 mEq/L Sodium Level 135 mmol/L Potassium Level 4.5 mmol/L Chloride Level 106 mmol/L Carbon Dioxide Level 23 mmol/L Anion Gap 6.0 mmol/L Blood Urea Nitrogen 53 mg/dl Creatinine 1.80 mg/dl Est Creatinine Clear Calc Drug Dose 46.7 ml/min Estimated GFR () 42.6 Estimated GFR (Non- 36.8 BUN/Creatinine Ratio 29.5 Random Glucose 106 mg/dl Calcium Level 7.6 mg/dl Phosphorus Level 3.7 mg/dl Magnesium Level 2.5 mg/dl Valproic Acid (Depakene) Level 65 mcg/ml Phenobarbital Level 37.3 mcg/mL Total Bilirubin 2.9 mg/dl Direct Bilirubin 2.5 mg/dl Aspartate Amino Transf (AST/SGOT) 36 U/L Alanine Aminotransferase (ALT/SGPT) 29 U/L Alkaline Phosphatase 113 U/L Total Protein 5.1 gm/dl Albumin 1.8 gm/dl Test 05/14/17 11:20 Absolute Reticulocyte Count 0.04 10^6/uL Percent Reticulocyte Count 1.2 % Prothrombin Time 11.1 SECONDS Prothromb Time International Ratio 1.1 Activated Partial Thromboplast Time 33.4 SECONDS Partial Thromboplastin Ratio 1.3 Fibrinogen 721 mg/dl Fibrin Degradation Products 10-40 mcg/ml Total Creatine Kinase 26 U/L Lipase 102 U/L Resident Tracking Resident Involvement: Resident Care Provided Care Provided: Adult Hospital Medicine
--- NOTE | 2017-05-14 21:20 | DIAGNOSTIC IMAGING REPORT ---
MRI OF THE BRAIN COMBO CLINICAL HISTORY: Anoxia. Unresponsive. COMPARISON STUDY: CT of the brain dated 05/14/2017. TECHNIQUE: MRI of the brain was performed utilizing various T1 and T2-weighted sequences in the axial, sagittal, and coronal planes. Contrast-enhanced sequences were acquired following the administration of 11.5 cc of Gadavist. FINDINGS: Brain parenchyma: A tiny chronic lacunar infarct is seen in the left cerebellar hemisphere. There is gyriform restricted diffusion identified, greatest in the parietal and occipital lobes. Restricted diffusion is also present within the thalami. Ill-defined FLAIR signal abnormality is seen throughout these regions. There is no evidence of territorial ischemia. There is no hemorrhage or mass effect. No enhancing mass lesion is identified on the postcontrast images. There are age-related involutional changes noting mild periventricular microangiopathic disease. Barroso-white matter differentiation is largely maintained. No extra-axial fluid collection is seen. The cerebellar tonsils are normal in configuration. Ventricles, sulci, and cisterns: Normal in configuration. Pituitary and sella: Unremarkable. Intracranial vasculature: Normal flow voids are maintained at the skull base. Orbits: The bony orbits are grossly intact. Orbital contents are normal in appearance. Sinuses and mastoids: There are bilateral mastoid effusions. Calvarium: Unremarkable. Cervical cord: Partially visualized cervical spinal cord is normal in morphology and signal intensity. IMPRESSION: 1. There is gyriform restricted diffusion with subtle FLAIR signal abnormal seen involving the cortical sulci, greatest in the parietal and occipital regions. Restricted diffusion is also identified within both thalami. There is corresponding FLAIR signal abnormality and the appearance is consistent with the reported history of an anoxic ischemic event. 2. There is no hemorrhage or evidence of territorial ischemia. No significant mass effect is seen. 3. No enhancing mass lesion is identified. 4. Paranasal sinus disease and mastoid effusions as above. Electronically signed by: Alfonso Daniels M.D. 05/14/2017 9:19 PM Dictated Date/Time: 05/14/2017 9:13 PM
[2017-05-15] VITALS (75 sets, daily range): BP systolic 61–140; BP diastolic 34–61; PULSE 56–91; TEMP 36.5–38.3; O2SAT 74–100
[2017-05-15] MEDS: VALPROATE SOD IV 750 MG in DEXTROSE 5% 50ML 50 ML IV SCH ×4 (00:02→18:18)
[2017-05-15] MEDS: SODIUM CHLORIDE 0.9% 1000ML 1,000 ML IV SCH (00:03)
[2017-05-15] MEDS: SUCRALFATE 1 GM/10 ML UDC PO SCH ×4 (00:03→18:13)
[2017-05-15 06:33] LABS: CALCIUM 8.1 mg/dl (8.5-10.1); CREATININE 2.43 mg/dl (0.60-1.40); POTASSIUM 4.6 mmol/L (3.5-5.1)
[2017-05-15 06:35] LABS: PHOSPHORUS 4.8 mg/dl (2.5-4.9)
--- NOTE | 2017-05-15 07:13 | DIAGNOSTIC IMAGING REPORT ---
CHEST ONE VIEW PORTABLE CLINICAL HISTORY: Resp Failure COMPARISON STUDY: 05/14/2017 FINDINGS: There is an endotracheal tube 4 cm above the alysa. There is a nasogastric tube which passes into the stomach. The heart is enlarged. There is radiographic evidence of congestive failure. There are new left mid and lower lung zone airspace opacities, likely representing asymmetric pulmonary edema. Bilateral pleural effusions are suspected. The left subclavian central venous catheter has been removed.[ IMPRESSION: 1. Interval removal of the left subclavian central venous catheter 2. Developing moderately extensive left mid and lower lung zone airspace opacities. While likely representing asymmetric pulmonary edema, an infectious/inflammatory process could appear similar. Clinical and radiographic follow-up is recommended. 3. Pulmonary vascular congestion and bilateral pleural effusions Electronically signed by: Bud Fatima M.D. 05/15/2017 7:11 AM Dictated Date/Time: 05/15/2017 7:09 AM
[2017-05-15] MEDS: LEVETIRACETAM IV 2,000 MG in DEXTROSE 5% 250ML 250 ML IV SCH ×2 (08:04→21:20)
[2017-05-15] MEDS: OXYMETAZOLINE HCL 0.05% NA SPR 15 ML BTL SCH ×2 (08:04→21:20)
[2017-05-15 08:05] LABS: HEMATOCRIT 38.5 % (42-52); HEMOGLOBIN 12.7 g/dL (14.0-18.0); MEAN CELL VOLUME 96.5 fL (80-100); MEAN CORPUSCULAR HEMOGLOBIN 31.8 pg (25-34); MEAN PLATELET VOLUME 12.2 fL (7.4-10.4); NUCLEATED RED BLOOD CELL ABS 0.06 K/uL (0-0); PLATELET COUNT 87 K/uL (130-400); RED CELL DISTRIBUTION WIDTH CV 15.4 % (11.5-14.5); RED CELL DISTRIBUTION WIDTH SD 54.5 fL (36.4-46.3); WHITE BLOOD COUNT 8.17 K/uL (4.8-10.8)
[2017-05-15] MEDS: MULTIVITAMINS W/MINERALS 15ML UDP PO SCH (08:06)
[2017-05-15] MEDS: AMIODARONE 200 MG TAB PO SCH ×2 (08:06→21:00)
[2017-05-15] MEDS ORDERED: FUROSEMIDE INJ 60 MG in SYRINGE 0 ML IV ONE (10:15)
--- NOTE | 2017-05-15 10:51 | Nephrology Consultation ---
Nephrology Consultation Date & Providers Date of Consultation: May 15, 2017. Primary Care Provider: No Doctor, Assigned Referring Provider: Reason for Consultation OSEAS, volume overload History of Present Illness Mr. Portillo was seen & examined in the ICU this morning at the request of Dr. White for evaluation and management of OSEAS w/ volume overload. Medical records in the EMR were reviewed and are summarized as follows: Mr. Portillo has enjoyed good health. He has had no chronic medical illnesses. On 05/08/16 he suffered a cardiopulmonary arrest. CPR was initiated and 911 notified. Patient required 20 - 25 min BLS and was then defibrillated x 4. He had ROSC. Cardiac rhythm was atrial fibrillation. Upon arrival in ED patient was noted to have posturing. Chest and abdominal CT w/ IV contrast were negative for PE, renal hydronephrosis or significant intraabdominal pathology. Patient was intubated and placed on hypothermia protocol. Echocardiogram revealed global LV dysfunction w/ LVEF 20%. Serum creatinine was 1.4 on admission but quickly improved to 0.8 following IV hydration. EEG was c/w nonconvulsive status epilepticus. Seizure activity subsided following Phenobarbital administration 05/12/16. Since admission Mr. Portillo has been net 12 L volume positive. On pressors were weaned to off. SBP was labile and dipped into the 90's. Creatinine has since risen to 2.4 and patient has developed progressive pulmonary edema on CXR. FiO2 requirements have risen from 30 to 70% w/ peep. Follow up echocardiogram has shown marked improvement w/ LVEF now 55 - 60% w/ normal wall motion. Urine microscopy 05/12 revealed granular casts c/w ATN. Renal US 05/14 revealed 12 cm kidneys w/ cortical thinning but no obstruction. Mr. Portillo diuresed 1500 cc overnight in response to 40 mg Furosemide IV x 1. Past Medical/Surgical History Medical: # Gilbert syndrome Allergies Coded Allergies: No Known Allergies (Verified , 05/08/17) Inpatient Medications Current Inpatient Medications Medications (Trade) Dose Ordered Sig/Te Route Start Time Stop Time Status Last Admin Dose Admin Artificial Tears (Lacri-Lube Oph Oint) 1 appln Q2H PRN OPB 05/08/17 11:15 06/07/17 11:14 05/08/17 22:00 1 APPLN Meperidine HCl (Demerol Inj) 25 mg Q2H PRN IV 05/08/17 11:15 05/22/17 11:14 05/08/17 16:10 25 MG Hydromorphone HCl (Dilaudid Inj) 1 mg Q20M PRN IV 05/08/17 11:15 05/22/17 11:14 Acetaminophen (Tylenol Supp) 650 mg ONE PRN [place] 05/08/17 11:15 Aspirin (Aspirin Chew) 81 mg QD NG 05/08/17 17:00 06/07/17 16:59 05/14/17 17:13 81 MG Heparin Sodium (Porcine) (Heparin 10 Unit/ ml 5 ml Flush) 5 ml PRN PRN FLUSH 05/09/17 01:30 06/08/17 01:29 Glucose (Glucose 40% Gel) 15-30 GRAMS 15 GRAMS... UD PRN PO 05/09/17 05:30 06/08/17 05:29 Glucose (Glucose Chew Tab) 4-8 Tablets 4 Tabl... UD PRN PO 05/09/17 05:30 06/08/17 05:29 Dextrose (Dextrose 50% 50ML Syringe) 25-50ML OF 50% DW IV FOR... UD PRN IV 05/09/17 05:30 06/08/17 05:29 Glucagon (Glucagon Inj) 1 mg UD PRN SQ 05/09/17 05:30 06/08/17 05:29 Acetaminophen 650 mg/Empty Bag 65 ml @ 260 mls/hr Q6H PRN IV 05/10/17 04:00 06/09/17 03:59 05/12/17 15:32 260 MLS/HR Levetiracetam 2000 mg/Dextrose 270 ml @ 999 mls/hr Q12 IV 05/10/17 21:00 06/07/17 20:59 05/15/17 08:04 999 MLS/HR Amiodarone HCl (Cordarone Tab) 100 mg BID PO 05/11/17 21:00 06/10/17 20:59 05/15/17 08:06 100 MG Oxymetazoline HCl (Afrin 0.05% Nasal [place]) 1 sprays Q12 NA 05/12/17 09:15 06/11/17 09:14 05/15/17 08:04 1 SPRAYS Valproate Sodium 750 mg/Dextrose 57.5 ml @ 55 mls/hr Q6H IV 05/12/17 12:00 06/11/17 11:59 05/15/17 05:32 55 MLS/HR Enteral Nutritional Formula (Peptamen Intense VHP) 1,000 ml UD PRN OG 05/13/17 12:00 06/12/17 11:59 05/13/17 12:15 1,000 ML Sucralfate (Carafate Susp) 1 gm Q6 PO 05/14/17 12:00 06/13/17 11:59 05/15/17 05:32 1 GM Multivitamins Therapeutic (Cerovite Liquid) 15 ml QAM PO 05/14/17 12:00 06/13/17 11:59 05/15/17 08:06 15 ML Family History Patient reports no known family medical history. 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 He is a former smoker Review of Systems Unable to obtain ROS. Patient is on mechanical ventilation Physical Exam Date Time Temp Pulse Resp B/P (MAP) Pulse Ox O2 Delivery O2 Flow Rate FiO2 05/15/17 09:30 37.2 83 26 92 05/15/17 09:15 37.2 83 28 91 05/15/17 09:00 37.2 83 27 125/48 (73) 92 Mechanical Ventilator 70 05/15/17 08:45 37.1 83 27 92 05/15/17 08:30 37.1 83 28 93 05/15/17 08:15 37.1 83 27 93 05/15/17 08:01 37.1 83 25 126/50 (75) 94 Mechanical Ventilator 70 05/15/17 08:00 Mechanical Ventilator 05/15/17 08:00 60 05/15/17 08:00 37.0 83 25 93 05/15/17 07:45 37.0 82 27 94 05/15/17 07:30 37.0 82 26 94 05/15/17 07:23 70 05/15/17 07:15 37.0 82 26 94 05/15/17 07:01 37.0 81 27 130/49 (76) 88 Mechanical Ventilator 70 05/15/17 07:00 37.0 82 27 88 05/15/17 06:01 36.9 83 30 125/50 (67) 93 05/15/17 05:31 70 05/15/17 05:01 36.7 83 30 127/49 (67) 92 05/15/17 04:00 Mechanical Ventilator 05/15/17 04:00 36.6 83 29 116/47 (68) 90 05/15/17 04:00 60 05/15/17 03:00 36.5 83 28 116/47 (68) 91 05/15/17 02:40 60 05/15/17 02:00 36.5 83 25 116/48 (68) 91 05/15/17 01:01 36.8 83 22 122/54 (89) 91 05/15/17 00:05 60 05/15/17 00:01 37.0 86 22 131/50 (86) 91 05/15/17 00:00 60 05/15/17 00:00 Mechanical Ventilator 05/14/17 23:01 36.9 85 23 145/58 (83) 92 05/14/17 22:01 36.9 84 21 140/57 (82) 93 05/14/17 21:10 37.0 83 24 139/54 (84) 90 05/14/17 21:05 60 05/14/17 21:05 Mechanical Ventilator 05/14/17 20:55 60 05/14/17 18:36 60 05/14/17 18:00 76 23 153/68 (96) 97 Mechanical Ventilator 60 05/14/17 17:00 37.1 76 23 136/60 (85) 97 Mechanical Ventilator 60 05/14/17 16:00 97 Mechanical Ventilator 60 18 16:00 37.1 74 23 139/67 (91) 97 Mechanical Ventilator 60 05/14/17 16:00 60 18 15:09 74 23 147/67 (93) 97 Mechanical Ventilator 60 18 14:20 60 18 14:01 37.1 79 23 150/75 (105) 90 05/14/17 14:00 37.1 80 24 90 05/14/17 13:33 37.2 79 20 154/74 (104) 94 05/14/17 13:00 37.3 81 20 145/66 (99) 91 05/14/17 12:00 37.4 78 20 135/63 (90) 92 05/14/17 11:45 Mechanical Ventilator 30 05/14/17 11:45 30 05/14/17 11:22 30 05/14/17 11:16 0 128/62 (91) 05/14/17 11:00 0 General Appearance: + pertinent finding (Appears acutely ill requiring mechanical ventilation and high FiO2) Head: normocephalic, atraumatic ENT: + pertinent finding (orotracheal intubation) Neck: supple Respiratory/Chest: + pertinent finding (coarse breath sounds anteriorly) Cardiovascular: regular rate, rhythm Abdomen/GI: soft (hypoactive bowel sounds) Extremities/Musculoskelatal: + pertinent finding (2 - 3+ dependent edema of the arms and legs) Neurologic/Psych: + pertinent finding (unresponsive) Skin: normal color Laboratory Results Last 24 Hours Test 05/14/17 11:20 05/14/17 11:31 05/14/17 17:20 05/15/17 05:39 Absolute Reticulocyte Count 0.04 10^6/uL Percent Reticulocyte Count 1.2 % Prothrombin Time 11.1 SECONDS Prothromb Time International Ratio 1.1 Activated Partial Thromboplast Time 33.4 SECONDS Partial Thromboplastin Ratio 1.3 Fibrinogen 721 mg/dl Fibrin Degradation Products 10-40 mcg/ml Total Creatine Kinase 26 U/L Lipase 102 U/L Bedside Glucose 101 mg/dl 105 mg/dl White Blood Count 8.17 K/uL Red Blood Count 3.99 M/uL Hemoglobin 12.7 g/dL Hematocrit 38.5 % Mean Corpuscular Volume 96.5 fL Mean Corpuscular Hemoglobin 31.8 pg Mean Corpuscular Hemoglobin Concent 33.0 g/dl RDW Standard Deviation 54.5 fL RDW Coefficient of Variation 15.4 % Platelet Count 87 K/uL Mean Platelet Volume 12.2 fL Nucleated RBC Absolute Count (auto) 0.06 K/uL Nucleated Red Blood Cells % 0.8 % Venous Blood pH 7.06 Venous Blood Partial Pressure CO2 67 mmHg Venous Blood Partial Pressure O2 62 mmHg Venous Blood HCO3 19 mmol/L Venous Blood Oxygen Saturation 83.9 % Venous Blood Base Excess -12.4 mEq/L Sodium Level 135 mmol/L Potassium Level 4.6 mmol/L Chloride Level 105 mmol/L Carbon Dioxide Level 19 mmol/L Anion Gap 11.0 mmol/L Blood Urea Nitrogen 68 mg/dl Creatinine 2.43 mg/dl Est Creatinine Clear Calc Drug Dose 34.6 ml/min Estimated GFR () 29.7 Estimated GFR (Non- 25.6 BUN/Creatinine Ratio 27.8 Random Glucose 82 mg/dl Calcium Level 8.1 mg/dl Phosphorus Level 4.8 mg/dl Magnesium Level 2.7 mg/dl Impression (1) Acute kidney injury (2) Metabolic acidosis (3) Volume overload (4) Unresponsive (5) Cardiopulmonary arrest with successful resuscitation (6) Anoxic seizures Recommendations ACUTE KIDNEY INJURY: -- Urine microscopy c/w ATN -- Renal US report reviewed: 12 cm kidneys w/ cortical thinning. No obstruction -- Good response to bolus loop diuretic therapy. Remains nonoliguric -- Electrolyte balance remains acceptable at this time. No acute indication for HD at this time. Will monitor PRP -- Will stop Meperidine due to OSEAS. Normeperidine metabolite can accumulate in the setting of OSEAS and contribute to seizure activity PULMONARY EDEMA: -- Will provide one dose Furosemide 60 mg IV this am and monitor UO, kidney function and recheck CXR in am NEURO: -- Neurology notes reviewed. Suspect anoxic brain injury. Monitoring for signs of improvement 60 minutes critical care time provided today. This was necessary to review the medical record, examine patient, discuss medical care w/ patient's son Orion and discuss OSEAS management w/ ICU team.
--- NOTE | 2017-05-15 13:47 | Critical Care Progress Note ---
Critical Care Progress Note Date of Service May 15, 2017. ICU Day ICU Day Number: [address] White Subjective Seizure activity has ceased Phenobarbital, Versed, propofol, NE DCd Depakote increased to 750 q6h Continues to have bloody secretions with suctioning, concern for aspiration of secretions Decreased urine output Objective General: Elderly male, looks appropriate for his age, intubated, unresponsive Heent: NC/AT, pupils non reactive Lungs: mechanical breath sounds, Jason-hines type breathing on SBT. FIO2 70, PEEP 10 CVS: S1S2 regular; paroxysmal afib Abd: soft and non tender Ext: 2+ pitting edema bilaterally RESIDENTIAL SALES REP: pupils nonreactive, no reaction to deep stimulation Assessment & Plan Problems: Cardiac arrest Respiratory failure Anoxic brain injury Atrial fibrillation Epistaxis Plan: RESIDENTIAL SALES REP: S/p therapeutic hypothermia protocol Off paralytics, Propofol, versed, NE Continuous EEG discontinued Keppra, 2000 mg bid Depacon 750 mg q 6. Check levels qOD with goal between 75-80. Current blood level 65; watch for toxicity as phenobarb DCd. If level >100, lower dose Phenobarbital DCd He likely has significant anoxic brain injury CT Head shows generalized edema MRI brain indicative of very poor prognosis. Per Dr. Lemos, scan alone indicative of little to no chance of meaningful recovery. CVS: Remains in a-fib. Rate controlled with amiodarone. Echo reviewed, severely depressed EF, "stunned" myocardium Mild troponin elevation, not uncommon in this scenario, after CPR. No clear evidence of ischemic Vtach/Vfib. Further workup depending on his clinical evolution Consider anticoagulation if no bloody secretions Repeat echo shows normalized LF systolic function and EF 60% Left radial arterial line placed, on bicarb drip until dialysis started Pulmonary: Vent support titrated after abg: pH 7.033, PCO2 59.7, PO2 67, SO2 82% Repeat cxr: pulmonary vascular congestion, bilateral pleural effusions, airspace opacities. Consider trach tomorrow if platelets >100 Elevate head Lung ultrasound for pleural effusion sent ID: [email or web address] DCd after nasal packing removed. Discussed case with Dr. Larry, ENT; verbal order to remove rhinorocket as >72 hours Blood cultures sent per protocol, negative to date Renal/metabolic: Nephrology consulted Likely component of ATN DC NSS Daily electrolytes Decreased urine output. Creatinine continues to rise, today at 2.43. Renal US: no hydronephrosis, evidence of medical renal disease Urine eosinophils sent CPK sent Daily multivitamin started Given 60 lasix today left radial arterial line placed right femoral venous line placed GI: Tube feeds up to 65 Lactic Acid WNL Protonix switched to carafate Repeat LFTs tomorrow AM Heme: H/H fairly stable at 12, 38.5; low platelets at 80 FDP, Fibrin levels both elevated bilateral LE USS for DVT negative Held 1 unit of platelets DVT prophylaxis: start Lovenox tomorrow if platelets >100 Consent for trach obtained. Remains level I. Resident Physician Supervision Note: Dr. Shultz was resident physician during care of patient. I separately evaluated patient and did history and exam. I discussed the case with the resident and generally agree with the findings and plan. The above resident documentation is customer care representative of the patient to approximately noon. Patient was given a trial of Lasix, he likely has acute kidney injury related to acute tubular necrosis. Patient's condition worsened and we modified his ventilator to attempt to accommodate the metabolic acidosis. Patient continued to decompensate became hypotensive requiring vasoactive medications. I placed a central line, temporary hemodialysis catheter, and arterial line, I also performed a bronchoscopy. And concern the patient is volume overloaded which is affecting his ability to oxygenate as well. Currently he is starting to undergo hemodialysis for volume control as well as improvement of his acidosis. I advised the family that he is appears to be moving into all the systems organ failure. We have sent repeat blood cultures and I will send bronchoalveolar lavage. In concern the patient may move into acute respiratory distress syndrome. Patient is obviously very critically ill. I also updated the patient of the findings on the MRI. Family was all in agreement that the patient would likely desire heroic life prolonging measures if there was any chance. Further male agreed that the patient would be comfortable in a permanent vegetative state if that allowed his family time to mourn and process his devastating injury as well as possible loss. I emphasized that if the patient were to suffer another cardiac arrest think he will be highly unlikely that we will be able to achieve a successful resuscitation and this was certainly make any potential recovery less likely. They all acknowledged understanding, and were appreciative of the care and support that has been provided. I have personally spent 150 minutes of critical care time in the direct management of this patient. This is a life/limb threatening event. This includes time spent evaluating patient, direct bedside care, chart review, placing orders, interpretation of diagnostic studies, discussion with consultants, patient, and family members, as well as other required patient management activities. This time is exclusive of all separately billable procedures, and teaching time and separate from and in addition to any other critical care service time. Documented By: Nathan White DO Consults & Procedures Consultants: cardiology - Dr Kay Neurology- Dr. Lemos Procedures: 05/08/17 - intubated by EMS 05/08/17 - left subclavian TLC 05/08/17 - right axillary a-line 05/12/17 - right axillary a-line removed, rhinorocket removed 05/14/17 - Continuous EEG DCd 05/05/17 - R Femoral venous access for dialysis, left radial arterial line placed Data Medications: Current Inpatient Medications Medications (Trade) Dose Ordered Sig/Te Route Start Time Stop Time Status Last Admin Dose Admin Artificial Tears (Lacri-Lube Oph Oint) 1 appln Q2H PRN OPB 05/08/17 11:15 06/07/17 11:14 05/08/17 22:00 1 APPLN Meperidine HCl (Demerol Inj) 25 mg Q2H PRN IV 05/08/17 11:15 05/22/17 11:14 05/08/17 16:10 25 MG Hydromorphone HCl (Dilaudid Inj) 1 mg Q20M PRN IV 05/08/17 11:15 05/22/17 11:14 Acetaminophen (Tylenol Supp) 650 mg ONE PRN [place] 05/08/17 11:15 Aspirin (Aspirin Chew) 81 mg QD NG 05/08/17 17:00 06/07/17 16:59 05/14/17 17:13 81 MG Heparin Sodium (Porcine) (Heparin 10 Unit/ ml 5 ml Flush) 5 ml PRN PRN FLUSH 05/09/17 01:30 06/08/17 01:29 Glucose (Glucose 40% Gel) 15-30 GRAMS 15 GRAMS... UD PRN PO 05/09/17 05:30 06/08/17 05:29 Glucose (Glucose Chew Tab) 4-8 Tablets 4 Tabl... UD PRN PO 05/09/17 05:30 06/08/17 05:29 Dextrose (Dextrose 50% 50ML Syringe) 25-50ML OF 50% DW IV FOR... UD PRN IV 05/09/17 05:30 06/08/17 05:29 Glucagon (Glucagon Inj) 1 mg UD PRN SQ 05/09/17 05:30 06/08/17 05:29 Sodium Chloride 1,000 ml @ 100 mls/hr Q10H IV 05/09/17 22:00 06/08/17 21:59 05/15/17 00:03 100 MLS/HR Acetaminophen 650 mg/Empty Bag 65 ml @ 260 mls/hr Q6H PRN IV 05/10/17 04:00 06/09/17 03:59 05/12/17 15:32 260 MLS/HR Levetiracetam 2000 mg/Dextrose 270 ml @ 999 mls/hr Q12 IV 05/10/17 21:00 06/07/17 20:59 05/14/17 21:57 999 MLS/HR Amiodarone HCl (Cordarone Tab) 100 mg BID PO 05/11/17 21:00 06/10/17 20:59 05/14/17 21:44 100 MG Oxymetazoline HCl (Afrin 0.05% Nasal [place]) 1 sprays Q12 NA 05/12/17 09:15 06/11/17 09:14 05/14/17 21:43 1 SPRAYS Valproate Sodium 750 mg/Dextrose 57.5 ml @ 55 mls/hr Q6H IV 05/12/17 12:00 06/11/17 11:59 05/15/17 05:32 55 MLS/HR Enteral Nutritional Formula (Peptamen Intense VHP) 1,000 ml UD PRN OG 05/13/17 12:00 06/12/17 11:59 05/13/17 12:15 1,000 ML Sucralfate (Carafate Susp) 1 gm Q6 PO 05/14/17 12:00 06/13/17 11:59 05/15/17 05:32 1 GM Multivitamins Therapeutic (Cerovite Liquid) 15 ml QAM PO 05/14/17 12:00 06/13/17 11:59 05/14/17 12:00 15 ML I & O: 05/14/17 05/15/17 05/16/17 08:00 08:00 08:00 Intake Total 2923 ml 4016 ml Output Total 775 ml 1375 ml Balance 2148 ml 2641 ml Vital Signs: Date Time Temp Pulse Resp B/P (MAP) Pulse Ox O2 Delivery O2 Flow Rate FiO2 05/15/17 06:01 36.9 83 30 125/50 (67) 93 05/15/17 05:31 70 05/15/17 05:01 36.7 83 30 127/49 (67) 92 05/15/17 04:00 Mechanical Ventilator 05/15/17 04:00 36.6 83 29 116/47 (68) 90 05/15/17 04:00 60 05/15/17 03:00 36.5 83 28 116/47 (68) 91 05/15/17 02:40 60 05/15/17 02:00 36.5 83 25 116/48 (68) 91 05/15/17 01:01 36.8 83 22 122/54 (89) 91 05/15/17 00:05 60 05/15/17 00:01 37.0 86 22 131/50 (86) 91 05/15/17 00:00 60 05/15/17 00:00 Mechanical Ventilator 05/14/17 23:01 36.9 85 23 145/58 (83) 92 05/14/17 22:01 36.9 84 21 140/57 (82) 93 05/14/17 21:10 37.0 83 24 139/54 (84) 90 05/14/17 21:05 60 05/14/17 21:05 Mechanical Ventilator 05/14/17 20:55 60 05/14/17 18:36 60 05/14/17 18:00 76 23 153/68 (96) 97 Mechanical Ventilator 60 05/14/17 17:00 37.1 76 23 136/60 (85) 97 Mechanical Ventilator 60 05/14/17 16:00 97 Mechanical Ventilator 60 05/14/17 16:00 37.1 74 23 139/67 (91) 97 Mechanical Ventilator 60 05/14/17 16:00 60 18 15:09 74 23 147/67 (93) 97 Mechanical Ventilator 60 05/14/17 14:20 60 05/14/17 14:01 37.1 79 23 150/75 (105) 90 05/14/17 14:00 37.1 80 24 90 05/14/17 13:33 37.2 79 20 154/74 (104) 94 05/14/17 13:00 37.3 81 20 145/66 (99) 91 05/14/17 12:00 37.4 78 20 135/63 (90) 92 05/14/17 11:45 Mechanical Ventilator 30 05/14/17 11:45 30 05/14/17 11:22 30 05/14/17 11:16 0 128/62 (91) 05/14/17 11:00 0 05/14/17 10:00 37.4 72 27 128/58 (81) 96 05/14/17 09:24 37.5 74 22 130/61 (84) 95 Mechanical Ventilator 05/14/17 09:00 37.5 75 21 130/61 (83) 93 05/14/17 08:00 37.4 73 20 130/62 (83) 96 05/14/17 08:00 Mechanical Ventilator 30 05/14/17 07:59 37.4 73 20 130/62 (90) 98 05/14/17 07:30 30 05/14/17 07:30 Mechanical Ventilator 30 05/14/17 07:11 30 05/14/17 07:00 37.2 71 20 121/59 (78) 93 Laboratory Results: Last 24 Hours Test 05/14/17 09:09 05/14/17 11:20 05/14/17 11:31 05/14/17 17:20 Total Bilirubin 2.9 mg/dl Direct Bilirubin 2.5 mg/dl Aspartate Amino Transf (AST/SGOT) 36 U/L Alanine Aminotransferase (ALT/SGPT) 29 U/L Alkaline Phosphatase 113 U/L Total Protein 5.1 gm/dl Albumin 1.8 gm/dl Absolute Reticulocyte Count 0.04 10^6/uL Percent Reticulocyte Count 1.2 % Prothrombin Time 11.1 SECONDS Prothromb Time International Ratio 1.1 Activated Partial Thromboplast Time 33.4 SECONDS Partial Thromboplastin Ratio 1.3 Fibrinogen 721 mg/dl Fibrin Degradation Products 10-40 mcg/ml Total Creatine Kinase 26 U/L Lipase 102 U/L Bedside Glucose 101 mg/dl 105 mg/dl Test 05/15/17 05:39 Venous Blood pH 7.06 Venous Blood Partial Pressure CO2 67 mmHg Venous Blood Partial Pressure O2 62 mmHg Venous Blood HCO3 19 mmol/L Venous Blood Oxygen Saturation 83.9 % Venous Blood Base Excess -12.4 mEq/L Sodium Level 135 mmol/L Potassium Level 4.6 mmol/L Chloride Level 105 mmol/L Carbon Dioxide Level 19 mmol/L Anion Gap 11.0 mmol/L Blood Urea Nitrogen 68 mg/dl Creatinine 2.43 mg/dl Est Creatinine Clear Calc Drug Dose 34.6 ml/min Estimated GFR () 29.7 Estimated GFR (Non- 25.6 BUN/Creatinine Ratio 27.8 Random Glucose 82 mg/dl Calcium Level 8.1 mg/dl Phosphorus Level 4.8 mg/dl Magnesium Level 2.7 mg/dl Resident Tracking Resident Involvement: Resident Care Provided Care Provided: Adult [facility] Medicine
[2017-05-15] MEDS ORDERED: NOREPINEPHRINE BITARTRATE 1 MG/ML 4 ML VIAL IV ONE (15:03)
[2017-05-15] MEDS ORDERED: SODIUM BICARB 8.4% INJ 50 MEQ/50 ML SYR IV ONE (15:07)
[2017-05-15] MEDS ORDERED: CEFEPIME IV 2,000 MG in SYRINGE 7.5 ML IV ONE (15:15)
[2017-05-15] MEDS ORDERED: NOREPINEPHRINE BIT INJ 8 MG in DEXTROSE 5% 500ML 500 ML IV PRN (15:15)
--- NOTE | 2017-05-15 15:16 | Palliative Care Progress Note ---
Palliative Care Progress Note Date of Service May 15, 2017. Subjective Chart reviewed, patient discussed daily at morning ICU rounds. EEG was initially showing the sharp spikes of seizure activity for first few days, then showed generalized suppression. It has since been discontinued and the ICU team was able to wean patient off his anti-seizure medications. MRI was obtained which is consistent with anoxic brain injury. Neurology following who states that patient has limited brain stem function and very little hope of any sort of meaningful recovery. Patient's family wishes to continue with full aggressive treatment despite the poor prognosis. I will follow peripherally for now but please don't hesitate to contact me with any further palliative care needs or to get re-involved if needed.
[2017-05-15] MEDS ORDERED: VANCOMYCIN INJ 2,750 MG in SODIUM CHLORIDE 0.9% 500ML 500 ML IV ONE (15:30)
--- NOTE | 2017-05-15 15:51 | Progress Note ---
Subjective Date of Service: May 15, 2017. Subjective Familly was not at bedside Patient continues to be unresponsive. Problem List Medical Problems: (1) Acidosis, metabolic, with respiratory acidosis Status: Acute Medications Current Inpatient Medications Medications (Trade) Dose Ordered Sig/Te Route Start Time Stop Time Status Last Admin Dose Admin Artificial Tears (Lacri-Lube Oph Oint) 1 appln Q2H PRN OPB 05/08/17 11:15 06/07/17 11:14 05/08/17 22:00 1 APPLN Hydromorphone HCl (Dilaudid Inj) 1 mg Q20M PRN IV 05/08/17 11:15 05/22/17 11:14 Acetaminophen (Tylenol Supp) 650 mg ONE PRN [place] 05/08/17 11:15 Aspirin (Aspirin Chew) 81 mg QD NG 05/08/17 17:00 06/07/17 16:59 Future hold 05/14/17 17:13 81 MG Heparin Sodium (Porcine) (Heparin 10 Unit/ ml 5 ml Flush) 5 ml PRN PRN FLUSH 05/09/17 01:30 06/08/17 01:29 Glucose (Glucose 40% Gel) 15-30 GRAMS 15 GRAMS... UD PRN PO 05/09/17 05:30 06/08/17 05:29 Glucose (Glucose Chew Tab) 4-8 Tablets 4 Tabl... UD PRN PO 05/09/17 05:30 06/08/17 05:29 Dextrose (Dextrose 50% 50ML Syringe) 25-50ML OF 50% DW IV FOR... UD PRN IV 05/09/17 05:30 06/08/17 05:29 Glucagon (Glucagon Inj) 1 mg UD PRN SQ 05/09/17 05:30 06/08/17 05:29 Acetaminophen 650 mg/Empty Bag 65 ml @ 260 mls/hr Q6H PRN IV 05/10/17 04:00 06/09/17 03:59 05/15/17 17:39 260 MLS/HR Levetiracetam 2000 mg/Dextrose 270 ml @ 999 mls/hr Q12 IV 05/10/17 21:00 06/07/17 20:59 05/15/17 21:20 999 MLS/HR Amiodarone HCl (Cordarone Tab) 100 mg BID PO 05/11/17 21:00 06/10/17 20:59 05/15/17 08:06 100 MG Oxymetazoline HCl (Afrin 0.05% Nasal [place]) 1 sprays Q12 NA 05/12/17 09:15 06/11/17 09:14 05/15/17 21:20 1 SPRAYS Valproate Sodium 750 mg/Dextrose 57.5 ml @ 55 mls/hr Q6H IV 05/12/17 12:00 06/11/17 11:59 05/15/17 18:18 55 MLS/HR Enteral Nutritional Formula (Peptamen Intense VHP) 1,000 ml UD PRN OG 05/13/17 12:00 06/12/17 11:59 05/13/17 12:15 1,000 ML Sucralfate (Carafate Susp) 1 gm Q6 PO 05/14/17 12:00 06/13/17 11:59 05/15/17 18:13 1 GM Multivitamins Therapeutic (Cerovite Liquid) 15 ml QAM PO 05/14/17 12:00 06/13/17 11:59 05/15/17 08:06 15 ML Norepinephrine Bitartrate 8 mg/ Dextrose 508 ml @ 0 mls/hr Q0M PRN IV 05/15/17 15:15 06/14/17 15:14 05/15/17 17:43 127 MLS/HR Albumin Human (Albumin 25%) 25 gm 1800,2000 IV 05/15/17 18:00 05/15/17 23:59 05/15/17 20:27 25 GM Miscellaneous Information (Consult) 1 ea UD PRN N/A 05/15/17 17:15 06/14/17 17:14 Vancomycin HCl 1750 mg/Sodium Chloride 535 ml @ 200 mls/hr Q24H IV 05/16/17 14:00 05/17/17 13:59 Cefepime HCl 1000 mg/Syringe 11 ml @ 5.5 mls/min Q12H IV 05/16/17 04:00 05/22/17 15:59 Objective Vital Signs Date Time Temp Pulse Resp B/P (MAP) Pulse Ox O2 Delivery O2 Flow Rate FiO2 05/15/17 14:18 100 05/15/17 14:15 38.2 74 27 94 05/15/17 14:14 38.2 75 27 89/38 (55) 90 Mechanical Ventilator 100 05/15/17 14:01 38.1 77 28 88/41 (57) 88 18 14:00 38.1 78 29 88 18 13:45 38.1 83 29 89 05/15/18 13:30 38.0 83 28 89 Mechanical Ventilator 80 18 13:15 38.0 84 28 89 18 13:01 37.9 84 28 92/42 (59) 89 Mechanical Ventilator 70 18 13:00 37.9 84 29 89 18 12:45 37.9 84 28 89 18 12:30 37.8 85 29 90 05/15/17 12:15 37.8 85 28 90 05/15/17 12:00 37.8 86 28 105/45 (65) 91 05/15/17 12:00 70 05/15/17 12:00 Mechanical Ventilator 05/15/17 11:45 37.7 86 28 91 05/15/17 10:59 70 05/15/17 10:55 70 05/15/17 09:30 37.2 83 26 92 05/15/17 09:15 37.2 83 28 91 05/15/17 09:00 37.2 83 27 125/48 (73) 92 Mechanical Ventilator 70 05/15/17 08:45 37.1 83 27 92 18 08:30 37.1 83 28 93 05/15/17 08:15 37.1 83 27 93 05/15/17 08:01 37.1 83 25 126/50 (75) 94 Mechanical Ventilator 70 05/15/17 08:00 Mechanical Ventilator 30 18 08:00 Mechanical Ventilator 05/15/17 08:00 60 05/15/17 08:00 37.0 83 25 93 18 07:45 37.0 82 27 94 18 07:30 37.0 82 26 94 18 07:23 70 18 07:15 37.0 82 26 94 18 07:01 37.0 81 27 130/49 (76) 88 Mechanical Ventilator 70 05/15/17 07:00 37.0 82 27 88 05/15/17 06:01 36.9 83 30 125/50 (67) 93 05/15/17 05:31 70 05/15/17 05:01 36.7 83 30 127/49 (67) 92 05/15/17 04:00 Mechanical Ventilator 05/15/17 04:00 36.6 83 29 116/47 (68) 90 05/15/17 04:00 60 05/15/17 03:00 36.5 83 28 116/47 (68) 91 05/15/17 02:40 60 05/15/17 02:00 36.5 83 25 116/48 (68) 91 05/15/17 01:01 36.8 83 22 122/54 (89) 91 05/15/17 00:05 60 05/15/17 00:01 37.0 86 22 131/50 (86) 91 05/15/17 00:00 60 05/15/17 00:00 Mechanical Ventilator 05/14/17 23:01 36.9 85 23 145/58 (83) 92 05/14/17 22:01 36.9 84 21 140/57 (82) 93 05/14/17 21:10 37.0 83 24 139/54 (84) 90 05/14/17 21:05 60 05/14/17 21:05 Mechanical Ventilator 05/14/17 20:55 60 05/14/17 18:36 60 05/14/17 18:00 76 23 153/68 (96) 97 Mechanical Ventilator 60 05/14/17 17:00 37.1 76 23 136/60 (85) 97 Mechanical Ventilator 60 05/14/17 16:00 97 Mechanical Ventilator 60 05/14/17 16:00 37.1 74 23 139/67 (91) 97 Mechanical Ventilator 60 05/14/17 16:00 60 Physical Exam Comments: neral: Elderly male, looks appropriate for his age, intubated, unresponsive Heent: NC/AT, pupils non reactive, lympatic: no adenopathy Lungs: mechanical breath sounds CVS: S1S2 irregular Abd: soft and non tender Ext: Trace pitting edema bilaterally 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: pupils nonreactive, no reaction to deep stimulation Laboratory Results Last 24 Hours Test 05/14/17 17:20 05/15/17 05:39 05/15/17 10:57 Bedside Glucose 105 mg/dl White Blood Count 8.17 K/uL Red Blood Count 3.99 M/uL Hemoglobin 12.7 g/dL Hematocrit 38.5 % Mean Corpuscular Volume 96.5 fL Mean Corpuscular Hemoglobin 31.8 pg Mean Corpuscular Hemoglobin Concent 33.0 g/dl RDW Standard Deviation 54.5 fL RDW Coefficient of Variation 15.4 % Platelet Count 87 K/uL Mean Platelet Volume 12.2 fL Nucleated RBC Absolute Count (auto) 0.06 K/uL Nucleated Red Blood Cells % 0.8 % Venous Blood pH 7.06 Venous Blood Partial Pressure CO2 67 mmHg Venous Blood Partial Pressure O2 62 mmHg Venous Blood HCO3 19 mmol/L Venous Blood Oxygen Saturation 83.9 % Venous Blood Base Excess -12.4 mEq/L Sodium Level 135 mmol/L Potassium Level 4.6 mmol/L Chloride Level 105 mmol/L Carbon Dioxide Level 19 mmol/L Anion Gap 11.0 mmol/L Blood Urea Nitrogen 68 mg/dl Creatinine 2.43 mg/dl Est Creatinine Clear Calc Drug Dose 34.6 ml/min Estimated GFR () 29.7 Estimated GFR (Non- 25.6 BUN/Creatinine Ratio 27.8 Random Glucose 82 mg/dl Calcium Level 8.1 mg/dl Phosphorus Level 4.8 mg/dl Magnesium Level 2.7 mg/dl Blood Gas Sample Site R Radial Bedside Blood Gas pH (LAB) 7.03 Bedside Blood Gas pCO2 (LAB) 61 mmHg Bedside Blood Gas pO2 (LAB) 69 mmHg Bedside Blood Gas HCO3 (LAB) 16 meq/L Bedside Blood Gas Total CO2 18 mEq/l Bedside Blood Gas Base Excess (LAB) -15.0 meq/L Bedside Blood Gas O2 Saturation 82.0 % Tani Test Pass Oxygen Delivery Device Ventilator Bedside Oxygen Rate (breaths/min) 20 Bedside FiO2 70 % Blood Gas Tidal Volume 500 Blood Gas PEEP 10 Assessment and Plan 72 y/o M who was admitted to the ICU on 05/08 after being found unresponsive at home. Pt was a code blue -> code arctic in the ED Comatose in setting of severe anoxic brain injury EEG appears to show no activity. Appears to have flat lined MRI shows evidence of anoxic brain injury. CT head showed cerebral edema ICU team is slowly tapering his sedation. Keppra, 2000 mg bid Depacon 750 mg q 6. Check levels qam with goal between 75-80. Current blood level 65; watch for toxicity as phenobarb DCd. If level >100, lower dose Phenobarbital DCd poor prognosis per neurology, patients family was updated Unresponsive episode: uncertain etiology ROSC in the ED after several defibrillations, Epinephrine, Lidocaine unsure of the arrhythmia that he experienced as there were no rhythm strips, just AED that fired QT was prolonged on initial EKG, suggesting possible torsades initially cod arctic, now rewarmed CT head, CTAP all neg for acute CTA neg for PE, noted for pulm edema and ? PNA UA and blood cx pending. 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
--- NOTE | 2017-05-15 16:25 | Nephrology Progress Note ---
Nephrology Progress Note Date of Service May 15, 2017. Chief Complaint OSEAS, volume overload Subjective Patient was reassessed in ICU this afternoon. He has had little to no urine output in response to IV Furosemide this morning. He remains mechanically ventilated. FiO2 requirement is now up to 80%. Case reviewed w/ ICU team. ABG reveals progressive CO2 retention and acidemia. Review of Systems ROS unattainable due to mechanical ventilation Vital Signs Last 8 Hrs Date Time Temp Pulse Resp B/P (MAP) Pulse Ox O2 Delivery O2 Flow Rate FiO2 05/15/17 14:18 100 05/15/17 14:15 38.2 74 27 94 05/15/17 14:14 38.2 75 27 89/38 (55) 90 Mechanical Ventilator 100 05/15/17 14:01 38.1 77 28 88/41 (57) 88 05/15/17 14:00 38.1 78 29 88 05/15/17 13:45 38.1 83 29 89 05/15/17 13:30 38.0 83 28 89 Mechanical Ventilator 80 05/15/17 13:15 38.0 84 28 89 05/15/17 13:01 37.9 84 28 92/42 (59) 89 Mechanical Ventilator 70 05/15/17 13:00 37.9 84 29 89 05/15/17 12:45 37.9 84 28 89 05/15/17 12:30 37.8 85 29 90 05/15/17 12:15 37.8 85 28 90 05/15/17 12:00 37.8 86 28 105/45 (65) 91 05/15/17 12:00 70 05/15/17 12:00 Mechanical Ventilator 05/15/17 11:45 37.7 86 28 91 05/15/17 10:59 70 05/15/17 10:55 70 05/15/17 09:30 37.2 83 26 92 05/15/17 09:15 37.2 83 28 91 05/15/17 09:00 37.2 83 27 125/48 (73) 92 Mechanical Ventilator 70 05/15/17 08:45 37.1 83 27 92 05/15/17 08:30 37.1 83 28 93 05/15/17 08:15 37.1 83 27 93 I & O 24-Hour Column 05/16/17 08:00 Intake Total 1124 ml Output Total 10 ml Balance 1114 ml Last Recorded Weight Weight (Kilograms): 112.900 Physical Exam General Appearance: + pertinent finding (mechanically ventilated) Head: normocephalic, atraumatic Respiratory/Chest: + crackles (bilaterally) Cardiovascular: regular rate, rhythm Abdomen/GI: soft (no bowl sounds) Genitourinary - Male: + pertinent finding (toussaint catheter in place w/ small volume of dark yellow urine) Extremities/Musculoskelatal: + pertinent finding (2 - 3+ dependent pitting edema) Neurologic/Psych: + pertinent finding (unresponsive) Family History Patient reports no known family medical history. 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 He is a former smoker Laboratory Results Past 24 Hours 05/15/17 05:39 05/15/17 05:39 Test 05/14/17 17:20 05/15/17 05:39 05/15/17 10:57 Bedside Glucose 105 mg/dl (70-99) Red Blood Count 3.99 M/uL (4.7-6.1) Mean Corpuscular Volume 96.5 fL (80-100) Mean Corpuscular Hemoglobin 31.8 pg (25-34) Mean Corpuscular Hemoglobin Concent 33.0 g/dl (32-36) RDW Standard Deviation 54.5 fL (36.4-46.3) RDW Coefficient of Variation 15.4 % (11.5-14.5) Mean Platelet Volume 12.2 fL (7.4-10.4) Nucleated RBC Absolute Count (auto) 0.06 K/uL (0-0) Nucleated Red Blood Cells % 0.8 % Venous Blood pH 7.06 (7.36-7.41) Venous Blood Partial Pressure CO2 67 mmHg (38.0-50.0) Venous Blood Partial Pressure O2 62 mmHg Venous Blood HCO3 19 mmol/L Venous Blood Oxygen Saturation 83.9 % Venous Blood Base Excess -12.4 mEq/L Anion Gap 11.0 mmol/L (3-11) Est Creatinine Clear Calc Drug Dose 34.6 ml/min Estimated GFR () 29.7 Estimated GFR (Non- 25.6 BUN/Creatinine Ratio 27.8 (10-20) Calcium Level 8.1 mg/dl (8.5-10.1) Phosphorus Level 4.8 mg/dl (2.5-4.9) Magnesium Level 2.7 mg/dl (1.8-2.4) Blood Gas Sample Site R Radial Bedside Blood Gas pH (LAB) 7.03 (7.35-7.45) Bedside Blood Gas pCO2 (LAB) 61 mmHg (35-46) Bedside Blood Gas pO2 (LAB) 69 mmHg (80-95) Bedside Blood Gas HCO3 (LAB) 16 meq/L (19-24) Bedside Blood Gas Total CO2 18 mEq/l (24-31) Bedside Blood Gas Base Excess (LAB) -15.0 meq/L (-9-1.8) Bedside Blood Gas O2 Saturation 82.0 % (90-95) Tani Test Pass Oxygen Delivery Device Ventilator Bedside Oxygen Rate (breaths/min) 20 Bedside FiO2 70 % Blood Gas Tidal Volume 500 Blood Gas PEEP 10 Allergies Coded Allergies: No Known Allergies (Verified , 05/08/17) Medications Current Inpatient Medications Medications (Trade) Dose Ordered Sig/Te Route Start Time Stop Time Status Last Admin Dose Admin Artificial Tears (Lacri-Lube Oph Oint) 1 appln Q2H PRN OPB 05/08/17 11:15 06/07/17 11:14 05/08/17 22:00 1 APPLN Hydromorphone HCl (Dilaudid Inj) 1 mg Q20M PRN IV 05/08/17 11:15 05/22/17 11:14 Acetaminophen (Tylenol Supp) 650 mg ONE PRN [place] 05/08/17 11:15 Aspirin (Aspirin Chew) 81 mg QD NG 05/08/17 17:00 06/07/17 16:59 Future hold 05/14/17 17:13 81 MG Heparin Sodium (Porcine) (Heparin 10 Unit/ ml 5 ml Flush) 5 ml PRN PRN FLUSH 05/09/17 01:30 06/08/17 01:29 Glucose (Glucose 40% Gel) 15-30 GRAMS 15 GRAMS... UD PRN PO 05/09/17 05:30 06/08/17 05:29 Glucose (Glucose Chew Tab) 4-8 Tablets 4 Tabl... UD PRN PO 05/09/17 05:30 06/08/17 05:29 Dextrose (Dextrose 50% 50ML Syringe) 25-50ML OF 50% DW IV FOR... UD PRN IV 05/09/17 05:30 06/08/17 05:29 Glucagon (Glucagon Inj) 1 mg UD PRN SQ 05/09/17 05:30 06/08/17 05:29 Acetaminophen 650 mg/Empty Bag 65 ml @ 260 mls/hr Q6H PRN IV 05/10/17 04:00 06/09/17 03:59 05/12/17 15:32 260 MLS/HR Levetiracetam 2000 mg/Dextrose 270 ml @ 999 mls/hr Q12 IV 05/10/17 21:00 06/07/17 20:59 05/15/17 08:04 999 MLS/HR Amiodarone HCl (Cordarone Tab) 100 mg BID PO 05/11/17 21:00 06/10/17 20:59 05/15/17 08:06 100 MG Oxymetazoline HCl (Afrin 0.05% Nasal [place]) 1 sprays Q12 NA 05/12/17 09:15 06/11/17 09:14 05/15/17 08:04 1 SPRAYS Valproate Sodium 750 mg/Dextrose 57.5 ml @ 55 mls/hr Q6H IV 05/12/17 12:00 06/11/17 11:59 05/15/17 11:42 55 MLS/HR Enteral Nutritional Formula (Peptamen Intense VHP) 1,000 ml UD PRN OG 05/13/17 12:00 06/12/17 11:59 05/13/17 12:15 1,000 ML Sucralfate (Carafate Susp) 1 gm Q6 PO 05/14/17 12:00 06/13/17 11:59 05/15/17 11:43 1 GM Multivitamins Therapeutic (Cerovite Liquid) 15 ml QAM PO 05/14/17 12:00 06/13/17 11:59 05/15/17 08:06 15 ML Norepinephrine Bitartrate 8 mg/ Dextrose 508 ml @ 0 mls/hr Q0M PRN IV 05/15/17 15:15 06/14/17 15:14 Vancomycin HCl 2750 mg/Sodium Chloride 555 ml @ 200 mls/hr 1530 ONCE IV 05/15/17 15:30 05/15/17 18:16 Impression (1) Acute kidney injury (2) Metabolic acidosis (3) Volume overload (4) Unresponsive (5) Cardiopulmonary arrest with successful resuscitation (6) Anoxic seizures Recommendations Patient reassessed this afternoon. He has had little to no response to bolus IV furosemide therapy. Oxygen requirements have increased and patient has developed worsening respiratory acidosis. Hemodialysis may allow for ultrafiltration to improve ventilatory status and systemic pH. Discussed with ICU team and patient's family. Mr. Portillo's family understands that his condition is tenuous and he may not tolerate dialysis. Indications/benefits/ risks and alternatives to dialysis were discussed in detail. Mr. Portillo's family wishes a trial of dialysis to see if they can stabilize his medical condition. They understand that his prognosis is poor and he likely sustained significant neurologic injury. They understand that if Mr. Portillo becomes unstable during HD the treatment will be terminated and conservative medical care resumed. Dr. White will place temporary dialysis catheter. Orders placed in EMR for 3 hours HD today with 25 g IV albumin at start of dialysis and at mid treatment. Will attempt 3 L UF. HD RN notified. 45 min critical care time provided. This was necessary to discuss dialysis w/ the family and coordinate care w/ ICU team
--- NOTE | 2017-05-15 16:35 | DIAGNOSTIC IMAGING REPORT ---
SINGLE VIEW CHEST CLINICAL HISTORY: Central venous catheter placement. FINDINGS: An AP, portable, upright chest radiograph is compared to study dated 05/15/2017. The examination is degraded by portable technique and patient rotation. An endotracheal tube and an enteric tube are unchanged in position. A right subclavian central venous catheters been placed. The tip projects over the SVC. The heart is enlarged and there is atherosclerotic calcification of the thoracic aorta. There is pulmonary vascular congestion with evidence of interstitial edema. Airspace opacities are asymmetrically greater on the left. There are small pleural effusions. No pneumothorax is seen. The skeletal structures are osteopenic. The bony thorax is grossly intact. IMPRESSION: 1. A right subclavian central venous catheter has been placed as above. No pneumothorax is seen post procedure. 2. The remaining lines and tubes are stable. 3. Cardiomegaly with evidence of congestive failure and interstitial edema. 4. Airspace opacities are asymmetrically greater on the left. Correlate clinically for evidence of superimposed pneumonia. 5. Small pleural effusions. Electronically signed by: Alfonso Daniels M.D. 05/15/2017 4:34 PM Dictated Date/Time: 05/15/2017 4:27 PM
[2017-05-15] MEDS ORDERED: VANCOMYCIN CONSULT ACTIVE PRN ×2 (17:15)
[2017-05-15] MEDS: ACETAMINOPHEN IV 650 MG in EMPTY BAG 0 ML IV PRN (17:39)
--- NOTE | 2017-05-15 17:44 | Pharmacy Progress Note ---
Pharmacy Abx Dose Short Note Date of Service May 15, 2017. Assessment & Plan Assessment 72 year old male admitted to the ICU after being found unresponsive, comatose in setting of severe anoxic brain injury Empiric vancomycin and cefepime ordered. Plan Vancomycin * Loading dose: 2750 mg * Maintenance dose: 1750 mg IV every 24 hours * Goal trough level for r/o sepsis : 15 to 20 mcg/mL * Trough level not ordered at this time - will wait for am labs to determine if renal function is worsening Pharmacy will continue to follow and will adjust dose/frequency as necessary. Thank you.
[2017-05-15] MEDS: ALBUMIN HUMAN 25% 12.5 GM/50 ML VIAL IV SCH ×2 (18:13→20:27)
--- NOTE | 2017-05-15 19:31 | Procedure Note ---
Procedure Note Date of Service May 15, 2017. Procedure Note Procedure date: 05/15/2017 Procedure: fiberoptic bronchoscopy Pre-procedure Diagnosis: Hypoxia, new infiltrate Post-procedure Diagnosis: same as above Prior to Procedure: Informed Consent: The risks, benefits, indications, potential complications, and alternatives were explained to the patient/family and informed consent obtained. Attending Staff: Frederick White DO Resident/APC: NA Skin Prep: Not applicable Anesthesia: None Indications: Patient is a 72-year-old male with worsening acidosis, new infiltrate on the left and hypoxia. The identity of the patient was confirmed and a bedside time out was performed. Description of Procedure: Fiberoptic bronchoscopy was performed via endotracheal tube. Bronchioalveolar lavage of the left lower lobe was performed. Findings included: Thin secretions dark brown in color. Complications: None Specimens: Bronchial washings sent for culture and Gram stain, cytology, and culture. Estimated blood loss: Zero
--- NOTE | 2017-05-15 19:33 | Procedure Note ---
Procedure Note Procedure Date May 15, 2017. Procedure Description Procedure Name: Left radial arterial line Procedure time out: side/site verified, patient ID confirmed, correct procedure Consent obtained: written Time of procedure: 16:00 Performed by: attending Indications: diagnostic Contraindications: other (thrombocytopenia) Description: The patient's left wrist was prepped with ChloraPrep prepped and draped in sterile fashion. 1% lidocaine was used to anesthetize the area utilizing dynamic ultrasound guidance a 20-gauge aero arterial catheter was inserted into the left radial artery by a modified Seldinger technique. The arterial line was then secured with a commercial securement device. Patient tolerated the procedure well with minimal blood loss. Complications: none Patient tolerated procedure: well Post-procedure vital signs: reviewed and stable Central Line Procedure time out: side/site verified, patient ID confirmed, sterile procedure used Consent obtained: written Time of procedure: 15:00 Performed by: attending Indications: central drug admin. Contraindications: other Prep: chlorhexadine prep, sterile drape, sterile procedures used Anesthesia: lidocaine 1% without epi Volume anesthetic (ml's): 2 Central line lumen: triple Central line location: subclavian (R) Additional details: Selinger technique used, line sutured, good blood return CXR: appropriate position, no pneumothorax Complications: none Patient tolerated procedure: well Post-procedure vital signs: reviewed and stable
--- NOTE | 2017-05-15 19:35 | Procedure Note ---
Procedure Note Procedure Date May 15, 2017. Central Line Procedure time out: side/site verified, patient ID confirmed, sterile procedure used Consent obtained: written Time of procedure: 16:30 Performed by: attending Indications: other (temporary hemodialysis access) Contraindications: other (thrombocytopenia) Prep: chlorhexadine prep, sterile drape, sterile procedures used Anesthesia: lidocaine 1% without epi Volume anesthetic (ml's): 3 Central line lumen: double Central line location: femoral (R) Additional details: ultrasound guidance, Selinger technique used, line sutured , good blood return CXR: other (Not applicable ) Complications: none Patient tolerated procedure: well Post-procedure vital signs: reviewed and stable
[2017-05-15 23:27] LABS: ALBUMIN 2.2 gm/dl (3.4-5.0); TOTAL PROTEIN 5.5 gm/dl (6.4-8.2)
[2017-05-16] VITALS (64 sets, daily range): BP systolic 15–181; BP diastolic 13–54; PULSE 0–109; TEMP 38–39.1; O2SAT 89–100
[2017-05-16] MEDS: SUCRALFATE 1 GM/10 ML UDC PO SCH ×2 (00:25→06:00)
[2017-05-16] MEDS: VALPROATE SOD IV 750 MG in DEXTROSE 5% 50ML 50 ML IV SCH ×2 (00:25→06:00)
[2017-05-16 02:39] LABS: CALCIUM 7.6 mg/dl (8.5-10.1); CREATININE 2.98 mg/dl (0.60-1.40); POTASSIUM 5.2 mmol/L (3.5-5.1)
[2017-05-16] MEDS ORDERED: IBUPROFEN 200 MG/10 ML UDC NG STA (03:51)
[2017-05-16] MEDS ORDERED: CEFEPIME IV 1,000 MG in SYRINGE 0 ML IV SCH (04:00)
[2017-05-16 04:29] LABS: INR 1.3 (0.9-1.1); PTT PATIENT 42.3 SECONDS (21.0-31.0)
[2017-05-16] MEDS ORDERED: NOREPINEPHRINE BIT INJ 16 MG in DEXTROSE 5% 500ML 500 ML IV PRN (04:45)
--- NOTE | 2017-05-16 05:10 | Critical Care Progress Note ---
Critical Care Progress Note Date of Service May 16, 2017. ICU Day ICU Day Number: [address] White Subjective Seizure activity has ceased Phenobarbital, Versed, propofol DC Patient requiring NE to maintain arterial pressure Depakote increased to 750 q6h ABG remains acidotic with elevated lactic acid of 5.0 Continues to have bloody secretions with suctioning. Profuse scrotal bleeding Decreased urine output Objective General: Elderly male, looks appropriate for his age, intubated, unresponsive Heent: NC/AT, pupils non reactive Lungs: mechanical breath sounds, Jason-hines type breathing on SBT. 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 Check levels qOD with goal between 75-80. Current blood level 65; watch for toxicity as phenobarb DCd. If level >100, lower dose Phenobarbital DCd He likely has significant anoxic brain injury CT Head shows generalized edema MRI brain indicative of very poor prognosis. Per Dr. Lemos, scan alone indicative of little to no chance of meaningful recovery. Restarted bicarb this AM that had yet to be dispensed prior to dialysis yesterday CVS: Remains in paroxysmal a-fib. Rate controlled with amiodarone. Left radial arterial line placed, on bicarb drip until dialysis started Mild troponin elevation, not uncommon in this scenario, after CPR. No clear evidence of ischemic Vtach/Vfib. Further workup depending on his clinical evolution Consider anticoagulation if no bloody secretions Repeat echo shows normalized LF systolic function and EF 60% Patient requiring constant pressor support to maintain arterial pressure. Pulmonary: Vent support titrated after abg: pH 7.212, PCO2 58, PO2 66, SO2 89% Repeat cxr: pulmonary vascular congestion, bilateral pleural effusions, airspace opacities. Consider trach tomorrow if platelets >100 Elevate head Lung ultrasound for pleural effusion sent Bronchoscopy performed yesterday. No significant improvement to opacities ID: Unasyn DCd after nasal packing removed. Blood cultures positive for gram negative bacilli: started on vanc and cefepime. Temp increased to 38.8 Renal/metabolic: Nephrology consulted Likely component of ATN DC NSS Daily electrolytes Decreased urine output. Creatinine continues to rise, today at 2.43. Renal US: no hydronephrosis, evidence of medical renal disease Urine eosinophils sent CPK sent Daily multivitamin started left radial arterial line placed right femoral venous line placed Dialyzed today, and despite dialysis his CMP has worsened: K up to 5.2, Cr increased to 2.98 GI: Tube feeds up to 65 Lactic Acid increased to 5.1 Protonix switched to carafate Repeat LFTs nearly tripled in 24 hours Heme: H/H fairly stable at 12, 38.5; low platelets at 87 FDP, Fibrin levels both elevated bilateral LE USS for DVT negative Held 1 unit of platelets Profuse bleeding from scrotum. *ADDENDUM* While on vasopressin and NE, patient continued to decompensate early this morning. This was a non-survivable situation and condition and the family was made aware that no further interventions would improve his condition. Patient decompensated into asystole and peacefully with family at bedside at 0852 Resident Physician Supervision Note: Dr. Shultz was resident physician during care of patient. I separately evaluated patient and did history and exam. I discussed the case with the resident and generally agree with the findings and plan. Despite heroic efforts including dialysis, the patient continued to decompensate requiring maximum ventilator and vasopressor support. I advised the family this had entered a terminal non-recoverable state. The patient enter asystole and at 0852. I have personally spent 35 minutes of critical care time in the direct management of this patient. This is a life/limb threatening event. This includes time spent evaluating patient, direct bedside care, chart review, placing orders, interpretation of diagnostic studies, discussion with consultants, patient, and family members, as well as other required patient management activities. This time is exclusive of all separately billable procedures, and teaching time and separate from and in addition to any other critical care service time. Documented By: Nathan White DO Consults & Procedures Consultants: cardiology - Dr Kay Neurology- Dr. Lemos Procedures: 05/08/17 - intubated by EMS 05/08/17 - left subclavian TLC 05/08/17 - right axillary a-line 05/12/17 - right axillary a-line removed, rhinorocket removed 05/14/17 - Continuous EEG DCd 05/15/17 - R Femoral venous access for dialysis, left radial arterial line placed, bronchoscopy Data Medications: Current Inpatient Medications Medications (Trade) Dose Ordered Sig/Te Route Start Time Stop Time Status Last Admin Dose Admin Artificial Tears (Lacri-Lube Oph Oint) 1 appln Q2H PRN OPB 05/08/17 11:15 06/07/17 11:14 05/08/17 22:00 1 APPLN Hydromorphone HCl (Dilaudid Inj) 1 mg Q20M PRN IV 05/08/17 11:15 05/22/17 11:14 Acetaminophen (Tylenol Supp) 650 mg ONE PRN AR 05/08/17 11:15 Aspirin (Aspirin Chew) 81 mg QD NG 05/08/17 17:00 06/07/17 16:59 Future hold 05/14/17 17:13 81 MG Heparin Sodium (Porcine) (Heparin 10 Unit/ ml 5 ml Flush) 5 ml PRN PRN FLUSH 05/09/17 01:30 06/08/17 01:29 Glucose (Glucose 40% Gel) 15-30 GRAMS 15 GRAMS... UD PRN PO 05/09/17 05:30 06/08/17 05:29 Glucose (Glucose Chew Tab) 4-8 Tablets 4 Tabl... UD PRN PO 05/09/17 05:30 06/08/17 05:29 Dextrose (Dextrose 50% 50ML Syringe) 25-50ML OF 50% DW IV FOR... UD PRN IV 05/09/17 05:30 06/08/17 05:29 Glucagon (Glucagon Inj) 1 mg UD PRN SQ 05/09/17 05:30 06/08/17 05:29 Acetaminophen 650 mg/Empty Bag 65 ml @ 260 mls/hr Q6H PRN IV 05/10/17 04:00 06/09/17 03:59 05/15/17 17:39 260 MLS/HR Levetiracetam 2000 mg/Dextrose 270 ml @ 999 mls/hr Q12 IV 05/10/17 21:00 06/07/17 20:59 05/15/17 21:20 999 MLS/HR Amiodarone HCl (Cordarone Tab) 100 mg BID PO 05/11/17 21:00 06/10/17 20:59 05/15/17 08:06 100 MG Oxymetazoline HCl (Afrin 0.05% Nasal [place]) 1 sprays Q12 NA 05/12/17 09:15 06/11/17 09:14 05/15/17 21:20 1 SPRAYS Valproate Sodium 750 mg/Dextrose 57.5 ml @ 55 mls/hr Q6H IV 05/12/17 12:00 06/11/17 11:59 05/16/17 00:25 55 MLS/HR Enteral Nutritional Formula (Peptamen Intense VHP) 1,000 ml UD PRN OG 05/13/17 12:00 06/12/17 11:59 05/13/17 12:15 1,000 ML Sucralfate (Carafate Susp) 1 gm Q6 PO 05/14/17 12:00 06/13/17 11:59 05/16/17 00:25 1 GM Multivitamins Therapeutic (Cerovite Liquid) 15 ml QAM PO 05/14/17 12:00 06/13/17 11:59 05/15/17 08:06 15 ML Norepinephrine Bitartrate 8 mg/ Dextrose 508 ml @ 0 mls/hr Q0M PRN IV 05/15/17 15:15 06/14/17 15:14 05/15/17 17:43 127 MLS/HR Miscellaneous Information (Consult) 1 ea UD PRN N/A 05/15/17 17:15 06/14/17 17:14 Vancomycin HCl 1750 mg/Sodium Chloride 535 ml @ 200 mls/hr Q24H IV 05/16/17 14:00 05/17/17 13:59 Cefepime HCl 1000 mg/Syringe 11 ml @ 5.5 mls/min Q12H IV 05/16/17 04:00 05/22/17 15:59 I & O: 05/15/17 05/16/17 05/17/17 08:00 08:00 08:00 Intake Total 4016 ml 3235 ml Output Total 1375 ml 2787 ml Balance 2641 ml 448 ml Vital Signs: Date Time Temp Pulse Resp B/P (MAP) Pulse Ox O2 Delivery O2 Flow Rate FiO2 05/16/17 02:04 100 05/16/17 01:01 38.2 88 27 91/40 (57) 93 05/16/17 00:45 38.1 88 27 119/47 (71) 93 Mechanical Ventilator 100 05/16/17 00:44 100 Mechanical Ventilator 100 05/16/17 00:44 100 05/16/17 00:31 38.1 87 27 91/41 (58) 93 Mechanical Ventilator 100 05/16/17 00:22 38.1 89 27 116/46 (69) 93 Mechanical Ventilator 100 05/16/17 00:16 38.0 89 27 92/42 (59) 94 Mechanical Ventilator 100 05/16/17 00:15 38.0 89 27 91/43 (59) 94 Mechanical Ventilator 100 05/16/17 00:01 38.0 89 27 95/43 (60) 95 Mechanical Ventilator 100 05/15/17 23:46 37.9 86 27 97/43 (61) 95 Mechanical Ventilator 100 05/15/17 23:31 37.8 88 27 98/43 (61) 95 Mechanical Ventilator 100 05/15/17 23:16 37.8 88 27 105/44 (64) 97 Mechanical Ventilator 100 05/15/17 23:15 37.8 88 27 106/45 (65) 97 Mechanical Ventilator 100 05/15/17 23:00 37.7 88 27 122/56 (78) 97 Mechanical Ventilator 100 05/15/17 22:55 100 05/15/17 22:46 37.6 88 27 95/40 (58) 96 Mechanical Ventilator 100 05/15/17 22:31 37.5 89 27 99/47 (64) 96 Mechanical Ventilator 100 05/15/17 22:16 37.5 89 27 102/45 (64) 97 Mechanical Ventilator 100 05/15/17 22:15 37.5 88 27 103/46 (65) 96 Mechanical Ventilator 100 05/15/17 22:15 37.4 88 132/61 (84) 05/15/17 22:01 37.4 88 27 106/46 (66) 97 Mechanical Ventilator 100 05/15/17 21:58 37.4 88 27 132/61 (84) Mechanical Ventilator 100 05/15/17 21:46 37.5 87 27 140/47 (78) Mechanical Ventilator 100 18 21:45 81 140/47 1918 21:35 88 128/54 18 21:31 37.6 84 27 61/46 (51) Mechanical Ventilator 100 19/18 21:30 89 75/40 1/19/18 21:16 37.5 89 27 101/44 (63) 100 Mechanical Ventilator 100 19/18 21:15 89 126/54 18 21:15 37.5 90 27 101/44 (63) 100 Mechanical Ventilator 100 18 21:01 37.5 88 27 104/45 (64) 100 Mechanical Ventilator 100 18 21:00 88 126/49 18 20:50 100 18 20:46 37.5 88 27 105/45 (65) 100 Mechanical Ventilator 100 18 20:45 88 126/54 18 20:31 37.5 88 27 102/45 (64) 100 Mechanical Ventilator 100 18 20:30 88 125/55 18 20:16 37.5 88 27 105/45 (65) 100 Mechanical Ventilator 100 18 20:15 88 130/53 18 20:15 37.5 88 27 105/45 (65) 100 Mechanical Ventilator 100 18 20:01 100 Mechanical Ventilator 100 18 20:01 100 18 20:01 37.5 88 27 104/44 (64) 100 Mechanical Ventilator 100 18 20:00 88 129/46 18 20:00 37.5 88 27 103/45 (64) 100 Mechanical Ventilator 100 18 19:46 37.6 88 27 101/44 (63) 100 Mechanical Ventilator 100 18 19:45 88 117/47 18 19:30 37.6 88 27 114/52 (72) 100 Mechanical Ventilator 100 19/18 19:30 88 114/52 1/19/18 19:16 37.7 88 27 90/42 (58) 97 Mechanical Ventilator 100 19/18 19:15 88 109/46 18 19:03 37.7 90 27 112/49 (70) 96 Mechanical Ventilator 100 1/19/18 19:00 37.8 91 27 112/46 (68) 95 Mechanical Ventilator 100 05/15/17 19:00 90 112/49 18 18:45 38.3 90 116/51 (72) 18 17:14 100 05/15/17 16:00 90 Mechanical Ventilator 100 05/15/17 16:00 100 05/15/17 16:00 38.3 62 27 107/40 (62) Mechanical Ventilator 100 05/15/17 15:45 38.3 63 27 93/39 (57) 90 Mechanical Ventilator 100 18 15:30 38.3 65 28 119/41 (67) 88 Mechanical Ventilator 100 05/15/17 15:13 38.3 56 27 104/38 (60) 74 Mechanical Ventilator 100 05/15/17 15:00 38.3 62 27 82/34 (50) 88 Mechanical Ventilator 100 05/15/17 14:18 100 05/15/17 14:15 38.2 74 27 94 05/15/17 14:14 38.2 75 27 89/38 (55) 90 Mechanical Ventilator 100 05/15/17 14:01 38.1 77 28 88/41 (57) 88 05/15/17 14:00 38.1 78 29 88 05/15/17 13:45 38.1 83 29 89 05/15/17 13:30 38.0 83 28 89 Mechanical Ventilator 80 05/15/17 13:15 38.0 84 28 89 05/15/17 13:01 37.9 84 28 92/42 (59) 89 Mechanical Ventilator 70 05/15/17 13:00 37.9 84 29 89 05/15/17 12:45 37.9 84 28 89 05/15/17 12:30 37.8 85 29 90 05/15/17 12:15 37.8 85 28 90 05/15/17 12:00 37.8 86 28 105/45 (65) 91 05/15/17 12:00 70 05/15/17 12:00 Mechanical Ventilator 05/15/17 11:45 37.7 86 28 91 05/15/17 10:59 70 05/15/17 10:55 70 05/15/17 09:30 37.2 83 26 92 05/15/17 09:15 37.2 83 28 91 05/15/17 09:00 37.2 83 27 125/48 (73) 92 Mechanical Ventilator 70 05/15/17 08:45 37.1 83 27 92 05/15/17 08:30 37.1 83 28 93 05/15/17 08:15 37.1 83 27 93 05/15/17 08:01 37.1 83 25 126/50 (75) 94 Mechanical Ventilator 70 05/15/17 08:00 Mechanical Ventilator 30 05/15/17 08:00 Mechanical Ventilator 05/15/17 08:00 60 05/15/17 08:00 37.0 83 25 93 05/15/17 07:45 37.0 82 27 94 05/15/17 07:30 37.0 82 26 94 05/15/17 07:23 70 05/15/17 07:15 37.0 82 26 94 05/15/17 07:01 37.0 81 27 130/49 (76) 88 Mechanical Ventilator 70 05/15/17 07:00 37.0 82 27 88 05/15/17 06:01 36.9 83 30 125/50 (67) 93 05/15/17 05:31 70 05/15/17 05:01 36.7 83 30 127/49 (67) 92 05/15/17 04:00 Mechanical Ventilator 05/15/17 04:00 36.6 83 29 116/47 (68) 90 05/15/17 04:00 60 05/15/17 03:00 36.5 83 28 116/47 (68) 91 05/15/17 02:40 60 Laboratory Results: Last 24 Hours Test 05/15/17 05:39 05/15/17 10:57 05/15/17 17:30 05/15/17 22:42 White Blood Count 8.17 K/uL Red Blood Count 3.99 M/uL Hemoglobin 12.7 g/dL Hematocrit 38.5 % Mean Corpuscular Volume 96.5 fL Mean Corpuscular Hemoglobin 31.8 pg Mean Corpuscular Hemoglobin Concent 33.0 g/dl RDW Standard Deviation 54.5 fL RDW Coefficient of Variation 15.4 % Platelet Count 87 K/uL Mean Platelet Volume 12.2 fL Nucleated RBC Absolute Count (auto) 0.06 K/uL Nucleated Red Blood Cells % 0.8 % Venous Blood pH 7.06 Venous Blood Partial Pressure CO2 67 mmHg Venous Blood Partial Pressure O2 62 mmHg Venous Blood HCO3 19 mmol/L Venous Blood Oxygen Saturation 83.9 % Venous Blood Base Excess -12.4 mEq/L Sodium Level 135 mmol/L Potassium Level 4.6 mmol/L Chloride Level 105 mmol/L Carbon Dioxide Level 19 mmol/L Anion Gap 11.0 mmol/L Blood Urea Nitrogen 68 mg/dl Creatinine 2.43 mg/dl Est Creatinine Clear Calc Drug Dose 34.6 ml/min Estimated GFR () 29.7 Estimated GFR (Non- 25.6 BUN/Creatinine Ratio 27.8 Random Glucose 82 mg/dl Calcium Level 8.1 mg/dl Phosphorus Level 4.8 mg/dl Magnesium Level 2.7 mg/dl Blood Gas Sample Site R Radial Bedside Blood Gas pH (LAB) 7.03 Bedside Blood Gas pCO2 (LAB) 61 mmHg Bedside Blood Gas pO2 (LAB) 69 mmHg Bedside Blood Gas HCO3 (LAB) 16 meq/L Bedside Blood Gas Total CO2 18 mEq/l Bedside Blood Gas Base Excess (LAB) -15.0 meq/L Bedside Blood Gas O2 Saturation 82.0 % Tani Test Pass Oxygen Delivery Device Ventilator Bedside Oxygen Rate (breaths/min) 20 Bedside FiO2 70 % Blood Gas Tidal Volume 500 Blood Gas PEEP 10 Lactic Acid Level 5.1 mmol/L 2.8 mmol/L Random Cortisol 111.76 mcg/dl Total Bilirubin 6.7 mg/dl Direct Bilirubin 5.6 mg/dl Aspartate Amino Transf (AST/SGOT) 270 U/L Alanine Aminotransferase (ALT/SGPT) 94 U/L Alkaline Phosphatase 164 U/L Total Protein 5.5 gm/dl Albumin 2.2 gm/dl Hepatitis B Surface Antigen NEG Hepatitis B Surface Antibody NEG Test 05/15/17 22:55 05/16/17 01:05 05/16/17 01:07 Blood Gas Sample Site Art Line Bedside Blood Gas pH (LAB) 7.21 Bedside Blood Gas pCO2 (LAB) 58 mmHg Bedside Blood Gas pO2 (LAB) 66 mmHg Bedside Blood Gas HCO3 (LAB) 24 meq/L Bedside Blood Gas Total CO2 25 mEq/l Bedside Blood Gas Base Excess (LAB) -4.0 meq/L Bedside Blood Gas O2 Saturation 89.0 % Tani Test NA Oxygen Delivery Device Ventilator Bedside Oxygen Rate (breaths/min) 27 Blood Gas Minute Ventilation 12.8 Bedside FiO2 100 % Blood Gas Tidal Volume 500 Blood Gas PEEP 8 Bedside Glucose 77 mg/dl Resident Tracking Resident Involvement: Resident Care Provided Care Provided: Adult Hospital Medicine
[2017-05-16] MEDS ORDERED: VASOPRESSIN INJ 50 UNITS in SODIUM CHLORIDE 0.9% 500ML 500 ML IV SCH (06:15)
[2017-05-16 06:52] LABS: CALCIUM 7.5 mg/dl (8.5-10.1); CREATININE 3.04 mg/dl (0.60-1.40); POTASSIUM 5.2 mmol/L (3.5-5.1)
[2017-05-16 06:54] LABS: HEMATOCRIT 31.1 % (42-52); HEMOGLOBIN 10.3 g/dL (14.0-18.0); MEAN CELL VOLUME 94.8 fL (80-100); MEAN CORPUSCULAR HEMOGLOBIN 31.4 pg (25-34); MEAN CORPUSCULAR HGB CONC 33.1 g/dl (32-36); MEAN PLATELET VOLUME 13.6 fL (7.4-10.4); PLATELET COUNT 49 K/uL (130-400); RED CELL DISTRIBUTION WIDTH SD 55.9 fL (36.4-46.3); WHITE BLOOD COUNT 16.34 K/uL (4.8-10.8)
[2017-05-16] MEDS ORDERED: CALCIUM GLUCONATE 10% 1,000 MG in SODIUM CHLORIDE 0.9% 50ML 50 ML IV STA (07:58)
[2017-05-16] MEDS: OXYMETAZOLINE HCL 0.05% NA SPR 15 ML BTL SCH (08:01)
[2017-05-16] MEDS: MULTIVITAMINS W/MINERALS 15ML UDP PO SCH (08:02)
[2017-05-16] MEDS: AMIODARONE 200 MG TAB PO SCH (08:02)
[2017-05-16] MEDS: LEVETIRACETAM IV 2,000 MG in DEXTROSE 5% 250ML 250 ML IV SCH (08:05)
--- NOTE | 2017-05-16 08:28 | Neurology Progress Notes ---
Neurology Progress Note Date of Service May 16, 2017. Subjective Patient has had no seizures for several days now from a clinical standpoint. No abnormal involuntary movements are noted despite being off all [employer] sedating medication. Phenobarbital level this morning was 25. Depakote level was 65. White count is elevated at 16 hemoglobin 10.3 hematocrit 31. Platelet count is 49. Sodium is low at 133 and potassium is elevated. There is an elevated BUN and creatinine and he received dialysis yesterday. Nursing reports no new events, except they are having a hard time keeping his blood pressure elevated even with medication. and no neurologic activity on examination. Objective Date Time Temp Pulse Resp B/P (MAP) Pulse Ox O2 Delivery O2 Flow Rate FiO2 05/16/17 07:55 100 05/16/17 06:01 38.7 100 27 109/52 (71) Mechanical Ventilator 100 05/16/17 05:46 38.7 94 27 107/50 (69) Mechanical Ventilator 100 05/16/17 05:39 38.7 93 27 124/50 (74) 93 Mechanical Ventilator 100 05/16/17 05:32 38.8 86 27 78/39 (52) 90 Mechanical Ventilator 100 05/16/17 05:31 38.8 86 27 67/41 (50) 91 Mechanical Ventilator 100 05/16/17 05:16 38.8 85 27 73/42 (52) 91 Mechanical Ventilator 100 05/16/17 05:15 38.8 88 27 77/43 (54) 91 Mechanical Ventilator 100 05/16/17 05:01 38.8 87 27 85/42 (56) Mechanical Ventilator 100 05/16/17 05:01 100 05/16/17 04:49 38.8 87 27 99/39 (59) Mechanical Ventilator 100 05/16/17 04:31 38.7 88 27 89/47 (61) Mechanical Ventilator 100 05/16/17 04:20 100 Mechanical Ventilator 100 05/16/17 04:20 100 05/16/17 04:16 38.7 88 27 87/46 (60) Mechanical Ventilator 100 05/16/17 04:15 38.7 87 27 88/46 (60) Mechanical Ventilator 100 05/16/17 04:01 38.6 88 27 88/46 (60) 91 Mechanical Ventilator 100 05/16/17 04:00 38.6 81 27 85/45 (58) 90 Mechanical Ventilator 100 05/16/17 03:46 38.6 90 27 87/47 (60) 93 Mechanical Ventilator 100 05/16/17 03:31 38.6 89 27 89/48 (62) 90 Mechanical Ventilator 100 05/16/17 03:25 38.6 89 27 120/46 (70) 92 Mechanical Ventilator 100 05/16/17 03:16 38.6 89 27 82/41 (55) 92 Mechanical Ventilator 100 05/16/17 03:01 38.5 87 27 82/41 (55) 93 Mechanical Ventilator 100 05/16/17 03:00 38.5 89 27 80/41 (54) 93 Mechanical Ventilator 100 05/16/17 02:46 38.5 89 27 86/41 (56) 93 Mechanical Ventilator 100 05/16/17 02:41 38.5 88 27 86/41 (56) 93 Mechanical Ventilator 100 05/16/17 02:31 38.5 89 27 85/42 (56) 93 Mechanical Ventilator 100 05/16/17 02:16 38.4 89 27 87/41 (56) 93 Mechanical Ventilator 100 05/16/17 02:04 100 05/16/17 02:01 38.4 89 26 91/42 (58) 94 Mechanical Ventilator 100 05/16/17 02:00 38.4 88 27 92/42 (59) 94 Mechanical Ventilator 100 05/16/17 01:46 38.3 89 27 92/42 (59) 94 Mechanical Ventilator 100 05/16/17 01:31 38.3 90 27 96/42 (60) 94 Mechanical Ventilator 100 05/16/17 01:16 38.2 89 27 98/43 (61) 94 Mechanical Ventilator 100 05/16/17 01:01 38.2 88 27 91/40 (57) 93 05/16/17 01:01 38.2 88 27 91/40 (57) 93 Mechanical Ventilator 100 05/16/17 01:00 38.2 87 27 91/41 (58) 93 Mechanical Ventilator 100 05/16/17 00:45 38.1 88 27 119/47 (71) 93 Mechanical Ventilator 100 05/16/17 00:44 100 Mechanical Ventilator 100 05/16/17 00:44 100 05/16/17 00:31 38.1 87 27 91/41 (58) 93 Mechanical Ventilator 100 05/16/17 00:22 38.1 89 27 116/46 (69) 93 Mechanical Ventilator 100 18 00:16 38.0 89 27 92/42 (59) 94 Mechanical Ventilator 100 18 00:15 38.0 89 27 91/43 (59) 94 Mechanical Ventilator 100 18 00:01 38.0 89 27 95/43 (60) 95 Mechanical Ventilator 100 18 23:46 37.9 86 27 97/43 (61) 95 Mechanical Ventilator 100 18 23:31 37.8 88 27 98/43 (61) 95 Mechanical Ventilator 100 18 23:16 37.8 88 27 105/44 (64) 97 Mechanical Ventilator 100 05/15/17 23:15 37.8 88 27 106/45 (65) 97 Mechanical Ventilator 100 05/15/17 23:00 37.7 88 27 122/56 (78) 97 Mechanical Ventilator 100 05/15/17 22:55 100 05/15/17 22:46 37.6 88 27 95/40 (58) 96 Mechanical Ventilator 100 05/15/17 22:31 37.5 89 27 99/47 (64) 96 Mechanical Ventilator 100 05/15/17 22:16 37.5 89 27 102/45 (64) 97 Mechanical Ventilator 100 05/15/17 22:15 37.5 88 27 103/46 (65) 96 Mechanical Ventilator 100 05/15/17 22:15 37.4 88 132/61 (84) 05/15/17 22:01 37.4 88 27 106/46 (66) 97 Mechanical Ventilator 100 05/15/17 21:58 37.4 88 27 132/61 (84) Mechanical Ventilator 100 05/15/17 21:46 37.5 87 27 140/47 (78) Mechanical Ventilator 100 05/15/17 21:45 81 140/47 18 21:35 88 128/54 18 21:31 37.6 84 27 61/46 (51) Mechanical Ventilator 100 18 21:30 89 75/40 18 21:16 37.5 89 27 101/44 (63) 100 Mechanical Ventilator 100 18 21:15 89 126/54 05/15/17 21:15 37.5 90 27 101/44 (63) 100 Mechanical Ventilator 100 05/15/17 21:01 37.5 88 27 104/45 (64) 100 Mechanical Ventilator 100 18 21:00 88 126/49 18 20:50 100 18 20:46 37.5 88 27 105/45 (65) 100 Mechanical Ventilator 100 18 20:45 88 126/54 18 20:31 37.5 88 27 102/45 (64) 100 Mechanical Ventilator 100 18 20:30 88 125/55 18 20:16 37.5 88 27 105/45 (65) 100 Mechanical Ventilator 100 18 20:15 88 130/53 18 20:15 37.5 88 27 105/45 (65) 100 Mechanical Ventilator 100 05/15/17 20:01 100 Mechanical Ventilator 100 05/15/17 20:01 100 18 20:01 37.5 88 27 104/44 (64) 100 Mechanical Ventilator 100 05/15/17 20:00 88 129/46 18 20:00 37.5 88 27 103/45 (64) 100 Mechanical Ventilator 100 05/15/17 19:46 37.6 88 27 101/44 (63) 100 Mechanical Ventilator 100 05/15/17 19:45 88 117/47 18 19:30 37.6 88 27 114/52 (72) 100 Mechanical Ventilator 100 18 19:30 88 114/52 18 19:16 37.7 88 27 90/42 (58) 97 Mechanical Ventilator 100 18 19:15 88 109/46 18 19:03 37.7 90 27 112/49 (70) 96 Mechanical Ventilator 100 05/15/17 19:00 37.8 91 27 112/46 (68) 95 Mechanical Ventilator 100 18 19:00 90 112/49 18 18:45 38.3 90 116/51 (72) 18 17:14 100 18 16:00 90 Mechanical Ventilator 100 18 16:00 100 18 16:00 38.3 62 27 107/40 (62) Mechanical Ventilator 100 18 15:45 38.3 63 27 93/39 (57) 90 Mechanical Ventilator 100 05/15/17 15:30 38.3 65 28 119/41 (67) 88 Mechanical Ventilator 100 05/15/17 15:13 38.3 56 27 104/38 (60) 74 Mechanical Ventilator 100 18 15:00 38.3 62 27 82/34 (50) 88 Mechanical Ventilator 100 05/15/17 14:18 100 18 14:15 38.2 74 27 94 05/15/17 14:14 38.2 75 27 89/38 (55) 90 Mechanical Ventilator 100 05/15/17 14:01 38.1 77 28 88/41 (57) 88 05/15/17 14:00 38.1 78 29 88 05/15/17 13:45 38.1 83 29 89 05/15/17 13:30 38.0 83 28 89 Mechanical Ventilator 80 05/15/17 13:15 38.0 84 28 89 05/15/17 13:01 37.9 84 28 92/42 (59) 89 Mechanical Ventilator 70 05/15/17 13:00 37.9 84 29 89 05/15/17 12:45 37.9 84 28 89 05/15/17 12:30 37.8 85 29 90 05/15/17 12:15 37.8 85 28 90 05/15/17 12:00 37.8 86 28 105/45 (65) 91 05/15/17 12:00 70 05/15/17 12:00 Mechanical Ventilator 05/15/17 11:45 37.7 86 28 91 05/15/17 10:59 70 05/15/17 10:55 70 05/15/17 09:30 37.2 83 26 92 05/15/17 09:15 37.2 83 28 91 05/15/17 09:00 37.2 83 27 125/48 (73) 92 Mechanical Ventilator 70 05/15/17 08:45 37.1 83 27 92 05/15/17 08:30 37.1 83 28 93 Last 24 Hours Test 05/15/17 10:57 05/15/17 17:30 05/15/17 22:42 05/15/17 22:55 Blood Gas Sample Site R Radial Art Line Bedside Blood Gas pH (LAB) 7.03 7.21 Bedside Blood Gas pCO2 (LAB) 61 mmHg 58 mmHg Bedside Blood Gas pO2 (LAB) 69 mmHg 66 mmHg Bedside Blood Gas HCO3 (LAB) 16 meq/L 24 meq/L Bedside Blood Gas Total CO2 18 mEq/l 25 mEq/l Bedside Blood Gas Base Excess (LAB) -15.0 meq/L -4.0 meq/L Bedside Blood Gas O2 Saturation 82.0 % 89.0 % Tani Test Pass NA Oxygen Delivery Device Ventilator Ventilator Bedside Oxygen Rate (breaths/min) 20 27 Bedside FiO2 70 % 100 % Blood Gas Tidal Volume 500 500 Blood Gas PEEP 10 8 Lactic Acid Level 5.1 mmol/L 2.8 mmol/L Random Cortisol 111.76 mcg/dl Total Bilirubin 6.7 mg/dl Direct Bilirubin 5.6 mg/dl Aspartate Amino Transf (AST/SGOT) 270 U/L Alanine Aminotransferase (ALT/SGPT) 94 U/L Alkaline Phosphatase 164 U/L Total Protein 5.5 gm/dl Albumin 2.2 gm/dl Hepatitis B Surface Antigen NEG Hepatitis B Surface Antibody NEG Blood Gas Minute Ventilation 12.8 Test 05/16/17 01:05 05/16/17 01:07 05/16/17 03:49 05/16/17 05:10 Bedside Glucose 77 mg/dl Sodium Level 131 mmol/L Potassium Level 5.2 mmol/L Chloride Level 101 mmol/L Carbon Dioxide Level 23 mmol/L Anion Gap 7.0 mmol/L Blood Urea Nitrogen 58 mg/dl Creatinine 2.98 mg/dl Est Creatinine Clear Calc Drug Dose 28.8 ml/min Estimated GFR () 23.2 Estimated GFR (Non- 20.0 BUN/Creatinine Ratio 19.6 Random Glucose 79 mg/dl Calcium Level 7.6 mg/dl Prothrombin Time 13.8 SECONDS Prothromb Time International Ratio 1.3 Activated Partial Thromboplast Time 42.3 SECONDS Partial Thromboplastin Ratio 1.6 Blood Gas Sample Site Art Line Bedside Blood Gas pH (LAB) 7.13 Bedside Blood Gas pCO2 (LAB) 59 mmHg Bedside Blood Gas pO2 (LAB) 57 mmHg Bedside Blood Gas HCO3 (LAB) 20 meq/L Bedside Blood Gas Total CO2 22 mEq/l Bedside Blood Gas Base Excess (LAB) -10.0 meq/L Bedside Blood Gas O2 Saturation 81.0 % Tani Test NA Oxygen Delivery Device Ventilator Bedside Oxygen Rate (breaths/min) 27 Blood Gas Minute Ventilation 12.9 Bedside FiO2 100 % Blood Gas Tidal Volume 500 Blood Gas PEEP 8 Test 05/16/17 05:46 05/16/17 05:59 White Blood Count 16.34 K/uL Red Blood Count 3.28 M/uL Hemoglobin 10.3 g/dL Hematocrit 31.1 % Mean Corpuscular Volume 94.8 fL Mean Corpuscular Hemoglobin 31.4 pg Mean Corpuscular Hemoglobin Concent 33.1 g/dl RDW Standard Deviation 55.9 fL RDW Coefficient of Variation 16.0 % Platelet Count 49 K/uL Mean Platelet Volume 13.6 fL Nucleated RBC Absolute Count (auto) 0.70 K/uL Nucleated Red Blood Cells % 4.3 % Platelet Estimate DECREASED Venous Blood pH 7.20 Venous Blood Partial Pressure CO2 62 mmHg Venous Blood Partial Pressure O2 64 mmHg Venous Blood HCO3 24 mmol/L Venous Blood Oxygen Saturation 88.2 % Venous Blood Base Excess -5.0 mEq/L Sodium Level 133 mmol/L Potassium Level 5.2 mmol/L Chloride Level 99 mmol/L Carbon Dioxide Level 23 mmol/L Anion Gap 12.0 mmol/L Blood Urea Nitrogen 59 mg/dl Creatinine 3.04 mg/dl Est Creatinine Clear Calc Drug Dose 27.4 ml/min Estimated GFR () 22.6 Estimated GFR (Non- 19.5 BUN/Creatinine Ratio 19.4 Random Glucose 69 mg/dl Lactic Acid Level 3.9 mmol/L Calcium Level 7.5 mg/dl Ionized Calcium 1.02 mmol/l Valproic Acid (Depakene) Level 65 mcg/ml Phenobarbital Level 24.7 mcg/mL Bedside Glucose 78 mg/dl Exam: The patient does occasionally breathe over the ventilator. He is lying still with no spontaneous movement. Limbs are flaccid. Eyes open passively pupils are 3 millimeters bilaterally and no reaction to light. Eyes are front and there are no oculocephalics (eyes fixed). There is no corneal reflex flexor response bilaterally. There is no gag and no cough to deep suctioning. Deep pain elicits no response at all in all 4 limbs or sternum. Reflexes are absent in all 4 limbs. Toes are neutral to plantar stimulation bilaterally. Current Inpatient Medications Medications (Trade) Dose Ordered Sig/Te Route Start Time Stop Time Status Last Admin Dose Admin Artificial Tears (Lacri-Lube Oph Oint) 1 appln Q2H PRN OPB 05/08/17 11:15 06/07/17 11:14 05/08/17 22:00 1 APPLN Hydromorphone HCl (Dilaudid Inj) 1 mg Q20M PRN IV 05/08/17 11:15 05/22/17 11:14 Acetaminophen (Tylenol Supp) 650 mg ONE PRN TX 05/08/17 11:15 Aspirin (Aspirin Chew) 81 mg QD NG 05/08/17 17:00 06/07/17 16:59 Future hold 05/14/17 17:13 81 MG Heparin Sodium (Porcine) (Heparin 10 Unit/ ml 5 ml Flush) 5 ml PRN PRN FLUSH 05/09/17 01:30 06/08/17 01:29 Glucose (Glucose 40% Gel) 15-30 GRAMS 15 GRAMS... UD PRN PO 05/09/17 05:30 06/08/17 05:29 Glucose (Glucose Chew Tab) 4-8 Tablets 4 Tabl... UD PRN PO 05/09/17 05:30 06/08/17 05:29 Dextrose (Dextrose 50% 50ML Syringe) 25-50ML OF 50% DW IV FOR... UD PRN IV 05/09/17 05:30 06/08/17 05:29 Glucagon (Glucagon Inj) 1 mg UD PRN SQ 05/09/17 05:30 06/08/17 05:29 Acetaminophen 650 mg/Empty Bag 65 ml @ 260 mls/hr Q6H PRN IV 05/10/17 04:00 06/09/17 03:59 05/15/17 17:39 260 MLS/HR Levetiracetam 2000 mg/Dextrose 270 ml @ 999 mls/hr Q12 IV 05/10/17 21:00 06/07/17 20:59 05/16/17 08:05 999 MLS/HR Amiodarone HCl (Cordarone Tab) 100 mg BID PO 05/11/17 21:00 06/10/17 20:59 05/16/17 08:02 100 MG Oxymetazoline HCl (Afrin 0.05% Nasal [place]) 1 sprays Q12 NA 05/12/17 09:15 06/11/17 09:14 05/16/17 08:01 1 SPRAYS Valproate Sodium 750 mg/Dextrose 57.5 ml @ 55 mls/hr Q6H IV 05/12/17 12:00 06/11/17 11:59 05/16/17 06:00 55 MLS/HR Enteral Nutritional Formula (Peptamen Intense VHP) 1,000 ml UD PRN OG 05/13/17 12:00 06/12/17 11:59 05/13/17 12:15 1,000 ML Sucralfate (Carafate Susp) 1 gm Q6 PO 05/14/17 12:00 06/13/17 11:59 05/16/17 00:25 1 GM Multivitamins Therapeutic (Cerovite Liquid) 15 ml QAM PO 05/14/17 12:00 06/13/17 11:59 05/16/17 08:02 15 ML Miscellaneous Information (Consult) 1 ea UD PRN N/A 05/15/17 17:15 06/14/17 17:14 Vancomycin HCl 1750 mg/Sodium Chloride 535 ml @ 200 mls/hr Q24H IV 05/16/17 14:00 05/17/17 13:59 Cefepime HCl 1000 mg/Syringe 11 ml @ 5.5 mls/min Q12H IV 05/16/17 04:00 05/22/17 15:59 05/16/17 03:58 5.5 MLS/MIN Norepinephrine Bitartrate 16 mg/ Dextrose 516 ml @ 0 mls/hr Q0M PRN IV 05/16/17 04:45 06/15/17 04:44 Vasopressin 50 units/Sodium Chloride 502.5 ml @ 24 mls/hr [id number] IV 05/16/17 06:15 06/15/17 06:14 05/16/17 06:15 24 MLS/HR Impression 1. Post cardiac arrest May 08. He has a profound encephalopathy Neurologic examination today shows no evidence of cerebral or spinal cord activity. The patient does breathe some over the ventilator signifying some lower brainstem activity. Otherwise, I cannot detect any other brainstem activity clinically. 2. Patient's family is concerned about acute lead poisoning. 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 They are concerned that lead from the paint was inhaled and is causing this condition. Serum lead level from admission was 6 (normal 0-9), therefore, lead toxicity is not an issue in this case. Plan 1. Keep Depakote 750 milligrams IV Q 6 hours but follow levels each morning. The level may go up now that he is off phenobarbital. 2. The phenobarbital level as lowered with dialysis. 3. Continue levetiracetam 2000 mg IV q.12 hours, for now. Overall, the patient has a grave prognosis neurologically. In my experience, I have never seen anyone with this clinical picture given this time frame make any meaningful neurologic recovery. I have no further neurologic testing or treatment recommendations to make at this time. I have spoken with Dr. White regarding this case.
[2017-05-16] MEDS ORDERED: VANCOMYCIN INJ 1,750 MG in SODIUM CHLORIDE 0.9% 500ML 500 ML IV SCH (14:00)
--- NOTE | 2017-05-28 13:50 | Death Summary ---
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 In the emergency department he received approximately 20 minutes of CPR and they achieved return of spontaneous circulation. He was treated with therapeutic hypothermia. He was also noted to enter a seizure disorder and required antiseizure medication. Ultimately he was given a trial of brain rest with a phenobarbital infusion. Upon his arrival he had been intubated by EMS, he underwent a left subclavian triple-lumen catheter, he had a right axillary a line placed. He also had nasal packing. Nasal packing was removed on 05/12/2017 as well as the right axillary arterial line. The patient remained critically ill during his entire stay and required continuous EEG monitoring which was stopped on 05/14/2017. On 05/15/2017 the patient's renal function continued to deteriorate requiring the placement of a right femoral hemodialysis catheter for a trial of hemodialysis. On the the patient developed a Escherichia coli pneumonia and bacteremia. The patient continued to decompensate entered multi-system organ failure and at 0852 on May 16, 2017.
--- NOTE | 2017-06-09 05:31 | EDITING REQUIRED CODING QUERY ---
PRESENT ON ADMISSION QUERY To promote full compliance with coding requirements relating to patient care, physician participation is requested in all cases of telecommunications line installer uncertainty. Please assist us with the question(s) below: Please place an X within the parenthesis (x). The following diagnosis listed in this patient's medical record requires physician assistance to determine if they were present on admission (POA) or not. Please advise for each diagnosis whether it was present on admission, not present on admission, or if it was clinically undetermined. 1. Sepsis, listed in summary ( ) Present On Admission (X ) Not Present On Admission ( ) Clinically Undetermined Thank you! Angella Butcher *Definition of the present on admission (POA)-Present on admission is defined as present at the time the order for inpatient admission occurs. Conditions that develop during an outpatient encounter prior to a written order for inpatient admission (including emergency department, observation, or outpatient surgery) are considered present on admission.
== END 2017-05-16 13:04 | disposition expired | DRG 264 ==
LOC: EDBD 08:59 → C.EDB 09:00 → C.MSICU 10:45 → ENRESERV 10:51
PROVIDERS: ADMIT Family Medicine; ATTEND Internal Medicine Sports Medicine
PROC: 5A1955Z Respiratory Ventilation, Greater than 96 Consecutive Hours (ICD-10-PCS; principal; 2017-05-08)
PROC: 05H633Z Insertion of Infusion Device into Left Subclavian Vein, Percutaneous Approach (ICD-10-PCS; principal; 2017-05-08)
PROC: 03H533Z Insertion of Infusion Device into Right Axillary Artery, Percutaneous Approach (ICD-10-PCS; principal; 2017-05-08)
PROC: 03HC33Z Insertion of Infusion Device into Left Radial Artery, Percutaneous Approach (ICD-10-PCS; 2017-05-15)
PROC: 0B9J8ZX Drainage of Left Lower Lung Lobe, Via Natural or Artificial Opening Endoscopic, Diagnostic (ICD-10-PCS; 2017-05-15)
DX: I46.9 Cardiac arrest, cause unspecified (principal); J96.90 Respiratory failure, unspecified, unspecified whether with hypoxia or hypercapnia; R40.20 Unspecified coma; N17.0 Acute kidney failure with tubular necrosis; J15.5 Pneumonia due to Escherichia coli; A41.9 Sepsis, unspecified organism; I42.9 Cardiomyopathy, unspecified; G93.1 Anoxic brain damage, not elsewhere classified; I48.92 Unspecified atrial flutter; I48.0 Paroxysmal atrial fibrillation; R04.0 Epistaxis; Z51.5 Encounter for palliative care; Z79.82 Long term (current) use of aspirin; Z79.899 Other long term (current) drug therapy